=== PATIENT | male | born 1955 | race Caucasian/White ===

== ENCOUNTER 2017-11-14 00:11 | Emergency (ER) | payer BC, OTHER ==
--- NOTE | 2017-11-14 00:51 | EDM.PDOC ---
ED HPI GENERAL MEDICAL PROBLEM - General Chief Complaint: General Stated Complaint: LEG CRAMPS Time Seen by Provider: 11/14/17 00:11 Source of Information: Reports: Patient History Limitations: Reports: No Limitations - History of Present Illness INITIAL COMMENTS - FREE TEXT/NARRATIVE: 62 y.o.w.m with h/o IDDM. Smoker and Meth user, came to the ed because his left lower keg is swollen. He noticed it yesterday, I had similar symptoms before. No SOB, Pt stated he is not compliant with his meds. Pt denied trauma. 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 No N/V/D or any other acute medical issues. BP 106/74 RR 18 Pulse ox 99% on RA Temp 36.9 pulse 85 Onset Date: 11/12/17 Onset Time: 07:00 Duration: Intermittent Location: Reports: Lower Extremity, Left Quality: Reports: Dull, Pressure Severity: Moderate Improves with: Reports: Rest Worsens with: Reports: Movement Associated Symptoms: Reports: No Other Symptoms Bilateral Leg Pain Score (Numeric/FACES): 3 - Related Data Allergies Allergy/AdvReac Type Severity Reaction Status Date / Time No Known Allergies Allergy Verified 11/14/17 00:42 Home Meds: Home Meds Insulin Detemir [Levemir] 40 units SUBCUT BEDTIME 02/17/14 [History] Insulin Lispro [Humalog] See Protocol SUBCUT ASDIRECTED 02/17/14 [History] metFORMIN [Glucophage] 850 mg PO BID 02/17/14 [History] Past Medical History Endocrine/Metabolic History: Reports: Diabetes, Type II, IDDM Social & Family History - Tobacco Use Smoking Status *Q: Current Every Day Smoker Years of Tobacco use: 45 Packs/Tins Daily: 0.5 - Caffeine Use Caffeine Use: Reports: Coffee - Recreational Drug Use Recreational Drug Use: Yes Drug Use in Last 12 Months: Yes Recreational Drug Type: Reports: Methamphetamine Recreational Drug Use Frequency: Weekly ED ROS GENERAL - Review of Systems Review Of Systems: See Below Constitutional: Reports: No Symptoms HEENT: Reports: No Symptoms Respiratory: Reports: No Symptoms Cardiovascular: Reports: No Symptoms Endocrine: Reports: No Symptoms GI/Abdominal: Reports: No Symptoms : Reports: No Symptoms Musculoskeletal: Reports: Other (swelling left lower extremity) Skin: Reports: No Symptoms Neurological: Reports: No Symptoms Psychiatric: Reports: No Symptoms Hematologic/Lymphatic: Reports: No Symptoms Immunologic: Reports: No Symptoms ED EXAM, GENERAL - Physical Exam Exam: See Below Exam Limited By: No Limitations General Appearance: Alert, Mild Distress, Thin Eye Exam: Bilateral Eye: Normal Inspection Ears: Normal External Exam Ear Exam: Bilateral Ear: Auricle Normal Nose: Normal Inspection, Normal Mucosa Throat/Mouth: Normal Inspection, Normal Lips, Normal Oropharynx, Normal Voice, No Airway Compromise Head: Atraumatic, Normocephalic Neck: Normal Inspection, Supple, Non-Tender, Full Range of Motion Respiratory/Chest: No Respiratory Distress, Lungs Clear, Normal Breath Sounds, No Accessory Muscle Use, Chest Non-Tender Cardiovascular: Normal Peripheral Pulses, Regular Rate, Rhythm, No JVD, No Murmur, No Rub GI/Abdominal: Normal Bowel Sounds, Soft, Non-Tender (Male) Exam: Deferred Rectal (Males) Exam: Deferred Back Exam: Normal Inspection, Full Range of Motion Extremities: Normal Range of Motion, Non-Tender, Pedal Edema (pitting left lower leg) Neurological: Alert, Oriented, CN II-XII Intact, Normal Cognition, Normal Gait, Normal Reflexes, No Motor/Sensory Deficits Psychiatric: Normal Affect, Normal Mood Skin Exam: Warm, Dry, Intact, Normal Color, No Rash Lymphatic: No Adenopathy Course - Vital Signs Text/Narrative:: 62 y.o.w.m with h/o IDDM. Smoker and Meth user, came to the ed because his left lower keg is swollen. He noticed it yesterday, I had similar symptoms before. No SOB, Pt stated he is not compliant with his meds. Pt denied trauma. 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 No N/V/D or any other acute medical issues. BP 106/74 RR 18 Pulse ox 99% on RA Temp 36.9 pulse 85 PE: WNWD W M,Thin, with pitting edema left lower extremity Labs: CBC nl Na 133 K 4.7 BNP 154 Cr 1.2 BUN 20 GFR >60 Impreesion: Poor contolled IDDM, Left leg edema Tx: non in the Reexam: Pt was doing fine. US was not available Plan: D/C with instructions Last Recorded V/S: Last Vital Signs Temp 36.6 C 11/14/17 00:15 Pulse 80 11/14/17 01:45 Resp 16 11/14/17 01:45 BP 102/54 L 11/14/17 01:45 Pulse Ox 95 11/14/17 01:45 - Orders/Labs/Meds Labs: Laboratory Tests 11/14/17 11/14/17 11/14/17 Range/Units 01:00 01:00 01:00 WBC 7.5 (4.5-12.0) X10-3/uL RBC 4.23 L (4.30-5.75) x10(6)uL Hgb 13.4 (11.5-15.5) g/dL Hct 38.1 (30.0-51.3) % MCV 90.0 (80-96) fL MCH 31.7 (27.7-33.6) pg MCHC 35.2 (32.2-35.4) g/dL RDW 12.8 (11.5-15.5) % Plt Count 283 (125-369) X10(3)uL MPV 8.2 (7.4-10.4) fL Neut % (Auto) 62.5 (46-82) % Lymph % (Auto) 27.0 (13-37) % [place] % (Auto) 7.1 (4-12) % Eos % (Auto) 3 (1.0-5.0) % Baso % (Auto) 0 (0-2) % Neut # (Auto) 4.8 (1.6-8.3) # Lymph # (Auto) 2.0 (0.6-5.0) # [place] # (Auto) 0.5 (0.0-1.3) # Eos # (Auto) 0.2 (0.0-0.8) # Baso # (Auto) 0.0 (0.0-0.2) # Sodium 133 L (135-145) mmol/L Potassium 4.6 (3.5-5.3) mmol/L Chloride 94 L (100-110) mmol/L Carbon Dioxide 32 (21-32) mmol/L BUN 24 H (7-18) mg/dL Creatinine 1.2 (0.70-1.30) mg/dL Est Cr Clr Drug Dosing 64.68 mL/min Estimated GFR (MDRD) > 60 (>60) BUN/Creatinine Ratio 20.0 (9-20) Glucose 172 H (80-116) mg/dL Hemoglobin A1c (4.5-6.2) % Calcium 9.6 (8.6-10.2) mg/dL NT-Pro-B Natriuret Pep 158 H (<=125) pg/mL 11/14/17 Range/Units 01:00 WBC (4.5-12.0) X10-3/uL RBC (4.30-5.75) x10(6)uL Hgb (11.5-15.5) g/dL Hct (30.0-51.3) % MCV (80-96) fL MCH (27.7-33.6) pg MCHC (32.2-35.4) g/dL RDW (11.5-15.5) % Plt Count (125-369) X10(3)uL MPV (7.4-10.4) fL Neut % (Auto) (46-82) % Lymph % (Auto) (13-37) % [place] % (Auto) (4-12) % Eos % (Auto) (1.0-5.0) % Baso % (Auto) (0-2) % Neut # (Auto) (1.6-8.3) # Lymph # (Auto) (0.6-5.0) # [place] # (Auto) (0.0-1.3) # Eos # (Auto) (0.0-0.8) # Baso # (Auto) (0.0-0.2) # Sodium (135-145) mmol/L Potassium (3.5-5.3) mmol/L Chloride (100-110) mmol/L Carbon Dioxide (21-32) mmol/L BUN (7-18) mg/dL Creatinine (0.70-1.30) mg/dL Est Cr Clr Drug Dosing mL/min Estimated GFR (MDRD) (>60) BUN/Creatinine Ratio (9-20) Glucose (80-116) mg/dL Hemoglobin A1c 13.3 H (4.5-6.2) % Calcium (8.6-10.2) mg/dL NT-Pro-B Natriuret Pep (<=125) pg/mL Departure - Departure Time of Disposition: 01:53 Disposition: Home, Self-Care 01 Condition: Good Clinical Impression: Poorly controlled diabetes mellitus, Swelling of left lower extremity - Discharge Information Instructions: Vascular Ultrasound Referrals: Mack Huertas MD [Primary Care Provider] - Forms: ED Department Discharge Additional Instructions: Please take your insulin as recommended, please call in am for an ultrasound of your left lower leg, Please f/u, come back if your symptoms get worse acutely
[2017-11-14 02:06] VITALS: BP 102/54
== END 2017-11-14 02:00 | disposition home or self-care (01) ==
LOC: FB.ED 00:11
DX: R60.0 Localized edema (principal); E11.9 Type 2 diabetes mellitus without complications; Z79.4 Long term (current) use of insulin; F17.210 Nicotine dependence, cigarettes, uncomplicated
CPT/HCPCS: 36415; 80048; 83036; 83880; 85025; 93971-LT; 99283

== ENCOUNTER 2018-07-30 13:14 | Emergency (ER) | payer SELFPAY ==
[2018-07-30] MEDS ORDERED: Sodium Chloride 0.9% 10 ML Syringe FLUSH PRN (13:46)
[2018-07-30] MEDS ORDERED: Insulin Regular, Human 100 Units/ML 3 ML Vial IV ONE (13:48)
[2018-07-30] MEDS ORDERED: Sodium Chloride 0.9% 1,000 ML IV ONE ×2 (13:48→15:54)
[2018-07-30 14:45] LABS: HEMOGLOBIN A1C 12.6 % (4.5-6.2)
--- NOTE | 2018-07-30 15:14 | EDM.PDOC ---
ED HPI GENERAL MEDICAL PROBLEM - General Chief Complaint: Diabetic Complaint Stated Complaint: BLOOD SUGAR HIGH Time Seen by Provider: 07/30/18 13:30 Source of Information: Reports: Patient History Limitations: Reports: No Limitations - History of Present Illness INITIAL COMMENTS - FREE TEXT/NARRATIVE: 63-year-old male who reports that he has not had money to get his insulin or other medications for the past month and a half. He reports that his blood sugars have been running "high" for this month to month and a half. He reports that he has been eating and drinking normally. He does report that he has had polydipsia area. He does feel fatigued and with low energy all the time. No shortness of breath. No cough. He has no pain. He rates his pain as a 0/10. He has had no nausea or vomiting. No fevers or chills. No dysuria. He was seen at the [facility] [place] in [place], found to have a blood sugar reading of "high" and was told to come to the emergency department for evaluation. There are no other associated signs or symptoms. There are no other modifying factors. 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 - Related Data Allergies Allergy/AdvReac Type Severity Reaction Status Date / Time No Known Allergies Allergy Verified 11/14/17 00:42 Home Meds: Home Meds Insulin Detemir [Levemir] 40 units SUBCUT BEDTIME 02/17/14 [History] Insulin Lispro [Humalog] See Protocol SUBCUT ASDIRECTED 02/17/14 [History] metFORMIN [Glucophage] 850 mg PO BID 02/17/14 [History] Past Medical History Gastrointestinal History: Reports: GERD Neurological History: Reports: Neuropathy, Diabetic Endocrine/Metabolic History: Reports: Diabetes, Type II, IDDM - Past Surgical History Other Surgical History Comment: No previous surgeries. Social & Family History - Family History Cardiac: Reports: CAD, High Cholesterol, Hypertension Respiratory: Reports: COPD : Reports: Renal Disease/Insufficiency Neurological: Reports: CVA Endocrine/Metabolic: Reports: Diabetes, type II - Tobacco Use Smoking Status *Q: Former Smoker (Quit 1-1/2 months ago.) Used Tobacco, but Quit: Yes Month/Year Tobacco Last Used: 05/2018 - Caffeine Use Caffeine Use: Reports: Coffee, Soda, Tea - Alcohol Use Alcohol Use History: No - Recreational Drug Use Recreational Drug Use: Yes Recreational Drug Type: Reports: Methamphetamine - Living Situation & Occupation Occupation: Employed ED ROS GENERAL - Review of Systems Review Of Systems: See Below Constitutional: Reports: Malaise, Fatigue HEENT: Reports: Other (Dry mouth) Respiratory: Reports: No Symptoms Cardiovascular: Reports: No Symptoms Endocrine: Reports: Fatigue, High Glucose, Polydypsia, Polyuria GI/Abdominal: Reports: No Symptoms : Reports: Frequency (As above with polyuria). Denies: Dysuria, Flank Pain, Hematuria, Urgency Musculoskeletal: Reports: No Symptoms Skin: Reports: No Symptoms Neurological: Reports: No Symptoms Psychiatric: Reports: No Symptoms Hematologic/Lymphatic: Reports: No Symptoms Immunologic: Reports: No Symptoms ED EXAM GENERAL NO PERIP PULSE - Physical Exam Exam: See Below Exam Limited By: No Limitations General Appearance: Alert, WD/WN, No Apparent Distress Eye Exam: Bilateral Eye: EOMI, Normal Inspection, PERRL Ears: Normal External Exam, Hearing Grossly Normal Nose: Normal Inspection, Normal Mucosa Throat/Mouth: Normal Voice, No Airway Compromise, Other (Dry mouth) Head: Atraumatic, Normocephalic Neck: Normal Inspection, Supple, Non-Tender, Full Range of Motion Respiratory/Chest: No Respiratory Distress, Lungs Clear, Normal Breath Sounds, No Accessory Muscle Use, Chest Non-Tender Cardiovascular: Normal Peripheral Pulses, Regular Rate, Rhythm, No JVD GI/Abdominal: Normal Bowel Sounds, Soft, Non-Tender, No Organomegaly, No Distention, No Mass Extremities: Normal Inspection, Normal Range of Motion, Non-Tender, No Pedal Edema, Normal Capillary Refill Neurological: Alert, Oriented, CN II-XII Intact, Normal Cognition, No Motor/ Sensory Deficits Psychiatric: Normal Affect Skin Exam: Warm, Dry, Intact, Normal Color, Tattoo(s) Lymphatic: No Adenopathy Course - Vital Signs Last Recorded V/S: Last Vital Signs Temp 36.3 C 07/30/18 13:14 Pulse 70 07/30/18 13:14 Resp 18 07/30/18 13:14 BP 110/69 07/30/18 13:14 Pulse Ox 99 07/30/18 13:14 - Orders/Labs/Meds Orders: Active Orders 24 hr Category Date Time Status Insulin Glarg,Human.Rec.Analog [LantUS Solostar] Med 07/30/18 21:00 Ordered 30 units SUBCUT BEDTIME Insulin Lispro [HumaLOG] Med 07/31/18 08:00 Ordered See Dose Instructions SUBCUT TIDMEALS Sodium Chloride 0.9% [Saline Flush] Med 07/30/18 13:46 Active 10 ml FLUSH ASDIRECTED PRN Peripheral IV Insertion Adult [OM.PC] Routine Oth 07/30/18 13:46 Ordered Medication Orders Sodium Chloride (Saline Flush) 10 ml FLUSH ASDIRECTED PRN PRN Reason: Keep Vein Open Last Admin: 07/30/18 14:51 Dose: 10 ml Labs: Laboratory Tests 07/30/18 07/30/18 07/30/18 Range/Units 13:24 14:00 14:00 WBC 7.5 (4.5-12.0) X10-3/uL RBC 4.71 (4.30-5.75) x10(6)uL Hgb 14.5 (13.5-17.8) g/dL Hct 42.6 (30.0-51.3) % MCV 90.3 (80-96) fL MCH 30.7 (27.7-33.6) pg MCHC 34.0 (32.2-35.4) g/dL RDW 12.8 (11.5-15.5) % Plt Count 233 (125-369) X10(3)uL MPV 8.5 (7.4-10.4) fL Neut % (Auto) 69.5 (46-82) % Lymph % (Auto) 22.6 (13-37) % [place] % (Auto) 5.5 (4-12) % Eos % (Auto) 2 (1.0-5.0) % Baso % (Auto) 1 (0-2) % Neut # (Auto) 5.2 (1.6-8.3) # Lymph # (Auto) 1.7 (0.6-5.0) # [place] # (Auto) 0.4 (0.0-1.3) # Eos # (Auto) 0.1 (0.0-0.8) # Baso # (Auto) 0.1 (0.0-0.2) # Sodium 124 L (135-145) mmol/L Potassium 5.3 (3.5-5.3) mmol/L Chloride 87 L* D (100-110) mmol/L Carbon Dioxide 25 (21-32) mmol/L BUN 20 H (7-18) mg/dL Creatinine 1.2 (0.70-1.30) mg/dL Est Cr Clr Drug Dosing 63.87 mL/min Estimated GFR (MDRD) > 60 (>60) BUN/Creatinine Ratio 16.7 (9-20) Glucose 608 H* D (80-116) mg/dL POC Glucose > 500 H* (80-116) mg/dL Hemoglobin A1c (4.5-6.2) % Calcium 9.6 (8.6-10.2) mg/dL Magnesium (1.8-2.5) mg/dL Total Bilirubin 0.7 (0.1-1.3) mg/dL AST 14 (5-25) IU/L ALT 33 (12-36) U/L Alkaline Phosphatase 124 H (56-112) IU/L Total Protein 6.7 (6.0-8.0) g/dL Albumin 3.7 (3.2-4.6) g/dL Globulin 3.0 g/dL Albumin/Globulin Ratio 1.2 07/30/18 07/30/18 07/30/18 Range/Units 14:00 14:00 15:53 WBC (4.5-12.0) X10-3/uL RBC (4.30-5.75) x10(6)uL Hgb (13.5-17.8) g/dL Hct (30.0-51.3) % MCV (80-96) fL MCH (27.7-33.6) pg MCHC (32.2-35.4) g/dL RDW (11.5-15.5) % Plt Count (125-369) X10(3)uL MPV (7.4-10.4) fL Neut % (Auto) (46-82) % Lymph % (Auto) (13-37) % [place] % (Auto) (4-12) % Eos % (Auto) (1.0-5.0) % Baso % (Auto) (0-2) % Neut # (Auto) (1.6-8.3) # Lymph # (Auto) (0.6-5.0) # [place] # (Auto) (0.0-1.3) # Eos # (Auto) (0.0-0.8) # Baso # (Auto) (0.0-0.2) # Sodium (135-145) mmol/L Potassium (3.5-5.3) mmol/L Chloride (100-110) mmol/L Carbon Dioxide (21-32) mmol/L BUN (7-18) mg/dL Creatinine (0.70-1.30) mg/dL Est Cr Clr Drug Dosing mL/min Estimated GFR (MDRD) (>60) BUN/Creatinine Ratio (9-20) Glucose (80-116) mg/dL POC Glucose 448 H* (80-116) mg/dL Hemoglobin A1c 12.6 H (4.5-6.2) % Calcium (8.6-10.2) mg/dL Magnesium 1.9 (1.8-2.5) mg/dL Total Bilirubin (0.1-1.3) mg/dL AST (5-25) IU/L ALT (12-36) U/L Alkaline Phosphatase (56-112) IU/L Total Protein (6.0-8.0) g/dL Albumin (3.2-4.6) g/dL Globulin g/dL Albumin/Globulin Ratio 07/30/18 07/30/18 07/30/18 Range/Units 16:44 16:58 17:55 WBC (4.5-12.0) X10-3/uL RBC (4.30-5.75) x10(6)uL Hgb (13.5-17.8) g/dL Hct (30.0-51.3) % MCV (80-96) fL MCH (27.7-33.6) pg MCHC (32.2-35.4) g/dL RDW (11.5-15.5) % Plt Count (125-369) X10(3)uL MPV (7.4-10.4) fL Neut % (Auto) (46-82) % Lymph % (Auto) (13-37) % [place] % (Auto) (4-12) % Eos % (Auto) (1.0-5.0) % Baso % (Auto) (0-2) % Neut # (Auto) (1.6-8.3) # Lymph # (Auto) (0.6-5.0) # [place] # (Auto) (0.0-1.3) # Eos # (Auto) (0.0-0.8) # Baso # (Auto) (0.0-0.2) # Sodium 130 L (135-145) mmol/L Potassium 4.3 D (3.5-5.3) mmol/L Chloride 94 L D (100-110) mmol/L Carbon Dioxide 28 (21-32) mmol/L BUN 17 (7-18) mg/dL Creatinine 0.9 (0.70-1.30) mg/dL Est Cr Clr Drug Dosing 85.16 mL/min Estimated GFR (MDRD) > 60 (>60) BUN/Creatinine Ratio 18.9 (9-20) Glucose 443 H* D (80-116) mg/dL POC Glucose 412 H* 390 H (80-116) mg/dL Hemoglobin A1c (4.5-6.2) % Calcium 8.2 L (8.6-10.2) mg/dL Magnesium (1.8-2.5) mg/dL Total Bilirubin (0.1-1.3) mg/dL AST (5-25) IU/L ALT (12-36) U/L Alkaline Phosphatase (56-112) IU/L Total Protein (6.0-8.0) g/dL Albumin (3.2-4.6) g/dL Globulin g/dL Albumin/Globulin Ratio Meds: Medications Generic Name Dose Route Start Last Admin Trade Name Freq PRN Reason Stop Dose Admin Sodium Chloride 10 ml 07/30/18 13:46 07/30/18 14:51 Saline Flush FLUSH 10 ml ASDIRECTED PRN Administration Keep Vein Open Discontinued Medications Generic Name Dose Route Start Last Admin Trade Name Freq PRN Reason Stop Dose Admin Sodium Chloride 1,000 mls @ 999 mls/hr 07/30/18 13:48 07/30/18 14:52 Normal Saline IV 07/30/18 14:48 999 mls/hr .BOLUS ONE Administration Sodium Chloride 1,000 mls @ 999 mls/hr 07/30/18 15:54 07/30/18 15:55 Normal Saline IV 07/30/18 16:54 999 mls/hr .BOLUS ONE Administration Insulin Human Regular 12 unit 07/30/18 13:48 07/30/18 14:56 Humulin R IV 07/30/18 13:49 12 unit ONETIME ONE Administration - Re-Assessments/Exams Free Text/Narrative Re-Assessment/Exam: 07/30/18 18:14: Lab tests are consistent with uncontrolled diabetes. After 2 L of normal saline IV and subcutaneous regular insulin, the patient's blood sugar has come down well (as would be expected with treatment). He needs medications to control his diabetes at home. He is stable for discharge and I will provide him Lantus and Humalog as a take-home med. He is working with the clinic to get his medications on a regular basis. Departure - Departure Time of Disposition: 18:20 Disposition: Home, Self-Care 01 Condition: Good Clinical Impression: Hyponatremia, Dehydration, mild Diabetes mellitus type II, uncontrolled Qualifiers: Glycemic state: with hyperglycemia Qualified Code(s): E11.65 - Type 2 diabetes mellitus with hyperglycemia - Discharge Information Instructions: Insulin Treatment for Diabetes Mellitus Referrals: Sabrina Stephen PA-C [Primary Care Provider] - Forms: ED Department Discharge Additional Instructions: Your blood tests showed (as you would expect) uncontrolled diabetes mellitus. Your sodium was slightly low but improved with treatment and most probably represents pseudohyponatremia related to your elevated blood sugar. You should continue to drink plenty of fluids. Continue sticking with your diabetic diet. You have been given a Lantus pen and and a Humalog pen to use to treat your diabetes. For the Lantus, use 30 units at bedtime. For the Humalog, use with each meal as per your regular sliding scale/calculated carbs. Follow-up with the clinic to try to get your medications on a regular basis. Back to the emergency department for unrelenting vomiting, abdominal pain, trouble breathing , weakness or dizziness or any other concerning sign or symptom. - My Orders Last 24 Hours: My Active Orders 07/30/18 13:46 Sodium Chloride 0.9% [Saline Flush] 10 ml FLUSH ASDIRECTED PRN Peripheral IV Insertion Adult [OM.PC] Routine 07/30/18 21:00 Insulin Glarg,Human.Rec.Analog [LantUS Solostar] 30 units SUBCUT BEDTIME 07/31/18 08:00 Insulin Lispro [HumaLOG] See Dose Instructions SUBCUT TIDMEALS - Assessment/Plan Last 24 Hours: My Active Orders 07/30/18 13:46 Sodium Chloride 0.9% [Saline Flush] 10 ml FLUSH ASDIRECTED PRN Peripheral IV Insertion Adult [OM.PC] Routine 07/30/18 21:00 Insulin Glarg,Human.Rec.Analog [LantUS Solostar] 30 units SUBCUT BEDTIME 07/31/18 08:00 Insulin Lispro [HumaLOG] See Dose Instructions SUBCUT TIDMEALS
[2018-07-30] MEDS ORDERED: Insulin Lispro 100 Unit/ML 3 ML KwikPen SUBCUT ONE (18:25)
[2018-07-30 21:00] VITALS: BP 111/66
[2018-07-30] MEDS ORDERED: Insulin Glargine,Human Rec. Analog 100 Units/ML 3 ML Pen SUBCUT SCH (21:00)
[2018-07-31] MEDS ORDERED: Insulin Lispro 100 Unit/ML 3 ML KwikPen SUBCUT SCH (08:00)
== END 2018-07-30 18:41 | disposition home or self-care (01) ==
LOC: FB.ED 13:14
DX: E11.65 Type 2 diabetes mellitus with hyperglycemia (principal); E87.1 Hypo-osmolality and hyponatremia; E86.0 Dehydration; E11.40 Type 2 diabetes mellitus with diabetic neuropathy, unspecified; Z87.891 Personal history of nicotine dependence; Z79.4 Long term (current) use of insulin
CPT/HCPCS: 36415; 80048; 80053; 82962; 83036; 83735; 85025; 96360; 96361; 96372; 99284; J1815; J7030

== ENCOUNTER 2018-11-18 00:40 | Inpatient (IN) | payer BC, MEDICAID ==
[2018-11-18] MEDS ORDERED: Sodium Chloride 0.9% 10 ML Syringe FLUSH PRN ×2 (01:03→03:07)
--- NOTE | 2018-11-18 01:03 | EDM.PDOC ---
ED HPI GENERAL MEDICAL PROBLEM - General Chief Complaint: Gastrointestinal Problem Stated Complaint: VOMITTING BLOOD Time Seen by Provider: 11/18/18 01:00 Source of Information: Reports: Patient History Limitations: Reports: No Limitations - History of Present Illness INITIAL COMMENTS - FREE TEXT/NARRATIVE: 63-year-old male who reports at about 6:30 PM tonight he been in to have a burning and his chest that seemed to emanate from the stomach and go up to his throat. He had nausea associated with this and then had emesis 4 over the next 3 hours with initially some dark blood with clots mixed in with his emesis and then just dark blood with clots in the emesis. He has had no emesis since 10 or 11 PM tonight. His nausea has resolved. He does report a burning in his throat and he feels weak. He also noted that his blood sugar was in the 500 range at home. He did not take his Levemir tonight. He has had no fever. He has had no diarrhea. He rates the pain in his throat as an 8/10. It is a burning and sore pain and he states he feels that it is swollen in his throat. He has no abdominal pain. There are no other associated signs or symptoms. There are no other modifying factors. 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: Other (see below) (Nothing) - Related Data Allergies Allergy/AdvReac Type Severity Reaction Status Date / Time No Known Allergies Allergy Verified 11/14/17 00:42 Home Meds: Home Meds Insulin Detemir [Levemir] 40 units SUBCUT BEDTIME 02/17/14 [History] Insulin Lispro [Humalog] See Protocol SUBCUT ASDIRECTED 02/17/14 [History] metFORMIN [Glucophage] 850 mg PO BID 02/17/14 [History] Past Medical History Gastrointestinal History: Reports: GERD Neurological History: Reports: Neuropathy, Diabetic Endocrine/Metabolic History: Reports: Diabetes, Type II, IDDM - Past Surgical History HEENT Surgical History: Reports: Tonsillectomy Social & Family History - Family History Cardiac: Reports: CAD, High Cholesterol, Hypertension Respiratory: Reports: COPD : Reports: Renal Disease/Insufficiency Neurological: Reports: CVA Endocrine/Metabolic: Reports: Diabetes, type II - Tobacco Use Smoking Status *Q: Current Every Day Smoker - Caffeine Use Caffeine Use: Reports: Coffee, Soda, Tea - Alcohol Use Alcohol Use History: No - Living Situation & Occupation Occupation: Unemployed ED ROS GENERAL - Review of Systems Review Of Systems: See Below Constitutional: Reports: Malaise, Weakness HEENT: Reports: Throat Pain, Throat Swelling Respiratory: Reports: No Symptoms Cardiovascular: Reports: Chest Pain (Burning and chest from abdomen to throat) GI/Abdominal: Reports: Nausea, Vomiting, Other (Dark emesis, ? blood) : Reports: No Symptoms Musculoskeletal: Reports: No Symptoms Skin: Reports: No Symptoms Neurological: Reports: No Symptoms Immunologic: Reports: No Symptoms ED EXAM, GENERAL - Physical Exam Exam: See Below Exam Limited By: No Limitations General Appearance: Alert, Mild Distress, Thin Eye Exam: Bilateral Eye: EOMI, Normal Inspection, PERRL Ears: Normal External Exam Ear Exam: Bilateral Ear: Auricle Normal Nose: Normal Inspection, Normal Mucosa, No Blood Throat/Mouth: Normal Voice, No Airway Compromise, Other (Dry mucous membranes) Head: Atraumatic, Normocephalic Neck: Normal Inspection, Supple, Non-Tender, Full Range of Motion Respiratory/Chest: No Respiratory Distress, Lungs Clear, Normal Breath Sounds, No Accessory Muscle Use, Chest Non-Tender Cardiovascular: Normal Peripheral Pulses, No Edema, No JVD, Tachycardia Peripheral Pulses: 2+: Radial (L), Radial (R), Dorsalis Pedis (L), Dorsalis Pedis (R) GI/Abdominal: Normal Bowel Sounds, Soft, Non-Tender, No Mass (Scaphoid abdomen) Back Exam: Normal Inspection. No: CVA Tenderness (R), CVA Tenderness (L) Extremities: Normal Inspection, Normal Range of Motion, Non-Tender, No Pedal Edema, Normal Capillary Refill Neurological: Alert, Oriented, CN II-XII Intact, Normal Cognition, No Motor/ Sensory Deficits Skin Exam: Warm, Dry, Intact, Normal Color, No Rash EKG INTERPRETATION EKG Date: 11/18/18 Time: 01:55 Rhythm: NSR Rate (Beats/Min): 97 [place]: Normal P-Wave: Present QRS: Normal ST-T: Other (Nonspecific ST-T changes) QT: Normal (But with slightly prolonged QTc.) Comparison: NA - No Prior EKG Course - Vital Signs Last Recorded V/S: Last Vital Signs Temp 35.2 C 11/18/18 00:53 Pulse 91 11/18/18 03:03 Resp 17 11/18/18 03:03 BP 120/61 11/18/18 03:03 Pulse Ox 100 11/18/18 03:03 - Orders/Labs/Meds Orders: Active Orders 24 hr Category Date Time Status Admission Status [Patient Status] [ADT] Routine ADT 11/18/18 03:04 Ordered Patient Status Manage Transfer [TRANSFER] Routine ADT 11/18/18 03:21 Active Cardiac Monitoring [RC] .As Directed Care 11/18/18 03:04 Ordered Cardiac Monitoring [RC] CONTINUOUS Care 11/18/18 03:07 Active Communication Order [RC] STAT Care 11/18/18 03:07 Active Communication Order [RC] STAT Care 11/18/18 03:07 Active Communication Order [RC] STAT Care 11/18/18 03:07 Active EKG Documentation Completion [RC] ASDIRECTED Care 11/18/18 01:18 Active Oxygen Therapy [RC] PRN Care 11/18/18 03:07 Active Up With Assistance [RC] ASDIRECTED Care 11/18/18 03:07 Active VTE/DVT Education [RC] Per Unit Routine Care 11/18/18 03:07 Active Vital Signs [RC] Q1H Care 11/18/18 03:07 Active Nothing per Oral Now Diet [DIET] Diet 11/18/18 Breakfast Active NG Tube Placement [CR] Urgent Exams 11/18/18 01:18 Stop Req BASIC METABOLIC PANEL,BMP [CHEM] Routine Lab 11/18/18 07:00 Ordered BLOOD GAS VENOUS [BG] Stat Lab 11/18/18 07:00 Ordered GLUCOSE RANDOM [CHEM] Q1H Lab 11/18/18 03:15 Ordered GLUCOSE RANDOM [CHEM] Q1H Lab 11/18/18 04:15 Ordered GLUCOSE RANDOM [CHEM] Q1H Lab 11/18/18 05:15 Ordered GLUCOSE RANDOM [CHEM] Q1H Lab 11/18/18 06:15 Ordered GLUCOSE RANDOM [CHEM] Q1H Lab 11/18/18 07:15 Ordered GLYCOSYLATED HEMOGLOBIN,HGBA1C [CHEM] Stat Lab 11/18/18 03:07 Ordered LACTIC ACID [CHEM] Stat Lab 11/18/18 03:07 Ordered PHOSPHORUS [CHEM] Stat Lab 11/18/18 03:07 Ordered POTASSIUM,K [CHEM] Q1H Lab 11/18/18 03:15 Ordered POTASSIUM,K [CHEM] Q1H Lab 11/18/18 04:15 Ordered POTASSIUM,K [CHEM] Q1H Lab 11/18/18 05:15 Ordered POTASSIUM,K [CHEM] Q1H Lab 11/18/18 06:15 Ordered POTASSIUM,K [CHEM] Q1H Lab 11/18/18 07:15 Ordered UA W/MICROSCOPIC [URIN] Stat Lab 11/18/18 03:07 Ordered Insulin Regular, Human [HumuLIN R] 100 unit Med 11/18/18 03:30 Ordered Sodium Chloride 0.9% [Normal Saline] 99 ml IV TITRATE Ondansetron [Zofran] Med 11/18/18 03:07 Ordered 4 mg IVPUSH Q6H PRN Pantoprazole [ProTONIX IV] Med 11/18/18 14:15 Ordered 40 mg IVPUSH Q12H Sodium Chloride 0.9% [Normal Saline] 1,000 ml Med 11/18/18 03:15 Ordered IV ASDIRECTED Sodium Chloride 0.9% [Normal Saline] 1,000 ml Med 11/18/18 03:15 Ordered IV BOLUS Sodium Chloride 0.9% [Saline Flush] Med 11/18/18 01:03 Active 10 ml FLUSH ASDIRECTED PRN Sodium Chloride 0.9% [Saline Flush] Med 11/18/18 03:07 Ordered 10 ml FLUSH ASDIRECTED PRN Peripheral IV Insertion Adult [OM.PC] Routine Oth 11/18/18 01:03 Ordered Peripheral IV Insertion Adult [OM.PC] Stat Oth 11/18/18 03:07 Ordered Resuscitation Status Stat Resus Stat 11/18/18 03:07 Ordered EKG 12 Lead [EK] Routine Ther 11/18/18 01:17 Ordered Medication Orders Insulin Human Regular 100 unit (/ Sodium Chloride) 100 mls @ 7.07 mls/hr IV TITRATE LAURA; Protocol Sodium Chloride (Normal Saline) 1,000 mls @ 999 mls/hr IV BOLUS LAURA Sodium Chloride (Normal Saline) 1,000 mls @ 150 mls/hr IV ASDIRECTED LAURA Ondansetron HCl (Zofran) 4 mg IVPUSH Q6H PRN PRN Reason: Nausea/Vomiting Pantoprazole Sodium (Protonix Iv) 40 mg IVPUSH Q12H LAURA Sodium Chloride (Saline Flush) 10 ml FLUSH ASDIRECTED PRN PRN Reason: Keep Vein Open Last Admin: 11/18/18 01:20 Dose: 10 ml Sodium Chloride (Saline Flush) 10 ml FLUSH ASDIRECTED PRN PRN Reason: Keep Vein Open Labs: Laboratory Tests 11/18/18 11/18/18 11/18/18 Range/Units 01:20 01:20 01:20 WBC 14.9 H (4.5-12.0) X10-3/uL RBC 5.64 (4.30-5.75) x10(6)uL Hgb 17.4 (13.5-17.8) g/dL Hct 50.5 (30.0-51.3) % MCV 89.6 (80-96) fL MCH 30.8 (27.7-33.6) pg MCHC 34.4 (32.2-35.4) g/dL RDW 12.9 (11.5-15.5) % Plt Count 316 (125-369) X10(3)uL MPV 8.2 (7.4-10.4) fL Add Manual Diff Yes Neutrophils % (Manual) 80 (46-82) % Band Neutrophils % 4 (0-6) % Lymphocytes % (Manual) 10 L (13-37) % Monocytes % (Manual) 5 (4-12) % Eosinophils % (Manual) 1 (0-5) % POC VBG pH (7.31-7.41) POC VBG pCO2 (41-51) mmHG POC VBG HCO3 (23-28) mmol/L POC VBG Total CO2 (24-29) mmol/L POC VBG Base Excess (-2-3) mmol/L Sodium 127 L (135-145) mmol/L Potassium 5.2 (3.5-5.3) mmol/L Chloride 87 L* D (100-110) mmol/L Carbon Dioxide 12 L (21-32) mmol/L BUN 23 H (7-18) mg/dL Creatinine 1.8 H (0.70-1.30) mg/dL Est Cr Clr Drug Dosing 43.13 mL/min Estimated GFR (MDRD) 39 L (>60) BUN/Creatinine Ratio 12.8 (9-20) Glucose 533 H* D (80-116) mg/dL Calcium 9.8 (8.6-10.2) mg/dL Magnesium 1.7 L (1.8-2.5) mg/dL Total Bilirubin 0.7 (0.1-1.3) mg/dL AST 9 D (5-25) IU/L ALT 23 D (12-36) U/L Alkaline Phosphatase 154 H (56-112) IU/L Troponin I (<0.017-0.056) ng/mL C-Reactive Protein 0.6 (0.5-0.9) mg/dL Total Protein 8.3 H (6.0-8.0) g/dL Albumin 4.0 (3.2-4.6) g/dL Globulin 4.3 g/dL Albumin/Globulin Ratio 0.9 11/18/18 11/18/18 Range/Units 01:20 02:10 WBC (4.5-12.0) X10-3/uL RBC (4.30-5.75) x10(6)uL Hgb (13.5-17.8) g/dL Hct (30.0-51.3) % MCV (80-96) fL MCH (27.7-33.6) pg MCHC (32.2-35.4) g/dL RDW (11.5-15.5) % Plt Count (125-369) X10(3)uL MPV (7.4-10.4) fL Add Manual Diff Neutrophils % (Manual) (46-82) % Band Neutrophils % (0-6) % Lymphocytes % (Manual) (13-37) % Monocytes % (Manual) (4-12) % Eosinophils % (Manual) (0-5) % POC VBG pH 7.11 L (7.31-7.41) POC VBG pCO2 27.4 L (41-51) mmHG POC VBG HCO3 8.7 L (23-28) mmol/L POC VBG Total CO2 10 L (24-29) mmol/L POC VBG Base Excess -21 L (-2-3) mmol/L Sodium (135-145) mmol/L Potassium (3.5-5.3) mmol/L Chloride (100-110) mmol/L Carbon Dioxide (21-32) mmol/L BUN (7-18) mg/dL Creatinine (0.70-1.30) mg/dL Est Cr Clr Drug Dosing mL/min Estimated GFR (MDRD) (>60) BUN/Creatinine Ratio (9-20) Glucose (80-116) mg/dL Calcium (8.6-10.2) mg/dL Magnesium (1.8-2.5) mg/dL Total Bilirubin (0.1-1.3) mg/dL AST (5-25) IU/L ALT (12-36) U/L Alkaline Phosphatase (56-112) IU/L Troponin I < 0.017 L (<0.017-0.056) ng/mL C-Reactive Protein (0.5-0.9) mg/dL Total Protein (6.0-8.0) g/dL Albumin (3.2-4.6) g/dL Globulin g/dL Albumin/Globulin Ratio Meds: Medications Generic Name Dose Route Start Last Admin Trade Name Freq PRN Reason Stop Dose Admin Insulin Human Regular 100 unit 100 mls @ 7.07 mls/hr 11/18/18 03:30 / Sodium Chloride IV TITRATE LAURA Protocol 0.1 UNITS/KG/HR Sodium Chloride 1,000 mls @ 999 mls/hr 11/18/18 03:15 Normal Saline IV BOLUS LAURA Sodium Chloride 1,000 mls @ 150 mls/hr 11/18/18 03:15 Normal Saline IV ASDIRECTED LAURA Ondansetron HCl 4 mg 11/18/18 03:07 Zofran IVPUSH Q6H PRN Nausea/Vomiting Pantoprazole Sodium 40 mg 11/18/18 14:15 Protonix Iv IVPUSH Q12H LAURA Sodium Chloride 10 ml 11/18/18 01:03 11/18/18 01:20 Saline Flush FLUSH 10 ml ASDIRECTED PRN Administration Keep Vein Open Sodium Chloride 10 ml 11/18/18 03:07 Saline Flush FLUSH ASDIRECTED PRN Keep Vein Open Discontinued Medications Generic Name Dose Route Start Last Admin Trade Name Freq PRN Reason Stop Dose Admin Sodium Chloride 1,000 mls @ 999 mls/hr 11/18/18 01:04 11/18/18 01:20 Normal Saline IV 11/18/18 02:04 999 mls/hr .BOLUS ONE Administration Pantoprazole Sodium 80 mg/ 100 mls @ 200 mls/hr 11/18/18 01:56 11/18/18 02:11 Sodium Chloride IV 11/18/18 02:25 200 mls/hr .BOLUS ONE Administration Insulin Human Regular 15 unit 11/18/18 02:48 11/18/18 02:58 Humulin R IV 11/18/18 02:49 15 units ONETIME ONE Administration Ondansetron HCl 4 mg 11/18/18 01:04 11/18/18 01:19 Zofran IVPUSH 11/18/18 01:05 4 mg ONETIME ONE Administration - Re-Assessments/Exams Free Text/Narrative Re-Assessment/Exam: 11/18/18 02:15: Patient has had 3 more episodes of emesis of dark material that was positive for blood. We will continue ongoing fluid resuscitation with normal saline. He will also receive Protonix 80 mg IV. We will continue to monitor the patient closely awaiting lab test results. 11/18/18 03:24: Patient with evidence of DKA with a pH of 7.11 and glucose of 533. He also has evidence of upper GI hemorrhage with gastric occult positive emesis that was dark in appearance with weakness. He has received 1 L bolus of normal saline and I am giving him another bolus of normal saline. He was also given Protonix IV. He will need admission for IV insulin drip and continued IV fluid resuscitation and treatment with IV Protonix with close monitoring with serial potassiums, serial other chemistries and serial hemoglobins. The patient has remained hemodynamically stable in the emergency department. He will need ICU type monitoring with an insulin drip and serial glucoses, potassium checks. He will need at least a 2 midnight stay to accomplish this plan of care. I have discussed this with the patient that he agrees to admission to this hospital. I have placed interim admission orders and Dr. Blank will assume care of the patient at 7 AM. The patient is in agreement with the plans for admission at this institution. Departure - Departure Time of Disposition: 03:35 Disposition: Admitted As Inpatient 68 Condition: Fair (Guarded) Clinical Impression: Upper GI bleed, Hyponatremia, Dehydration Diabetic keto-acidosis Qualifiers: Diabetes mellitus type: type 2 Diabetes mellitus complication detail: without coma Qualified Code(s): E11.10 - Type 2 diabetes mellitus with ketoacidosis without coma - Discharge Information Referrals: Sabrina Stephen PA-C [Primary Care Provider] - Forms: ED Department Discharge Critical Care Note - Critical Care Note Total Time (mins): 95 Comments: Total critical care time spent with the patient was 95 minutes. - My Orders Last 24 Hours: My Active Orders 11/18/18 01:03 Sodium Chloride 0.9% [Saline Flush] 10 ml FLUSH ASDIRECTED PRN Peripheral IV Insertion Adult [OM.PC] Routine 11/18/18 01:17 EKG 12 Lead [EK] Routine 11/18/18 01:18 EKG Documentation Completion [RC] ASDIRECTED NG Tube Placement [CR] Urgent 11/18/18 03:04 Admission Status [Patient Status] [ADT] Routine Cardiac Monitoring [RC] .As Directed 11/18/18 03:07 Cardiac Monitoring [RC] CONTINUOUS Communication Order [RC] STAT Communication Order [RC] STAT Communication Order [RC] STAT Oxygen Therapy [RC] PRN Up With Assistance [RC] ASDIRECTED VTE/DVT Education [RC] Per Unit Routine Vital Signs [RC] Q1H GLYCOSYLATED HEMOGLOBIN,HGBA1C [CHEM] Stat LACTIC ACID [CHEM] Stat PHOSPHORUS [CHEM] Stat UA W/MICROSCOPIC [URIN] Stat Ondansetron [Zofran] 4 mg IVPUSH Q6H PRN Sodium Chloride 0.9% [Saline Flush] 10 ml FLUSH ASDIRECTED PRN Peripheral IV Insertion Adult [OM.PC] Stat Resuscitation Status Stat 11/18/18 03:15 GLUCOSE RANDOM [CHEM] Q1H POTASSIUM,K [CHEM] Q1H Sodium Chloride 0.9% [Normal Saline] 1,000 ml IV ASDIRECTED Sodium Chloride 0.9% [Normal Saline] 1,000 ml IV BOLUS 11/18/18 03:21 Patient Status Manage Transfer [TRANSFER] Routine 11/18/18 03:30 Insulin Regular, Human [HumuLIN R] 100 unit Sodium Chloride 0.9% [Normal Saline] 99 ml IV TITRATE 11/18/18 04:15 GLUCOSE RANDOM [CHEM] Q1H POTASSIUM,K [CHEM] Q1H 11/18/18 05:15 GLUCOSE RANDOM [CHEM] Q1H POTASSIUM,K [CHEM] Q1H 11/18/18 06:15 GLUCOSE RANDOM [CHEM] Q1H POTASSIUM,K [CHEM] Q1H 11/18/18 07:00 BASIC METABOLIC PANEL,BMP [CHEM] Routine BLOOD GAS VENOUS [BG] Stat 11/18/18 07:15 GLUCOSE RANDOM [CHEM] Q1H POTASSIUM,K [CHEM] Q1H 11/18/18 14:15 Pantoprazole [ProTONIX IV] 40 mg IVPUSH Q12H 11/18/18 Breakfast Nothing per Oral Now Diet [DIET] - Assessment/Plan Last 24 Hours: My Active Orders 11/18/18 01:03 Sodium Chloride 0.9% [Saline Flush] 10 ml FLUSH ASDIRECTED PRN Peripheral IV Insertion Adult [OM.PC] Routine 11/18/18 01:17 EKG 12 Lead [EK] Routine 11/18/18 01:18 EKG Documentation Completion [RC] ASDIRECTED NG Tube Placement [CR] Urgent 11/18/18 03:04 Admission Status [Patient Status] [ADT] Routine Cardiac Monitoring [RC] .As Directed 11/18/18 03:07 Cardiac Monitoring [RC] CONTINUOUS Communication Order [RC] STAT Communication Order [RC] STAT Communication Order [RC] STAT Oxygen Therapy [RC] PRN Up With Assistance [RC] ASDIRECTED VTE/DVT Education [RC] Per Unit Routine Vital Signs [RC] Q1H GLYCOSYLATED HEMOGLOBIN,HGBA1C [CHEM] Stat LACTIC ACID [CHEM] Stat PHOSPHORUS [CHEM] Stat UA W/MICROSCOPIC [URIN] Stat Ondansetron [Zofran] 4 mg IVPUSH Q6H PRN Sodium Chloride 0.9% [Saline Flush] 10 ml FLUSH ASDIRECTED PRN Peripheral IV Insertion Adult [OM.PC] Stat Resuscitation Status Stat 11/18/18 03:15 GLUCOSE RANDOM [CHEM] Q1H POTASSIUM,K [CHEM] Q1H Sodium Chloride 0.9% [Normal Saline] 1,000 ml IV ASDIRECTED Sodium Chloride 0.9% [Normal Saline] 1,000 ml IV BOLUS 11/18/18 03:21 Patient Status Manage Transfer [TRANSFER] Routine 11/18/18 03:30 Insulin Regular, Human [HumuLIN R] 100 unit Sodium Chloride 0.9% [Normal Saline] 99 ml IV TITRATE 11/18/18 04:15 GLUCOSE RANDOM [CHEM] Q1H POTASSIUM,K [CHEM] Q1H 11/18/18 05:15 GLUCOSE RANDOM [CHEM] Q1H POTASSIUM,K [CHEM] Q1H 11/18/18 06:15 GLUCOSE RANDOM [CHEM] Q1H POTASSIUM,K [CHEM] Q1H 11/18/18 07:00 BASIC METABOLIC PANEL,BMP [CHEM] Routine BLOOD GAS VENOUS [BG] Stat 11/18/18 07:15 GLUCOSE RANDOM [CHEM] Q1H POTASSIUM,K [CHEM] Q1H 11/18/18 14:15 Pantoprazole [ProTONIX IV] 40 mg IVPUSH Q12H 11/18/18 Breakfast Nothing per Oral Now Diet [DIET]
[2018-11-18] MEDS ORDERED: Sodium Chloride 0.9% 1,000 ML IV ONE (01:04)
[2018-11-18] MEDS ORDERED: Ondansetron 4 MG/2 ML SDV IVPUSH ONE (01:04)
[2018-11-18] MEDS ORDERED: Pantoprazole 80 MG in Sodium Chloride 0.9% 100 ML IV ONE (01:56)
[2018-11-18] MEDS ORDERED: Insulin Regular, Human 100 Units/ML 3 ML Vial IV ONE (02:48)
[2018-11-18] MEDS: Sodium Chloride 0.9% 1,000 ML IV SCH ×5 (03:00→19:38)
[2018-11-18] MEDS ORDERED: Ondansetron 4 MG/2 ML SDV IVPUSH PRN (03:07)
[2018-11-18 04:09] LABS: HEMOGLOBIN A1C 10.2 % (4.5-6.2)
[2018-11-18] MEDS ORDERED: Potassium Chloride 100 ML ONE (05:15)
[2018-11-18] MEDS ORDERED: Potassium Chloride 40 MEQ/20 ML SDV IV ONE (05:20)
[2018-11-18] MEDS: Potassium Chloride 100 ML IV ONE ×2 (05:50→05:54)
--- NOTE | 2018-11-18 08:27 | PCM.HP.2 ---
H&P History of Present Illness - General Date of Service: 11/18/18 Admit Problem/Dx: Admission Diagnosis/Problem Admission Diagnosis/Problem Diabetic ketoacidosis Source of Information: Patient, EMS Notes Reviewed History Limitations: Reports: No Limitations - History of Present Illness Initial Comments - Free Text/Narative: This is a 63-year-old type II diabetic came into ER after he was vomiting up blood. He says he has history of GERD and for the last 2 days is lots of heartburn. He is on Levemir and short-acting insulin 2 units per carb. He says it up and take his insulin for the last 3 days because he has not been eating. He saw Sabrina Stephen CHANDA will he normally sees the other day he says his A1c was 14. He says he hardly ever takes his fast acting insulin because he takes never really hungry doesn't eat. He says he says some excessive thirst but no excessive hunger or urination. He denies chest pain, shortness of breath, fevers , chills, diaphoresis. Denies abdominal pain, history of gastritis, hematochezia , melena, diarrhea constipation. - Related Data Allergies/Adverse Reactions: Allergies Allergy/AdvReac Type Severity Reaction Status Date / Time No Known Allergies Allergy Verified 11/14/17 00:42 Home Medications: Home Meds metFORMIN [Glucophage] 850 mg PO BID 02/17/14 [History] Insulin Aspart [NovoLOG] 0 unit SQ TID 11/18/18 [History] Insulin Detemir [Levemir Flextouch] 40 units SQ BEDTIME 11/18/18 [History] Past Medical History Cardiovascular History: Reports: Other (See Below) Other Cardiovascular History: States that his blood pressure is usually low. Respiratory History: Reports: Other (See Below) Other Respiratory History: Smoker since the age of 18. Gastrointestinal History: Reports: GERD Neurological History: Reports: Neuropathy, Diabetic, Other (See Below) Other Neuro History: States numbness in hands and feet. States he gets dizzy when his blood sugar is low and blood pressure is low. Endocrine/Metabolic History: Reports: Diabetes, Type II, IDDM - Infectious Disease History Infectious Disease History: Reports: Chicken Pox, Shingles, Other (See Below) Other Infectious Disease History: States he had "measles", doesn't recall Rubella or Rubeola. - Past Surgical History HEENT Surgical History: Reports: Tonsillectomy Social & Family History - Family History Family Medical History: Noncontributory Cardiac: Reports: CAD, High Cholesterol, Hypertension Respiratory: Reports: COPD : Reports: Renal Disease/Insufficiency Neurological: Reports: CVA Endocrine/Metabolic: Reports: Diabetes, type II - Tobacco Use Smoking Status *Q: Current Every Day Smoker Years of Tobacco use: 46 Packs/Tins Daily: 0.5 - Caffeine Use Caffeine Use: Reports: Coffee, Soda, Tea Other Caffeine Use: powerade or gatorade. - Recreational Drug Use Recreational Drug Use: Yes Recreational Drug Type: Reports: Cocaine, Marijuana/Hashish - Living Situation & Occupation Occupation: Unemployed H&P Review of Systems - Review of Systems: Review Of Systems: See Below General: Reports: Decreased Appetite HEENT: Reports: No Symptoms Pulmonary: Reports: No Symptoms Cardiovascular: Reports: No Symptoms Gastrointestinal: Reports: Hematemesis, Other (GERD) Genitourinary: Reports: No Symptoms Musculoskeletal: Reports: No Symptoms Skin: Reports: No Symptoms Psychiatric: Reports: No Symptoms Neurological: Reports: No Symptoms Hematologic/Lymphatic: Reports: No Symptoms Immunologic: Reports: No Symptoms Exam - Exam Exam: See Below () - Vital Signs Vital Signs: Last Vital Signs Temp 97.5 F 11/18/18 03:45 Pulse 81 11/18/18 06:55 Resp 14 11/18/18 06:55 BP 117/71 11/18/18 06:55 Pulse Ox 100 11/18/18 06:55 Weight: 141 lb 9.6 oz - Exam General: Alert, Oriented, Cooperative HEENT: Hearing Intact, Mucosa Moist & [place], Posterior Pharynx Clear, TMs Clear Neck: Supple, Trachea Midline Lungs: Clear to Auscultation, Normal Respiratory Effort Cardiovascular: Regular Rate, Regular Rhythm. No: Systolic Murmur GI/Abdominal Exam: Normal Bowel Sounds, Soft, Non-Tender, No Organomegaly, No Distention, No Abnormal Bruit, No Mass Back Exam: Normal Inspection, Full Range of Motion Extremities: Normal Inspection, Normal Range of Motion, Non-Tender, No Pedal Edema Skin: Warm, Dry, Intact Neuro Extensive - Mental Status: Alert, Oriented x3, Normal Mood/Affect, Normal Cognition, Memory Intact Psychiatric: Alert, Normal Affect, Normal Mood - Patient Data Lab Results Last 24 hrs: Laboratory Results - last 24 hr 11/18/18 11/18/18 11/18/18 Range/Units 01:20 01:20 01:20 WBC 14.9 H (4.5-12.0) X10-3/uL RBC 5.64 (4.30-5.75) x10(6)uL Hgb 17.4 (13.5-17.8) g/dL Hct 50.5 (30.0-51.3) % MCV 89.6 (80-96) fL MCH 30.8 (27.7-33.6) pg MCHC 34.4 (32.2-35.4) g/dL RDW 12.9 (11.5-15.5) % Plt Count 316 (125-369) X10(3)uL MPV 8.2 (7.4-10.4) fL Add Manual Diff Yes Neutrophils % (Manual) 80 (46-82) % Band Neutrophils % 4 (0-6) % Lymphocytes % (Manual) 10 L (13-37) % Monocytes % (Manual) 5 (4-12) % Eosinophils % (Manual) 1 (0-5) % POC VBG pH (7.31-7.41) POC VBG pCO2 (41-51) mmHG POC VBG HCO3 (23-28) mmol/L POC VBG Total CO2 (24-29) mmol/L POC VBG Base Excess (-2-3) mmol/L Sodium 127 L (135-145) mmol/L Potassium 5.2 (3.5-5.3) mmol/L Chloride 87 L* D (100-110) mmol/L Carbon Dioxide 12 L (21-32) mmol/L BUN 23 H (7-18) mg/dL Creatinine 1.8 H (0.70-1.30) mg/dL Est Cr Clr Drug Dosing 43.13 mL/min Estimated GFR (MDRD) 39 L (>60) BUN/Creatinine Ratio 12.8 (9-20) Glucose 533 H* D (80-116) mg/dL POC Glucose (80-116) mg/dL Hemoglobin A1c (4.5-6.2) % Lactic Acid (0.4-2.2) mmol/L Calcium 9.8 (8.6-10.2) mg/dL Phosphorus (2.6-4.6) mg/dL Magnesium 1.7 L (1.8-2.5) mg/dL Total Bilirubin 0.7 (0.1-1.3) mg/dL AST 9 D (5-25) IU/L ALT 23 D (12-36) U/L Alkaline Phosphatase 154 H (56-112) IU/L Troponin I (<0.017-0.056) ng/mL C-Reactive Protein 0.6 (0.5-0.9) mg/dL Total Protein 8.3 H (6.0-8.0) g/dL Albumin 4.0 (3.2-4.6) g/dL Globulin 4.3 g/dL Albumin/Globulin Ratio 0.9 11/18/18 11/18/18 11/18/18 Range/Units 01:20 01:20 01:20 WBC (4.5-12.0) X10-3/uL RBC (4.30-5.75) x10(6)uL Hgb (13.5-17.8) g/dL Hct (30.0-51.3) % MCV (80-96) fL MCH (27.7-33.6) pg MCHC (32.2-35.4) g/dL RDW (11.5-15.5) % Plt Count (125-369) X10(3)uL MPV (7.4-10.4) fL Add Manual Diff Neutrophils % (Manual) (46-82) % Band Neutrophils % (0-6) % Lymphocytes % (Manual) (13-37) % Monocytes % (Manual) (4-12) % Eosinophils % (Manual) (0-5) % POC VBG pH (7.31-7.41) POC VBG pCO2 (41-51) mmHG POC VBG HCO3 (23-28) mmol/L POC VBG Total CO2 (24-29) mmol/L POC VBG Base Excess (-2-3) mmol/L Sodium (135-145) mmol/L Potassium (3.5-5.3) mmol/L Chloride (100-110) mmol/L Carbon Dioxide (21-32) mmol/L BUN (7-18) mg/dL Creatinine (0.70-1.30) mg/dL Est Cr Clr Drug Dosing mL/min Estimated GFR (MDRD) (>60) BUN/Creatinine Ratio (9-20) Glucose (80-116) mg/dL POC Glucose (80-116) mg/dL Hemoglobin A1c (4.5-6.2) % Lactic Acid 2.8 H (0.4-2.2) mmol/L Calcium (8.6-10.2) mg/dL Phosphorus 5.7 H (2.6-4.6) mg/dL Magnesium (1.8-2.5) mg/dL Total Bilirubin (0.1-1.3) mg/dL AST (5-25) IU/L ALT (12-36) U/L Alkaline Phosphatase (56-112) IU/L Troponin I < 0.017 L (<0.017-0.056) ng/mL C-Reactive Protein (0.5-0.9) mg/dL Total Protein (6.0-8.0) g/dL Albumin (3.2-4.6) g/dL Globulin g/dL Albumin/Globulin Ratio 11/18/18 11/18/18 11/18/18 Range/Units 01:20 02:10 03:30 WBC (4.5-12.0) X10-3/uL RBC (4.30-5.75) x10(6)uL Hgb (13.5-17.8) g/dL Hct (30.0-51.3) % MCV (80-96) fL MCH (27.7-33.6) pg MCHC (32.2-35.4) g/dL RDW (11.5-15.5) % Plt Count (125-369) X10(3)uL MPV (7.4-10.4) fL Add Manual Diff Neutrophils % (Manual) (46-82) % Band Neutrophils % (0-6) % Lymphocytes % (Manual) (13-37) % Monocytes % (Manual) (4-12) % Eosinophils % (Manual) (0-5) % POC VBG pH 7.11 L (7.31-7.41) POC VBG pCO2 27.4 L (41-51) mmHG POC VBG HCO3 8.7 L (23-28) mmol/L POC VBG Total CO2 10 L (24-29) mmol/L POC VBG Base Excess -21 L (-2-3) mmol/L Sodium (135-145) mmol/L Potassium 4.4 (3.5-5.3) mmol/L Chloride (100-110) mmol/L Carbon Dioxide (21-32) mmol/L BUN (7-18) mg/dL Creatinine (0.70-1.30) mg/dL Est Cr Clr Drug Dosing mL/min Estimated GFR (MDRD) (>60) BUN/Creatinine Ratio (9-20) Glucose 493 H* (80-116) mg/dL POC Glucose (80-116) mg/dL Hemoglobin A1c 10.2 H (4.5-6.2) % Lactic Acid (0.4-2.2) mmol/L Calcium (8.6-10.2) mg/dL Phosphorus (2.6-4.6) mg/dL Magnesium (1.8-2.5) mg/dL Total Bilirubin (0.1-1.3) mg/dL AST (5-25) IU/L ALT (12-36) U/L Alkaline Phosphatase (56-112) IU/L Troponin I (<0.017-0.056) ng/mL C-Reactive Protein (0.5-0.9) mg/dL Total Protein (6.0-8.0) g/dL Albumin (3.2-4.6) g/dL Globulin g/dL Albumin/Globulin Ratio 11/18/18 11/18/18 11/18/18 Range/Units 04:02 04:30 05:30 WBC (4.5-12.0) X10-3/uL RBC (4.30-5.75) x10(6)uL Hgb (13.5-17.8) g/dL Hct (30.0-51.3) % MCV (80-96) fL MCH (27.7-33.6) pg MCHC (32.2-35.4) g/dL RDW (11.5-15.5) % Plt Count (125-369) X10(3)uL MPV (7.4-10.4) fL Add Manual Diff Neutrophils % (Manual) (46-82) % Band Neutrophils % (0-6) % Lymphocytes % (Manual) (13-37) % Monocytes % (Manual) (4-12) % Eosinophils % (Manual) (0-5) % POC VBG pH (7.31-7.41) POC VBG pCO2 (41-51) mmHG POC VBG HCO3 (23-28) mmol/L POC VBG Total CO2 (24-29) mmol/L POC VBG Base Excess (-2-3) mmol/L Sodium (135-145) mmol/L Potassium 4.7 3.9 (3.5-5.3) mmol/L Chloride (100-110) mmol/L Carbon Dioxide (21-32) mmol/L BUN (7-18) mg/dL Creatinine (0.70-1.30) mg/dL Est Cr Clr Drug Dosing mL/min Estimated GFR (MDRD) (>60) BUN/Creatinine Ratio (9-20) Glucose 347 H D 297 H (80-116) mg/dL POC Glucose 398 H (80-116) mg/dL Hemoglobin A1c (4.5-6.2) % Lactic Acid (0.4-2.2) mmol/L Calcium (8.6-10.2) mg/dL Phosphorus (2.6-4.6) mg/dL Magnesium (1.8-2.5) mg/dL Total Bilirubin (0.1-1.3) mg/dL AST (5-25) IU/L ALT (12-36) U/L Alkaline Phosphatase (56-112) IU/L Troponin I (<0.017-0.056) ng/mL C-Reactive Protein (0.5-0.9) mg/dL Total Protein (6.0-8.0) g/dL Albumin (3.2-4.6) g/dL Globulin g/dL Albumin/Globulin Ratio 11/18/18 11/18/18 11/18/18 Range/Units 06:50 06:50 06:50 WBC 13.3 H (4.5-12.0) X10-3/uL RBC 5.29 (4.30-5.75) x10(6)uL Hgb 16.2 (13.5-17.8) g/dL Hct 46.6 (30.0-51.3) % MCV 88.1 (80-96) fL MCH 30.6 (27.7-33.6) pg MCHC 34.8 (32.2-35.4) g/dL RDW 13.0 (11.5-15.5) % Plt Count 295 (125-369) X10(3)uL MPV 7.7 (7.4-10.4) fL Add Manual Diff Yes Neutrophils % (Manual) 90 H (46-82) % Band Neutrophils % 2 (0-6) % Lymphocytes % (Manual) 5 L (13-37) % Monocytes % (Manual) 2 L (4-12) % Eosinophils % (Manual) 1 (0-5) % POC VBG pH 7.19 L (7.31-7.41) POC VBG pCO2 27.4 L (41-51) mmHG POC VBG HCO3 10.5 L (23-28) mmol/L POC VBG Total CO2 11 L (24-29) mmol/L POC VBG Base Excess -18 L (-2-3) mmol/L Sodium 136 (135-145) mmol/L Potassium 4.2 (3.5-5.3) mmol/L Chloride 100 D (100-110) mmol/L Carbon Dioxide 15 L (21-32) mmol/L BUN 18 (7-18) mg/dL Creatinine 1.5 H (0.70-1.30) mg/dL Est Cr Clr Drug Dosing 46.98 mL/min Estimated GFR (MDRD) 48 L (>60) BUN/Creatinine Ratio 12.0 (9-20) Glucose 241 H (80-116) mg/dL POC Glucose (80-116) mg/dL Hemoglobin A1c (4.5-6.2) % Lactic Acid (0.4-2.2) mmol/L Calcium 8.6 (8.6-10.2) mg/dL Phosphorus (2.6-4.6) mg/dL Magnesium (1.8-2.5) mg/dL Total Bilirubin (0.1-1.3) mg/dL AST (5-25) IU/L ALT (12-36) U/L Alkaline Phosphatase (56-112) IU/L Troponin I (<0.017-0.056) ng/mL C-Reactive Protein (0.5-0.9) mg/dL Total Protein (6.0-8.0) g/dL Albumin (3.2-4.6) g/dL Globulin g/dL Albumin/Globulin Ratio 11/18/ Range/Units 07:30 WBC (4.5-12.0) X10-3/uL RBC (4.30-5.75) x10(6)uL Hgb (13.5-17.8) g/dL Hct (30.0-51.3) % MCV (80-96) fL MCH (27.7-33.6) pg MCHC (32.2-35.4) g/dL RDW (11.5-15.5) % Plt Count (125-369) X10(3)uL MPV (7.4-10.4) fL Add Manual Diff Neutrophils % (Manual) (46-82) % Band Neutrophils % (0-6) % Lymphocytes % (Manual) (13-37) % Monocytes % (Manual) (4-12) % Eosinophils % (Manual) (0-5) % POC VBG pH (7.31-7.41) POC VBG pCO2 (41-51) mmHG POC VBG HCO3 (23-28) mmol/L POC VBG Total CO2 (24-29) mmol/L POC VBG Base Excess (-2-3) mmol/L Sodium (135-145) mmol/L Potassium 4.5 (3.5-5.3) mmol/L Chloride (100-110) mmol/L Carbon Dioxide (21-32) mmol/L BUN (7-18) mg/dL Creatinine (0.70-1.30) mg/dL Est Cr Clr Drug Dosing mL/min Estimated GFR (MDRD) (>60) BUN/Creatinine Ratio (9-20) Glucose 214 H (80-116) mg/dL POC Glucose (80-116) mg/dL Hemoglobin A1c (4.5-6.2) % Lactic Acid (0.4-2.2) mmol/L Calcium (8.6-10.2) mg/dL Phosphorus (2.6-4.6) mg/dL Magnesium (1.8-2.5) mg/dL Total Bilirubin (0.1-1.3) mg/dL AST (5-25) IU/L ALT (12-36) U/L Alkaline Phosphatase (56-112) IU/L Troponin I (<0.017-0.056) ng/mL C-Reactive Protein (0.5-0.9) mg/dL Total Protein (6.0-8.0) g/dL Albumin (3.2-4.6) g/dL Globulin g/dL Albumin/Globulin Ratio Result Diagrams: 11/18/18 06:50 11/18/18 07:30 Bo Results Last 24 hrs: Microbiology 11/18/18 01:42 Gastric Occult Blood - Final Gastric Fluid - Problem List (1) Dehydration SNOMED Code(s): 13803089 ICD Code: E86.0 - DEHYDRATION Status: Acute Current Visit: Yes (2) Diabetic keto-acidosis SNOMED Code(s): 286503451, 887569569 ICD Code: E11.10 - TYPE 2 DIABETES MELLITUS WITH KETOACIDOSIS WITHOUT COMA Status: Acute Current Visit: Yes Qualifiers: Diabetes mellitus type: type 2 Diabetes mellitus complication detail: without coma Qualified Code(s): E11.10 - Type 2 diabetes mellitus with ketoacidosis without coma (3) Upper GI bleed SNOMED Code(s): 40097410 ICD Code: K92.2 - GASTROINTESTINAL HEMORRHAGE, UNSPECIFIED Status: Acute Current Visit: Yes (4) Poorly controlled diabetes mellitus SNOMED Code(s): 674673986, 771891649 ICD Code: E11.65 - TYPE 2 DIABETES MELLITUS WITH HYPERGLYCEMIA Status: Acute Current Visit: No (5) Hyponatremia SNOMED Code(s): 29364737 ICD Code: E87.1 - HYPO-OSMOLALITY AND HYPONATREMIA Status: Acute Current Visit: Yes (6) [place]errat-Phelps tear SNOMED Code(s): 559738222 ICD Code: K22.6 - GASTRO-ESOPHAGEAL LACERATION-HEMORRHAGE SYNDROME Status: Acute Current Visit: Yes Problem List Initiated/Reviewed/Updated: Yes Orders Last 24hrs: Active Orders 24 hr Category Date Time Status Admission Status [Patient Status] [ADT] Routine ADT 11/18/18 03:04 Active Accu Check [Blood Glucose Check, Bedside] [RC] ONETIME Care 11/18/18 01:04 Active Cardiac Monitoring [RC] 00,08,16 Care 11/18/18 03:04 Active Cardiac Monitoring [RC] CONTINUOUS Care 11/18/18 03:07 Inactive Communication Order [RC] STAT Care 11/18/18 03:07 Active Communication Order [RC] STAT Care 11/18/18 03:07 Active Communication Order [RC] STAT Care 11/18/18 03:07 Active Oxygen Therapy [RC] PRN Care 11/18/18 03:07 Active Up With Assistance [RC] ASDIRECTED Care 11/18/18 03:07 Active Vital Signs [RC] Q4HR Care 11/18/18 03:07 Active Nothing per Oral Now Diet [DIET] Diet 11/18/18 Breakfast Active NG Tube Placement [CR] Urgent Exams 11/18/18 01:18 Stop Req UA W/MICROSCOPIC [URIN] Stat Lab 11/18/18 03:07 Ordered Insulin Detemir [Levemir Flextouch] Med 11/18/18 21:00 Ordered 40 units SQ BEDTIME Insulin Isophane NPH, Human [NovoLIN N] Med 11/18/18 17:30 Ordered See Protocol SUBCUT BIDAC Ondansetron [Zofran] Med 11/18/18 03:07 Active 4 mg IVPUSH Q6H PRN Pantoprazole [ProTONIX IV] Med 11/18/18 14:15 Active 40 mg IVPUSH Q12H Sodium Chloride 0.9% [Normal Saline] 1,000 ml Med 11/18/18 03:15 Active IV ASDIRECTED Sodium Chloride 0.9% [Normal Saline] 1,000 ml Med 11/18/18 03:15 Active IV BOLUS Sodium Chloride 0.9% [Saline Flush] Med 11/18/18 01:03 Active 10 ml FLUSH ASDIRECTED PRN Sodium Chloride 0.9% [Saline Flush] Med 11/18/18 03:07 Active 10 ml FLUSH ASDIRECTED PRN Peripheral IV Insertion Adult [OM.PC] Routine Oth 11/18/18 01:03 Ordered Peripheral IV Insertion Adult [OM.PC] Stat Oth 11/18/18 03:07 Ordered Resuscitation Status Stat Resus Stat 11/18/18 03:07 Ordered EKG 12 Lead [EK] Routine Ther 11/18/18 01:17 Ordered Medication Orders Sodium Chloride (Normal Saline) 1,000 mls @ 999 mls/hr IV BOLUS LAURA Last Admin: 11/18/18 03:00 Dose: 999 mls/hr Sodium Chloride (Normal Saline) 1,000 mls @ 150 mls/hr IV ASDIRECTED LAURA Last Admin: 11/18/18 04:05 Dose: 150 mls/hr Insulin Human NPH (Novolin N) 0 unit SUBCUT BIDAC LAURA; Protocol Non-Formulary Medication (Insulin Detemir [Levemir Flextouch]) 40 units SQ BEDTIME LAURA Ondansetron HCl (Zofran) 4 mg IVPUSH Q6H PRN PRN Reason: Nausea/Vomiting Pantoprazole Sodium (Protonix Iv) 40 mg IVPUSH Q12H LAURA Sodium Chloride (Saline Flush) 10 ml FLUSH ASDIRECTED PRN PRN Reason: Keep Vein Open Last Admin: 11/18/18 01:20 Dose: 10 ml Sodium Chloride (Saline Flush) 10 ml FLUSH ASDIRECTED PRN PRN Reason: Keep Vein Open Assessment/Plan Comment:: 1. Admit to the ICU 2. Clear liquids 3. IV potassium, IV insulin with hourly blood sugars and potassium is 4. When his blood sugar gets too low 200s switch him over to a sliding scale and restart his Levemir. 5. Diabetic diet when he is improved. 6. Consult surgery in regards to upper GI bleed 7. Push IV fluids 8. Input and output measurements 9. Up ad hubert. 10. Recheck ABGs 11. SCD for VTE prophylaxis. GI bleed so Lovenox contraindicated.
[2018-11-18] MEDS ORDERED: Sodium Chloride 0.9% 1,000 ML IV SCH (08:30)
[2018-11-18] MEDS: Insulin Lispro 100 Unit/ML 3 ML KwikPen SUBCUT SCH ×4 (08:48→20:56)
--- NOTE | 2018-11-18 10:20 | PCM.CONS ---
H&P History of Present Illness - General Date of Service: 11/18/18 Admit Problem/Dx: Admission Diagnosis/Problem Admission Diagnosis/Problem Diabetic ketoacidosis - History of Present Illness Initial Comments - Free Text/Narative: Pt admitted with in DKA. Apparently had several issues of blood in this emesis while in the ED. This apparently is a long standing issue. Has a hx of GERD and when it flairs does vomit blood. Had not had any issues since Mar. Takes a PPI when sx but again has been off this as well in Mar. He has never had a scope. - Related Data Allergies/Adverse Reactions: Allergies Allergy/AdvReac Type Severity Reaction Status Date / Time No Known Allergies Allergy Verified 11/14/17 00:42 Home Medications: Home Meds metFORMIN [Glucophage] 850 mg PO BIDMEALS 02/17/14 [History] Insulin Aspart [NovoLOG] 0 unit SQ TID 11/18/18 [History] Insulin Detemir [Levemir Flextouch] 40 units SQ BEDTIME 11/18/18 [History] Past Medical History Cardiovascular History: Reports: Other (See Below) Other Cardiovascular History: States that his blood pressure is usually low. Respiratory History: Reports: Other (See Below) Other Respiratory History: Smoker since the age of 18. Gastrointestinal History: Reports: GERD Neurological History: Reports: Neuropathy, Diabetic, Other (See Below) Other Neuro History: States numbness in hands and feet. States he gets dizzy when his blood sugar is low and blood pressure is low. Endocrine/Metabolic History: Reports: Diabetes, Type II, IDDM - Infectious Disease History Infectious Disease History: Reports: Chicken Pox, Shingles, Other (See Below) Other Infectious Disease History: States he had "measles", doesn't recall Rubella or Rubeola. - Past Surgical History HEENT Surgical History: Reports: Tonsillectomy Social & Family History - Family History Family Medical History: Noncontributory Cardiac: Reports: CAD, High Cholesterol, Hypertension Respiratory: Reports: COPD : Reports: Renal Disease/Insufficiency Neurological: Reports: CVA Endocrine/Metabolic: Reports: Diabetes, type II - Tobacco Use Smoking Status *Q: Current Every Day Smoker Years of Tobacco use: 46 Packs/Tins Daily: 0.5 - Caffeine Use Caffeine Use: Reports: Coffee, Soda, Tea Other Caffeine Use: powerade or gatorade. - Recreational Drug Use Recreational Drug Use: Yes Recreational Drug Type: Reports: Cocaine, Marijuana/Hashish - Living Situation & Occupation Occupation: Unemployed H&P Review of Systems - Review of Systems: Review Of Systems: See Below General: Reports: Weight Loss HEENT: Denies: Dysphasia Pulmonary: Reports: No Symptoms Cardiovascular: Reports: No Symptoms Gastrointestinal: Reports: Hematemesis. Denies: Abdominal Pain Exam - Exam Exam: See Below - Vital Signs Vital Signs: Last Vital Signs Temp 97.5 F 11/18/18 03:45 Pulse 81 11/18/18 06:55 Resp 14 11/18/18 06:55 BP 117/71 11/18/18 06:55 Pulse Ox 100 11/18/18 06:55 Weight: 64.229 kg - Exam General: Alert, Oriented, Cooperative Lungs: Clear to Auscultation, Normal Respiratory Effort Cardiovascular: Regular Rate, Regular Rhythm GI/Abdominal Exam: Normal Bowel Sounds, Soft, Non-Tender Skin: Warm, Dry, Intact - Patient Data Lab Results Last 24 hrs: Laboratory Results - last 24 hr 11/18/18 11/18/18 11/18/18 Range/Units 01:20 01:20 01:20 WBC 14.9 H (4.5-12.0) X10-3/uL RBC 5.64 (4.30-5.75) x10(6)uL Hgb 17.4 (13.5-17.8) g/dL Hct 50.5 (30.0-51.3) % MCV 89.6 (80-96) fL MCH 30.8 (27.7-33.6) pg MCHC 34.4 (32.2-35.4) g/dL RDW 12.9 (11.5-15.5) % Plt Count 316 (125-369) X10(3)uL MPV 8.2 (7.4-10.4) fL Add Manual Diff Yes Neutrophils % (Manual) 80 (46-82) % Band Neutrophils % 4 (0-6) % Lymphocytes % (Manual) 10 L (13-37) % Monocytes % (Manual) 5 (4-12) % Eosinophils % (Manual) 1 (0-5) % POC VBG pH (7.31-7.41) POC VBG pCO2 (41-51) mmHG POC VBG HCO3 (23-28) mmol/L POC VBG Total CO2 (24-29) mmol/L POC VBG Base Excess (-2-3) mmol/L Sodium 127 L (135-145) mmol/L Potassium 5.2 (3.5-5.3) mmol/L Chloride 87 L* D (100-110) mmol/L Carbon Dioxide 12 L (21-32) mmol/L BUN 23 H (7-18) mg/dL Creatinine 1.8 H (0.70-1.30) mg/dL Est Cr Clr Drug Dosing 43.13 mL/min Estimated GFR (MDRD) 39 L (>60) BUN/Creatinine Ratio 12.8 (9-20) Glucose 533 H* D (80-116) mg/dL POC Glucose (80-116) mg/dL Hemoglobin A1c (4.5-6.2) % Lactic Acid (0.4-2.2) mmol/L Calcium 9.8 (8.6-10.2) mg/dL Phosphorus (2.6-4.6) mg/dL Magnesium 1.7 L (1.8-2.5) mg/dL Total Bilirubin 0.7 (0.1-1.3) mg/dL AST 9 D (5-25) IU/L ALT 23 D (12-36) U/L Alkaline Phosphatase 154 H (56-112) IU/L Troponin I (<0.017-0.056) ng/mL C-Reactive Protein 0.6 (0.5-0.9) mg/dL Total Protein 8.3 H (6.0-8.0) g/dL Albumin 4.0 (3.2-4.6) g/dL Globulin 4.3 g/dL Albumin/Globulin Ratio 0.9 Urine Color (YELLOW) Urine Appearance (CLEAR) Urine pH (5.0-6.5) Ur Specific [place] (1.010-1.025) Urine Protein (NEGATIVE) mg/dL Urine Glucose (UA) (NORMAL) mg/dL Urine Ketones (NEGATIVE) mg/dL Urine Occult Blood (NEGATIVE) Urine Nitrite (NEGATIVE) Urine Bilirubin (NEGATIVE) Urine Urobilinogen (NEGATIVE) mg/dL Ur Leukocyte Esterase (NEGATIVE) Urine WBC (0-5) Ur Squamous Epith Cells (NS,R,O) Urine Bacteria (NS) 11/18/18 11/18/18 11/18/18 Range/Units 01:20 01:20 01:20 WBC (4.5-12.0) X10-3/uL RBC (4.30-5.75) x10(6)uL Hgb (13.5-17.8) g/dL Hct (30.0-51.3) % MCV (80-96) fL MCH (27.7-33.6) pg MCHC (32.2-35.4) g/dL RDW (11.5-15.5) % Plt Count (125-369) X10(3)uL MPV (7.4-10.4) fL Add Manual Diff Neutrophils % (Manual) (46-82) % Band Neutrophils % (0-6) % Lymphocytes % (Manual) (13-37) % Monocytes % (Manual) (4-12) % Eosinophils % (Manual) (0-5) % POC VBG pH (7.31-7.41) POC VBG pCO2 (41-51) mmHG POC VBG HCO3 (23-28) mmol/L POC VBG Total CO2 (24-29) mmol/L POC VBG Base Excess (-2-3) mmol/L Sodium (135-145) mmol/L Potassium (3.5-5.3) mmol/L Chloride (100-110) mmol/L Carbon Dioxide (21-32) mmol/L BUN (7-18) mg/dL Creatinine (0.70-1.30) mg/dL Est Cr Clr Drug Dosing mL/min Estimated GFR (MDRD) (>60) BUN/Creatinine Ratio (9-20) Glucose (80-116) mg/dL POC Glucose (80-116) mg/dL Hemoglobin A1c (4.5-6.2) % Lactic Acid 2.8 H (0.4-2.2) mmol/L Calcium (8.6-10.2) mg/dL Phosphorus 5.7 H (2.6-4.6) mg/dL Magnesium (1.8-2.5) mg/dL Total Bilirubin (0.1-1.3) mg/dL AST (5-25) IU/L ALT (12-36) U/L Alkaline Phosphatase (56-112) IU/L Troponin I < 0.017 L (<0.017-0.056) ng/mL C-Reactive Protein (0.5-0.9) mg/dL Total Protein (6.0-8.0) g/dL Albumin (3.2-4.6) g/dL Globulin g/dL Albumin/Globulin Ratio Urine Color (YELLOW) Urine Appearance (CLEAR) Urine pH (5.0-6.5) Ur Specific [place] (1.010-1.025) Urine Protein (NEGATIVE) mg/dL Urine Glucose (UA) (NORMAL) mg/dL Urine Ketones (NEGATIVE) mg/dL Urine Occult Blood (NEGATIVE) Urine Nitrite (NEGATIVE) Urine Bilirubin (NEGATIVE) Urine Urobilinogen (NEGATIVE) mg/dL Ur Leukocyte Esterase (NEGATIVE) Urine WBC (0-5) Ur Squamous Epith Cells (NS,R,O) Urine Bacteria (NS) 11/18/18 11/18/18 11/18/18 Range/Units 01:20 02:10 03:30 WBC (4.5-12.0) X10-3/uL RBC (4.30-5.75) x10(6)uL Hgb (13.5-17.8) g/dL Hct (30.0-51.3) % MCV (80-96) fL MCH (27.7-33.6) pg MCHC (32.2-35.4) g/dL RDW (11.5-15.5) % Plt Count (125-369) X10(3)uL MPV (7.4-10.4) fL Add Manual Diff Neutrophils % (Manual) (46-82) % Band Neutrophils % (0-6) % Lymphocytes % (Manual) (13-37) % Monocytes % (Manual) (4-12) % Eosinophils % (Manual) (0-5) % POC VBG pH 7.11 L (7.31-7.41) POC VBG pCO2 27.4 L (41-51) mmHG POC VBG HCO3 8.7 L (23-28) mmol/L POC VBG Total CO2 10 L (24-29) mmol/L POC VBG Base Excess -21 L (-2-3) mmol/L Sodium (135-145) mmol/L Potassium 4.4 (3.5-5.3) mmol/L Chloride (100-110) mmol/L Carbon Dioxide (21-32) mmol/L BUN (7-18) mg/dL Creatinine (0.70-1.30) mg/dL Est Cr Clr Drug Dosing mL/min Estimated GFR (MDRD) (>60) BUN/Creatinine Ratio (9-20) Glucose 493 H* (80-116) mg/dL POC Glucose (80-116) mg/dL Hemoglobin A1c 10.2 H (4.5-6.2) % Lactic Acid (0.4-2.2) mmol/L Calcium (8.6-10.2) mg/dL Phosphorus (2.6-4.6) mg/dL Magnesium (1.8-2.5) mg/dL Total Bilirubin (0.1-1.3) mg/dL AST (5-25) IU/L ALT (12-36) U/L Alkaline Phosphatase (56-112) IU/L Troponin I (<0.017-0.056) ng/mL C-Reactive Protein (0.5-0.9) mg/dL Total Protein (6.0-8.0) g/dL Albumin (3.2-4.6) g/dL Globulin g/dL Albumin/Globulin Ratio Urine Color (YELLOW) Urine Appearance (CLEAR) Urine pH (5.0-6.5) Ur Specific [place] (1.010-1.025) Urine Protein (NEGATIVE) mg/dL Urine Glucose (UA) (NORMAL) mg/dL Urine Ketones (NEGATIVE) mg/dL Urine Occult Blood (NEGATIVE) Urine Nitrite (NEGATIVE) Urine Bilirubin (NEGATIVE) Urine Urobilinogen (NEGATIVE) mg/dL Ur Leukocyte Esterase (NEGATIVE) Urine WBC (0-5) Ur Squamous Epith Cells (NS,R,O) Urine Bacteria (NS) 11/18/18 11/18/18 11/18/18 Range/Units 04:02 04:30 05:30 WBC (4.5-12.0) X10-3/uL RBC (4.30-5.75) x10(6)uL Hgb (13.5-17.8) g/dL Hct (30.0-51.3) % MCV (80-96) fL MCH (27.7-33.6) pg MCHC (32.2-35.4) g/dL RDW (11.5-15.5) % Plt Count (125-369) X10(3)uL MPV (7.4-10.4) fL Add Manual Diff Neutrophils % (Manual) (46-82) % Band Neutrophils % (0-6) % Lymphocytes % (Manual) (13-37) % Monocytes % (Manual) (4-12) % Eosinophils % (Manual) (0-5) % POC VBG pH (7.31-7.41) POC VBG pCO2 (41-51) mmHG POC VBG HCO3 (23-28) mmol/L POC VBG Total CO2 (24-29) mmol/L POC VBG Base Excess (-2-3) mmol/L Sodium (135-145) mmol/L Potassium 4.7 3.9 (3.5-5.3) mmol/L Chloride (100-110) mmol/L Carbon Dioxide (21-32) mmol/L BUN (7-18) mg/dL Creatinine (0.70-1.30) mg/dL Est Cr Clr Drug Dosing mL/min Estimated GFR (MDRD) (>60) BUN/Creatinine Ratio (9-20) Glucose 347 H D 297 H (80-116) mg/dL POC Glucose 398 H (80-116) mg/dL Hemoglobin A1c (4.5-6.2) % Lactic Acid (0.4-2.2) mmol/L Calcium (8.6-10.2) mg/dL Phosphorus (2.6-4.6) mg/dL Magnesium (1.8-2.5) mg/dL Total Bilirubin (0.1-1.3) mg/dL AST (5-25) IU/L ALT (12-36) U/L Alkaline Phosphatase (56-112) IU/L Troponin I (<0.017-0.056) ng/mL C-Reactive Protein (0.5-0.9) mg/dL Total Protein (6.0-8.0) g/dL Albumin (3.2-4.6) g/dL Globulin g/dL Albumin/Globulin Ratio Urine Color (YELLOW) Urine Appearance (CLEAR) Urine pH (5.0-6.5) Ur Specific [place] (1.010-1.025) Urine Protein (NEGATIVE) mg/dL Urine Glucose (UA) (NORMAL) mg/dL Urine Ketones (NEGATIVE) mg/dL Urine Occult Blood (NEGATIVE) Urine Nitrite (NEGATIVE) Urine Bilirubin (NEGATIVE) Urine Urobilinogen (NEGATIVE) mg/dL Ur Leukocyte Esterase (NEGATIVE) Urine WBC (0-5) Ur Squamous Epith Cells (NS,R,O) Urine Bacteria (NS) 11/18/18 11/18/18 11/18/18 Range/Units 06:50 06:50 06:50 WBC 13.3 H (4.5-12.0) X10-3/uL RBC 5.29 (4.30-5.75) x10(6)uL Hgb 16.2 (13.5-17.8) g/dL Hct 46.6 (30.0-51.3) % MCV 88.1 (80-96) fL MCH 30.6 (27.7-33.6) pg MCHC 34.8 (32.2-35.4) g/dL RDW 13.0 (11.5-15.5) % Plt Count 295 (125-369) X10(3)uL MPV 7.7 (7.4-10.4) fL Add Manual Diff Yes Neutrophils % (Manual) 90 H (46-82) % Band Neutrophils % 2 (0-6) % Lymphocytes % (Manual) 5 L (13-37) % Monocytes % (Manual) 2 L (4-12) % Eosinophils % (Manual) 1 (0-5) % POC VBG pH 7.19 L (7.31-7.41) POC VBG pCO2 27.4 L (41-51) mmHG POC VBG HCO3 10.5 L (23-28) mmol/L POC VBG Total CO2 11 L (24-29) mmol/L POC VBG Base Excess -18 L (-2-3) mmol/L Sodium 136 (135-145) mmol/L Potassium 4.2 (3.5-5.3) mmol/L Chloride 100 D (100-110) mmol/L Carbon Dioxide 15 L (21-32) mmol/L BUN 18 (7-18) mg/dL Creatinine 1.5 H (0.70-1.30) mg/dL Est Cr Clr Drug Dosing 46.98 mL/min Estimated GFR (MDRD) 48 L (>60) BUN/Creatinine Ratio 12.0 (9-20) Glucose 241 H (80-116) mg/dL POC Glucose (80-116) mg/dL Hemoglobin A1c (4.5-6.2) % Lactic Acid (0.4-2.2) mmol/L Calcium 8.6 (8.6-10.2) mg/dL Phosphorus (2.6-4.6) mg/dL Magnesium (1.8-2.5) mg/dL Total Bilirubin (0.1-1.3) mg/dL AST (5-25) IU/L ALT (12-36) U/L Alkaline Phosphatase (56-112) IU/L Troponin I (<0.017-0.056) ng/mL C-Reactive Protein (0.5-0.9) mg/dL Total Protein (6.0-8.0) g/dL Albumin (3.2-4.6) g/dL Globulin g/dL Albumin/Globulin Ratio Urine Color (YELLOW) Urine Appearance (CLEAR) Urine pH (5.0-6.5) Ur Specific [place] (1.010-1.025) Urine Protein (NEGATIVE) mg/dL Urine Glucose (UA) (NORMAL) mg/dL Urine Ketones (NEGATIVE) mg/dL Urine Occult Blood (NEGATIVE) Urine Nitrite (NEGATIVE) Urine Bilirubin (NEGATIVE) Urine Urobilinogen (NEGATIVE) mg/dL Ur Leukocyte Esterase (NEGATIVE) Urine WBC (0-5) Ur Squamous Epith Cells (NS,R,O) Urine Bacteria (NS) 11/18/18 11/18/18 11/18/18 Range/Units 07:30 08:38 09:42 WBC (4.5-12.0) X10-3/uL RBC (4.30-5.75) x10(6)uL Hgb (13.5-17.8) g/dL Hct (30.0-51.3) % MCV (80-96) fL MCH (27.7-33.6) pg MCHC (32.2-35.4) g/dL RDW (11.5-15.5) % Plt Count (125-369) X10(3)uL MPV (7.4-10.4) fL Add Manual Diff Neutrophils % (Manual) (46-82) % Band Neutrophils % (0-6) % Lymphocytes % (Manual) (13-37) % Monocytes % (Manual) (4-12) % Eosinophils % (Manual) (0-5) % POC VBG pH (7.31-7.41) POC VBG pCO2 (41-51) mmHG POC VBG HCO3 (23-28) mmol/L POC VBG Total CO2 (24-29) mmol/L POC VBG Base Excess (-2-3) mmol/L Sodium (135-145) mmol/L Potassium 4.5 (3.5-5.3) mmol/L Chloride (100-110) mmol/L Carbon Dioxide (21-32) mmol/L BUN (7-18) mg/dL Creatinine (0.70-1.30) mg/dL Est Cr Clr Drug Dosing mL/min Estimated GFR (MDRD) (>60) BUN/Creatinine Ratio (9-20) Glucose 214 H (80-116) mg/dL POC Glucose 151 H D (80-116) mg/dL Hemoglobin A1c (4.5-6.2) % Lactic Acid (0.4-2.2) mmol/L Calcium (8.6-10.2) mg/dL Phosphorus (2.6-4.6) mg/dL Magnesium (1.8-2.5) mg/dL Total Bilirubin (0.1-1.3) mg/dL AST (5-25) IU/L ALT (12-36) U/L Alkaline Phosphatase (56-112) IU/L Troponin I (<0.017-0.056) ng/mL C-Reactive Protein (0.5-0.9) mg/dL Total Protein (6.0-8.0) g/dL Albumin (3.2-4.6) g/dL Globulin g/dL Albumin/Globulin Ratio Urine Color Yellow (YELLOW) Urine Appearance Clear (CLEAR) Urine pH 5.0 (5.0-6.5) Ur Specific [place] 1.025 (1.010-1.025) Urine Protein Negative (NEGATIVE) mg/dL Urine Glucose (UA) >1000 H (NORMAL) mg/dL Urine Ketones 150 H (NEGATIVE) mg/dL Urine Occult Blood Negative (NEGATIVE) Urine Nitrite Negative (NEGATIVE) Urine Bilirubin Negative (NEGATIVE) Urine Urobilinogen Normal (NEGATIVE) mg/dL Ur Leukocyte Esterase Negative (NEGATIVE) Urine WBC 0-5 (0-5) Ur Squamous Epith Cells Rare (NS,R,O) Urine Bacteria Few H (NS) Result Diagrams: 11/18/18 06:50 11/18/18 07:30 Bo Results Last 24 hrs: Microbiology 11/18/18 01:42 Gastric Occult Blood - Final Gastric Fluid Consult PN Assessment/Plan Procedures: Procedures ASSAY OF MAGNESIUM (07/30/18) ASSAY OF NATRIURETIC PEPTIDE (11/14/17) COMPLETE CBC W/AUTO DIFF WBC (07/30/18) COMPREHEN METABOLIC PANEL (07/30/18) EMERGENCY DEPT VISIT (07/30/18) EMERGENCY DEPT VISIT (11/14/17) EXTREMITY STUDY (11/14/17) GLUCOSE BLOOD TEST (07/30/18) GLYCOSYLATED HEMOGLOBIN TEST (07/30/18) HYDRATE IV INFUSION ADD-ON (07/30/18) HYDRATION IV INFUSION INIT (07/30/18) METABOLIC PANEL TOTAL CA (07/30/18) REMOVAL OF BREAST LESION (02/18/14) ROUTINE VENIPUNCTURE (07/30/18) THER/PROPH/DIAG INJ SC/IM (07/30/18) TISSUE EXAM BY PATHOLOGIST (02/18/14) US EXAM BREAST(S) (01/28/14) (1) Hematemesis of unknown etiology SNOMED Code(s): 636856176 Code(s): K92.0 - HEMATEMESIS Current Visit: Yes (2) Hx of gastroesophageal reflux (GERD) SNOMED Code(s): 82132028570879 Code(s): Z87.19 - PERSONAL HISTORY OF OTHER DISEASES OF THE DIGESTIVE SYSTEM Current Visit: Yes Problem List Initiated/Reviewed/Updated: Yes Plan: At this point would we can wait for his DKA to be corrected an then proceed with an EGD. He appears to be stable in this regard.
[2018-11-18] MEDS: Pantoprazole 40 MG Vial IVPUSH SCH (14:45)
[2018-11-18] MEDS ORDERED: Insulin Glargine,Human Rec. Analog 100 Units/ML 3 ML Pen SUBCUT SCH (21:00)
[2018-11-19] MEDS: Pantoprazole 40 MG Vial IVPUSH SCH (02:08)
[2018-11-19] MEDS: Insulin Lispro 100 Unit/ML 3 ML KwikPen SUBCUT SCH (07:54)
--- NOTE | 2018-11-19 09:01 | PCM.PN ---
- General Info Date of Service: 11/19/18 Admission Dx/Problem (Free Text): Patient says he feels good. He denies polyphagia, polydipsia, polyuria, nausea, vomiting, abdominal pain - Patient Data Vitals - Most Recent: Last Vital Signs Temp 98.1 F 11/19/18 06:05 Pulse 65 11/19/18 06:05 Resp 16 11/19/18 06:05 BP 93/58 L 11/19/18 06:05 Pulse Ox 96 11/19/18 06:05 Weight - Most Recent: 151 lb 4.8 oz I&O - Last 24 Hours: Intake & Output 11/18/18 11/19/18 11/19/18 22:59 06:59 14:59 Intake Total 1118 689 Output Total 0 1000 Balance 1118 -311 Lab Results Last 24 Hours: Laboratory Results - last 24 hr 11/18/18 11/18/18 11/18/18 Range/Units 09:42 11:32 12:15 WBC (4.5-12.0) X10-3/uL RBC (4.30-5.75) x10(6)uL Hgb (13.5-17.8) g/dL Hct (30.0-51.3) % MCV (80-96) fL MCH (27.7-33.6) pg MCHC (32.2-35.4) g/dL RDW (11.5-15.5) % Plt Count (125-369) X10(3)uL MPV (7.4-10.4) fL Neut % (Auto) (46-82) % Lymph % (Auto) (13-37) % [place] % (Auto) (4-12) % Eos % (Auto) (1.0-5.0) % Baso % (Auto) (0-2) % Neut # (Auto) (1.6-8.3) # Lymph # (Auto) (0.6-5.0) # [place] # (Auto) (0.0-1.3) # Eos # (Auto) (0.0-0.8) # Baso # (Auto) (0.0-0.2) # ABG pH 7.21 L* (7.35-7.45) ABG pCO2 30 L (35-45) mmHg ABG pO2 107 (83-108) mmHg ABG HCO3 12 L (22-26) mmol/L ABG O2 Saturation 97 (96-97) % ABG Base Excess -15.0 L (-2-2) Al[place] Test Passed O2 Delivery Device Room air Sodium (135-145) mmol/L Potassium (3.5-5.3) mmol/L Chloride (100-110) mmol/L Carbon Dioxide (21-32) mmol/L BUN (7-18) mg/dL Creatinine (0.70-1.30) mg/dL Est Cr Clr Drug Dosing mL/min Estimated GFR (MDRD) (>60) BUN/Creatinine Ratio (9-20) Glucose (80-116) mg/dL POC Glucose 192 H (80-116) mg/dL Calcium (8.6-10.2) mg/dL Urine Color Yellow (YELLOW) Urine Appearance Clear (CLEAR) Urine pH 5.0 (5.0-6.5) Ur Specific [place] 1.025 (1.010-1.025) Urine Protein Negative (NEGATIVE) mg/dL Urine Glucose (UA) >1000 H (NORMAL) mg/dL Urine Ketones 150 H (NEGATIVE) mg/dL Urine Occult Blood Negative (NEGATIVE) Urine Nitrite Negative (NEGATIVE) Urine Bilirubin Negative (NEGATIVE) Urine Urobilinogen Normal (NEGATIVE) mg/dL Ur Leukocyte Esterase Negative (NEGATIVE) Urine WBC 0-5 (0-5) Ur Squamous Epith Cells Rare (NS,R,O) Urine Bacteria Few H (NS) 11/18/18 11/18/18 11/19/18 Range/Units 17:00 20:46 06:05 WBC (4.5-12.0) X10-3/uL RBC (4.30-5.75) x10(6)uL Hgb (13.5-17.8) g/dL Hct (30.0-51.3) % MCV (80-96) fL MCH (27.7-33.6) pg MCHC (32.2-35.4) g/dL RDW (11.5-15.5) % Plt Count (125-369) X10(3)uL MPV (7.4-10.4) fL Neut % (Auto) (46-82) % Lymph % (Auto) (13-37) % [place] % (Auto) (4-12) % Eos % (Auto) (1.0-5.0) % Baso % (Auto) (0-2) % Neut # (Auto) (1.6-8.3) # Lymph # (Auto) (0.6-5.0) # [place] # (Auto) (0.0-1.3) # Eos # (Auto) (0.0-0.8) # Baso # (Auto) (0.0-0.2) # ABG pH (7.35-7.45) ABG pCO2 (35-45) mmHg ABG pO2 (83-108) mmHg ABG HCO3 (22-26) mmol/L ABG O2 Saturation (96-97) % ABG Base Excess (-2-2) Al[place]to Test O2 Delivery Device Sodium (135-145) mmol/L Potassium (3.5-5.3) mmol/L Chloride (100-110) mmol/L Carbon Dioxide (21-32) mmol/L BUN (7-18) mg/dL Creatinine (0.70-1.30) mg/dL Est Cr Clr Drug Dosing mL/min Estimated GFR (MDRD) (>60) BUN/Creatinine Ratio (9-20) Glucose (80-116) mg/dL POC Glucose 263 H 291 H 206 H D (80-116) mg/dL Calcium (8.6-10.2) mg/dL Urine Color (YELLOW) Urine Appearance (CLEAR) Urine pH (5.0-6.5) Ur Specific [place] (1.010-1.025) Urine Protein (NEGATIVE) mg/dL Urine Glucose (UA) (NORMAL) mg/dL Urine Ketones (NEGATIVE) mg/dL Urine Occult Blood (NEGATIVE) Urine Nitrite (NEGATIVE) Urine Bilirubin (NEGATIVE) Urine Urobilinogen (NEGATIVE) mg/dL Ur Leukocyte Esterase (NEGATIVE) Urine WBC (0-5) Ur Squamous Epith Cells (NS,R,O) Urine Bacteria (NS) 11/19/18 11/19/18 11/19/18 Range/Units 06:25 06:25 06:40 WBC 5.8 (4.5-12.0) X10-3/uL RBC 4.53 (4.30-5.75) x10(6)uL Hgb 13.7 (13.5-17.8) g/dL Hct 40.0 (30.0-51.3) % MCV 88.2 (80-96) fL MCH 30.3 (27.7-33.6) pg MCHC 34.3 (32.2-35.4) g/dL RDW 13.4 (11.5-15.5) % Plt Count 236 (125-369) X10(3)uL MPV 7.7 (7.4-10.4) fL Neut % (Auto) 63.9 (46-82) % Lymph % (Auto) 23.2 (13-37) % [place] % (Auto) 6.7 (4-12) % Eos % (Auto) 6 H (1.0-5.0) % Baso % (Auto) 1 (0-2) % Neut # (Auto) 3.8 (1.6-8.3) # Lymph # (Auto) 1.3 (0.6-5.0) # [place] # (Auto) 0.4 (0.0-1.3) # Eos # (Auto) 0.3 (0.0-0.8) # Baso # (Auto) 0.0 (0.0-0.2) # ABG pH 7.36 (7.35-7.45) ABG pCO2 39 (35-45) mmHg ABG pO2 71 L (83-108) mmHg ABG HCO3 21 L (22-26) mmol/L ABG O2 Saturation 93 L (96-97) % ABG Base Excess -3.5 L (-2-2) Al[place]to Test Passed O2 Delivery Device Room air Sodium 138 (135-145) mmol/L Potassium 3.2 L D (3.5-5.3) mmol/L Chloride 105 D (100-110) mmol/L Carbon Dioxide 25 (21-32) mmol/L BUN 6 L D (7-18) mg/dL Creatinine 1.2 (0.70-1.30) mg/dL Est Cr Clr Drug Dosing 58.73 mL/min Estimated GFR (MDRD) > 60 (>60) BUN/Creatinine Ratio 5.0 L (9-20) Glucose 195 H (80-116) mg/dL POC Glucose (80-116) mg/dL Calcium 8.8 (8.6-10.2) mg/dL Urine Color (YELLOW) Urine Appearance (CLEAR) Urine pH (5.0-6.5) Ur Specific [place] (1.010-1.025) Urine Protein (NEGATIVE) mg/dL Urine Glucose (UA) (NORMAL) mg/dL Urine Ketones (NEGATIVE) mg/dL Urine Occult Blood (NEGATIVE) Urine Nitrite (NEGATIVE) Urine Bilirubin (NEGATIVE) Urine Urobilinogen (NEGATIVE) mg/dL Ur Leukocyte Esterase (NEGATIVE) Urine WBC (0-5) Ur Squamous Epith Cells (NS,R,O) Urine Bacteria (NS) Med Orders - Current: Current Medications Sodium Chloride (Normal Saline) 1,000 mls @ 70 mls/hr IV ASDIRECTED [facility] Last Admin: 11/18/18 19:38 Dose: 70 mls/hr Insulin Glargine (Lantus Solostar) 40 units SUBCUT BEDTIME [facility] [place] Last Admin: 11/18/18 21:01 Dose: 40 units Insulin Human Lispro (Humalog) 0 unit SUBCUT QIDACANDBED [facility] [place]; Protocol Last Admin: 11/19/18 07:54 Dose: 10 units Ondansetron HCl (Zofran) 4 mg IVPUSH Q6H PRN PRN Reason: Nausea/Vomiting Pantoprazole Sodium (Protonix Iv) 40 mg IVPUSH Q12H [facility] [place] Last Admin: 11/19/18 02:08 Dose: 40 mg Sodium Chloride (Saline Flush) 10 ml FLUSH ASDIRECTED PRN PRN Reason: Keep Vein Open Last Admin: 11/18/18 01:20 Dose: 10 ml Sodium Chloride (Saline Flush) 10 ml FLUSH ASDIRECTED PRN PRN Reason: Keep Vein Open Discontinued Medications Sodium Chloride (Normal Saline) 1,000 mls @ 999 mls/hr IV .BOLUS ONE Stop: 11/18/18 02:04 Last Admin: 11/18/18 01:20 Dose: 999 mls/hr Pantoprazole Sodium 80 mg/ (Sodium Chloride) 100 mls @ 200 mls/hr IV .BOLUS ONE Stop: 11/18/18 02:25 Last Admin: 11/18/18 02:11 Dose: 200 mls/hr Insulin Human Regular 100 unit (/ Sodium Chloride) 100 mls @ 7.07 mls/hr IV TITRATE [facility] [place]; Protocol Last Admin: 11/18/18 05:03 Dose: 0.1 units/kg/hr, 7.07 mls/hr Sodium Chloride (Normal Saline) 1,000 mls @ 999 mls/hr IV BOLUS [facility] Last Admin: 11/18/18 08:58 Dose: 999 mls/hr Potassium Chloride (Kcl 20 Meq In Water 100 Ml) Confirm Administered Dose 100 mls @ as directed .ROUTE .STK-MED ONE Stop: 11/18/18 05:16 Last Admin: 11/18/18 05:24 Dose: Not Given Potassium Chloride (Kcl 20 Meq In Water 100 Ml) 100 mls @ 50 mls/hr IV NOW ONE Stop: 11/18/18 07:59 Last Infusion: 11/18/18 06:15 Dose: 25 mls/hr Sodium Chloride (Normal Saline) 1,000 mls @ 999 mls/hr IV ASDIRECTED [facility] Stop: 11/18/18 09:31 Insulin Human Regular (Humulin R) 15 unit IV ONETIME ONE Stop: 11/18/18 02:49 Last Admin: 11/18/18 02:58 Dose: 15 units Ondansetron HCl (Zofran) 4 mg IVPUSH ONETIME ONE Stop: 11/18/18 01:05 Last Admin: 11/18/18 01:19 Dose: 4 mg - Exam General: Alert Neck: Supple Lungs: Clear to Auscultation, Normal Respiratory Effort Cardiovascular: Regular Rate, Regular Rhythm, No Murmurs GI/Abdominal Exam: Normal Bowel Sounds, Soft, Non-Tender, No Distention - Problem List & Annotations (1) Dehydration SNOMED Code(s): 30591805 Code(s): E86.0 - DEHYDRATION Status: Acute Current Visit: Yes (2) Diabetic keto-acidosis SNOMED Code(s): 349723416, 624920871 Code(s): E11.10 - TYPE 2 DIABETES MELLITUS WITH KETOACIDOSIS WITHOUT COMA Status: Acute Current Visit: Yes Qualifiers: Diabetes mellitus type: type 2 Diabetes mellitus complication detail: without coma Qualified Code(s): E11.10 - Type 2 diabetes mellitus with ketoacidosis without coma (3) Upper GI bleed SNOMED Code(s): 82427673 Code(s): K92.2 - GASTROINTESTINAL HEMORRHAGE, UNSPECIFIED Status: Acute Current Visit: Yes (4) Poorly controlled diabetes mellitus SNOMED Code(s): 153019378, 964698448 Code(s): E11.65 - TYPE 2 DIABETES MELLITUS WITH HYPERGLYCEMIA Status: Acute Current Visit: No (5) Hyponatremia SNOMED Code(s): 02326485 Code(s): E87.1 - HYPO-OSMOLALITY AND HYPONATREMIA Status: Acute Current Visit: Yes (6) Montserrat-Phelps tear SNOMED Code(s): 483310163 Code(s): K22.6 - GASTRO-ESOPHAGEAL LACERATION-HEMORRHAGE SYNDROME Status: Acute Current Visit: Yes - Problem List Review Problem List Initiated/Reviewed/Updated: Yes - My Orders Last 24 Hours: My Active Orders 11/18/18 08:29 SCD [Sequential Compression Device] [OM.PC] Routine 11/18/18 08:30 Consult to Physician [CONS] Routine Insulin Lispro [HumaLOG] See Protocol SUBCUT QIDACANDBED 11/18/18 17:35 Vital Signs [RC] 00,08,16 11/18/18 21:00 Insulin Glarg,Human.Rec.Analog [LantUS Solostar] 40 units SUBCUT BEDTIME 11/18/18 Lunch Carbohydrate Counting [Consistent Carbohydrate Diet] [DIET] - Plan Plan:: 1. Patient is much improved. Will discuss with Dr. Islas with her scope should be done now or outpatient. 2. When he is discharge will put him on his regular long-acting insulin and then do a sliding scale 3 times a day because his knee much and his blood sugars are so high. 3. Did discuss with him seriously about long-term complications of uncontrolled blood sugar. I think he should get into a breastfeeding educator dietitian again. And he is willing.
--- NOTE | 2018-11-19 09:18 | PCM.DCSUM1 ---
Discharge Summary - Hospital Course Free Text/Narrative:: Hospital course-patient was placed in ICU on insulin drip and continues potassium and copious amounts IV fluids per patient's pH was 7.1 rechecked and it remained at 7.1. Up-to-date recommended sodium bicarbonate at 6.9 in which was controversial so was not given. Patient's blood sugars drop nicely and he was switched to a sliding scale with his long-acting insulin. Patient had vomiting blood. Dr. Islas consult and felt was Montserrat-Phelps tears. And decided to see how he does this is most likely because of the vomiting from his DKA. Next day patient is doing well back on a diet. Patient states he does not eat better at home. We'll send him home on his long-acting insulin and sliding scale. He is to record all his blood sugars and how much insulin he gave so his primary can adjust his insulin. Brief History: This is a 63-year-old type II diabetic came into ER after he was vomiting up blood. He says he has history of GERD and for the last 2 days is lots of heartburn. He is on Levemir and short-acting insulin 2 units per carb. He says it up and take his insulin for the last 3 days because he has not been eating. He saw Sabrina ARMAS will he normally sees the other day he says his A1c was 14. He says he hardly ever takes his fast acting insulin because he takes never really hungry doesn't eat. He says he says some excessive thirst but no excessive hunger or urination. He denies chest pain, shortness of breath, fevers , chills, diaphoresis. Denies abdominal pain, history of gastritis, hematochezia , melena, diarrhea constipation. Diagnosis: Stroke: No - Discharge Data Discharge Date: 11/19/18 Discharge Disposition: Home, Self-Care 01 Condition: Good - Discharge Diagnosis/Problem(s) (1) Dehydration SNOMED Code(s): 59589392 ICD Code: E86.0 - DEHYDRATION Status: Acute Current Visit: Yes (2) Diabetic keto-acidosis SNOMED Code(s): 239371635, 065617783 ICD Code: E11.10 - TYPE 2 DIABETES MELLITUS WITH KETOACIDOSIS WITHOUT COMA Status: Acute Current Visit: Yes Qualifiers: Diabetes mellitus type: type 2 Diabetes mellitus complication detail: without coma Qualified Code(s): E11.10 - Type 2 diabetes mellitus with ketoacidosis without coma (3) Upper GI bleed SNOMED Code(s): 67334910 ICD Code: K92.2 - GASTROINTESTINAL HEMORRHAGE, UNSPECIFIED Status: Acute Current Visit: Yes (4) Poorly controlled diabetes mellitus SNOMED Code(s): 642293295, 378931890 ICD Code: E11.65 - TYPE 2 DIABETES MELLITUS WITH HYPERGLYCEMIA Status: Acute Current Visit: No (5) Hyponatremia SNOMED Code(s): 58382650 ICD Code: E87.1 - HYPO-OSMOLALITY AND HYPONATREMIA Status: Acute Current Visit: Yes (6) Montserrat-Phelps tear SNOMED Code(s): 191914732 ICD Code: K22.6 - GASTRO-ESOPHAGEAL LACERATION-HEMORRHAGE SYNDROME Status: Acute Current Visit: Yes - Patient Summary/Data Consults: Consultations 11/18/18 08:30 Consult to Physician [CONS] Routine Consulting Provider: Chaitanya Islasesy Call Completed to Consulting Physician: Yes Reason for Consult: Upper GI bleed/Montserrat-Phelps tear - Patient Instructions Diet: Diabetic Diet Activity: As Tolerated Driving: May Drive Today Showering/Bathing: May Shower Notify Provider of: Nausea and/or Vomiting Other/Special Instructions: 1. Recheck with Sabrina Stephen in 1 week. 2. Patient's to write down all his blood sugars and how much insulin he used and bring it to his appointment. 3. Diabetes education and dietitian appointment at [place]. - Discharge Plan Prescriptions/Med Rec: Insulin Lispro [Humalog] 0 unit SUBCUT TIDMEALS #5 pen Home Medications: Home Meds metFORMIN [Glucophage] 850 mg PO BIDMEALS 02/17/14 [History] Insulin Detemir [Levemir Flextouch] 40 units SQ BEDTIME 11/18/18 [History] Insulin Lispro [Humalog] 0 unit SUBCUT TIDMEALS #5 pen 11/19/18 [Rx] Patient Handouts: Type 2 Diabetes Mellitus, Diagnosis, Adult, Fall Prevention in the Home, Adult, [id number], Hyperglycemia, [id number], Fall Prevention in Hospitals, Adult, Venous Thromboembolism Prevention Forms: ED Department Discharge Referrals: Sabrina Stephen PA-C [Primary Care Provider] - - Discharge Summary/Plan Comment DC Time >30 min.: No - Patient Data Vitals - Most Recent: Last Vital Signs Temp 98.1 F 11/19/18 06:05 Pulse 65 11/19/18 06:05 Resp 16 11/19/18 06:05 BP 93/58 L 11/19/18 06:05 Pulse Ox 96 11/19/18 06:05 Weight - Most Recent: 151 lb 4.8 oz I&O - Last 24 hours: Intake & Output 11/18/18 11/19/18 11/19/18 22:59 06:59 14:59 Intake Total 1118 689 Output Total 0 1000 Balance 1118 -311 Lab Results - Last 24 hrs: Laboratory Results - last 24 hr 11/18/18 11/18/18 11/18/18 Range/Units 09:42 11:32 12:15 WBC (4.5-12.0) X10-3/uL RBC (4.30-5.75) x10(6)uL Hgb (13.5-17.8) g/dL Hct (30.0-51.3) % MCV (80-96) fL MCH (27.7-33.6) pg MCHC (32.2-35.4) g/dL RDW (11.5-15.5) % Plt Count (125-369) X10(3)uL MPV (7.4-10.4) fL Neut % (Auto) (46-82) % Lymph % (Auto) (13-37) % [place] % (Auto) (4-12) % Eos % (Auto) (1.0-5.0) % Baso % (Auto) (0-2) % Neut # (Auto) (1.6-8.3) # Lymph # (Auto) (0.6-5.0) # [place] # (Auto) (0.0-1.3) # Eos # (Auto) (0.0-0.8) # Baso # (Auto) (0.0-0.2) # ABG pH 7.21 L* (7.35-7.45) ABG pCO2 30 L (35-45) mmHg ABG pO2 107 (83-108) mmHg ABG HCO3 12 L (22-26) mmol/L ABG O2 Saturation 97 (96-97) % ABG Base Excess -15.0 L (-2-2) Alverto Test Passed O2 Delivery Device Room air Sodium (135-145) mmol/L Potassium (3.5-5.3) mmol/L Chloride (100-110) mmol/L Carbon Dioxide (21-32) mmol/L BUN (7-18) mg/dL Creatinine (0.70-1.30) mg/dL Est Cr Clr Drug Dosing mL/min Estimated GFR (MDRD) (>60) BUN/Creatinine Ratio (9-20) Glucose (80-116) mg/dL POC Glucose 192 H (80-116) mg/dL Calcium (8.6-10.2) mg/dL Urine Color Yellow (YELLOW) Urine Appearance Clear (CLEAR) Urine pH 5.0 (5.0-6.5) Ur Specific [place] 1.025 (1.010-1.025) Urine Protein Negative (NEGATIVE) mg/dL Urine Glucose (UA) >1000 H (NORMAL) mg/dL Urine Ketones 150 H (NEGATIVE) mg/dL Urine Occult Blood Negative (NEGATIVE) Urine Nitrite Negative (NEGATIVE) Urine Bilirubin Negative (NEGATIVE) Urine Urobilinogen Normal (NEGATIVE) mg/dL Ur Leukocyte Esterase Negative (NEGATIVE) Urine WBC 0-5 (0-5) Ur Squamous Epith Cells Rare (NS,R,O) Urine Bacteria Few H (NS) 11/18/18 11/18/18 11/19/18 Range/Units 17:00 20:46 06:05 WBC (4.5-12.0) X10-3/uL RBC (4.30-5.75) x10(6)uL Hgb (13.5-17.8) g/dL Hct (30.0-51.3) % MCV (80-96) fL MCH (27.7-33.6) pg MCHC (32.2-35.4) g/dL RDW (11.5-15.5) % Plt Count (125-369) X10(3)uL MPV (7.4-10.4) fL Neut % (Auto) (46-82) % Lymph % (Auto) (13-37) % [place] % (Auto) (4-12) % Eos % (Auto) (1.0-5.0) % Baso % (Auto) (0-2) % Neut # (Auto) (1.6-8.3) # Lymph # (Auto) (0.6-5.0) # [place] # (Auto) (0.0-1.3) # Eos # (Auto) (0.0-0.8) # Baso # (Auto) (0.0-0.2) # ABG pH (7.35-7.45) ABG pCO2 (35-45) mmHg ABG pO2 (83-108) mmHg ABG HCO3 (22-26) mmol/L ABG O2 Saturation (96-97) % ABG Base Excess (-2-2) Alverto Test O2 Delivery Device Sodium (135-145) mmol/L Potassium (3.5-5.3) mmol/L Chloride (100-110) mmol/L Carbon Dioxide (21-32) mmol/L BUN (7-18) mg/dL Creatinine (0.70-1.30) mg/dL Est Cr Clr Drug Dosing mL/min Estimated GFR (MDRD) (>60) BUN/Creatinine Ratio (9-20) Glucose (80-116) mg/dL POC Glucose 263 H 291 H 206 H D (80-116) mg/dL Calcium (8.6-10.2) mg/dL Urine Color (YELLOW) Urine Appearance (CLEAR) Urine pH (5.0-6.5) Ur Specific [place] (1.010-1.025) Urine Protein (NEGATIVE) mg/dL Urine Glucose (UA) (NORMAL) mg/dL Urine Ketones (NEGATIVE) mg/dL Urine Occult Blood (NEGATIVE) Urine Nitrite (NEGATIVE) Urine Bilirubin (NEGATIVE) Urine Urobilinogen (NEGATIVE) mg/dL Ur Leukocyte Esterase (NEGATIVE) Urine WBC (0-5) Ur Squamous Epith Cells (NS,R,O) Urine Bacteria (NS) 11/19/18 11/19/18 11/19/18 Range/Units 06:25 06:25 06:40 WBC 5.8 (4.5-12.0) X10-3/uL RBC 4.53 (4.30-5.75) x10(6)uL Hgb 13.7 (13.5-17.8) g/dL Hct 40.0 (30.0-51.3) % MCV 88.2 (80-96) fL MCH 30.3 (27.7-33.6) pg MCHC 34.3 (32.2-35.4) g/dL RDW 13.4 (11.5-15.5) % Plt Count 236 (125-369) X10(3)uL MPV 7.7 (7.4-10.4) fL Neut % (Auto) 63.9 (46-82) % Lymph % (Auto) 23.2 (13-37) % [place] % (Auto) 6.7 (4-12) % Eos % (Auto) 6 H (1.0-5.0) % Baso % (Auto) 1 (0-2) % Neut # (Auto) 3.8 (1.6-8.3) # Lymph # (Auto) 1.3 (0.6-5.0) # [place] # (Auto) 0.4 (0.0-1.3) # Eos # (Auto) 0.3 (0.0-0.8) # Baso # (Auto) 0.0 (0.0-0.2) # ABG pH 7.36 (7.35-7.45) ABG pCO2 39 (35-45) mmHg ABG pO2 71 L (83-108) mmHg ABG HCO3 21 L (22-26) mmol/L ABG O2 Saturation 93 L (96-97) % ABG Base Excess -3.5 L (-2-2) Alverto Test Passed O2 Delivery Device Room air Sodium 138 (135-145) mmol/L Potassium 3.2 L D (3.5-5.3) mmol/L Chloride 105 D (100-110) mmol/L Carbon Dioxide 25 (21-32) mmol/L BUN 6 L D (7-18) mg/dL Creatinine 1.2 (0.70-1.30) mg/dL Est Cr Clr Drug Dosing 58.73 mL/min Estimated GFR (MDRD) > 60 (>60) BUN/Creatinine Ratio 5.0 L (9-20) Glucose 195 H (80-116) mg/dL POC Glucose (80-116) mg/dL Calcium 8.8 (8.6-10.2) mg/dL Urine Color (YELLOW) Urine Appearance (CLEAR) Urine pH (5.0-6.5) Ur Specific [place] (1.010-1.025) Urine Protein (NEGATIVE) mg/dL Urine Glucose (UA) (NORMAL) mg/dL Urine Ketones (NEGATIVE) mg/dL Urine Occult Blood (NEGATIVE) Urine Nitrite (NEGATIVE) Urine Bilirubin (NEGATIVE) Urine Urobilinogen (NEGATIVE) mg/dL Ur Leukocyte Esterase (NEGATIVE) Urine WBC (0-5) Ur Squamous Epith Cells (NS,R,O) Urine Bacteria (NS) Med Orders - Current: Current Medications Sodium Chloride (Normal Saline) 1,000 mls @ 70 mls/hr IV ASDIRECTED [facility] Last Admin: 11/18/18 19:38 Dose: 70 mls/hr Insulin Glargine (Lantus Solostar) 40 units SUBCUT BEDTIME [facility] Last Admin: 11/18/18 21:01 Dose: 40 units Insulin Human Lispro (Humalog) 0 unit SUBCUT QIDACANDBED [facility]; Protocol Last Admin: 11/19/18 07:54 Dose: 10 units Ondansetron HCl (Zofran) 4 mg IVPUSH Q6H PRN PRN Reason: Nausea/Vomiting Pantoprazole Sodium (Protonix Iv) 40 mg IVPUSH Q12H [facility] Last Admin: 11/19/18 02:08 Dose: 40 mg Sodium Chloride (Saline Flush) 10 ml FLUSH ASDIRECTED PRN PRN Reason: Keep Vein Open Last Admin: 11/18/18 01:20 Dose: 10 ml Sodium Chloride (Saline Flush) 10 ml FLUSH ASDIRECTED PRN PRN Reason: Keep Vein Open Discontinued Medications Sodium Chloride (Normal Saline) 1,000 mls @ 999 mls/hr IV .BOLUS ONE Stop: 11/18/18 02:04 Last Admin: 11/18/18 01:20 Dose: 999 mls/hr Pantoprazole Sodium 80 mg/ (Sodium Chloride) 100 mls @ 200 mls/hr IV .BOLUS ONE Stop: 11/18/18 02:25 Last Admin: 11/18/18 02:11 Dose: 200 mls/hr Insulin Human Regular 100 unit (/ Sodium Chloride) 100 mls @ 7.07 mls/hr IV TITRATE [facility]; Protocol Last Admin: 11/18/18 05:03 Dose: 0.1 units/kg/hr, 7.07 mls/hr Sodium Chloride (Normal Saline) 1,000 mls @ 999 mls/hr IV BOLUS [facility] Last Admin: 11/18/18 08:58 Dose: 999 mls/hr Potassium Chloride (Kcl 20 Meq In Water 100 Ml) Confirm Administered Dose 100 mls @ as directed .ROUTE .STK-MED ONE Stop: 11/18/18 05:16 Last Admin: 11/18/18 05:24 Dose: Not Given Potassium Chloride (Kcl 20 Meq In Water 100 Ml) 100 mls @ 50 mls/hr IV NOW ONE Stop: 11/18/18 07:59 Last Infusion: 11/18/18 06:15 Dose: 25 mls/hr Sodium Chloride (Normal Saline) 1,000 mls @ 999 mls/hr IV ASDIRECTED LAURA Stop: 11/18/18 09:31 Insulin Human Regular (Humulin R) 15 unit IV ONETIME ONE Stop: 11/18/18 02:49 Last Admin: 11/18/18 02:58 Dose: 15 units Ondansetron HCl (Zofran) 4 mg IVPUSH ONETIME ONE Stop: 11/18/18 01:05 Last Admin: 11/18/18 01:19 Dose: 4 mg
[2018-11-19 12:38] VITALS: BP 98/53; PULSE 97
== END 2018-11-19 10:25 | disposition home or self-care (01) | DRG 368 ==
LOC: FB.ED 00:40 → FB.ICU 03:09 → FB.MS 17:21
PROVIDERS: ADMIT Emergency Medicine; ATTEND Family Medicine
DX: K22.6 Gastro-esophageal laceration-hemorrhage syndrome (principal); E11.10 Type 2 diabetes mellitus with ketoacidosis without coma; E87.1 Hypo-osmolality and hyponatremia; E86.0 Dehydration; K21.9 Gastro-esophageal reflux disease without esophagitis; Z79.4 Long term (current) use of insulin; E11.40 Type 2 diabetes mellitus with diabetic neuropathy, unspecified; F17.200 Nicotine dependence, unspecified, uncomplicated
CPT/HCPCS: 36415; 36600; 80048; 80053; 81001; 82271; 82803; 82947; 82962; 83036; 83605; 83735; 84100; 84132; 84484; 85025; 86140; 93005; 96361; 96365; 96375; 99285-25; C9113; J1815; J1815-GY; J2405; J3480; J7030

== ENCOUNTER 2019-02-02 10:39 | Inpatient (IN) | payer MEDICAID, OTHER ==
[2019-02-02] MEDS: Sodium Chloride 0.9% 10 ML Syringe FLUSH PRN ×2 (11:07→11:40)
--- NOTE | 2019-02-02 11:19 | EDM.PDOC ---
ED HPI GENERAL MEDICAL PROBLEM - General Chief Complaint: General Stated Complaint: REAL WEAK, NOT EATING/DRINKING RIGHT Time Seen by Provider: 02/02/19 11:10 Source of Information: Reports: Patient History Limitations: Reports: No Limitations - History of Present Illness INITIAL COMMENTS - FREE TEXT/NARRATIVE: 63-year-old male who reports has not felt like eating for the past 2 days and therefore has not really eaten very much and also has not drink liquids very well. He does report that he has been taking his insulin but he has just not been eating. He denies any pain. He denies any shortness of breath. No cough. No dysuria or hematuria. He has had decreased urine output over the past 2 days. He reports he did not feel poorly he just did not want to eat. He also has had no fevers or chills. Approximately 2 AM he awoke and was feeling somewhat "hungry" and he tried to eat but had vomiting promptly after this. He also try to drink liquids but had vomiting again. He has persisted with nausea and 1 more episode of vomiting so a total of 3 episodes of vomiting since 2 AM and he reports that he feels weak all over and dizzy. He intermittently has burning pain in his chest that he states "it's my acid reflux". He states that it lasts for a brief period of time and then goes away. It is worse with swallowing or attempts at swallowing. He reports that he has been able to swallow his liquid and his food but he has vomiting shortly after this. He does report a 0/10 level of pain at present with the burning pain, he rates that as a 6/10. He has had no diarrhea. No bowel movement for the past day or 2. There are no other associated signs or symptoms. There are no other modifying factors. 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: Other (see below) (He has taken his insulin today, he took 45 units of Humulin at 8:50 AM today.) - Related Data Allergies Allergy/AdvReac Type Severity Reaction Status Date / Time No Known Allergies Allergy Verified 02/02/19 11:08 Home Meds: Home Meds metFORMIN [Glucophage] 850 mg PO BIDMEALS 02/17/14 [History] Insulin Detemir [Levemir Flextouch] 40 units SQ BEDTIME 11/18/18 [History] Insulin Lispro [Humalog] 0 unit SUBCUT TIDMEALS #5 pen 11/19/18 [Rx] Past Medical History Cardiovascular History: Reports: Other (See Below) Other Cardiovascular History: States that his blood pressure is usually low. Gastrointestinal History: Reports: GERD Neurological History: Reports: Neuropathy, Diabetic Endocrine/Metabolic History: Reports: Diabetes, Type II (However, he has had DKA in the past), IDDM - Infectious Disease History Infectious Disease History: Reports: Chicken Pox, Shingles, Other (See Below) Other Infectious Disease History: States he had "measles", doesn't recall Rubella or Rubeola. - Past Surgical History HEENT Surgical History: Reports: Tonsillectomy Social & Family History - Family History Cardiac: Reports: CAD, High Cholesterol, Hypertension Respiratory: Reports: COPD : Reports: Renal Disease/Insufficiency Neurological: Reports: CVA Endocrine/Metabolic: Reports: Diabetes, type II - Tobacco Use Smoking Status *Q: Current Every Day Smoker - Caffeine Use Caffeine Use: Reports: Coffee, Soda, Tea Other Caffeine Use: powerade or gatorade. - Alcohol Use Alcohol Use History: No - Living Situation & Occupation Living situation: Reports: Single Occupation: Unemployed ED ROS GENERAL - Review of Systems Review Of Systems: See Below Constitutional: Reports: Malaise, Weakness, Fatigue, Decreased Appetite HEENT: Reports: Other (Dry mouth) Respiratory: Reports: No Symptoms Cardiovascular: Reports: No Symptoms Endocrine: Reports: Fatigue, High Glucose GI/Abdominal: Reports: Nausea, Vomiting : Reports: Other (Decreased urine output) Musculoskeletal: Reports: No Symptoms Skin: Reports: No Symptoms Neurological: Reports: Weakness (Diffuse) Hematologic/Lymphatic: Reports: No Symptoms Immunologic: Reports: No Symptoms ED EXAM, GENERAL - Physical Exam Exam: See Below Exam Limited By: No Limitations General Appearance: Alert, Mild Distress, Thin Eye Exam: Bilateral Eye: EOMI, Normal Inspection (Sclerae are anicteric), PERRL Ears: Normal External Exam, Hearing Grossly Normal Ear Exam: Bilateral Ear: Auricle Normal Nose: Normal Inspection, Normal Mucosa, No Blood Throat/Mouth: Normal Voice, No Airway Compromise, Other (Dry mucous membranes and dry lips.) Head: Atraumatic, Normocephalic Neck: Normal Inspection, Supple, Non-Tender, Full Range of Motion Respiratory/Chest: No Respiratory Distress, Lungs Clear, Normal Breath Sounds, No Accessory Muscle Use, Chest Non-Tender Cardiovascular: Normal Peripheral Pulses, No JVD, Tachycardia Peripheral Pulses: 2+: Radial (L), Radial (R), Dorsalis Pedis (L), Dorsalis Pedis (R) GI/Abdominal: Normal Bowel Sounds, Soft, Non-Tender, No Mass, Other (Scaphoid) Back Exam: Normal Inspection, Full Range of Motion Extremities: Normal Inspection, Normal Range of Motion, Non-Tender, No Pedal Edema, Normal Capillary Refill Neurological: Alert, Oriented, CN II-XII Intact, Normal Cognition, No Motor/ Sensory Deficits Psychiatric: Normal Affect Skin Exam: Warm, Dry, Intact, Normal Color, No Rash EKG INTERPRETATION EKG Date: 02/02/19 Time: 11:56 Rhythm: NSR Rate (Beats/Min): 89 [place]: Normal P-Wave: Present QRS: Normal ST-T: Other (Nonspecific ST-T changes) QT: Normal Comparison: No Change (No real change from EKG performed on 11/18/2018.) Course - Vital Signs Last Recorded V/S: Last Vital Signs Temp 35.8 C 02/02/19 10:45 Pulse 112 H 02/02/19 10:45 Resp 20 02/02/19 10:45 BP 104/81 02/02/19 10:45 Pulse Ox 100 02/02/19 10:45 - Orders/Labs/Meds Orders: Active Orders 24 hr Category Date Time Status Admission Status [Patient Status] [ADT] Routine ADT 02/02/19 12:24 Active Patient Status Manage Transfer [TRANSFER] Routine ADT 02/02/19 12:26 Active Blood Glucose Check, Bedside [RC] ONETIME Care 02/02/19 10:54 Active Blood Glucose Check, Bedside [RC] ONETIME Care 02/02/19 12:30 Active Cardiac Monitoring [RC] .As Directed Care 02/02/19 12:24 Active UA W/MICROSCOPIC [URIN] Stat Lab 02/02/19 10:54 Ordered Sodium Chloride 0.9% [Normal Saline] 1,000 ml Med 02/02/19 11:30 Active IV ASDIRECTED Sodium Chloride 0.9% [Saline Flush] Med 02/02/19 10:55 Active 10 ml FLUSH ASDIRECTED PRN Saline Lock Insert [OM.PC] Routine Oth 02/02/19 10:55 Ordered EKG 12 Lead [EK] Routine Ther 02/02/19 11:19 Ordered Medication Orders Sodium Chloride (Normal Saline) 1,000 mls @ 150 mls/hr IV ASDIRECTED LAURA Sodium Chloride (Saline Flush) 10 ml FLUSH ASDIRECTED PRN PRN Reason: Keep Vein Open Last Admin: 02/02/19 11:40 Dose: 10 ml Admin: 02/02/19 11:07 Dose: 10 ml Labs: Laboratory Tests 02/02/19 02/02/19 02/02/19 Range/Units 11:00 11:00 11:00 WBC 10.5 (4.5-12.0) X10-3/uL RBC 5.75 (4.30-5.75) x10(6)uL Hgb 17.2 D (13.5-17.8) g/dL Hct 50.0 D (30.0-51.3) % MCV 87.0 (80-96) fL MCH 29.9 (27.7-33.6) pg MCHC 34.4 (32.2-35.4) g/dL RDW 13.0 (11.5-15.5) % Plt Count 307 (125-369) X10(3)uL MPV 8.5 (7.4-10.4) fL Neut % (Auto) 75.6 (46-82) % Lymph % (Auto) 17.6 (13-37) % Stephens % (Auto) 4.0 (4-12) % Eos % (Auto) 2 (1.0-5.0) % Baso % (Auto) 1 (0-2) % Neut # (Auto) 7.9 (1.6-8.3) # Lymph # (Auto) 1.9 (0.6-5.0) # Stephens # (Auto) 0.4 (0.0-1.3) # Eos # (Auto) 0.2 (0.0-0.8) # Baso # (Auto) 0.1 (0.0-0.2) # POC VBG pH (7.31-7.41) POC VBG pCO2 (41-51) mmHG POC VBG HCO3 (23-28) mmol/L POC VBG Total CO2 (24-29) mmol/L POC VBG Base Excess (-2-3) mmol/L Sodium 133 L (135-145) mmol/L Potassium 3.8 (3.5-5.3) mmol/L Chloride 90 L D (100-110) mmol/L Carbon Dioxide 19 L (21-32) mmol/L BUN 32 H D (7-18) mg/dL Creatinine 1.9 H (0.70-1.30) mg/dL Est Cr Clr Drug Dosing 41.91 mL/min Estimated GFR (MDRD) 36 L (>60) BUN/Creatinine Ratio 16.8 (9-20) Glucose 358 H D (80-116) mg/dL Lactic Acid (0.4-2.2) mmol/L Calcium 10.1 (8.6-10.2) mg/dL Magnesium (1.8-2.5) mg/dL Total Bilirubin 0.5 (0.1-1.3) mg/dL AST 8 D (5-25) IU/L ALT 14 D (12-36) U/L Alkaline Phosphatase 146 H (56-112) IU/L Troponin I < 0.017 L (<0.017-0.056) ng/mL C-Reactive Protein 1.2 H (0.5-0.9) mg/dL Total Protein 8.8 H (6.0-8.0) g/dL Albumin 4.4 (3.2-4.6) g/dL Globulin 4.4 g/dL Albumin/Globulin Ratio 1.0 02/02/19 02/02/19 02/02/19 Range/Units 11:00 11:00 11:05 WBC (4.5-12.0) X10-3/uL RBC (4.30-5.75) x10(6)uL Hgb (13.5-17.8) g/dL Hct (30.0-51.3) % MCV (80-96) fL MCH (27.7-33.6) pg MCHC (32.2-35.4) g/dL RDW (11.5-15.5) % Plt Count (125-369) X10(3)uL MPV (7.4-10.4) fL Neut % (Auto) (46-82) % Lymph % (Auto) (13-37) % Stephens % (Auto) (4-12) % Eos % (Auto) (1.0-5.0) % Baso % (Auto) (0-2) % Neut # (Auto) (1.6-8.3) # Lymph # (Auto) (0.6-5.0) # Stephens # (Auto) (0.0-1.3) # Eos # (Auto) (0.0-0.8) # Baso # (Auto) (0.0-0.2) # POC VBG pH (7.31-7.41) POC VBG pCO2 (41-51) mmHG POC VBG HCO3 (23-28) mmol/L POC VBG Total CO2 (24-29) mmol/L POC VBG Base Excess (-2-3) mmol/L Sodium (135-145) mmol/L Potassium (3.5-5.3) mmol/L Chloride (100-110) mmol/L Carbon Dioxide (21-32) mmol/L BUN (7-18) mg/dL Creatinine (0.70-1.30) mg/dL Est Cr Clr Drug Dosing mL/min Estimated GFR (MDRD) (>60) BUN/Creatinine Ratio (9-20) Glucose 356 H (80-116) mg/dL Lactic Acid 3.1 H (0.4-2.2) mmol/L Calcium (8.6-10.2) mg/dL Magnesium 1.9 (1.8-2.5) mg/dL Total Bilirubin (0.1-1.3) mg/dL AST (5-25) IU/L ALT (12-36) U/L Alkaline Phosphatase (56-112) IU/L Troponin I (<0.017-0.056) ng/mL C-Reactive Protein (0.5-0.9) mg/dL Total Protein (6.0-8.0) g/dL Albumin (3.2-4.6) g/dL Globulin g/dL Albumin/Globulin Ratio 02/02/19 Range/Units 12:57 WBC (4.5-12.0) X10-3/uL RBC (4.30-5.75) x10(6)uL Hgb (13.5-17.8) g/dL Hct (30.0-51.3) % MCV (80-96) fL MCH (27.7-33.6) pg MCHC (32.2-35.4) g/dL RDW (11.5-15.5) % Plt Count (125-369) X10(3)uL MPV (7.4-10.4) fL Neut % (Auto) (46-82) % Lymph % (Auto) (13-37) % Stephens % (Auto) (4-12) % Eos % (Auto) (1.0-5.0) % Baso % (Auto) (0-2) % Neut # (Auto) (1.6-8.3) # Lymph # (Auto) (0.6-5.0) # Stephens # (Auto) (0.0-1.3) # Eos # (Auto) (0.0-0.8) # Baso # (Auto) (0.0-0.2) # POC VBG pH 7.26 L (7.31-7.41) POC VBG pCO2 48.1 (41-51) mmHG POC VBG HCO3 21.7 L (23-28) mmol/L POC VBG Total CO2 23 L (24-29) mmol/L POC VBG Base Excess -5 L (-2-3) mmol/L Sodium (135-145) mmol/L Potassium (3.5-5.3) mmol/L Chloride (100-110) mmol/L Carbon Dioxide (21-32) mmol/L BUN (7-18) mg/dL Creatinine (0.70-1.30) mg/dL Est Cr Clr Drug Dosing mL/min Estimated GFR (MDRD) (>60) BUN/Creatinine Ratio (9-20) Glucose (80-116) mg/dL Lactic Acid (0.4-2.2) mmol/L Calcium (8.6-10.2) mg/dL Magnesium (1.8-2.5) mg/dL Total Bilirubin (0.1-1.3) mg/dL AST (5-25) IU/L ALT (12-36) U/L Alkaline Phosphatase (56-112) IU/L Troponin I (<0.017-0.056) ng/mL C-Reactive Protein (0.5-0.9) mg/dL Total Protein (6.0-8.0) g/dL Albumin (3.2-4.6) g/dL Globulin g/dL Albumin/Globulin Ratio Meds: Medications Generic Name Dose Route Start Last Admin Trade Name Freq PRN Reason Stop Dose Admin Sodium Chloride 1,000 mls @ 150 mls/hr 02/02/19 11:30 Normal Saline IV ASDIRECTED LAURA Sodium Chloride 10 ml 02/02/19 10:55 02/02/19 11:40 Saline Flush FLUSH 10 ml ASDIRECTED PRN Administration Keep Vein Open Discontinued Medications Generic Name Dose Route Start Last Admin Trade Name Freq PRN Reason Stop Dose Admin Sodium Chloride 1,000 mls @ 999 mls/hr 02/02/19 11:20 02/02/19 11:29 Normal Saline IV 02/02/19 12:20 999 mls/hr .BOLUS ONE Administration Insulin Human Regular 15 unit 02/02/19 11:20 02/02/19 11:30 Humulin R IV 02/02/19 11:21 15 units ONETIME ONE Administration Ondansetron HCl 4 mg 02/02/19 11:20 02/02/19 11:29 Zofran IVPUSH 02/02/19 11:21 4 mg ONETIME ONE Administration - Re-Assessments/Exams Free Text/Narrative Re-Assessment/Exam: 02/02/19 12:20: Patient remains somewhat tachycardic. He has still not had urine output yet. He has had no further vomiting. His pH was 7.26. His glucose is in the 350s now. His bicarbonate is 19. His electrolytes are okay. He appears to be in DKA again. He also is dehydrated with hemoconcentration seen on his CBC. The patient will need admission with IV fluids and insulin therapy with careful/close monitoring of his glucose and electrolytes. This could not be safely accomplished as an outpatient. Therefore, he will need admission and he will need at least a 2 midnight stay for completion of this plan and care. I discussed this with the patient and he is in agreement with this plan. I will discuss this with Dr. Blank. 02/02/19 12:30: I discussed the patient's case with Dr. Blank. He will admit the patient. He will be in to see the patient shortly. We will transfer the patient over to the floor. Departure - Departure Time of Disposition: 12:40 Disposition: Admitted As Inpatient 68 Condition: Fair (Stable) Clinical Impression: Dehydration, moderate DKA (diabetic ketoacidoses) Qualifiers: Diabetes mellitus type: type 2 Diabetes mellitus complication detail: without coma Qualified Code(s): E11.10 - Type 2 diabetes mellitus with ketoacidosis without coma - Discharge Information Referrals: Sabrina Stephen PA-C [Primary Care Provider] - Forms: ED Department Discharge - My Orders Last 24 Hours: My Active Orders 02/02/19 10:54 Blood Glucose Check, Bedside [RC] ONETIME UA W/MICROSCOPIC [URIN] Stat 02/02/19 10:55 Sodium Chloride 0.9% [Saline Flush] 10 ml FLUSH ASDIRECTED PRN Saline Lock Insert [OM.PC] Routine 02/02/19 11:19 EKG 12 Lead [EK] Routine 02/02/19 11:30 Sodium Chloride 0.9% [Normal Saline] 1,000 ml IV ASDIRECTED 02/02/19 12:24 Admission Status [Patient Status] [ADT] Routine Cardiac Monitoring [RC] .As Directed 02/02/19 12:26 Patient Status Manage Transfer [TRANSFER] Routine 02/02/19 12:30 Blood Glucose Check, Bedside [RC] ONETIME - Assessment/Plan Last 24 Hours: My Active Orders 02/02/19 10:54 Blood Glucose Check, Bedside [RC] ONETIME UA W/MICROSCOPIC [URIN] Stat 02/02/19 10:55 Sodium Chloride 0.9% [Saline Flush] 10 ml FLUSH ASDIRECTED PRN Saline Lock Insert [OM.PC] Routine 02/02/19 11:19 EKG 12 Lead [EK] Routine 02/02/19 11:30 Sodium Chloride 0.9% [Normal Saline] 1,000 ml IV ASDIRECTED 02/02/19 12:24 Admission Status [Patient Status] [ADT] Routine Cardiac Monitoring [RC] .As Directed 02/02/19 12:26 Patient Status Manage Transfer [TRANSFER] Routine 02/02/19 12:30 Blood Glucose Check, Bedside [RC] ONETIME
[2019-02-02] MEDS ORDERED: Ondansetron 4 MG/2 ML SDV IVPUSH ONE (11:20)
[2019-02-02] MEDS ORDERED: Sodium Chloride 0.9% 1,000 ML IV ONE (11:20)
[2019-02-02] MEDS ORDERED: Insulin Regular, Human 100 Units/ML 3 ML Vial IV ONE (11:20)
[2019-02-02] MEDS: Sodium Chloride 0.9% 1,000 ML IV SCH ×3 (12:41→21:07)
[2019-02-02] MEDS ORDERED: Ondansetron 4 MG/2 ML SDV IVPUSH PRN (13:19)
--- NOTE | 2019-02-02 13:19 | PCM.HP.2 ---
H&P History of Present Illness - General Date of Service: 02/02/19 Admit Problem/Dx: Admission Diagnosis/Problem Admission Diagnosis/Problem Diabetic ketoacidosis Source of Information: Patient, EMS Notes Reviewed History Limitations: Reports: No Limitations - History of Present Illness Initial Comments - Free Text/Narative: 63-year-old type II diabetic became the ER because he was vomiting and couldn't keep anything down. He states he takes his long-acting insulin last night. He says he is really hungry so he doesn't usually take his short acting. He said he got hungry last night and started vomiting and he decided to drink and he vomited so he came in. Denies polyphagia, polydipsia or polyuria. He says he has decreased urinary output and constipation. He has some burning his chest that he says is is normal GERD. He has no abdominal pain, fevers, chills, ear pain. He says he has not been sick. He does have neuropathy. He says his last A1c in the clinic was around 10. - Related Data Allergies/Adverse Reactions: Allergies Allergy/AdvReac Type Severity Reaction Status Date / Time No Known Allergies Allergy Verified 02/02/19 11:08 Home Medications: Home Meds metFORMIN [Glucophage] 850 mg PO BIDMEALS 02/17/14 [History] Insulin Detemir [Levemir Flextouch] 40 units SQ BEDTIME 11/18/18 [History] Insulin Lispro [Humalog] 0 unit SUBCUT TIDMEALS #5 pen 11/19/18 [Rx] Past Medical History Cardiovascular History: Reports: Other (See Below) Other Cardiovascular History: States that his blood pressure is usually low. Respiratory History: Reports: Other (See Below) Other Respiratory History: Smoker since the age of 18. Gastrointestinal History: Reports: GERD Neurological History: Reports: Neuropathy, Diabetic Other Neuro History: States numbness in hands and feet. States he gets dizzy when his blood sugar is low and blood pressure is low. Endocrine/Metabolic History: Reports: Diabetes, Type II (However, he has had DKA in the past), IDDM - Infectious Disease History Infectious Disease History: Reports: Chicken Pox, Shingles, Other (See Below) Other Infectious Disease History: States he had "measles", doesn't recall Rubella or Rubeola. - Past Surgical History HEENT Surgical History: Reports: Tonsillectomy Social & Family History - Family History Family Medical History: Noncontributory Cardiac: Reports: CAD, High Cholesterol, Hypertension Respiratory: Reports: COPD : Reports: Renal Disease/Insufficiency Neurological: Reports: CVA Endocrine/Metabolic: Reports: Diabetes, type II - Tobacco Use Smoking Status *Q: Current Every Day Smoker Years of Tobacco use: 45 Packs/Tins Daily: 0.5 - Caffeine Use Caffeine Use: Reports: Coffee, Soda, Tea Other Caffeine Use: powerade or gatorade. - Recreational Drug Use Recreational Drug Use: No - Living Situation & Occupation Living situation: Reports: Single Occupation: Unemployed H&P Review of Systems - Review of Systems: Review Of Systems: See Below General: Reports: Decreased Appetite HEENT: Reports: No Symptoms Pulmonary: Reports: No Symptoms Cardiovascular: Reports: No Symptoms Gastrointestinal: Reports: Constipation, Other (GERD) Genitourinary: Reports: No Symptoms Musculoskeletal: Reports: No Symptoms Skin: Reports: No Symptoms Psychiatric: Reports: No Symptoms Neurological: Reports: Paresthesia Hematologic/Lymphatic: Reports: No Symptoms Immunologic: Reports: No Symptoms Exam - Exam Exam: See Below - Vital Signs Vital Signs: Last Vital Signs Temp 97.6 F 02/02/19 13:00 Pulse 103 H 02/02/19 12:40 Resp 20 02/02/19 13:00 BP 124/74 02/02/19 13:00 Pulse Ox 100 02/02/19 13:00 Weight: 138 lb 8 oz - Exam General: Alert, Oriented, Cooperative HEENT: Posterior Pharynx Clear, TMs Clear, Other (Drug because memory) Neck: Supple, Trachea Midline Lungs: Clear to Auscultation, Normal Respiratory Effort Cardiovascular: Regular Rate, Regular Rhythm, Tachycardia GI/Abdominal Exam: Normal Bowel Sounds, Soft, Non-Tender, No Distention, No Mass Back Exam: Normal Inspection Extremities: Non-Tender, No Pedal Edema Skin: Dry, Intact, Cool Neuro Extensive - Mental Status: Alert, Oriented x3, Normal Mood/Affect, Normal Cognition Psychiatric: Alert, Normal Affect, Normal Mood - Patient Data Lab Results Last 24 hrs: Laboratory Results - last 24 hr 02/02/19 02/02/19 02/02/19 Range/Units 11:00 11:00 11:00 WBC 10.5 (4.5-12.0) X10-3/uL RBC 5.75 (4.30-5.75) x10(6)uL Hgb 17.2 D (13.5-17.8) g/dL Hct 50.0 D (30.0-51.3) % MCV 87.0 (80-96) fL MCH 29.9 (27.7-33.6) pg MCHC 34.4 (32.2-35.4) g/dL RDW 13.0 (11.5-15.5) % Plt Count 307 (125-369) X10(3)uL MPV 8.5 (7.4-10.4) fL Neut % (Auto) 75.6 (46-82) % Lymph % (Auto) 17.6 (13-37) % Park % (Auto) 4.0 (4-12) % Eos % (Auto) 2 (1.0-5.0) % Baso % (Auto) 1 (0-2) % Neut # (Auto) 7.9 (1.6-8.3) # Lymph # (Auto) 1.9 (0.6-5.0) # Park # (Auto) 0.4 (0.0-1.3) # Eos # (Auto) 0.2 (0.0-0.8) # Baso # (Auto) 0.1 (0.0-0.2) # POC VBG pH (7.31-7.41) POC VBG pCO2 (41-51) mmHG POC VBG HCO3 (23-28) mmol/L POC VBG Total CO2 (24-29) mmol/L POC VBG Base Excess (-2-3) mmol/L Sodium 133 L (135-145) mmol/L Potassium 3.8 (3.5-5.3) mmol/L Chloride 90 L D (100-110) mmol/L Carbon Dioxide 19 L (21-32) mmol/L BUN 32 H D (7-18) mg/dL Creatinine 1.9 H (0.70-1.30) mg/dL Est Cr Clr Drug Dosing 41.91 mL/min Estimated GFR (MDRD) 36 L (>60) BUN/Creatinine Ratio 16.8 (9-20) Glucose 358 H D (80-116) mg/dL POC Glucose (80-116) mg/dL Lactic Acid (0.4-2.2) mmol/L Calcium 10.1 (8.6-10.2) mg/dL Magnesium (1.8-2.5) mg/dL Total Bilirubin 0.5 (0.1-1.3) mg/dL AST 8 D (5-25) IU/L ALT 14 D (12-36) U/L Alkaline Phosphatase 146 H (56-112) IU/L Troponin I < 0.017 L (<0.017-0.056) ng/mL C-Reactive Protein 1.2 H (0.5-0.9) mg/dL Total Protein 8.8 H (6.0-8.0) g/dL Albumin 4.4 (3.2-4.6) g/dL Globulin 4.4 g/dL Albumin/Globulin Ratio 1.0 02/02/19 02/02/19 02/02/19 Range/Units 11:00 11:00 11:05 WBC (4.5-12.0) X10-3/uL RBC (4.30-5.75) x10(6)uL Hgb (13.5-17.8) g/dL Hct (30.0-51.3) % MCV (80-96) fL MCH (27.7-33.6) pg MCHC (32.2-35.4) g/dL RDW (11.5-15.5) % Plt Count (125-369) X10(3)uL MPV (7.4-10.4) fL Neut % (Auto) (46-82) % Lymph % (Auto) (13-37) % Park % (Auto) (4-12) % Eos % (Auto) (1.0-5.0) % Baso % (Auto) (0-2) % Neut # (Auto) (1.6-8.3) # Lymph # (Auto) (0.6-5.0) # Park # (Auto) (0.0-1.3) # Eos # (Auto) (0.0-0.8) # Baso # (Auto) (0.0-0.2) # POC VBG pH (7.31-7.41) POC VBG pCO2 (41-51) mmHG POC VBG HCO3 (23-28) mmol/L POC VBG Total CO2 (24-29) mmol/L POC VBG Base Excess (-2-3) mmol/L Sodium (135-145) mmol/L Potassium (3.5-5.3) mmol/L Chloride (100-110) mmol/L Carbon Dioxide (21-32) mmol/L BUN (7-18) mg/dL Creatinine (0.70-1.30) mg/dL Est Cr Clr Drug Dosing mL/min Estimated GFR (MDRD) (>60) BUN/Creatinine Ratio (9-20) Glucose 356 H (80-116) mg/dL POC Glucose (80-116) mg/dL Lactic Acid 3.1 H (0.4-2.2) mmol/L Calcium (8.6-10.2) mg/dL Magnesium 1.9 (1.8-2.5) mg/dL Total Bilirubin (0.1-1.3) mg/dL AST (5-25) IU/L ALT (12-36) U/L Alkaline Phosphatase (56-112) IU/L Troponin I (<0.017-0.056) ng/mL C-Reactive Protein (0.5-0.9) mg/dL Total Protein (6.0-8.0) g/dL Albumin (3.2-4.6) g/dL Globulin g/dL Albumin/Globulin Ratio 02/02/19 02/02/19 Range/Units 12:57 12:58 WBC (4.5-12.0) X10-3/uL RBC (4.30-5.75) x10(6)uL Hgb (13.5-17.8) g/dL Hct (30.0-51.3) % MCV (80-96) fL MCH (27.7-33.6) pg MCHC (32.2-35.4) g/dL RDW (11.5-15.5) % Plt Count (125-369) X10(3)uL MPV (7.4-10.4) fL Neut % (Auto) (46-82) % Lymph % (Auto) (13-37) % Park % (Auto) (4-12) % Eos % (Auto) (1.0-5.0) % Baso % (Auto) (0-2) % Neut # (Auto) (1.6-8.3) # Lymph # (Auto) (0.6-5.0) # Park # (Auto) (0.0-1.3) # Eos # (Auto) (0.0-0.8) # Baso # (Auto) (0.0-0.2) # POC VBG pH 7.26 L (7.31-7.41) POC VBG pCO2 48.1 (41-51) mmHG POC VBG HCO3 21.7 L (23-28) mmol/L POC VBG Total CO2 23 L (24-29) mmol/L POC VBG Base Excess -5 L (-2-3) mmol/L Sodium (135-145) mmol/L Potassium (3.5-5.3) mmol/L Chloride (100-110) mmol/L Carbon Dioxide (21-32) mmol/L BUN (7-18) mg/dL Creatinine (0.70-1.30) mg/dL Est Cr Clr Drug Dosing mL/min Estimated GFR (MDRD) (>60) BUN/Creatinine Ratio (9-20) Glucose (80-116) mg/dL POC Glucose 135 H (80-116) mg/dL Lactic Acid (0.4-2.2) mmol/L Calcium (8.6-10.2) mg/dL Magnesium (1.8-2.5) mg/dL Total Bilirubin (0.1-1.3) mg/dL AST (5-25) IU/L ALT (12-36) U/L Alkaline Phosphatase (56-112) IU/L Troponin I (<0.017-0.056) ng/mL C-Reactive Protein (0.5-0.9) mg/dL Total Protein (6.0-8.0) g/dL Albumin (3.2-4.6) g/dL Globulin g/dL Albumin/Globulin Ratio Result Diagrams: 02/02/19 11:00 02/02/19 11:00 - Problem List (1) DKA, type 2, not at goal SNOMED Code(s): 61990367, 383209132 ICD Code: E11.10 - TYPE 2 DIABETES MELLITUS WITH KETOACIDOSIS WITHOUT COMA Status: Acute Current Visit: Yes (2) Dehydration, moderate SNOMED Code(s): 8240000086456 ICD Code: E86.0 - DEHYDRATION Status: Acute Current Visit: Yes (3) Diabetes mellitus type II, uncontrolled SNOMED Code(s): 977696642, 895972480 ICD Code: E11.65 - TYPE 2 DIABETES MELLITUS WITH HYPERGLYCEMIA Status: Acute Current Visit: No Qualifiers: Glycemic state: with hyperglycemia Qualified Code(s): E11.65 - Type 2 diabetes mellitus with hyperglycemia (4) Hx of gastroesophageal reflux (GERD) SNOMED Code(s): 08333113693497 ICD Code: Z87.19 - PERSONAL HISTORY OF OTHER DISEASES OF THE DIGESTIVE SYSTEM Status: Acute Current Visit: No Problem List Initiated/Reviewed/Updated: Yes Orders Last 24hrs: Active Orders 24 hr Category Date Time Status Admission Status [Patient Status] [ADT] Routine ADT 02/02/19 12:24 Active Blood Glucose Check, Bedside [RC] ONETIME Care 02/02/19 10:54 Active Blood Glucose Check, Bedside [RC] ONETIME Care 02/02/19 12:30 Active Cardiac Monitoring [RC] .As Directed Care 02/02/19 12:24 Active UA W/MICROSCOPIC [URIN] Stat Lab 02/02/19 10:54 Ordered Sodium Chloride 0.9% [Normal Saline] 1,000 ml Med 02/02/19 11:30 Active IV ASDIRECTED Sodium Chloride 0.9% [Saline Flush] Med 02/02/19 10:55 Active 10 ml FLUSH ASDIRECTED PRN Saline Lock Insert [OM.PC] Routine Oth 02/02/19 10:55 Ordered EKG 12 Lead [EK] Routine Ther 02/02/19 11:19 Ordered Medication Orders Sodium Chloride (Normal Saline) 1,000 mls @ 150 mls/hr IV ASDIRECTED LAURA Last Admin: 02/02/19 12:41 Dose: 150 mls/hr Sodium Chloride (Saline Flush) 10 ml FLUSH ASDIRECTED PRN PRN Reason: Keep Vein Open Last Admin: 02/02/19 11:40 Dose: 10 ml Admin: 02/02/19 11:07 Dose: 10 ml Assessment/Plan Comment:: 1. Blood sugar is better so will put him on telemetry and MedSurg. 2. Continue his long-acting insulin. 3. Sliding scale every 2 hours with every 2 hours potassium. 4. IV normal saline at 250 mL per hour. 5. Repeat ABGs later this afternoon. 6. Lovenox for VTE prophylaxis 7. Clear liquids 8. Repeat labs for the a.m. 9. Zofran IV for nausea. 10. Inpatient - Mortality Measure Prognosis:: Good
[2019-02-02] MEDS: Insulin Lispro 100 Unit/ML 3 ML KwikPen SUBCUT SCH ×4 (14:11→21:01)
[2019-02-02] MEDS: Enoxaparin 40 MG/0.4 ML Syringe SUBCUT SCH (15:21)
[2019-02-02] MEDS ORDERED: Insulin Glargine,Human Rec. Analog 100 Units/ML 3 ML Pen SUBCUT SCH (21:00)
[2019-02-03] MEDS ORDERED: Insulin Glargine,Human Rec. Analog 100 Units/ML 3 ML Pen SUBCUT SCH (07:08)
[2019-02-03] MEDS: Insulin Lispro 100 Unit/ML 3 ML KwikPen SUBCUT SCH ×2 (08:00→12:02)
--- NOTE | 2019-02-03 08:18 | PCM.PN ---
- General Info Date of Service: 02/03/19 Admission Dx/Problem (Free Text): The patient is without complaints this morning. He denies chest pain, shortness of breath, polyphagia, polydipsia or polyuria. Patient does have an appetite today. - Patient Data Vitals - Most Recent: Last Vital Signs Temp 97.7 F 02/03/19 00:30 Pulse 58 L 02/03/19 00:30 Resp 14 02/03/19 00:30 BP 107/67 02/03/19 00:30 Pulse Ox 99 02/03/19 00:30 Weight - Most Recent: 146 lb I&O - Last 24 Hours: Intake & Output 02/02/19 02/03/19 02/03/19 22:59 06:59 14:59 Intake Total 800 Output Total 900 Balance 800 -900 Lab Results Last 24 Hours: Laboratory Results - last 24 hr 02/02/19 02/02/19 02/02/19 Range/Units 11:00 11:00 11:00 WBC 10.5 (4.5-12.0) X10-3/uL RBC 5.75 (4.30-5.75) x10(6)uL Hgb 17.2 D (13.5-17.8) g/dL Hct 50.0 D (30.0-51.3) % MCV 87.0 (80-96) fL MCH 29.9 (27.7-33.6) pg MCHC 34.4 (32.2-35.4) g/dL RDW 13.0 (11.5-15.5) % Plt Count 307 (125-369) X10(3)uL MPV 8.5 (7.4-10.4) fL Neut % (Auto) 75.6 (46-82) % Lymph % (Auto) 17.6 (13-37) % [place] % (Auto) 4.0 (4-12) % Eos % (Auto) 2 (1.0-5.0) % Baso % (Auto) 1 (0-2) % Neut # (Auto) 7.9 (1.6-8.3) # Lymph # (Auto) 1.9 (0.6-5.0) # [place] # (Auto) 0.4 (0.0-1.3) # Eos # (Auto) 0.2 (0.0-0.8) # Baso # (Auto) 0.1 (0.0-0.2) # POC VBG pH (7.31-7.41) POC VBG pCO2 (41-51) mmHG POC VBG HCO3 (23-28) mmol/L POC VBG Total CO2 (24-29) mmol/L POC VBG Base Excess (-2-3) mmol/L Sodium 133 L (135-145) mmol/L Potassium 3.8 (3.5-5.3) mmol/L Chloride 90 L D (100-110) mmol/L Carbon Dioxide 19 L (21-32) mmol/L BUN 32 H D (7-18) mg/dL Creatinine 1.9 H (0.70-1.30) mg/dL Est Cr Clr Drug Dosing 41.91 mL/min Estimated GFR (MDRD) 36 L (>60) BUN/Creatinine Ratio 16.8 (9-20) Glucose 358 H D (80-116) mg/dL POC Glucose (80-116) mg/dL Lactic Acid (0.4-2.2) mmol/L Calcium 10.1 (8.6-10.2) mg/dL Magnesium (1.8-2.5) mg/dL Total Bilirubin 0.5 (0.1-1.3) mg/dL AST 8 D (5-25) IU/L ALT 14 D (12-36) U/L Alkaline Phosphatase 146 H (56-112) IU/L Troponin I < 0.017 L (<0.017-0.056) ng/mL C-Reactive Protein 1.2 H (0.5-0.9) mg/dL Total Protein 8.8 H (6.0-8.0) g/dL Albumin 4.4 (3.2-4.6) g/dL Globulin 4.4 g/dL Albumin/Globulin Ratio 1.0 Urine Color (YELLOW) Urine Appearance (CLEAR) Urine pH (5.0-6.5) Ur Specific [place] (1.010-1.025) Urine Protein (NEGATIVE) mg/dL Urine Glucose (UA) (NORMAL) mg/dL Urine Ketones (NEGATIVE) mg/dL Urine Occult Blood (NEGATIVE) Urine Nitrite (NEGATIVE) Urine Bilirubin (NEGATIVE) Urine Urobilinogen (NEGATIVE) mg/dL Ur Leukocyte Esterase (NEGATIVE) Urine RBC (0-5) Urine WBC (0-5) Ur Squamous Epith Cells (NS,R,O) Amorphous Sediment Urine Bacteria (NS) Urine Mucus (NS) 02/02/19 02/02/19 02/02/19 Range/Units 11:00 11:00 11:05 WBC (4.5-12.0) X10-3/uL RBC (4.30-5.75) x10(6)uL Hgb (13.5-17.8) g/dL Hct (30.0-51.3) % MCV (80-96) fL MCH (27.7-33.6) pg MCHC (32.2-35.4) g/dL RDW (11.5-15.5) % Plt Count (125-369) X10(3)uL MPV (7.4-10.4) fL Neut % (Auto) (46-82) % Lymph % (Auto) (13-37) % [place] % (Auto) (4-12) % Eos % (Auto) (1.0-5.0) % Baso % (Auto) (0-2) % Neut # (Auto) (1.6-8.3) # Lymph # (Auto) (0.6-5.0) # [place] # (Auto) (0.0-1.3) # Eos # (Auto) (0.0-0.8) # Baso # (Auto) (0.0-0.2) # POC VBG pH (7.31-7.41) POC VBG pCO2 (41-51) mmHG POC VBG HCO3 (23-28) mmol/L POC VBG Total CO2 (24-29) mmol/L POC VBG Base Excess (-2-3) mmol/L Sodium (135-145) mmol/L Potassium (3.5-5.3) mmol/L Chloride (100-110) mmol/L Carbon Dioxide (21-32) mmol/L BUN (7-18) mg/dL Creatinine (0.70-1.30) mg/dL Est Cr Clr Drug Dosing mL/min Estimated GFR (MDRD) (>60) BUN/Creatinine Ratio (9-20) Glucose 356 H (80-116) mg/dL POC Glucose (80-116) mg/dL Lactic Acid 3.1 H (0.4-2.2) mmol/L Calcium (8.6-10.2) mg/dL Magnesium 1.9 (1.8-2.5) mg/dL Total Bilirubin (0.1-1.3) mg/dL AST (5-25) IU/L ALT (12-36) U/L Alkaline Phosphatase (56-112) IU/L Troponin I (<0.017-0.056) ng/mL C-Reactive Protein (0.5-0.9) mg/dL Total Protein (6.0-8.0) g/dL Albumin (3.2-4.6) g/dL Globulin g/dL Albumin/Globulin Ratio Urine Color (YELLOW) Urine Appearance (CLEAR) Urine pH (5.0-6.5) Ur Specific [place] (1.010-1.025) Urine Protein (NEGATIVE) mg/dL Urine Glucose (UA) (NORMAL) mg/dL Urine Ketones (NEGATIVE) mg/dL Urine Occult Blood (NEGATIVE) Urine Nitrite (NEGATIVE) Urine Bilirubin (NEGATIVE) Urine Urobilinogen (NEGATIVE) mg/dL Ur Leukocyte Esterase (NEGATIVE) Urine RBC (0-5) Urine WBC (0-5) Ur Squamous Epith Cells (NS,R,O) Amorphous Sediment Urine Bacteria (NS) Urine Mucus (NS) 02/02/19 02/02/19 02/02/19 Range/Units 12:57 12:58 13:40 WBC (4.5-12.0) X10-3/uL RBC (4.30-5.75) x10(6)uL Hgb (13.5-17.8) g/dL Hct (30.0-51.3) % MCV (80-96) fL MCH (27.7-33.6) pg MCHC (32.2-35.4) g/dL RDW (11.5-15.5) % Plt Count (125-369) X10(3)uL MPV (7.4-10.4) fL Neut % (Auto) (46-82) % Lymph % (Auto) (13-37) % [place] % (Auto) (4-12) % Eos % (Auto) (1.0-5.0) % Baso % (Auto) (0-2) % Neut # (Auto) (1.6-8.3) # Lymph # (Auto) (0.6-5.0) # [place] # (Auto) (0.0-1.3) # Eos # (Auto) (0.0-0.8) # Baso # (Auto) (0.0-0.2) # POC VBG pH 7.26 L (7.31-7.41) POC VBG pCO2 48.1 (41-51) mmHG POC VBG HCO3 21.7 L (23-28) mmol/L POC VBG Total CO2 23 L (24-29) mmol/L POC VBG Base Excess -5 L (-2-3) mmol/L Sodium (135-145) mmol/L Potassium 3.7 (3.5-5.3) mmol/L Chloride (100-110) mmol/L Carbon Dioxide (21-32) mmol/L BUN (7-18) mg/dL Creatinine (0.70-1.30) mg/dL Est Cr Clr Drug Dosing mL/min Estimated GFR (MDRD) (>60) BUN/Creatinine Ratio (9-20) Glucose (80-116) mg/dL POC Glucose 135 H (80-116) mg/dL Lactic Acid (0.4-2.2) mmol/L Calcium (8.6-10.2) mg/dL Magnesium (1.8-2.5) mg/dL Total Bilirubin (0.1-1.3) mg/dL AST (5-25) IU/L ALT (12-36) U/L Alkaline Phosphatase (56-112) IU/L Troponin I (<0.017-0.056) ng/mL C-Reactive Protein (0.5-0.9) mg/dL Total Protein (6.0-8.0) g/dL Albumin (3.2-4.6) g/dL Globulin g/dL Albumin/Globulin Ratio Urine Color (YELLOW) Urine Appearance (CLEAR) Urine pH (5.0-6.5) Ur Specific [place] (1.010-1.025) Urine Protein (NEGATIVE) mg/dL Urine Glucose (UA) (NORMAL) mg/dL Urine Ketones (NEGATIVE) mg/dL Urine Occult Blood (NEGATIVE) Urine Nitrite (NEGATIVE) Urine Bilirubin (NEGATIVE) Urine Urobilinogen (NEGATIVE) mg/dL Ur Leukocyte Esterase (NEGATIVE) Urine RBC (0-5) Urine WBC (0-5) Ur Squamous Epith Cells (NS,R,O) Amorphous Sediment Urine Bacteria (NS) Urine Mucus (NS) 02/02/19 02/02/19 02/02/19 Range/Units 14:10 15:35 16:00 WBC (4.5-12.0) X10-3/uL RBC (4.30-5.75) x10(6)uL Hgb (13.5-17.8) g/dL Hct (30.0-51.3) % MCV (80-96) fL MCH (27.7-33.6) pg MCHC (32.2-35.4) g/dL RDW (11.5-15.5) % Plt Count (125-369) X10(3)uL MPV (7.4-10.4) fL Neut % (Auto) (46-82) % Lymph % (Auto) (13-37) % [place] % (Auto) (4-12) % Eos % (Auto) (1.0-5.0) % Baso % (Auto) (0-2) % Neut # (Auto) (1.6-8.3) # Lymph # (Auto) (0.6-5.0) # [place] # (Auto) (0.0-1.3) # Eos # (Auto) (0.0-0.8) # Baso # (Auto) (0.0-0.2) # POC VBG pH (7.31-7.41) POC VBG pCO2 (41-51) mmHG POC VBG HCO3 (23-28) mmol/L POC VBG Total CO2 (24-29) mmol/L POC VBG Base Excess (-2-3) mmol/L Sodium (135-145) mmol/L Potassium 3.6 (3.5-5.3) mmol/L Chloride (100-110) mmol/L Carbon Dioxide (21-32) mmol/L BUN (7-18) mg/dL Creatinine (0.70-1.30) mg/dL Est Cr Clr Drug Dosing mL/min Estimated GFR (MDRD) (>60) BUN/Creatinine Ratio (9-20) Glucose (80-116) mg/dL POC Glucose 94 96 (80-116) mg/dL Lactic Acid (0.4-2.2) mmol/L Calcium (8.6-10.2) mg/dL Magnesium (1.8-2.5) mg/dL Total Bilirubin (0.1-1.3) mg/dL AST (5-25) IU/L ALT (12-36) U/L Alkaline Phosphatase (56-112) IU/L Troponin I (<0.017-0.056) ng/mL C-Reactive Protein (0.5-0.9) mg/dL Total Protein (6.0-8.0) g/dL Albumin (3.2-4.6) g/dL Globulin g/dL Albumin/Globulin Ratio Urine Color (YELLOW) Urine Appearance (CLEAR) Urine pH (5.0-6.5) Ur Specific [place] (1.010-1.025) Urine Protein (NEGATIVE) mg/dL Urine Glucose (UA) (NORMAL) mg/dL Urine Ketones (NEGATIVE) mg/dL Urine Occult Blood (NEGATIVE) Urine Nitrite (NEGATIVE) Urine Bilirubin (NEGATIVE) Urine Urobilinogen (NEGATIVE) mg/dL Ur Leukocyte Esterase (NEGATIVE) Urine RBC (0-5) Urine WBC (0-5) Ur Squamous Epith Cells (NS,R,O) Amorphous Sediment Urine Bacteria (NS) Urine Mucus (NS) 02/02/19 02/02/19 02/02/19 Range/Units 16:59 18:15 20:15 WBC (4.5-12.0) X10-3/uL RBC (4.30-5.75) x10(6)uL Hgb (13.5-17.8) g/dL Hct (30.0-51.3) % MCV (80-96) fL MCH (27.7-33.6) pg MCHC (32.2-35.4) g/dL RDW (11.5-15.5) % Plt Count (125-369) X10(3)uL MPV (7.4-10.4) fL Neut % (Auto) (46-82) % Lymph % (Auto) (13-37) % [place] % (Auto) (4-12) % Eos % (Auto) (1.0-5.0) % Baso % (Auto) (0-2) % Neut # (Auto) (1.6-8.3) # Lymph # (Auto) (0.6-5.0) # [place] # (Auto) (0.0-1.3) # Eos # (Auto) (0.0-0.8) # Baso # (Auto) (0.0-0.2) # POC VBG pH 7.34 (7.31-7.41) POC VBG pCO2 45.8 (41-51) mmHG POC VBG HCO3 24.7 (23-28) mmol/L POC VBG Total CO2 26 (24-29) mmol/L POC VBG Base Excess -1 (-2-3) mmol/L Sodium (135-145) mmol/L Potassium 3.5 (3.5-5.3) mmol/L Chloride (100-110) mmol/L Carbon Dioxide (21-32) mmol/L BUN (7-18) mg/dL Creatinine (0.70-1.30) mg/dL Est Cr Clr Drug Dosing mL/min Estimated GFR (MDRD) (>60) BUN/Creatinine Ratio (9-20) Glucose (80-116) mg/dL POC Glucose 122 H (80-116) mg/dL Lactic Acid (0.4-2.2) mmol/L Calcium (8.6-10.2) mg/dL Magnesium (1.8-2.5) mg/dL Total Bilirubin (0.1-1.3) mg/dL AST (5-25) IU/L ALT (12-36) U/L Alkaline Phosphatase (56-112) IU/L Troponin I (<0.017-0.056) ng/mL C-Reactive Protein (0.5-0.9) mg/dL Total Protein (6.0-8.0) g/dL Albumin (3.2-4.6) g/dL Globulin g/dL Albumin/Globulin Ratio Urine Color (YELLOW) Urine Appearance (CLEAR) Urine pH (5.0-6.5) Ur Specific [place] (1.010-1.025) Urine Protein (NEGATIVE) mg/dL Urine Glucose (UA) (NORMAL) mg/dL Urine Ketones (NEGATIVE) mg/dL Urine Occult Blood (NEGATIVE) Urine Nitrite (NEGATIVE) Urine Bilirubin (NEGATIVE) Urine Urobilinogen (NEGATIVE) mg/dL Ur Leukocyte Esterase (NEGATIVE) Urine RBC (0-5) Urine WBC (0-5) Ur Squamous Epith Cells (NS,R,O) Amorphous Sediment Urine Bacteria (NS) Urine Mucus (NS) 02/02/19 02/03/19 02/03/19 Range/Units 20:54 01:34 06:28 WBC (4.5-12.0) X10-3/uL RBC (4.30-5.75) x10(6)uL Hgb (13.5-17.8) g/dL Hct (30.0-51.3) % MCV (80-96) fL MCH (27.7-33.6) pg MCHC (32.2-35.4) g/dL RDW (11.5-15.5) % Plt Count (125-369) X10(3)uL MPV (7.4-10.4) fL Neut % (Auto) (46-82) % Lymph % (Auto) (13-37) % [place] % (Auto) (4-12) % Eos % (Auto) (1.0-5.0) % Baso % (Auto) (0-2) % Neut # (Auto) (1.6-8.3) # Lymph # (Auto) (0.6-5.0) # [place] # (Auto) (0.0-1.3) # Eos # (Auto) (0.0-0.8) # Baso # (Auto) (0.0-0.2) # POC VBG pH (7.31-7.41) POC VBG pCO2 (41-51) mmHG POC VBG HCO3 (23-28) mmol/L POC VBG Total CO2 (24-29) mmol/L POC VBG Base Excess (-2-3) mmol/L Sodium (135-145) mmol/L Potassium (3.5-5.3) mmol/L Chloride (100-110) mmol/L Carbon Dioxide (21-32) mmol/L BUN (7-18) mg/dL Creatinine (0.70-1.30) mg/dL Est Cr Clr Drug Dosing mL/min Estimated GFR (MDRD) (>60) BUN/Creatinine Ratio (9-20) Glucose (80-116) mg/dL POC Glucose 234 H D 138 H D (80-116) mg/dL Lactic Acid (0.4-2.2) mmol/L Calcium (8.6-10.2) mg/dL Magnesium (1.8-2.5) mg/dL Total Bilirubin (0.1-1.3) mg/dL AST (5-25) IU/L ALT (12-36) U/L Alkaline Phosphatase (56-112) IU/L Troponin I (<0.017-0.056) ng/mL C-Reactive Protein (0.5-0.9) mg/dL Total Protein (6.0-8.0) g/dL Albumin (3.2-4.6) g/dL Globulin g/dL Albumin/Globulin Ratio Urine Color Yellow (YELLOW) Urine Appearance Clear (CLEAR) Urine pH 5.0 (5.0-6.5) Ur Specific [place] 1.020 (1.010-1.025) Urine Protein Negative (NEGATIVE) mg/dL Urine Glucose (UA) >1000 H (NORMAL) mg/dL Urine Ketones 50 H (NEGATIVE) mg/dL Urine Occult Blood Negative (NEGATIVE) Urine Nitrite Negative (NEGATIVE) Urine Bilirubin Negative (NEGATIVE) Urine Urobilinogen Normal (NEGATIVE) mg/dL Ur Leukocyte Esterase Negative (NEGATIVE) Urine RBC 0-5 (0-5) Urine WBC 0-5 (0-5) Ur Squamous Epith Cells Occasional (NS,R,O) Amorphous Sediment Few Urine Bacteria Few H (NS) Urine Mucus Moderate H (NS) 02/03/19 Range/Units 07:45 WBC (4.5-12.0) X10-3/uL RBC (4.30-5.75) x10(6)uL Hgb (13.5-17.8) g/dL Hct (30.0-51.3) % MCV (80-96) fL MCH (27.7-33.6) pg MCHC (32.2-35.4) g/dL RDW (11.5-15.5) % Plt Count (125-369) X10(3)uL MPV (7.4-10.4) fL Neut % (Auto) (46-82) % Lymph % (Auto) (13-37) % [place] % (Auto) (4-12) % Eos % (Auto) (1.0-5.0) % Baso % (Auto) (0-2) % Neut # (Auto) (1.6-8.3) # Lymph # (Auto) (0.6-5.0) # [place] # (Auto) (0.0-1.3) # Eos # (Auto) (0.0-0.8) # Baso # (Auto) (0.0-0.2) # POC VBG pH (7.31-7.41) POC VBG pCO2 (41-51) mmHG POC VBG HCO3 (23-28) mmol/L POC VBG Total CO2 (24-29) mmol/L POC VBG Base Excess (-2-3) mmol/L Sodium 138 (135-145) mmol/L Potassium 3.6 (3.5-5.3) mmol/L Chloride 102 D (100-110) mmol/L Carbon Dioxide 28 (21-32) mmol/L BUN 13 D (7-18) mg/dL Creatinine 1.0 (0.70-1.30) mg/dL Est Cr Clr Drug Dosing 72.66 mL/min Estimated GFR (MDRD) > 60 (>60) BUN/Creatinine Ratio 13.0 (9-20) Glucose 134 H D (80-116) mg/dL POC Glucose (80-116) mg/dL Lactic Acid (0.4-2.2) mmol/L Calcium 8.3 L (8.6-10.2) mg/dL Magnesium (1.8-2.5) mg/dL Total Bilirubin (0.1-1.3) mg/dL AST (5-25) IU/L ALT (12-36) U/L Alkaline Phosphatase (56-112) IU/L Troponin I (<0.017-0.056) ng/mL C-Reactive Protein (0.5-0.9) mg/dL Total Protein (6.0-8.0) g/dL Albumin (3.2-4.6) g/dL Globulin g/dL Albumin/Globulin Ratio Urine Color (YELLOW) Urine Appearance (CLEAR) Urine pH (5.0-6.5) Ur Specific [place] (1.010-1.025) Urine Protein (NEGATIVE) mg/dL Urine Glucose (UA) (NORMAL) mg/dL Urine Ketones (NEGATIVE) mg/dL Urine Occult Blood (NEGATIVE) Urine Nitrite (NEGATIVE) Urine Bilirubin (NEGATIVE) Urine Urobilinogen (NEGATIVE) mg/dL Ur Leukocyte Esterase (NEGATIVE) Urine RBC (0-5) Urine WBC (0-5) Ur Squamous Epith Cells (NS,R,O) Amorphous Sediment Urine Bacteria (NS) Urine Mucus (NS) Med Orders - Current: Current Medications Enoxaparin Sodium (Lovenox) 40 mg SUBCUT Q24H [facility] Last Admin: 02/02/19 15:21 Dose: 40 mg Sodium Chloride (Normal Saline) 1,000 mls @ 250 mls/hr IV ASDIRECTED LAURA Last Admin: 02/02/19 21:07 Dose: 150 mls/hr Insulin Glargine (Lantus Solostar) 40 units SUBCUT BEDTIME LAURA Insulin Human Lispro (Humalog) 0 unit SUBCUT WITHMEALSANDBED [facility]; Protocol Last Admin: 02/03/19 08:00 Dose: Not Given Ondansetron HCl (Zofran) 4 mg IVPUSH Q6H PRN PRN Reason: Nausea/Vomiting Sodium Chloride (Saline Flush) 10 ml FLUSH ASDIRECTED PRN PRN Reason: Keep Vein Open Last Admin: 02/02/19 11:40 Dose: 10 ml Discontinued Medications Sodium Chloride (Normal Saline) 1,000 mls @ 999 mls/hr IV .BOLUS ONE Stop: 02/02/19 12:20 Last Admin: 02/02/19 11:29 Dose: 999 mls/hr Insulin Glargine (Lantus Solostar) 40 units SUBCUT BEDTIME [facility] Last Admin: 02/02/19 21:00 Dose: 40 units Insulin Human Lispro (Humalog) 0 unit SUBCUT Q2H [facility]; Protocol Last Admin: 02/02/19 19:01 Dose: Not Given Insulin Human Regular (Humulin R) 15 unit IV ONETIME ONE Stop: 02/02/19 11:21 Last Admin: 02/02/19 11:30 Dose: 15 units Ondansetron HCl (Zofran) 4 mg IVPUSH ONETIME ONE Stop: 02/02/19 11:21 Last Admin: 02/02/19 11:29 Dose: 4 mg - Exam General: Alert, Oriented Lungs: Clear to Auscultation, Normal Respiratory Effort Cardiovascular: Regular Rate, Regular Rhythm, No Murmurs - Problem List & Annotations (1) DKA, type 2, not at goal SNOMED Code(s): 63378275, 767729233 Code(s): E11.10 - TYPE 2 DIABETES MELLITUS WITH KETOACIDOSIS WITHOUT COMA Status: Acute Current Visit: Yes (2) Dehydration, moderate SNOMED Code(s): 1167321184127 Code(s): E86.0 - DEHYDRATION Status: Acute Current Visit: Yes (3) Diabetes mellitus type II, uncontrolled SNOMED Code(s): 338762009, 700254937 Code(s): E11.65 - TYPE 2 DIABETES MELLITUS WITH HYPERGLYCEMIA Status: Acute Current Visit: No Qualifiers: Glycemic state: with hyperglycemia Qualified Code(s): E11.65 - Type 2 diabetes mellitus with hyperglycemia (4) Hx of gastroesophageal reflux (GERD) SNOMED Code(s): 91947639308898 Code(s): Z87.19 - PERSONAL HISTORY OF OTHER DISEASES OF THE DIGESTIVE SYSTEM Status: Acute Current Visit: No - Problem List Review Problem List Initiated/Reviewed/Updated: Yes - My Orders Last 24 Hours: My Active Orders 02/02/19 13:19 Ondansetron [Zofran] 4 mg IVPUSH Q6H PRN 02/02/19 13:26 Up ad Teresita [] ,13,17,21 02/02/19 13:27 Code Status [Resuscitation Status] Routine 02/02/19 13:30 Enoxaparin [Lovenox] 40 mg SUBCUT Q24H 02/02/19 17:58 Accu Check [Blood Glucose Check, Bedside] [] QIDACANDBED 02/02/19 19:58 Daily Weight [Height and Weight] [] 06 02/02/19 21:00 Insulin Lispro [HumaLOG] See Protocol SUBCUT WITHMEALSANDBED 02/03/19 07:08 Insulin Glarg,Human.Rec.Analog [LantUS Solostar] 40 units SUBCUT BEDTIME 02/03/19 Breakfast Consistent Carbohydrate Diet [DIET] - Plan Plan:: 1. DC telemetry 2. DC IV fluids 3. BMP 4. Ambulate 5. Continue sliding scale with his long-acting insulin
--- NOTE | 2019-02-03 13:20 | PCM.DCSUM1 ---
Discharge Summary - Hospital Course Free Text/Narrative:: Hospital course-patient was placed on telemetry. he was given copious bouts of IV fluids. His testing did not drop as rechecked it every 2 hours. His blood sugar went down to the low 100s after 15 units of fast acting insulin in the ER. For the next morning his pH corrected and he was hydrated. He was given 4 L of normal saline. His gases diet and he had an appetite and watch his blood sugars which remained low 100s to low 200s. His renal failure was not rechecked. I did talk to about diet and regular insulin use. He will follow-up with his primary provider who live also talked to about getting to diabetes education dietitian and try to avoid admission. Brief History: 63-year-old type II diabetic became the ER because he was vomiting and couldn't keep anything down. He states he takes his long-acting insulin last night. He says he is really hungry so he doesn't usually take his short acting. He said he got hungry last night and started vomiting and he decided to drink and he vomited so he came in. Denies polyphagia, polydipsia or polyuria. He says he has decreased urinary output and constipation. He has some burning his chest that he says is is normal GERD. He has no abdominal pain, fevers, chills, ear pain. He says he has not been sick. He does have neuropathy. He says his last A1c in the clinic was around 10. Diagnosis: Stroke: No - Discharge Data Discharge Date: 02/03/19 Discharge Disposition: Home, Self-Care 01 Condition: Good - Referral to Home Health Primary Care Physician: Sabrina Stephen PA-C - Discharge Diagnosis/Problem(s) (1) DKA, type 2, not at goal SNOMED Code(s): 41630525, 322449195 ICD Code: E11.10 - TYPE 2 DIABETES MELLITUS WITH KETOACIDOSIS WITHOUT COMA Status: Acute Current Visit: Yes (2) Dehydration, moderate SNOMED Code(s): 6959482760835 ICD Code: E86.0 - DEHYDRATION Status: Acute Current Visit: Yes (3) Diabetes mellitus type II, uncontrolled SNOMED Code(s): 699002707, 915201426 ICD Code: E11.65 - TYPE 2 DIABETES MELLITUS WITH HYPERGLYCEMIA Status: Acute Current Visit: No Qualifiers: Glycemic state: with hyperglycemia Qualified Code(s): E11.65 - Type 2 diabetes mellitus with hyperglycemia (4) Hx of gastroesophageal reflux (GERD) SNOMED Code(s): 35342959136287 ICD Code: Z87.19 - PERSONAL HISTORY OF OTHER DISEASES OF THE DIGESTIVE SYSTEM Status: Acute Current Visit: No - Patient Instructions Diet: Diabetic Diet Activity: As Tolerated Driving: May Drive Today Showering/Bathing: May Shower Other/Special Instructions: 1. Recheck with Sabrina Stephen in 5 days. 2. Set up peer educator and dietitian appointments at [facility]. - Discharge Plan Home Medications: Home Meds metFORMIN [Glucophage] 850 mg PO BIDMEALS 02/17/14 [History] Insulin Detemir [Levemir Flextouch] 40 units SQ BEDTIME 11/18/18 [History] Insulin Lispro [Humalog] 0 unit SUBCUT TIDMEALS #5 pen 11/19/18 [Rx] Forms: ED Department Discharge Referrals: Sabrina Stephen PA-C [Primary Care Provider] - - Discharge Summary/Plan Comment DC Time >30 min.: No - Patient Data Vitals - Most Recent: Last Vital Signs Temp 97 F 02/03/19 08:00 Pulse 69 02/03/19 08:00 Resp 18 02/03/19 08:00 BP 107/58 L 02/03/19 08:00 Pulse Ox 100 02/03/19 08:00 Weight - Most Recent: 146 lb I&O - Last 24 hours: Intake & Output 02/02/19 02/03/19 02/03/19 22:59 06:59 14:59 Intake Total 800 Output Total 900 Balance 800 -900 Lab Results - Last 24 hrs: Laboratory Results - last 24 hr 02/02/19 02/02/19 02/02/19 Range/Units 13:40 14:10 15:35 POC VBG pH (7.31-7.41) POC VBG pCO2 (41-51) mmHG POC VBG HCO3 (23-28) mmol/L POC VBG Total CO2 (24-29) mmol/L POC VBG Base Excess (-2-3) mmol/L Sodium (135-145) mmol/L Potassium 3.7 3.6 (3.5-5.3) mmol/L Chloride (100-110) mmol/L Carbon Dioxide (21-32) mmol/L BUN (7-18) mg/dL Creatinine (0.70-1.30) mg/dL Est Cr Clr Drug Dosing mL/min Estimated GFR (MDRD) (>60) BUN/Creatinine Ratio (9-20) Glucose (80-116) mg/dL POC Glucose 94 (80-116) mg/dL Calcium (8.6-10.2) mg/dL Urine Color (YELLOW) Urine Appearance (CLEAR) Urine pH (5.0-6.5) Ur Specific [place] (1.010-1.025) Urine Protein (NEGATIVE) mg/dL Urine Glucose (UA) (NORMAL) mg/dL Urine Ketones (NEGATIVE) mg/dL Urine Occult Blood (NEGATIVE) Urine Nitrite (NEGATIVE) Urine Bilirubin (NEGATIVE) Urine Urobilinogen (NEGATIVE) mg/dL Ur Leukocyte Esterase (NEGATIVE) Urine RBC (0-5) Urine WBC (0-5) Ur Squamous Epith Cells (NS,R,O) Amorphous Sediment Urine Bacteria (NS) Urine Mucus (NS) 02/02/19 02/02/19 02/02/19 Range/Units 16:00 16:59 18:15 POC VBG pH 7.34 (7.31-7.41) POC VBG pCO2 45.8 (41-51) mmHG POC VBG HCO3 24.7 (23-28) mmol/L POC VBG Total CO2 26 (24-29) mmol/L POC VBG Base Excess -1 (-2-3) mmol/L Sodium (135-145) mmol/L Potassium (3.5-5.3) mmol/L Chloride (100-110) mmol/L Carbon Dioxide (21-32) mmol/L BUN (7-18) mg/dL Creatinine (0.70-1.30) mg/dL Est Cr Clr Drug Dosing mL/min Estimated GFR (MDRD) (>60) BUN/Creatinine Ratio (9-20) Glucose (80-116) mg/dL POC Glucose 96 122 H (80-116) mg/dL Calcium (8.6-10.2) mg/dL Urine Color (YELLOW) Urine Appearance (CLEAR) Urine pH (5.0-6.5) Ur Specific [place] (1.010-1.025) Urine Protein (NEGATIVE) mg/dL Urine Glucose (UA) (NORMAL) mg/dL Urine Ketones (NEGATIVE) mg/dL Urine Occult Blood (NEGATIVE) Urine Nitrite (NEGATIVE) Urine Bilirubin (NEGATIVE) Urine Urobilinogen (NEGATIVE) mg/dL Ur Leukocyte Esterase (NEGATIVE) Urine RBC (0-5) Urine WBC (0-5) Ur Squamous Epith Cells (NS,R,O) Amorphous Sediment Urine Bacteria (NS) Urine Mucus (NS) 02/02/19 02/02/19 02/03/19 Range/Units 20:15 20:54 01:34 POC VBG pH (7.31-7.41) POC VBG pCO2 (41-51) mmHG POC VBG HCO3 (23-28) mmol/L POC VBG Total CO2 (24-29) mmol/L POC VBG Base Excess (-2-3) mmol/L Sodium (135-145) mmol/L Potassium 3.5 (3.5-5.3) mmol/L Chloride (100-110) mmol/L Carbon Dioxide (21-32) mmol/L BUN (7-18) mg/dL Creatinine (0.70-1.30) mg/dL Est Cr Clr Drug Dosing mL/min Estimated GFR (MDRD) (>60) BUN/Creatinine Ratio (9-20) Glucose (80-116) mg/dL POC Glucose 234 H D (80-116) mg/dL Calcium (8.6-10.2) mg/dL Urine Color Yellow (YELLOW) Urine Appearance Clear (CLEAR) Urine pH 5.0 (5.0-6.5) Ur Specific [place] 1.020 (1.010-1.025) Urine Protein Negative (NEGATIVE) mg/dL Urine Glucose (UA) >1000 H (NORMAL) mg/dL Urine Ketones 50 H (NEGATIVE) mg/dL Urine Occult Blood Negative (NEGATIVE) Urine Nitrite Negative (NEGATIVE) Urine Bilirubin Negative (NEGATIVE) Urine Urobilinogen Normal (NEGATIVE) mg/dL Ur Leukocyte Esterase Negative (NEGATIVE) Urine RBC 0-5 (0-5) Urine WBC 0-5 (0-5) Ur Squamous Epith Cells Occasional (NS,R,O) Amorphous Sediment Few Urine Bacteria Few H (NS) Urine Mucus Moderate H (NS) 02/03/19 02/03/19 02/03/19 Range/Units 06:28 07:45 12:01 POC VBG pH (7.31-7.41) POC VBG pCO2 (41-51) mmHG POC VBG HCO3 (23-28) mmol/L POC VBG Total CO2 (24-29) mmol/L POC VBG Base Excess (-2-3) mmol/L Sodium 138 (135-145) mmol/L Potassium 3.6 (3.5-5.3) mmol/L Chloride 102 D (100-110) mmol/L Carbon Dioxide 28 (21-32) mmol/L BUN 13 D (7-18) mg/dL Creatinine 1.0 (0.70-1.30) mg/dL Est Cr Clr Drug Dosing 72.66 mL/min Estimated GFR (MDRD) > 60 (>60) BUN/Creatinine Ratio 13.0 (9-20) Glucose 134 H D (80-116) mg/dL POC Glucose 138 H D 244 H D (80-116) mg/dL Calcium 8.3 L (8.6-10.2) mg/dL Urine Color (YELLOW) Urine Appearance (CLEAR) Urine pH (5.0-6.5) Ur Specific [place] (1.010-1.025) Urine Protein (NEGATIVE) mg/dL Urine Glucose (UA) (NORMAL) mg/dL Urine Ketones (NEGATIVE) mg/dL Urine Occult Blood (NEGATIVE) Urine Nitrite (NEGATIVE) Urine Bilirubin (NEGATIVE) Urine Urobilinogen (NEGATIVE) mg/dL Ur Leukocyte Esterase (NEGATIVE) Urine RBC (0-5) Urine WBC (0-5) Ur Squamous Epith Cells (NS,R,O) Amorphous Sediment Urine Bacteria (NS) Urine Mucus (NS) Med Orders - Current: Current Medications Enoxaparin Sodium (Lovenox) 40 mg SUBCUT Q24H [facility] Last Admin: 02/02/19 15:21 Dose: 40 mg Insulin Glargine (Lantus Solostar) 40 units SUBCUT BEDTIME [facility] Insulin Human Lispro (Humalog) 0 unit SUBCUT WITHMEALSANDBED [facility]; Protocol Last Admin: 02/03/19 12:02 Dose: 4 units Ondansetron HCl (Zofran) 4 mg IVPUSH Q6H PRN PRN Reason: Nausea/Vomiting Sodium Chloride (Saline Flush) 10 ml FLUSH ASDIRECTED PRN PRN Reason: Keep Vein Open Last Admin: 02/02/19 11:40 Dose: 10 ml Discontinued Medications Sodium Chloride (Normal Saline) 1,000 mls @ 999 mls/hr IV .BOLUS ONE Stop: 02/02/19 12:20 Last Admin: 02/02/19 11:29 Dose: 999 mls/hr Sodium Chloride (Normal Saline) 1,000 mls @ 250 mls/hr IV ASDIRECTED [facility] Last Admin: 02/02/19 21:07 Dose: 150 mls/hr Insulin Glargine (Lantus Solostar) 40 units SUBCUT BEDTIME [facility] Last Admin: 02/02/19 21:00 Dose: 40 units Insulin Human Lispro (Humalog) 0 unit SUBCUT Q2H [facility]; Protocol Last Admin: 02/02/19 19:01 Dose: Not Given Insulin Human Regular (Humulin R) 15 unit IV ONETIME ONE Stop: 02/02/19 11:21 Last Admin: 02/02/19 11:30 Dose: 15 units Ondansetron HCl (Zofran) 4 mg IVPUSH ONETIME ONE Stop: 02/02/19 11:21 Last Admin: 02/02/19 11:29 Dose: 4 mg
[2019-02-03] MEDS: Enoxaparin 40 MG/0.4 ML Syringe SUBCUT SCH (14:02)
[2019-02-03 14:26] VITALS: BP 117/85; PULSE 86
== END 2019-02-03 14:12 | disposition home or self-care (01) | DRG 638 ==
LOC: FB.ED 10:39 → FB.MS 12:24 → UNDOADMIN 12:24 → FB.MS 12:45
PROVIDERS: ADMIT Emergency Medicine; ATTEND Family Medicine
DX: E11.10 Type 2 diabetes mellitus with ketoacidosis without coma (principal); E87.1 Hypo-osmolality and hyponatremia; E11.65 Type 2 diabetes mellitus with hyperglycemia; E86.0 Dehydration; K21.9 Gastro-esophageal reflux disease without esophagitis; E11.42 Type 2 diabetes mellitus with diabetic polyneuropathy; K59.00 Constipation, unspecified; F17.200 Nicotine dependence, unspecified, uncomplicated; Z79.4 Long term (current) use of insulin; Z90.89 Acquired absence of other organs
CPT/HCPCS: 36415; 80048; 80053; 81001; 82803; 82947; 82962; 83605; 83735; 84132; 84484; 85025; 86140; 93005; 93010; 96361; 96374; 99284; 99285-25; J1650; J1815; J1815-GY; J2405; J7030

== ENCOUNTER 2019-02-28 12:41 | Observation (INO) | payer MEDICAID, OTHER, SELFPAY ==
[2019-02-28] MEDS ORDERED: Sodium Chloride 0.9% 1,000 ML IV ONE ×2 (13:17→13:18)
--- NOTE | 2019-02-28 13:18 | EDM.PDOC ---
ED HPI GENERAL MEDICAL PROBLEM - General Chief Complaint: Diabetic Complaint Stated Complaint: WEAK Time Seen by Provider: 02/28/19 13:14 Source of Information: Reports: Patient History Limitations: Reports: No Limitations - History of Present Illness INITIAL COMMENTS - FREE TEXT/NARRATIVE: pt is Insulin dependant diabetic comes from home with c/o generalized weakness and confusion, tells me for a bout a week he has been out of his insulin, denies any pain, or GI or resp or CV or urinary sx except for feeling very dehydrated. pt normally takes 40 levamir and novolog on sliding scale. - Related Data Allergies Allergy/AdvReac Type Severity Reaction Status Date / Time No Known Allergies Allergy Verified 02/28/19 12:50 Home Meds: Home Meds metFORMIN [Glucophage] 850 mg PO BIDMEALS 02/17/14 [History] Insulin Detemir [Levemir Flextouch] 40 units SQ BEDTIME 11/18/18 [History] Insulin Lispro [Humalog] 5 - 40 unit SUBCUT TIDMEALS 02/28/19 [History] Past Medical History Cardiovascular History: Reports: Other (See Below) Other Cardiovascular History: States that his blood pressure is usually low. Respiratory History: Reports: Other (See Below) Other Respiratory History: Smoker since the age of 18. Gastrointestinal History: Reports: GERD Neurological History: Reports: Neuropathy, Diabetic Other Neuro History: States numbness in hands and feet. States he gets dizzy when his blood sugar is low and blood pressure is low. Psychiatric History: Reports: Anxiety, Depression Endocrine/Metabolic History: Reports: Diabetes, Type II, IDDM - Infectious Disease History Infectious Disease History: Reports: Chicken Pox, Shingles, Other (See Below) Other Infectious Disease History: States he had "measles", doesn't recall Rubella or Rubeola. - Past Surgical History HEENT Surgical History: Reports: Tonsillectomy GI Surgical History: Reports: Colonoscopy Social & Family History - Family History Family Medical History: Noncontributory Cardiac: Reports: CAD, High Cholesterol, Hypertension Respiratory: Reports: COPD : Reports: Renal Disease/Insufficiency Neurological: Reports: CVA Endocrine/Metabolic: Reports: Diabetes, type II - Tobacco Use Smoking Status *Q: Current Every Day Smoker Years of Tobacco use: 40 Packs/Tins Daily: 7 - Caffeine Use Caffeine Use: Reports: Coffee Other Caffeine Use: powerade or gatorade. - Recreational Drug Use Recreational Drug Use: No - Living Situation & Occupation Living situation: Reports: Single Occupation: Unemployed ED ROS GENERAL - Review of Systems Review Of Systems: See Below Constitutional: Reports: Weakness, Fatigue. Denies: Fever, Chills HEENT: Reports: No Symptoms Respiratory: Reports: No Symptoms Cardiovascular: Reports: No Symptoms GI/Abdominal: Reports: No Symptoms Musculoskeletal: Reports: No Symptoms Skin: Reports: No Symptoms Neurological: Reports: No Symptoms Psychiatric: Reports: No Symptoms ED EXAM GENERAL NO PERIP PULSE - Physical Exam Exam: See Below Exam Limited By: No Limitations General Appearance: Alert, Lethargic, Mild Distress Ears: Normal TMs Nose: Normal Inspection Throat/Mouth: Other (dry mucas memebranes noted. ) Respiratory/Chest: No Respiratory Distress, Lungs Clear, Normal Breath Sounds Cardiovascular: Normal Peripheral Pulses, Regular Rate, Rhythm, No Edema GI/Abdominal: Normal Bowel Sounds, Soft, Non-Tender Back Exam: Normal Inspection, Full Range of Motion Neurological: Alert, Oriented, CN II-XII Intact, Normal Cognition, No Motor/ Sensory Deficits Psychiatric: Depressed Mood Skin Exam: Dry Course - Vital Signs Text/Narrative:: labs results were explained to pt. pt is being hydrated and was given 15 unites regular insulin. pt has early DKA , hx or non compliance and similar presentations. there is no ICU staff here over the weekend and will try to manage this with SQ insulin. discussed with Dr Roberts and will admit pt to his care. Last Recorded V/S: Last Vital Signs Temp 35.0 C L 02/28/19 12:41 Pulse 103 H 02/28/19 12:41 Resp 16 02/28/19 12:41 BP 99/68 02/28/19 12:41 Pulse Ox 100 02/28/19 12:41 - Orders/Labs/Meds Orders: Active Orders 24 hr Category Date Time Status UA W/MICROSCOPIC [URIN] Stat Lab 02/28/19 13:20 Ordered Sodium Chloride 0.9% [Normal Saline] 1,000 ml Med 02/28/19 13:18 Active IV .BOLUS Medication Orders Sodium Chloride (Normal Saline) 1,000 mls @ 999 drops/hr IV .BOLUS ONE Stop: 03/01/19 04:18 Labs: Laboratory Tests 02/28/19 02/28/19 Range/Units 12:59 12:59 WBC 10.3 (4.5-12.0) X10-3/uL RBC 5.68 (4.30-5.75) x10(6)uL Hgb 16.8 (13.5-17.8) g/dL Hct 50.7 (30.0-51.3) % MCV 89.4 (80-96) fL MCH 29.6 (27.7-33.6) pg MCHC 33.1 (32.2-35.4) g/dL RDW 13.9 (11.5-15.5) % Plt Count 306 (125-369) X10(3)uL MPV 8.9 (7.4-10.4) fL Neut % (Auto) 76.7 (46-82) % Lymph % (Auto) 18.5 (13-37) % [place] % (Auto) 3.0 L (4-12) % Eos % (Auto) 1 (1.0-5.0) % Baso % (Auto) 1 (0-2) % Neut # (Auto) 7.9 (1.6-8.3) # Lymph # (Auto) 1.9 (0.6-5.0) # [place] # (Auto) 0.3 (0.0-1.3) # Eos # (Auto) 0.1 (0.0-0.8) # Baso # (Auto) 0.1 (0.0-0.2) # Sodium 130 L (135-145) mmol/L Potassium 4.6 D (3.5-5.3) mmol/L Chloride 90 L D (100-110) mmol/L Carbon Dioxide 14 L (21-32) mmol/L BUN 24 H D (7-18) mg/dL Creatinine 1.7 H (0.70-1.30) mg/dL Est Cr Clr Drug Dosing 40.99 mL/min Estimated GFR (MDRD) 41 L (>60) BUN/Creatinine Ratio 14.1 (9-20) Glucose 524 H* D (80-116) mg/dL Calcium 9.8 (8.6-10.2) mg/dL Total Bilirubin 0.7 (0.1-1.3) mg/dL AST 8 (5-25) IU/L ALT 11 L D (12-36) U/L Alkaline Phosphatase 116 H (56-112) IU/L Total Protein 7.5 (6.0-8.0) g/dL Albumin 4.0 (3.2-4.6) g/dL Globulin 3.5 g/dL Albumin/Globulin Ratio 1.1 Meds: Medications Generic Name Dose Route Start Last Admin Trade Name Freq PRN Reason Stop Dose Admin Sodium Chloride 1,000 mls @ 999 drops/hr 02/28/19 13:18 Normal Saline IV 03/01/19 04:18 .BOLUS ONE Discontinued Medications Generic Name Dose Route Start Last Admin Trade Name Freq PRN Reason Stop Dose Admin Insulin Human Lispro 15 unit 02/28/19 14:15 02/28/19 14:12 Humalog SUBCUT 02/28/19 14:16 15 units ONETIME ONE Administration Departure - Departure Time of Disposition: 14:59 Disposition: Admitted As Inpatient 68 Clinical Impression: DKA, type 2, not at goal - Discharge Information Referrals: Sabrina Stephen PA-C [Primary Care Provider] - Forms: ED Department Discharge - My Orders Last 24 Hours: My Active Orders 02/28/19 13:18 Sodium Chloride 0.9% [Normal Saline] 1,000 ml IV .BOLUS 02/28/19 13:20 UA W/MICROSCOPIC [URIN] Stat - Assessment/Plan Last 24 Hours: My Active Orders 02/28/19 13:18 Sodium Chloride 0.9% [Normal Saline] 1,000 ml IV .BOLUS 02/28/19 13:20 UA W/MICROSCOPIC [URIN] Stat
[2019-02-28] MEDS ORDERED: Insulin Lispro 100 Unit/ML 3 ML KwikPen SUBCUT ONE (14:15)
--- NOTE | 2019-02-28 17:29 | PCM.HP.2 ---
H&P History of Present Illness - General Date of Service: 02/28/19 Admit Problem/Dx: Admission Diagnosis/Problem Admission Diagnosis/Problem Hyperglycemia without ketosis Source of Information: Patient, EMS Notes Reviewed History Limitations: Reports: No Limitations - History of Present Illness Initial Comments - Free Text/Narative: This is a 63-year-old type II diabetic comes in with hyperglycemia. He says he has been taking his insulin for about a week as he ran out of test strips. He did call to get any. Today started vomiting and came in dehydrated. The ER doc felt it was early DKA. He's been in feel the time since I taking care of for the same thing. Says his nauseated and he has decreased urination. Denies polyphagia or polydipsia. Denies chest pain, shortness breath, fevers, chills, Rales or sore throat. Blood sugars over 500 in the ER. - Related Data Allergies/Adverse Reactions: Allergies Allergy/AdvReac Type Severity Reaction Status Date / Time No Known Allergies Allergy Verified 02/28/19 12:50 Home Medications: Home Meds metFORMIN [Glucophage] 850 mg PO BIDMEALS 02/17/14 [History] Insulin Detemir [Levemir Flextouch] 40 units SQ BEDTIME 11/18/18 [History] Gabapentin [Neurontin] 100 mg PO TID 02/28/19 [History] Insulin Lispro [Humalog] 5 - 15 unit SUBCUT TIDMEALS 02/28/19 [History] Past Medical History HEENT History: Reports: None Cardiovascular History: Reports: Other (See Below) Other Cardiovascular History: States that his blood pressure is usually low. Respiratory History: Reports: Other (See Below) Other Respiratory History: Smoker since the age of 18. Gastrointestinal History: Reports: GERD Neurological History: Reports: Neuropathy, Diabetic Other Neuro History: States numbness in hands and feet. States he gets dizzy when his blood sugar is low and blood pressure is low. Psychiatric History: Reports: Anxiety, Depression Endocrine/Metabolic History: Reports: Diabetes, Type II, IDDM - Infectious Disease History Infectious Disease History: Reports: Chicken Pox, Shingles, Other (See Below) Other Infectious Disease History: States he had "measles", doesn't recall Rubella or Rubeola. - Past Surgical History HEENT Surgical History: Reports: Tonsillectomy Respiratory Surgical History: Reports: None GI Surgical History: Reports: Colonoscopy Social & Family History - Family History Family Medical History: Noncontributory Cardiac: Reports: CAD, High Cholesterol, Hypertension Respiratory: Reports: COPD : Reports: Renal Disease/Insufficiency Neurological: Reports: CVA Endocrine/Metabolic: Reports: Diabetes, type II - Tobacco Use Smoking Status *Q: Current Every Day Smoker Years of Tobacco use: 30 Packs/Tins Daily: 0.2 Used Tobacco, but Quit: No Second Hand Smoke Exposure: No - Caffeine Use Caffeine Use: Reports: Soda Other Caffeine Use: Rarely - Recreational Drug Use Recreational Drug Use: No - Living Situation & Occupation Living situation: Reports: Single Occupation: Unemployed H&P Review of Systems - Review of Systems: Review Of Systems: See Below General: Reports: Weakness. Denies: Fever, Chills HEENT: Reports: No Symptoms Pulmonary: Reports: No Symptoms Cardiovascular: Reports: No Symptoms Gastrointestinal: Reports: No Symptoms Genitourinary: Reports: No Symptoms Musculoskeletal: Reports: No Symptoms Skin: Reports: No Symptoms Psychiatric: Reports: Other (A little depressed. Not suicidal) Neurological: Reports: No Symptoms Hematologic/Lymphatic: Reports: No Symptoms Immunologic: Reports: No Symptoms Exam - Exam Exam: See Below - Vital Signs Vital Signs: Last Vital Signs Temp 97.7 F 02/28/19 15:00 Pulse 74 02/28/19 15:00 Resp 12 02/28/19 15:00 BP 127/80 02/28/19 15:00 Pulse Ox 100 02/28/19 15:00 Weight: 130 lb 11.2 oz - Exam General: Alert, Oriented, Other (Sleepy) HEENT: Hearing Intact, Posterior Pharynx Clear, TMs Clear Neck: Supple, Trachea Midline Lungs: Clear to Auscultation, Normal Respiratory Effort Cardiovascular: Regular Rate, Regular Rhythm. No: Systolic Murmur GI/Abdominal Exam: Normal Bowel Sounds, Soft, Non-Tender, No Organomegaly, No Distention, No Mass Extremities: Normal Inspection, No Pedal Edema Skin: Warm Neuro Extensive - Mental Status: Alert, Oriented x3 Psychiatric: Alert - Patient Data Lab Results Last 24 hrs: Laboratory Results - last 24 hr 02/28/19 02/28/19 02/28/19 Range/Units 12:59 12:59 16:40 WBC 10.3 (4.5-12.0) X10-3/uL RBC 5.68 (4.30-5.75) x10(6)uL Hgb 16.8 (13.5-17.8) g/dL Hct 50.7 (30.0-51.3) % MCV 89.4 (80-96) fL MCH 29.6 (27.7-33.6) pg MCHC 33.1 (32.2-35.4) g/dL RDW 13.9 (11.5-15.5) % Plt Count 306 (125-369) X10(3)uL MPV 8.9 (7.4-10.4) fL Neut % (Auto) 76.7 (46-82) % Lymph % (Auto) 18.5 (13-37) % [place] % (Auto) 3.0 L (4-12) % Eos % (Auto) 1 (1.0-5.0) % Baso % (Auto) 1 (0-2) % Neut # (Auto) 7.9 (1.6-8.3) # Lymph # (Auto) 1.9 (0.6-5.0) # [place] # (Auto) 0.3 (0.0-1.3) # Eos # (Auto) 0.1 (0.0-0.8) # Baso # (Auto) 0.1 (0.0-0.2) # ABG pH 7.29 L (7.35-7.45) ABG pCO2 31 L (35-45) mmHg ABG pO2 92 (83-108) mmHg ABG HCO3 14 L (22-26) mmol/L ABG O2 Saturation 96 (96-97) % ABG Base Excess -10.8 L (-2-2) Alverto Test Passed O2 Delivery Device Room air Sodium 130 L (135-145) mmol/L Potassium 4.6 D (3.5-5.3) mmol/L Chloride 90 L D (100-110) mmol/L Carbon Dioxide 14 L (21-32) mmol/L BUN 24 H D (7-18) mg/dL Creatinine 1.7 H (0.70-1.30) mg/dL Est Cr Clr Drug Dosing 40.99 mL/min Estimated GFR (MDRD) 41 L (>60) BUN/Creatinine Ratio 14.1 (9-20) Glucose 524 H* D (80-116) mg/dL POC Glucose (80-116) mg/dL Calcium 9.8 (8.6-10.2) mg/dL Total Bilirubin 0.7 (0.1-1.3) mg/dL AST 8 (5-25) IU/L ALT 11 L D (12-36) U/L Alkaline Phosphatase 116 H (56-112) IU/L Total Protein 7.5 (6.0-8.0) g/dL Albumin 4.0 (3.2-4.6) g/dL Globulin 3.5 g/dL Albumin/Globulin Ratio 1.1 02/28/ Range/Units 16:41 WBC (4.5-12.0) X10-3/uL RBC (4.30-5.75) x10(6)uL Hgb (13.5-17.8) g/dL Hct (30.0-51.3) % MCV (80-96) fL MCH (27.7-33.6) pg MCHC (32.2-35.4) g/dL RDW (11.5-15.5) % Plt Count (125-369) X10(3)uL MPV (7.4-10.4) fL Neut % (Auto) (46-82) % Lymph % (Auto) (13-37) % [place] % (Auto) (4-12) % Eos % (Auto) (1.0-5.0) % Baso % (Auto) (0-2) % Neut # (Auto) (1.6-8.3) # Lymph # (Auto) (0.6-5.0) # [place] # (Auto) (0.0-1.3) # Eos # (Auto) (0.0-0.8) # Baso # (Auto) (0.0-0.2) # ABG pH (7.35-7.45) ABG pCO2 (35-45) mmHg ABG pO2 (83-108) mmHg ABG HCO3 (22-26) mmol/L ABG O2 Saturation (96-97) % ABG Base Excess (-2-2) Alverto Test O2 Delivery Device Sodium (135-145) mmol/L Potassium (3.5-5.3) mmol/L Chloride (100-110) mmol/L Carbon Dioxide (21-32) mmol/L BUN (7-18) mg/dL Creatinine (0.70-1.30) mg/dL Est Cr Clr Drug Dosing mL/min Estimated GFR (MDRD) (>60) BUN/Creatinine Ratio (9-20) Glucose (80-116) mg/dL POC Glucose 328 H D (80-116) mg/dL Calcium (8.6-10.2) mg/dL Total Bilirubin (0.1-1.3) mg/dL AST (5-25) IU/L ALT (12-36) U/L Alkaline Phosphatase (56-112) IU/L Total Protein (6.0-8.0) g/dL Albumin (3.2-4.6) g/dL Globulin g/dL Albumin/Globulin Ratio Result Diagrams: 02/28/19 12:59 02/28/19 12:59 - Problem List (1) Palliative care status SNOMED Code(s): 275681480 ICD Code: Z51.5 - ENCOUNTER FOR PALLIATIVE CARE Status: Acute Current Visit: Yes (2) DKA, type 2, not at goal SNOMED Code(s): 65675570, 692191807 ICD Code: E11.10 - TYPE 2 DIABETES MELLITUS WITH KETOACIDOSIS WITHOUT COMA Status: Acute Current Visit: Yes (3) Dehydration SNOMED Code(s): 49853722 ICD Code: E86.0 - DEHYDRATION Status: Acute Current Visit: No Problem List Initiated/Reviewed/Updated: Yes Orders Last 24hrs: Active Orders 24 hr Category Date Time Status Patient Status [ADT] Routine ADT 02/28/19 15:00 Active Daily Weight [Height and Weight] [RC] DAILY Care 02/28/19 16:10 Active Intake and Output [RC] ASDIRECTED Care 02/28/19 16:11 Active Oxygen Therapy [RC] PRN Care 02/28/19 15:00 Active Telemetry Monitoring [Cardiac Monitoring] [RC] .As Care 02/28/19 16:12 Active Directed Up ad Teresita [RC] ASDIRECTED Care 02/28/19 16:07 Active VTE/DVT Education [RC] Per Unit Routine Care 02/28/19 15:00 Active Vital Signs [RC] Q4H Care 02/28/19 15:00 Active Clear Liquid Diet [DIET] Diet 02/28/19 Dinner Active COMPREHENSIVE METABOLIC PN,CMP [CHEM] Routine Lab 03/01/19 06:00 Ordered POTASSIUM,K [CHEM] Routine Lab 02/28/19 18:09 Ordered UA W/MICROSCOPIC [URIN] Stat Lab 02/28/19 13:20 Ordered Gabapentin [Neurontin] Med 02/28/19 21:00 Active 100 mg PO TID Insulin Glarg,Human.Rec.Analog [LantUS Solostar] Med 02/28/19 21:00 Active 40 units SUBCUT BEDTIME Insulin Lispro [HumaLOG] Med 02/28/19 16:15 Active See Protocol SUBCUT Q2H NS + KCl 20mEq/L [Normal Saline with 20 mEq KCl] 1,000 Med 02/28/19 16:15 Active ml IV Q5H Sodium Chloride 0.9% [Normal Saline] 1,000 ml Med 02/28/19 13:18 Active IV .BOLUS metFORMIN [Glucophage] Med 02/28/19 18:00 Hold 850 mg PO BIDMEALS Resuscitation Status Routine Resus Stat 02/28/19 15:00 Ordered Medication Orders Gabapentin (Neurontin) 100 mg PO TID [facility] Sodium Chloride (Normal Saline) 1,000 mls @ 999 drops/hr IV .BOLUS ONE Stop: 03/01/19 04:18 Last Admin: 02/28/19 15:05 Dose: 999 drops/hr Potassium Chloride/Sodium Chloride (Normal Saline With 20 Meq Kcl) 1,000 mls @ 200 mls/hr IV Q5H [facility] Insulin Glargine (Lantus Solostar) 40 units SUBCUT BEDTIME [facility] Insulin Human Lispro (Humalog) 0 unit SUBCUT Q2H [facility]; Protocol Metformin HCl (Glucophage) 850 mg PO BIDMEALS [facility] Assessment/Plan Comment:: 1 admit to observation telemetry 2. IV fluids and subcutaneous insulin sliding scale 3. Recheck potassium next couple hours and CMP in a.m. 4. Lonox for VTE prophylaxis 5. Clear liquids 6. Continue his long-acting insulin and hold his metformin 7. Full code 8. Up with assist - Mortality Measure Prognosis:: Good
[2019-02-28] MEDS ORDERED: Insulin Regular, Human 100 Units/ML 3 ML Vial SUBCUT SCH (17:30)
[2019-02-28] MEDS: Insulin Lispro 100 Unit/ML 3 ML KwikPen SUBCUT SCH ×4 (17:39→22:17)
[2019-02-28] MEDS: NS + KCl 20mEq/L 1,000 ML IV SCH ×2 (17:41→22:34)
[2019-02-28] MEDS: Enoxaparin 40 MG/0.4 ML Syringe SUBCUT SCH (18:33)
[2019-02-28] MEDS ORDERED: Insulin Glargine,Human Rec. Analog 100 Units/ML 3 ML Pen SUBCUT SCH (21:00)
[2019-02-28] MEDS ORDERED: INSULIN DETEMIR 40 UNIT SQ SCH (21:00)
[2019-02-28] MEDS ORDERED: Gabapentin 100 MG Cap PO SCH (21:00)
[2019-02-28] MEDS: Gabapentin 100 MG Cap PO SCH (21:44)
[2019-02-28] MEDS: Insulin Glargine,Human Rec. Analog 100 Units/ML 3 ML Pen SUBCUT SCH (22:16)
[2019-03-01] MEDS: Insulin Lispro 100 Unit/ML 3 ML KwikPen SUBCUT SCH ×6 (00:23→17:57)
[2019-03-01] MEDS: NS + KCl 20mEq/L 1,000 ML IV SCH ×4 (03:34→19:01)
--- NOTE | 2019-03-01 08:13 | PCM.PN ---
- General Info Date of Service: 03/01/19 Admission Dx/Problem (Free Text): Patient states he feels much better. Still little weak. Denies chest pain, shortness of breath, nausea, vomiting, polyphagia, polydipsia or polyuria. - Patient Data Vitals - Most Recent: Last Vital Signs Temp 98.2 F 03/01/19 02:47 Pulse 78 03/01/19 06:00 Resp 16 03/01/19 06:00 BP 91/60 03/01/19 06:00 Pulse Ox 95 03/01/19 06:00 Weight - Most Recent: 142 lb I&O - Last 24 Hours: Intake & Output 02/28/19 03/01/19 03/01/19 22:59 06:59 14:59 Intake Total 2300 1470 Output Total 1150 Balance 1150 1470 Lab Results Last 24 Hours: Laboratory Results - last 24 hr 02/28/19 02/28/19 02/28/19 Range/Units 12:58 12:59 12:59 WBC 10.3 (4.5-12.0) X10-3/uL RBC 5.68 (4.30-5.75) x10(6)uL Hgb 16.8 (13.5-17.8) g/dL Hct 50.7 (30.0-51.3) % MCV 89.4 (80-96) fL MCH 29.6 (27.7-33.6) pg MCHC 33.1 (32.2-35.4) g/dL RDW 13.9 (11.5-15.5) % Plt Count 306 (125-369) X10(3)uL MPV 8.9 (7.4-10.4) fL Neut % (Auto) 76.7 (46-82) % Lymph % (Auto) 18.5 (13-37) % [place] % (Auto) 3.0 L (4-12) % Eos % (Auto) 1 (1.0-5.0) % Baso % (Auto) 1 (0-2) % Neut # (Auto) 7.9 (1.6-8.3) # Lymph # (Auto) 1.9 (0.6-5.0) # [place] # (Auto) 0.3 (0.0-1.3) # Eos # (Auto) 0.1 (0.0-0.8) # Baso # (Auto) 0.1 (0.0-0.2) # ABG pH (7.35-7.45) ABG pCO2 (35-45) mmHg ABG pO2 (83-108) mmHg ABG HCO3 (22-26) mmol/L ABG O2 Saturation (96-97) % ABG Base Excess (-2-2) Alverto Test O2 Delivery Device Sodium 130 L (135-145) mmol/L Potassium 4.6 D (3.5-5.3) mmol/L Chloride 90 L D (100-110) mmol/L Carbon Dioxide 14 L (21-32) mmol/L BUN 24 H D (7-18) mg/dL Creatinine 1.7 H (0.70-1.30) mg/dL Est Cr Clr Drug Dosing 40.99 mL/min Estimated GFR (MDRD) 41 L (>60) BUN/Creatinine Ratio 14.1 (9-20) Glucose 524 H* D (80-116) mg/dL POC Glucose 478 H* D (80-116) mg/dL Calcium 9.8 (8.6-10.2) mg/dL Total Bilirubin 0.7 (0.1-1.3) mg/dL AST 8 (5-25) IU/L ALT 11 L D (12-36) U/L Alkaline Phosphatase 116 H (56-112) IU/L Total Protein 7.5 (6.0-8.0) g/dL Albumin 4.0 (3.2-4.6) g/dL Globulin 3.5 g/dL Albumin/Globulin Ratio 1.1 Urine Color (YELLOW) Urine Appearance (CLEAR) Urine pH (5.0-6.5) Ur Specific [place] (1.010-1.025) Urine Protein (NEGATIVE) mg/dL Urine Glucose (UA) (NORMAL) mg/dL Urine Ketones (NEGATIVE) mg/dL Urine Occult Blood (NEGATIVE) Urine Nitrite (NEGATIVE) Urine Bilirubin (NEGATIVE) Urine Urobilinogen (NEGATIVE) mg/dL Ur Leukocyte Esterase (NEGATIVE) Urine RBC (0-5) Urine WBC (0-5) Ur Squamous Epith Cells (NS,R,O) Urine Bacteria (NS) 11/29/19 11/29/19 11/29/19 Range/Units 16:40 16:41 18:33 WBC (4.5-12.0) X10-3/uL RBC (4.30-5.75) x10(6)uL Hgb (13.5-17.8) g/dL Hct (30.0-51.3) % MCV (80-96) fL MCH (27.7-33.6) pg MCHC (32.2-35.4) g/dL RDW (11.5-15.5) % Plt Count (125-369) X10(3)uL MPV (7.4-10.4) fL Neut % (Auto) (46-82) % Lymph % (Auto) (13-37) % [place] % (Auto) (4-12) % Eos % (Auto) (1.0-5.0) % Baso % (Auto) (0-2) % Neut # (Auto) (1.6-8.3) # Lymph # (Auto) (0.6-5.0) # [place] # (Auto) (0.0-1.3) # Eos # (Auto) (0.0-0.8) # Baso # (Auto) (0.0-0.2) # ABG pH 7.29 L (7.35-7.45) ABG pCO2 31 L (35-45) mmHg ABG pO2 92 (83-108) mmHg ABG HCO3 14 L (22-26) mmol/L ABG O2 Saturation 96 (96-97) % ABG Base Excess -10.8 L (-2-2) Alverto Test Passed O2 Delivery Device Room air Sodium (135-145) mmol/L Potassium (3.5-5.3) mmol/L Chloride (100-110) mmol/L Carbon Dioxide (21-32) mmol/L BUN (7-18) mg/dL Creatinine (0.70-1.30) mg/dL Est Cr Clr Drug Dosing mL/min Estimated GFR (MDRD) (>60) BUN/Creatinine Ratio (9-20) Glucose (80-116) mg/dL POC Glucose 328 H D 301 H (80-116) mg/dL Calcium (8.6-10.2) mg/dL Total Bilirubin (0.1-1.3) mg/dL AST (5-25) IU/L ALT (12-36) U/L Alkaline Phosphatase (56-112) IU/L Total Protein (6.0-8.0) g/dL Albumin (3.2-4.6) g/dL Globulin g/dL Albumin/Globulin Ratio Urine Color (YELLOW) Urine Appearance (CLEAR) Urine pH (5.0-6.5) Ur Specific [place] (1.010-1.025) Urine Protein (NEGATIVE) mg/dL Urine Glucose (UA) (NORMAL) mg/dL Urine Ketones (NEGATIVE) mg/dL Urine Occult Blood (NEGATIVE) Urine Nitrite (NEGATIVE) Urine Bilirubin (NEGATIVE) Urine Urobilinogen (NEGATIVE) mg/dL Ur Leukocyte Esterase (NEGATIVE) Urine RBC (0-5) Urine WBC (0-5) Ur Squamous Epith Cells (NS,R,O) Urine Bacteria (NS) 02/28/19 02/28/19 02/28/19 Range/Units 19:00 19:20 20:26 WBC (4.5-12.0) X10-3/uL RBC (4.30-5.75) x10(6)uL Hgb (13.5-17.8) g/dL Hct (30.0-51.3) % MCV (80-96) fL MCH (27.7-33.6) pg MCHC (32.2-35.4) g/dL RDW (11.5-15.5) % Plt Count (125-369) X10(3)uL MPV (7.4-10.4) fL Neut % (Auto) (46-82) % Lymph % (Auto) (13-37) % [place] % (Auto) (4-12) % Eos % (Auto) (1.0-5.0) % Baso % (Auto) (0-2) % Neut # (Auto) (1.6-8.3) # Lymph # (Auto) (0.6-5.0) # [place] # (Auto) (0.0-1.3) # Eos # (Auto) (0.0-0.8) # Baso # (Auto) (0.0-0.2) # ABG pH (7.35-7.45) ABG pCO2 (35-45) mmHg ABG pO2 (83-108) mmHg ABG HCO3 (22-26) mmol/L ABG O2 Saturation (96-97) % ABG Base Excess (-2-2) Alverto Test O2 Delivery Device Sodium (135-145) mmol/L Potassium 4.0 (3.5-5.3) mmol/L Chloride (100-110) mmol/L Carbon Dioxide (21-32) mmol/L BUN (7-18) mg/dL Creatinine (0.70-1.30) mg/dL Est Cr Clr Drug Dosing mL/min Estimated GFR (MDRD) (>60) BUN/Creatinine Ratio (9-20) Glucose (80-116) mg/dL POC Glucose 391 H D (80-116) mg/dL Calcium (8.6-10.2) mg/dL Total Bilirubin (0.1-1.3) mg/dL AST (5-25) IU/L ALT (12-36) U/L Alkaline Phosphatase (56-112) IU/L Total Protein (6.0-8.0) g/dL Albumin (3.2-4.6) g/dL Globulin g/dL Albumin/Globulin Ratio Urine Color Yellow (YELLOW) Urine Appearance Clear (CLEAR) Urine pH 5.0 (5.0-6.5) Ur Specific [place] 1.020 (1.010-1.025) Urine Protein Negative (NEGATIVE) mg/dL Urine Glucose (UA) >1000 H (NORMAL) mg/dL Urine Ketones 150 H (NEGATIVE) mg/dL Urine Occult Blood Negative (NEGATIVE) Urine Nitrite Negative (NEGATIVE) Urine Bilirubin Negative (NEGATIVE) Urine Urobilinogen Normal (NEGATIVE) mg/dL Ur Leukocyte Esterase Negative (NEGATIVE) Urine RBC 0-5 (0-5) Urine WBC 0-5 (0-5) Ur Squamous Epith Cells Few H (NS,R,O) Urine Bacteria Few H (NS) 02/28/19 03/01/19 03/01/19 Range/Units 22:15 00:22 02:41 WBC (4.5-12.0) X10-3/uL RBC (4.30-5.75) x10(6)uL Hgb (13.5-17.8) g/dL Hct (30.0-51.3) % MCV (80-96) fL MCH (27.7-33.6) pg MCHC (32.2-35.4) g/dL RDW (11.5-15.5) % Plt Count (125-369) X10(3)uL MPV (7.4-10.4) fL Neut % (Auto) (46-82) % Lymph % (Auto) (13-37) % [place] % (Auto) (4-12) % Eos % (Auto) (1.0-5.0) % Baso % (Auto) (0-2) % Neut # (Auto) (1.6-8.3) # Lymph # (Auto) (0.6-5.0) # [place] # (Auto) (0.0-1.3) # Eos # (Auto) (0.0-0.8) # Baso # (Auto) (0.0-0.2) # ABG pH (7.35-7.45) ABG pCO2 (35-45) mmHg ABG pO2 (83-108) mmHg ABG HCO3 (22-26) mmol/L ABG O2 Saturation (96-97) % ABG Base Excess (-2-2) Alverto Test O2 Delivery Device Sodium (135-145) mmol/L Potassium (3.5-5.3) mmol/L Chloride (100-110) mmol/L Carbon Dioxide (21-32) mmol/L BUN (7-18) mg/dL Creatinine (0.70-1.30) mg/dL Est Cr Clr Drug Dosing mL/min Estimated GFR (MDRD) (>60) BUN/Creatinine Ratio (9-20) Glucose (80-116) mg/dL POC Glucose 226 H D 192 H 152 H (80-116) mg/dL Calcium (8.6-10.2) mg/dL Total Bilirubin (0.1-1.3) mg/dL AST (5-25) IU/L ALT (12-36) U/L Alkaline Phosphatase (56-112) IU/L Total Protein (6.0-8.0) g/dL Albumin (3.2-4.6) g/dL Globulin g/dL Albumin/Globulin Ratio Urine Color (YELLOW) Urine Appearance (CLEAR) Urine pH (5.0-6.5) Ur Specific [place] (1.010-1.025) Urine Protein (NEGATIVE) mg/dL Urine Glucose (UA) (NORMAL) mg/dL Urine Ketones (NEGATIVE) mg/dL Urine Occult Blood (NEGATIVE) Urine Nitrite (NEGATIVE) Urine Bilirubin (NEGATIVE) Urine Urobilinogen (NEGATIVE) mg/dL Ur Leukocyte Esterase (NEGATIVE) Urine RBC (0-5) Urine WBC (0-5) Ur Squamous Epith Cells (NS,R,O) Urine Bacteria (NS) 03/01/19 03/01/19 Range/Units 06:06 06:15 WBC (4.5-12.0) X10-3/uL RBC (4.30-5.75) x10(6)uL Hgb (13.5-17.8) g/dL Hct (30.0-51.3) % MCV (80-96) fL MCH (27.7-33.6) pg MCHC (32.2-35.4) g/dL RDW (11.5-15.5) % Plt Count (125-369) X10(3)uL MPV (7.4-10.4) fL Neut % (Auto) (46-82) % Lymph % (Auto) (13-37) % [place] % (Auto) (4-12) % Eos % (Auto) (1.0-5.0) % Baso % (Auto) (0-2) % Neut # (Auto) (1.6-8.3) # Lymph # (Auto) (0.6-5.0) # [place] # (Auto) (0.0-1.3) # Eos # (Auto) (0.0-0.8) # Baso # (Auto) (0.0-0.2) # ABG pH (7.35-7.45) ABG pCO2 (35-45) mmHg ABG pO2 (83-108) mmHg ABG HCO3 (22-26) mmol/L ABG O2 Saturation (96-97) % ABG Base Excess (-2-2) Alverto Test O2 Delivery Device Sodium 139 (135-145) mmol/L Potassium 3.7 (3.5-5.3) mmol/L Chloride 108 D (100-110) mmol/L Carbon Dioxide 23 (21-32) mmol/L BUN 13 D (7-18) mg/dL Creatinine 1.0 (0.70-1.30) mg/dL Est Cr Clr Drug Dosing 70.67 mL/min Estimated GFR (MDRD) > 60 (>60) BUN/Creatinine Ratio 13.0 (9-20) Glucose 162 H D (80-116) mg/dL POC Glucose 145 H (80-116) mg/dL Calcium 8.1 L (8.6-10.2) mg/dL Total Bilirubin 0.4 (0.1-1.3) mg/dL AST 9 D (5-25) IU/L ALT 10 L (12-36) U/L Alkaline Phosphatase 82 (56-112) IU/L Total Protein 5.1 L (6.0-8.0) g/dL Albumin 2.6 L (3.2-4.6) g/dL Globulin 2.5 g/dL Albumin/Globulin Ratio 1.0 Urine Color (YELLOW) Urine Appearance (CLEAR) Urine pH (5.0-6.5) Ur Specific [place] (1.010-1.025) Urine Protein (NEGATIVE) mg/dL Urine Glucose (UA) (NORMAL) mg/dL Urine Ketones (NEGATIVE) mg/dL Urine Occult Blood (NEGATIVE) Urine Nitrite (NEGATIVE) Urine Bilirubin (NEGATIVE) Urine Urobilinogen (NEGATIVE) mg/dL Ur Leukocyte Esterase (NEGATIVE) Urine RBC (0-5) Urine WBC (0-5) Ur Squamous Epith Cells (NS,R,O) Urine Bacteria (NS) Med Orders - Current: Current Medications Enoxaparin Sodium (Lovenox) 40 mg SUBCUT Q24H [facility] Last Admin: 02/28/19 18:33 Dose: 40 mg Gabapentin (Neurontin) 100 mg PO TID [facility] Last Admin: 02/28/19 21:44 Dose: Not Given Potassium Chloride/Sodium Chloride (Normal Saline With 20 Meq Kcl) 1,000 mls @ 100 mls/hr IV Q5H [facility] Last Admin: 03/01/19 03:34 Dose: 200 mls/hr Insulin Glargine (Lantus Solostar) 40 units SUBCUT BEDTIME [facility] Last Admin: 02/28/19 22:16 Dose: 40 units Insulin Human Lispro (Humalog) 0 unit SUBCUT Q2H [facility]; Protocol Last Admin: 03/01/19 06:20 Dose: Not Given Insulin Human Lispro (Humalog) 15 unit SUBCUT TIDMEALS [facility] Discontinued Medications Gabapentin (Neurontin) 100 mg PO TID [facility] Sodium Chloride (Normal Saline) 1,000 mls @ 999 drops/hr IV .BOLUS ONE Stop: 03/01/19 04:18 Last Admin: 02/28/19 15:05 Dose: 999 drops/hr Sodium Chloride (Normal Saline) 1,000 mls @ 999 mls/hr IV .BOLUS ONE Stop: 02/28/19 14:17 Last Admin: 02/28/19 14:03 Dose: 999 mls/hr Insulin Glargine (Lantus Solostar) 40 units SUBCUT BEDTIME LAURA Insulin Human Lispro (Humalog) 15 unit SUBCUT ONETIME ONE Stop: 02/28/19 14:16 Last Admin: 02/28/19 14:12 Dose: 15 units Metformin HCl (Glucophage) 850 mg PO BIDMEALS LAURA Non-Formulary Medication (Insulin Detemir [Levemir Flextouch]) 40 units SQ BEDTIME LAURA - Exam General: Alert, Oriented, Cooperative Lungs: Clear to Auscultation, Normal Respiratory Effort Cardiovascular: Regular Rate, Regular Rhythm, No Murmurs GI/Abdominal Exam: Normal Bowel Sounds, Soft, Non-Tender, No Distention, No Mass Extremities: No Pedal Edema - Problem List & Annotations (1) Palliative care status SNOMED Code(s): 453599713 Code(s): Z51.5 - ENCOUNTER FOR PALLIATIVE CARE Status: Acute Current Visit: Yes (2) DKA, type 2, not at goal SNOMED Code(s): 28884684, 550297148 Code(s): E11.10 - TYPE 2 DIABETES MELLITUS WITH KETOACIDOSIS WITHOUT COMA Status: Acute Current Visit: Yes (3) Dehydration SNOMED Code(s): 48992455 Code(s): E86.0 - DEHYDRATION Status: Acute Current Visit: No - Problem List Review Problem List Initiated/Reviewed/Updated: Yes - My Orders Last 24 Hours: My Active Orders 02/28/19 16:07 Up ad Teresita [RC] 09,13,17,21 02/28/19 16:15 Insulin Lispro [HumaLOG] See Protocol SUBCUT Q2H NS + KCl 20mEq/L [Normal Saline with 20 mEq KCl] 1,000 ml IV Q5H 02/28/19 18:00 Enoxaparin [Lovenox] 40 mg SUBCUT Q24H 02/28/19 21:00 Gabapentin [Neurontin] 100 mg PO TID Insulin Glarg,Human.Rec.Analog [LantUS Solostar] 40 units SUBCUT BEDTIME 02/28/19 21:30 Communication Order [RC] ASDIRECTED 03/01/19 08:11 Accu Check [Blood Glucose Check, Bedside] [RC] QIDACANDBED 03/01/19 12:00 Insulin Lispro [HumaLOG] 15 unit SUBCUT TIDMEALS 03/01/19 Lunch Consistent Carbohydrate Diet [DIET] - Plan Plan:: 1. DC telemetry 2. Restart his regular insulin 15 units with each meal along with his long- acting insulin. 3. DC clear liquids and start diabetic diet 4. Encouraged patient ambulate 5. DC telemetry 6. Vitals every shift 7. DC sliding scale of insulin
[2019-03-01] MEDS: Gabapentin 100 MG Cap PO SCH ×3 (09:21→21:14)
[2019-03-01] MEDS: Enoxaparin 40 MG/0.4 ML Syringe SUBCUT SCH (18:02)
[2019-03-01] MEDS: Insulin Glargine,Human Rec. Analog 100 Units/ML 3 ML Pen SUBCUT SCH (21:12)
[2019-03-02] MEDS: NS + KCl 20mEq/L 1,000 ML IV SCH ×3 (05:03→09:07)
[2019-03-02] MEDS: Insulin Lispro 100 Unit/ML 3 ML KwikPen SUBCUT SCH (07:38)
[2019-03-02] MEDS: Gabapentin 100 MG Cap PO SCH (09:08)
[2019-03-02 10:10] VITALS: BP 85/56; PULSE 71
--- NOTE | 2019-03-02 10:41 | PCM.PN ---
- General Info Date of Service: 03/02/19 Admission Dx/Problem (Free Text): Patient states he feels much better today. Blood sugars are controlled. He has no weakness. He states he is eating and urinating without been chest pain shortness of breath no excessive thirst, urination or hunger. - Patient Data Vitals - Most Recent: Last Vital Signs Temp 97.6 F 03/02/19 08:00 Pulse 71 03/02/19 08:00 Resp 12 03/02/19 08:00 BP 85/56 L 03/02/19 08:00 Pulse Ox 97 03/02/19 08:00 Weight - Most Recent: 142 lb I&O - Last 24 Hours: Intake & Output 03/01/19 03/02/19 03/02/19 22:59 06:59 14:59 Intake Total 990 692 Output Total 400 725 Balance 590 -33 Lab Results Last 24 Hours: Laboratory Results - last 24 hr 03/01/19 03/01/19 03/01/19 Range/Units 11:21 17:17 21:08 POC Glucose 321 H D 326 H 262 H (80-116) mg/dL 03/02/19 Range/Units 06:10 POC Glucose 91 D (80-116) mg/dL Med Orders - Current: Current Medications Enoxaparin Sodium (Lovenox) 40 mg SUBCUT Q24H [facility] Last Admin: 03/01/19 18:02 Dose: 40 mg Gabapentin (Neurontin) 100 mg PO TID [facility] Last Admin: 03/02/19 09:08 Dose: Not Given Potassium Chloride/Sodium Chloride (Normal Saline With 20 Meq Kcl) 1,000 mls @ 100 mls/hr IV Q5H [facility] Last Admin: 03/02/19 09:07 Dose: Not Given Insulin Glargine (Lantus Solostar) 40 units SUBCUT BEDTIME [facility] Last Admin: 03/01/19 21:12 Dose: 40 units Insulin Human Lispro (Humalog) 15 unit SUBCUT TIDMEALS [facility] Last Admin: 03/02/19 07:38 Dose: Not Given Discontinued Medications Gabapentin (Neurontin) 100 mg PO TID [facility] Sodium Chloride (Normal Saline) 1,000 mls @ 999 drops/hr IV .BOLUS ONE Stop: 03/01/19 04:18 Last Admin: 02/28/19 15:05 Dose: 999 drops/hr Sodium Chloride (Normal Saline) 1,000 mls @ 999 mls/hr IV .BOLUS ONE Stop: 02/28/19 14:17 Last Admin: 02/28/19 14:03 Dose: 999 mls/hr Insulin Glargine (Lantus Solostar) 40 units SUBCUT BEDTIME [facility] Insulin Human Lispro (Humalog) 15 unit SUBCUT ONETIME ONE Stop: 02/28/19 14:16 Last Admin: 02/28/19 14:12 Dose: 15 units Insulin Human Lispro (Humalog) 0 unit SUBCUT Q2H [facility]; Protocol Last Admin: 03/01/19 06:20 Dose: Not Given Metformin HCl (Glucophage) 850 mg PO BIDMEALS [facility] Non-Formulary Medication (Insulin Detemir [Levemir Flextouch]) 40 units SQ BEDTIME [facility] - Exam General: Alert, Oriented, Cooperative Lungs: Normal Respiratory Effort - Problem List & Annotations (1) Palliative care status SNOMED Code(s): 269120676 Code(s): Z51.5 - ENCOUNTER FOR PALLIATIVE CARE Status: Acute Current Visit: Yes (2) DKA, type 2, not at goal SNOMED Code(s): 88403497, 974885699 Code(s): E11.10 - TYPE 2 DIABETES MELLITUS WITH KETOACIDOSIS WITHOUT COMA Status: Acute Current Visit: Yes (3) Dehydration SNOMED Code(s): 79768843 Code(s): E86.0 - DEHYDRATION Status: Acute Current Visit: No - Problem List Review Problem List Initiated/Reviewed/Updated: Yes - My Orders Last 24 Hours: My Active Orders 03/01/19 12:00 Insulin Lispro [HumaLOG] 15 unit SUBCUT TIDMEALS 03/01/19 Lunch Consistent Carbohydrate Diet [DIET] - Plan Plan:: 1. Charge to home on home health to see if we can keep him from getting admitted again. 2. Patient states he has a few meals for his insulin and some strips for today. I will pull up our medical records and send the needles and strips to his pharmacy for him so tomorrow he can pick them up.
--- NOTE | 2019-03-02 10:50 | PCM.DCSUM1 ---
Discharge Summary - Hospital Course Free Text/Narrative:: Hospital course-patient was put on sliding scale subcutaneous insulin every 2 hours check his potassium which did not go down. He was given copies was normal saline. By the next morning the patient felt much better. He still very weak and so we switch her over to his regular insulin and started diabetic diet and observed for another day. His weakness got better and his urination became normal is able to eat and drink. His creatinine was elevated that improved. Did discuss his living conditions. Patient may be open to going to assisted living to have someone help manage his diabetes since he's been here many times for DKA. Brief History: This is a 63-year-old type II diabetic comes in with hyperglycemia. He says he has been taking his insulin for about a week as he ran out of test strips. He did call to get any. Today started vomiting and came in dehydrated. The ER doc felt it was early DKA. He's been in feel the time since I taking care of for the same thing. Says his nauseated and he has decreased urination. Denies polyphagia or polydipsia. Denies chest pain, shortness breath, fevers, chills, Rales or sore throat. Blood sugars over 500 in the ER. Diagnosis: Stroke: No - Discharge Data Discharge Date: 03/02/19 Discharge Disposition: Home, W Home Health Agency 06 Condition: Good - Referral to Home Health Date of Face to Face Encounter: 03/02/19 Reason for Homebound Status: Dehydration and uncontrolled diabetes, frequent hospitalizations for noncompliance Primary Care Physician: Sabrina Stephen PA-C Skilled Need: Home safety, medication management, medication compliance. - Discharge Diagnosis/Problem(s) (1) Palliative care status SNOMED Code(s): 061044298 ICD Code: Z51.5 - ENCOUNTER FOR PALLIATIVE CARE Status: Acute Current Visit: Yes (2) DKA, type 2, not at goal SNOMED Code(s): 54565648, 874852636 ICD Code: E11.10 - TYPE 2 DIABETES MELLITUS WITH KETOACIDOSIS WITHOUT COMA Status: Acute Current Visit: Yes (3) Dehydration SNOMED Code(s): 73692742 ICD Code: E86.0 - DEHYDRATION Status: Acute Current Visit: No - Patient Instructions Diet: Diabetic Diet Activity: As Tolerated Driving: May Drive Today Showering/Bathing: May Shower Other/Special Instructions: 1. Recheck with Sabrina Stephen in 1 week. 2. Home health. 3. 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 - Discharge Plan Home Medications: Home Meds metFORMIN [Glucophage] 850 mg PO BIDMEALS 02/17/14 [History] Insulin Detemir [Levemir Flextouch] 40 units SQ BEDTIME 11/18/18 [History] Gabapentin [Neurontin] 100 mg PO TID 02/28/19 [History] Insulin Lispro [Humalog] 5 - 15 unit SUBCUT TIDMEALS 02/28/19 [History] Patient Handouts: Diabetic Ketoacidosis, Preventing Diabetic Ketoacidosis, Diabetes Mellitus and Nutrition, Adult Forms: ED Department Discharge Referrals: Sabrina Stephen PA-C [Primary Care Provider] - - Discharge Summary/Plan Comment DC Time >30 min.: No - Patient Data Vitals - Most Recent: Last Vital Signs Temp 97.6 F 03/02/19 08:00 Pulse 71 03/02/19 08:00 Resp 12 03/02/19 08:00 BP 85/56 L 03/02/19 08:00 Pulse Ox 97 03/02/19 08:00 Weight - Most Recent: 142 lb I&O - Last 24 hours: Intake & Output 03/01/19 03/02/19 03/02/19 22:59 06:59 14:59 Intake Total 990 692 Output Total 400 725 Balance 590 -33 Lab Results - Last 24 hrs: Laboratory Results - last 24 hr 03/01/19 03/01/19 03/01/19 Range/Units 11:21 17:17 21:08 POC Glucose 321 H D 326 H 262 H (80-116) mg/dL 03/02/19 Range/Units 06:10 POC Glucose 91 D (80-116) mg/dL Med Orders - Current: Current Medications Enoxaparin Sodium (Lovenox) 40 mg SUBCUT Q24H [facility] Last Admin: 03/01/19 18:02 Dose: 40 mg Gabapentin (Neurontin) 100 mg PO TID [facility] Last Admin: 03/02/19 09:08 Dose: Not Given Potassium Chloride/Sodium Chloride (Normal Saline With 20 Meq Kcl) 1,000 mls @ 100 mls/hr IV Q5H [facility] Last Admin: 03/02/19 09:07 Dose: Not Given Insulin Glargine (Lantus Solostar) 40 units SUBCUT BEDTIME [facility] Last Admin: 03/01/19 21:12 Dose: 40 units Insulin Human Lispro (Humalog) 15 unit SUBCUT TIDMEALS [facility] Last Admin: 03/02/19 07:38 Dose: Not Given Discontinued Medications Gabapentin (Neurontin) 100 mg PO TID [facility] Sodium Chloride (Normal Saline) 1,000 mls @ 999 drops/hr IV .BOLUS ONE Stop: 03/01/19 04:18 Last Admin: 02/28/19 15:05 Dose: 999 drops/hr Sodium Chloride (Normal Saline) 1,000 mls @ 999 mls/hr IV .BOLUS ONE Stop: 02/28/19 14:17 Last Admin: 02/28/19 14:03 Dose: 999 mls/hr Insulin Glargine (Lantus Solostar) 40 units SUBCUT BEDTIME [facility] Insulin Human Lispro (Humalog) 15 unit SUBCUT ONETIME ONE Stop: 02/28/19 14:16 Last Admin: 02/28/19 14:12 Dose: 15 units Insulin Human Lispro (Humalog) 0 unit SUBCUT Q2H [facility]; Protocol Last Admin: 03/01/19 06:20 Dose: Not Given Metformin HCl (Glucophage) 850 mg PO BIDMEALS [facility] Non-Formulary Medication (Insulin Detemir [Levemir Flextouch]) 40 units SQ BEDTIME [facility]
== END 2019-03-02 12:00 | disposition home health service (06) ==
LOC: FB.ED 12:41 → UNDOADMOB 15:00 → FB.MS 15:00
PROVIDERS: ADMIT Family Medicine; ATTEND Family Medicine
DX: E11.65 Type 2 diabetes mellitus with hyperglycemia (principal); E11.40 Type 2 diabetes mellitus with diabetic neuropathy, unspecified; E86.0 Dehydration; K21.9 Gastro-esophageal reflux disease without esophagitis; F17.210 Nicotine dependence, cigarettes, uncomplicated; Z79.4 Long term (current) use of insulin
CPT/HCPCS: 36415; 36600; 80053; 81001; 82803; 82962; 84132; 85025; 96360; 96361; 96372; 99217; 99225; 99231; 99284; 99285; G0378; J1650; J1815; J3480; J7030

== ENCOUNTER 2019-07-17 18:21 | Observation (INO) | payer MEDICAID, OTHER ==
[2019-07-17] MEDS ORDERED: Sodium Chloride 0.9% 10 ML Syringe FLUSH PRN (18:43)
[2019-07-17] MEDS ORDERED: Sodium Chloride 0.9% 1,000 ML IV SCH (18:45)
[2019-07-17] MEDS ORDERED: Insulin Regular, Human 100 Units/ML 3 ML Vial IV ONE (19:43)
--- NOTE | 2019-07-17 19:46 | EDM.PDOC ---
ED HPI GENERAL MEDICAL PROBLEM - General Chief Complaint: General Stated Complaint: SOB, WEAK Time Seen by Provider: 07/17/19 19:44 Source of Information: Reports: Patient History Limitations: Reports: No Limitations - History of Present Illness INITIAL COMMENTS - FREE TEXT/NARRATIVE: 64 yo male with complaints of generalized fatigue,decreased appetite for 2 days.He is known to have DM2.He quit his insulin due to anorexia. - Related Data Allergies Allergy/AdvReac Type Severity Reaction Status Date / Time No Known Allergies Allergy Verified 07/17/19 18:27 Home Meds: Home Meds metFORMIN [Glucophage] 850 mg PO BIDMEALS 02/17/14 [History] Insulin Detemir [Levemir Flextouch] 40 units SQ BEDTIME 11/18/18 [History] Gabapentin [Neurontin] 100 mg PO TID 02/28/19 [History] Insulin Lispro [Humalog] 5 - 15 unit SUBCUT TIDMEALS 02/28/19 [History] Past Medical History HEENT History: Reports: None Cardiovascular History: Reports: Other (See Below) Other Cardiovascular History: States that his blood pressure is usually low. Respiratory History: Reports: Other (See Below) Other Respiratory History: Smoker since the age of 18. Gastrointestinal History: Reports: GERD Neurological History: Reports: Neuropathy, Diabetic Other Neuro History: States numbness in hands and feet. States he gets dizzy when his blood sugar is low and blood pressure is low. Psychiatric History: Reports: Anxiety, Depression Endocrine/Metabolic History: Reports: Diabetes, Type II, IDDM - Infectious Disease History Infectious Disease History: Reports: Chicken Pox, Shingles, Other (See Below) Other Infectious Disease History: States he had "measles", doesn't recall Rubella or Rubeola. - Past Surgical History HEENT Surgical History: Reports: Tonsillectomy Respiratory Surgical History: Reports: None GI Surgical History: Reports: Colonoscopy Social & Family History - Family History Family Medical History: Noncontributory Cardiac: Reports: CAD, High Cholesterol, Hypertension Respiratory: Reports: COPD : Reports: Renal Disease/Insufficiency Neurological: Reports: CVA Endocrine/Metabolic: Reports: Diabetes, type II - Tobacco Use Smoking Status *Q: Current Every Day Smoker Years of Tobacco use: 48 Packs/Tins Daily: 0.5 - Caffeine Use Caffeine Use: Reports: Soda Other Caffeine Use: Rarely - Recreational Drug Use Recreational Drug Use: No - Living Situation & Occupation Living situation: Reports: Single Occupation: Unemployed ED ROS GENERAL - Review of Systems Review Of Systems: Comprehensive ROS is negative, except as noted in HPI. ED EXAM, GENERAL - Physical Exam Exam: See Below Exam Limited By: No Limitations General Appearance: Alert, WD/WN, No Apparent Distress, Lethargic Ears: Normal External Exam Nose: Normal Inspection Throat/Mouth: Normal Oropharynx Neck: Normal Inspection Respiratory/Chest: No Respiratory Distress Cardiovascular: Normal Peripheral Pulses GI/Abdominal: Normal Bowel Sounds (Male) Exam: No Hernia Course - Vital Signs Last Recorded V/S: Last Vital Signs Temp 95.6 F L 07/17/19 18:34 Pulse 84 07/17/19 18:40 Resp 18 07/17/19 18:34 BP 116/90 07/17/19 18:34 Pulse Ox 100 07/17/19 18:34 - Orders/Labs/Meds Orders: Active Orders 24 hr Category Date Time Status Patient Status [ADT] Routine ADT 07/17/19 20:44 Ordered Blood Glucose Check, Bedside [RC] TIDMEALS Care 07/17/19 20:43 Ordered EKG Documentation Completion [RC] ASDIRECTED Care 07/17/19 18:43 Active Height and Weight [RC] DAILY Care 07/17/19 20:43 Ordered Intake and Output [RC] QSHIFT Care 07/17/19 20:45 Ordered Oxygen Therapy [RC] PRN Care 07/17/19 20:44 Ordered Up With Assistance [RC] ASDIRECTED Care 07/17/19 20:43 Ordered VTE/DVT Education [RC] Per Unit Routine Care 07/17/19 20:44 Ordered Vital Signs [RC] Q8H Care 07/17/19 20:43 Ordered Consult to Engine Generator Assembler [CONS] Routine Cons 07/17/19 20:43 Ordered Consult to Spiritual Care [CONS] Routine Cons 07/17/19 20:43 Ordered Nothing per Oral Now Diet [DIET] Diet 07/17/19 Breakfast Ordered Chest 2V [CR] AM Exams 07/18/19 05:11 Ordered BLOOD GAS VENOUS [BG] Stat Lab 07/17/19 19:10 Ordered CBC WITH AUTO DIFF [HEME] AM Lab 07/18/19 05:11 Ordered COMPREHENSIVE METABOLIC PN,CMP [CHEM] AM Lab 07/18/19 05:11 Ordered Gabapentin [Neurontin] Med 07/17/19 21:00 Ordered 100 mg PO TID Insulin Lispro [HumaLOG] Med 07/18/19 08:00 Ordered See Protocol SUBCUT TIDMEALS Ondansetron [Zofran] Med 07/17/19 20:43 Ordered 4 mg IV Q4H PRN Sodium Chloride 0.9% @ 125 MLS/HR (1000ml) Med 07/17/19 20:45 Ordered Sodium Chloride 0.9% [Normal Saline] 1,000 ml IV ASDIRECTED Sodium Chloride 0.9% [Normal Saline] 1,000 ml Med 07/17/19 18:45 Active IV ASDIRECTED Sodium Chloride 0.9% [Saline Flush] Med 07/17/19 18:43 Active 10 ml FLUSH ASDIRECTED PRN Peripheral IV Insertion Adult [OM.PC] Routine Oth 07/17/19 18:43 Ordered Resuscitation Status Routine Resus Stat 07/17/19 20:43 Ordered EKG 12 Lead [EK] Routine Ther 07/17/19 18:43 Ordered Medication Orders Gabapentin (Neurontin) 100 mg PO TID [facility] Sodium Chloride (Normal Saline) 1,000 mls @ 999 mls/hr IV ASDIRECTED [facility] Last Admin: 07/17/19 19:50 Dose: 999 mls/hr Sodium Chloride (Normal Saline) 1,000 mls @ 125 mls/hr IV ASDIRECTED [facility] Insulin Human Lispro (Humalog) 0 unit SUBCUT TIDMEALS [facility]; Protocol Ondansetron HCl (Zofran) 4 mg IV Q4H PRN PRN Reason: Nausea/Vomiting Sodium Chloride (Saline Flush) 10 ml FLUSH ASDIRECTED PRN PRN Reason: Keep Vein Open Labs: Laboratory Tests 07/17/19 07/17/19 07/17/19 Range/Units 18:24 18:50 18:50 WBC 6.6 (4.5-12.0) X10-3/uL RBC 5.75 (4.30-5.75) x10(6)uL Hgb 17.2 (13.5-17.8) g/dL Hct 50.3 (30.0-51.3) % MCV 87.6 (80-96) fL MCH 30.0 (27.7-33.6) pg MCHC 34.3 (32.2-35.4) g/dL RDW 12.6 (11.5-15.5) % Plt Count 271 (125-369) X10(3)uL MPV 8.1 (7.4-10.4) fL Neut % (Auto) 60.8 (46-82) % Lymph % (Auto) 26.1 (13-37) % [place] % (Auto) 5.0 (4-12) % Eos % (Auto) 7 H (1.0-5.0) % Baso % (Auto) 1 (0-2) % Neut # (Auto) 4.1 (1.6-8.3) # Lymph # (Auto) 1.7 (0.6-5.0) # Mariposa # (Auto) 0.3 (0.0-1.3) # Eos # (Auto) 0.5 (0.0-0.8) # Baso # (Auto) 0.0 (0.0-0.2) # POC VBG pH 7.31 (7.31-7.41) POC VBG pCO2 40.1 L (41-51) mmHG POC VBG HCO3 20.4 L (23-28) mmol/L POC VBG Total CO2 22 L (24-29) mmol/L POC VBG Base Excess -6 L (-2-3) mmol/L Sodium 135 (135-145) mmol/L Potassium 5.4 H D (3.5-5.3) mmol/L Chloride 92 L D (100-110) mmol/L Carbon Dioxide 21 (21-32) mmol/L BUN 19 H (7-18) mg/dL Creatinine 1.9 H (0.70-1.30) mg/dL Est Cr Clr Drug Dosing TNP Estimated GFR (MDRD) 36 L (>60) BUN/Creatinine Ratio 10.0 (9-20) Glucose 474 H* D (80-116) mg/dL Calcium 9.7 (8.6-10.2) mg/dL Total Bilirubin 0.7 (0.1-1.3) mg/dL AST 10 D (5-25) IU/L ALT 13 D (12-36) U/L Alkaline Phosphatase 134 H (56-112) IU/L Troponin I (4.0-60.3) pg/mL Total Protein 7.6 (6.0-8.0) g/dL Albumin 3.8 (3.2-4.6) g/dL Globulin 3.8 g/dL Albumin/Globulin Ratio 1.0 04/16/20 Range/Units 18:50 WBC (4.5-12.0) X10-3/uL RBC (4.30-5.75) x10(6)uL Hgb (13.5-17.8) g/dL Hct (30.0-51.3) % MCV (80-96) fL MCH (27.7-33.6) pg MCHC (32.2-35.4) g/dL RDW (11.5-15.5) % Plt Count (125-369) X10(3)uL MPV (7.4-10.4) fL Neut % (Auto) (46-82) % Lymph % (Auto) (13-37) % [place] % (Auto) (4-12) % Eos % (Auto) (1.0-5.0) % Baso % (Auto) (0-2) % Neut # (Auto) (1.6-8.3) # Lymph # (Auto) (0.6-5.0) # Mariposa # (Auto) (0.0-1.3) # Eos # (Auto) (0.0-0.8) # Baso # (Auto) (0.0-0.2) # POC VBG pH (7.31-7.41) POC VBG pCO2 (41-51) mmHG POC VBG HCO3 (23-28) mmol/L POC VBG Total CO2 (24-29) mmol/L POC VBG Base Excess (-2-3) mmol/L Sodium (135-145) mmol/L Potassium (3.5-5.3) mmol/L Chloride (100-110) mmol/L Carbon Dioxide (21-32) mmol/L BUN (7-18) mg/dL Creatinine (0.70-1.30) mg/dL Est Cr Clr Drug Dosing Estimated GFR (MDRD) (>60) BUN/Creatinine Ratio (9-20) Glucose (80-116) mg/dL Calcium (8.6-10.2) mg/dL Total Bilirubin (0.1-1.3) mg/dL AST (5-25) IU/L ALT (12-36) U/L Alkaline Phosphatase (56-112) IU/L Troponin I 14.4 (4.0-60.3) pg/mL Total Protein (6.0-8.0) g/dL Albumin (3.2-4.6) g/dL Globulin g/dL Albumin/Globulin Ratio Meds: Medications Generic Name Dose Route Start Last Admin Trade Name Merrick PRN Reason Stop Dose Admin Gabapentin 100 mg 07/17/19 21:00 Neurontin PO TID [facility] Sodium Chloride 1,000 mls @ 999 mls/hr 07/17/19 18:45 07/17/19 19:50 Normal Saline IV 999 mls/hr ASDIRECTED [facility] Administration Sodium Chloride 1,000 mls @ 125 mls/hr 07/17/19 20:45 Normal Saline IV ASDIRECTED [facility] Insulin Human Lispro 0 unit 07/18/19 08:00 Humalog SUBCUT TIDMEALS [facility] Protocol Ondansetron HCl 4 mg 07/17/19 20:43 Zofran IV Q4H PRN Nausea/Vomiting Sodium Chloride 10 ml 07/17/19 18:43 Saline Flush FLUSH ASDIRECTED PRN Keep Vein Open Discontinued Medications Generic Name Dose Route Start Last Admin Trade Name Merrick PRN Reason Stop Dose Admin Insulin Human Regular 15 unit 07/17/19 19:43 07/17/19 19:50 Humulin R IV 07/17/19 19:44 0.15 ml ONETIME ONE Administration Ondansetron HCl 4 mg 07/17/19 20:02 07/17/19 20:07 Zofran IVPUSH 07/17/19 20:03 4 mg ONETIME ONE Administration Departure - Departure Time of Disposition: 20:51 Disposition: Refer to Observation Condition: Good Clinical Impression: Hyperglycemia, HUNTER (acute kidney injury) - Discharge Information Referrals: Mack Huertas MD [Primary Care Provider] - Forms: ED Department Discharge Sepsis Event Note - Evaluation Sepsis Screening Result: No Definite Risk - Focused Exam Vital Signs: Vital Signs Temp Pulse Resp BP Pulse Ox 07/17/19 18:40 84 07/17/19 18:34 95.6 F L 116 H 18 116/90 100 Date Exam was Performed: 07/17/19 Time Exam was Performed: 20:49 - Problem List & Annotations (1) HUNTER (acute kidney injury) SNOMED Code(s): 86220174, 02593468 Code(s): N17.9 - ACUTE KIDNEY FAILURE, UNSPECIFIED Status: Acute Current Visit: Yes (2) Diabetes mellitus type II, uncontrolled SNOMED Code(s): 793247240, 283496580 Code(s): E11.65 - TYPE 2 DIABETES MELLITUS WITH HYPERGLYCEMIA Status: Acute Current Visit: No Qualifiers: Glycemic state: with hyperglycemia Qualified Code(s): E11.65 - Type 2 diabetes mellitus with hyperglycemia (3) Dehydration, mild SNOMED Code(s): 8643922452328 Code(s): E86.0 - DEHYDRATION Status: Acute Current Visit: No - Problem List Review Problem List Initiated/Reviewed/Updated: Yes - My Orders Last 24 Hours: My Active Orders 07/17/19 18:43 EKG Documentation Completion [RC] ASDIRECTED Sodium Chloride 0.9% [Saline Flush] 10 ml FLUSH ASDIRECTED PRN Peripheral IV Insertion Adult [OM.PC] Routine EKG 12 Lead [EK] Routine 07/17/19 18:45 Sodium Chloride 0.9% [Normal Saline] 1,000 ml IV ASDIRECTED 07/17/19 19:10 BLOOD GAS VENOUS [BG] Stat 07/17/19 20:43 Blood Glucose Check, Bedside [RC] TIDMEALS Height and Weight [RC] DAILY Up With Assistance [RC] ASDIRECTED Vital Signs [RC] Q8H Consult to Engine Generator Assembler [CONS] Routine Consult to Spiritual Care [CONS] Routine Ondansetron [Zofran] 4 mg IV Q4H PRN Resuscitation Status Routine 07/17/19 20:44 Patient Status [ADT] Routine Oxygen Therapy [RC] PRN VTE/DVT Education [RC] Per Unit Routine 07/17/19 20:45 Intake and Output [RC] QSHIFT Sodium Chloride 0.9% @ 125 MLS/HR (1000ml) Sodium Chloride 0.9% [Normal Saline] 1,000 ml IV ASDIRECTED 07/17/19 21:00 Gabapentin [Neurontin] 100 mg PO TID 07/17/19 Breakfast Nothing per Oral Now Diet [DIET] 07/18/19 05:11 Chest 2V [CR] AM CBC WITH AUTO DIFF [HEME] AM COMPREHENSIVE METABOLIC PN,CMP [CHEM] AM 07/18/19 08:00 Insulin Lispro [HumaLOG] See Protocol SUBCUT TIDMEALS - Assessment/Plan Last 24 Hours: My Active Orders 07/17/19 18:43 EKG Documentation Completion [RC] ASDIRECTED Sodium Chloride 0.9% [Saline Flush] 10 ml FLUSH ASDIRECTED PRN Peripheral IV Insertion Adult [OM.PC] Routine EKG 12 Lead [EK] Routine 07/17/19 18:45 Sodium Chloride 0.9% [Normal Saline] 1,000 ml IV ASDIRECTED 07/17/19 19:10 BLOOD GAS VENOUS [BG] Stat 07/17/19 20:43 Blood Glucose Check, Bedside [RC] TIDMEALS Height and Weight [RC] DAILY Up With Assistance [RC] ASDIRECTED Vital Signs [RC] Q8H Consult to Engine Generator Assembler [CONS] Routine Consult to Spiritual Care [CONS] Routine Ondansetron [Zofran] 4 mg IV Q4H PRN Resuscitation Status Routine 07/17/19 20:44 Patient Status [ADT] Routine Oxygen Therapy [RC] PRN VTE/DVT Education [RC] Per Unit Routine 07/17/19 20:45 Intake and Output [RC] QSHIFT Sodium Chloride 0.9% @ 125 MLS/HR (1000ml) Sodium Chloride 0.9% [Normal Saline] 1,000 ml IV ASDIRECTED 07/17/19 21:00 Gabapentin [Neurontin] 100 mg PO TID 07/17/19 Breakfast Nothing per Oral Now Diet [DIET] 07/18/19 05:11 Chest 2V [CR] AM CBC WITH AUTO DIFF [HEME] AM COMPREHENSIVE METABOLIC PN,CMP [CHEM] AM 07/18/19 08:00 Insulin Lispro [HumaLOG] See Protocol SUBCUT TIDMEALS Plan: he got 1 L of Crystalloid and 15 units of regular insulin. He had an emesis here in the ED,We decided to keep him for observation,rehydration
[2019-07-17] MEDS ORDERED: Ondansetron 4 MG/2 ML SDV IVPUSH ONE (20:02)
[2019-07-17] MEDS ORDERED: Ondansetron 4 MG/2 ML SDV IV PRN (20:43)
[2019-07-17] MEDS: Sodium Chloride 0.9% 1,000 ML IV SCH (20:56)
[2019-07-17] MEDS: Gabapentin 100 MG Cap PO SCH (21:11)
[2019-07-18] MEDS: Sodium Chloride 0.9% 1,000 ML IV SCH ×3 (04:27→20:16)
[2019-07-18] MEDS: Gabapentin 100 MG Cap PO SCH ×3 (08:14→20:14)
[2019-07-18] MEDS: Insulin Lispro 100 Unit/ML 3 ML KwikPen SUBCUT SCH ×3 (08:14→18:08)
--- NOTE | 2019-07-18 10:20 | CR ---
INDICATION: Fatigue. CHEST, TWO VIEWS: Two PA views and two lateral views of the chest were obtained 07/18/19 - no comparisons. The lateral views are limited in that the posterior sulcus on the right is not fully included on this study. The heart appeared normal in size and shape. The aorta is calcified in the arch area. Mild to moderate hypertrophic degenerative changes are noted off vertebral bodies anteriorly at the lower thoracic spine. A definite active infiltrate or effusion was not identified. There is noted some linear density in the left apical lung, most likely fibrotic in nature. IMPRESSION: 1. No acute process. 2. ASD aorta. 3. DJD spine. MTDD
--- NOTE | 2019-07-18 13:27 | HP ---
ADMISSION DATE: 07/17/2019 SUBJECTIVE: Recent lethargy, fatigue, poor appetite, uncontrolled diabetes. Kevin Azul is a 64-year-old male admitted through [facility]. Has longstanding type 2 insulin dependent diabetes mellitus. Presented with fatigue, decreased appetite, elevated sugars, and poor control. Insulin had been discontinued. Please see Dr. Moura's admitting note. LABORATORY STUDIES: On admission, white count 6600 and hemoglobin 17.2, repeat 6200 and 15.1. Potassium 5.4, reduced to 4.0; creatinine 1.9 to 1.4; BUN 19 to 15; GFR 136 to 51. He has been given normal saline. Feeling better this morning. OBJECTIVE: VITAL SIGNS: 36.3, 104/71, 16, 98, pulse of 86. GENERAL: Appears comfortable, but brittle. Soft spoken. HEENT: Mouth and oropharynx, better hydration. NECK: Benign. Thyroid small. CHEST: Clear in all lung andrade. HEART: No ectopy or murmur. ABDOMEN: Benign. PLAN: We will start diet. Continue sliding scale insulin. We will give his evening long-acting Levemir. /[id number] MELANIA/COLTEN
[2019-07-18] MEDS ORDERED: Insulin Glargine,Human Rec. Analog 100 Units/ML 3 ML Pen SUBCUT SCH (21:00)
[2019-07-19] MEDS: Sodium Chloride 0.9% 1,000 ML IV SCH (04:20)
[2019-07-19] MEDS: Insulin Lispro 100 Unit/ML 3 ML KwikPen SUBCUT SCH ×3 (08:10→17:54)
[2019-07-19] MEDS: Gabapentin 100 MG Cap PO SCH ×2 (08:14→13:32)
[2019-07-19] MEDS ORDERED: Sodium Chloride 0.9% 1,000 ML IV SCH (08:30)
[2019-07-19 17:21] VITALS: BP 122/77; PULSE 68
--- NOTE | 2019-07-21 07:51 | DISCH ---
DISCHARGE DATE: 07/19/2019 Kevin Azul is a 64-year-old male; admitted with complicated nausea, vomiting, dehydration, and weakness. Has an accompanying diabetes mellitus, type 2. Noncompliant. Please see H and P. Hospital course was uncomplicated. He was given IV fluids, correction of electrolytes, hydration, and well-being. Medications were readjusted with good success. Sugars remain moderately high but not inconsistent with this control. At the time of discharge, he was ambulating, comfortable, and eating well. DISCHARGE MEDICATIONS: Please see medication reconciliation list. APPOINTMENT: Followup in 1 week's time with primary care doctor. SURGICAL PROCEDURES: None. CONSULTATIONS: None. ADDENDUM: Half hour discharge requirements. /[id number] MELANIA/COLTEN
== END 2019-07-19 18:29 | disposition home or self-care (01) ==
LOC: FB.ED 18:21 → FB.MS 20:54
PROVIDERS: ADMIT Family Medicine; ATTEND Family Medicine
DX: E11.65 Type 2 diabetes mellitus with hyperglycemia (principal); N17.9 Acute kidney failure, unspecified; E86.0 Dehydration; E11.40 Type 2 diabetes mellitus with diabetic neuropathy, unspecified; F17.210 Nicotine dependence, cigarettes, uncomplicated; Z79.4 Long term (current) use of insulin
CPT/HCPCS: 36415; 71046; 80053; 82803; 82962; 84484; 85025; 93005; 96361; 96374; 99285-25; A9270-GY; G0378; J1815; J1815-GY; J2405; J7030

== ENCOUNTER 2019-08-19 20:07 | Inpatient (IN) | payer MEDICAID ==
[2019-08-19] MEDS ORDERED: Sodium Chloride 0.9% 10 ML Syringe FLUSH PRN (20:20)
[2019-08-19] MEDS ORDERED: Sodium Chloride 0.9% 1,000 ML IV SCH ×2 (20:30→22:15)
[2019-08-19] MEDS ORDERED: Insulin Glargine,Human Rec. Analog 100 Units/ML 3 ML Pen SUBCUT STA (21:57)
[2019-08-19] MEDS ORDERED: Insulin Lispro 100 Unit/ML 3 ML KwikPen SUBCUT STA (21:57)
--- NOTE | 2019-08-19 22:13 | EDM.PDOC ---
ED HPI GENERAL MEDICAL PROBLEM - General Chief Complaint: General Stated Complaint: WEAKNESS Time Seen by Provider: 08/19/19 20:20 Source of Information: Reports: Patient History Limitations: Reports: No Limitations - History of Present Illness INITIAL COMMENTS - FREE TEXT/NARRATIVE: Patient presented to the ED because of generalized body weakness for 1 week with associated poor oral intake. He denies any abdominal pain,N/V/D. There is no chest pain, dyspnea , fever or any cough or cold symptoms. Patient is a known diabetic and he didn't take his oral diabetic medicines and insulin for several days. - Related Data Allergies Allergy/AdvReac Type Severity Reaction Status Date / Time No Known Allergies Allergy Verified 07/17/19 18:27 Home Meds: Home Meds metFORMIN [Glucophage] 850 mg PO BIDMEALS 02/17/14 [History] Insulin Detemir [Levemir Flextouch] 48 units SQ BEDTIME 11/18/18 [History] Gabapentin [Neurontin] 200 mg PO TID 02/28/19 [History] Insulin Lispro [Humalog] 5 - 15 unit SUBCUT TIDMEALS 02/28/19 [History] Simvastatin 20 mg PO DAILY 07/18/19 [History] Past Medical History HEENT History: Reports: None Cardiovascular History: Reports: Other (See Below) Other Cardiovascular History: States that his blood pressure is usually low. Respiratory History: Reports: Other (See Below) Other Respiratory History: Smoker since the age of 18. Gastrointestinal History: Reports: GERD Neurological History: Reports: Neuropathy, Diabetic Other Neuro History: States numbness in hands and feet. States he gets dizzy when his blood sugar is low and blood pressure is low. Psychiatric History: Reports: Anxiety, Depression Endocrine/Metabolic History: Reports: Diabetes, Type II, IDDM, Other (See Below) Other Endocrine/Metabolic History: on insulin. - Infectious Disease History Infectious Disease History: Reports: Chicken Pox, Shingles, Other (See Below) Other Infectious Disease History: States he had "measles", doesn't recall Rubella or Rubeola. - Past Surgical History HEENT Surgical History: Reports: Tonsillectomy Respiratory Surgical History: Reports: None GI Surgical History: Reports: Colonoscopy Social & Family History - Family History Family Medical History: Noncontributory Cardiac: Reports: CAD, High Cholesterol, Hypertension Respiratory: Reports: COPD : Reports: Renal Disease/Insufficiency Neurological: Reports: CVA Endocrine/Metabolic: Reports: Diabetes, type II - Tobacco Use Smoking Status *Q: Current Every Day Smoker Years of Tobacco use: 45 Packs/Tins Daily: 0.5 Used Tobacco, but Quit: No Second Hand Smoke Exposure: Yes - Caffeine Use Caffeine Use: Reports: None Other Caffeine Use: Rarely - Recreational Drug Use Recreational Drug Use: No - Living Situation & Occupation Living situation: Reports: Single Occupation: Unemployed ED ROS GENERAL - Review of Systems Review Of Systems: See Below Constitutional: Reports: Weakness, Fatigue, Decreased Appetite HEENT: Reports: No Symptoms Respiratory: Reports: No Symptoms Cardiovascular: Reports: No Symptoms Endocrine: Reports: High Glucose GI/Abdominal: Reports: No Symptoms : Reports: No Symptoms Musculoskeletal: Reports: No Symptoms Skin: Reports: No Symptoms Neurological: Reports: Dizziness Psychiatric: Reports: No Symptoms Hematologic/Lymphatic: Reports: No Symptoms Immunologic: Reports: No Symptoms ED EXAM, GENERAL - Physical Exam Exam: See Below Exam Limited By: No Limitations General Appearance: Alert Eye Exam: Bilateral Eye: PERRL Nose: Normal Inspection, Normal Mucosa, No Blood Throat/Mouth: Normal Inspection, Normal Lips, Normal Teeth Head: Atraumatic, Normocephalic Neck: Normal Inspection, Supple, Non-Tender, Full Range of Motion Respiratory/Chest: No Respiratory Distress, Lungs Clear, Normal Breath Sounds Cardiovascular: Normal Peripheral Pulses, Regular Rate, Rhythm, No Edema, No Gallop, No JVD, No Murmur, No Rub GI/Abdominal: Normal Bowel Sounds, Soft, Non-Tender, No Organomegaly, No Distention Back Exam: Normal Inspection, Full Range of Motion Extremities: Normal Inspection, Normal Range of Motion, Non-Tender, No Pedal Edema Neurological: Alert, Oriented, CN II-XII Intact, Normal Cognition, Normal Gait, Normal Reflexes, No Motor/Sensory Deficits Psychiatric: Flat Affect Skin Exam: Dry, Normal Color, Cool Course - Vital Signs Text/Narrative:: Labs/EKG/CXR was discussed with patient and verbalized full understanding EKG-NSR Trop Neg Lactic acid elevated most likely due to DKA NS 2 L bolus Lantus 48 U SC Humalog 15 U SC Last Recorded V/S: Last Vital Signs Temp Pulse 95 08/19/19 20:15 Resp 18 08/19/19 20:15 BP 120/76 08/19/19 20:15 Pulse Ox 100 08/19/19 20:15 - Orders/Labs/Meds Orders: Active Orders 24 hr Category Date Time Status Accu Check [Blood Glucose Check, Bedside] [RC] ONETIME Care 08/19/19 21:07 Active EKG Documentation Completion [RC] ASDIRECTED Care 08/19/19 20:21 Active Chest 1V Frontal [CR] Stat Exams 08/19/19 20:20 Taken BETA-HYDROXYBUTYRATE Stat Lab 08/19/19 20:38 Received LACTIC ACID [CHEM] Stat Lab 08/19/19 23:30 Ordered UA W/MICROSCOPIC [URIN] Stat Lab 08/19/19 20:20 Ordered Sodium Chloride 0.9% [Normal Saline] 1,000 ml Med 08/19/19 20:30 Active IV ASDIRECTED Sodium Chloride 0.9% [Normal Saline] 1,000 ml Med 08/19/19 22:15 Ordered IV ASDIRECTED Sodium Chloride 0.9% [Saline Flush] Med 08/19/19 20:20 Active 10 ml FLUSH ASDIRECTED PRN Saline Lock Insert [OM.PC] Routine Oth 08/19/19 20:20 Ordered EKG 12 Lead [EK] Routine Ther 08/19/19 20:20 Ordered Medication Orders Sodium Chloride (Normal Saline) 1,000 mls @ 999 mls/hr IV ASDIRECTED LAURA Last Admin: 08/19/19 21:06 Dose: 999 mls/hr Sodium Chloride (Normal Saline) 1,000 mls @ 999 mls/hr IV ASDIRECTED LAURA Sodium Chloride (Saline Flush) 10 ml FLUSH ASDIRECTED PRN PRN Reason: Keep Vein Open Labs: Laboratory Tests 08/19/19 08/19/19 08/19/19 Range/Units 19:48 20:38 20:38 WBC 9.6 (4.5-12.0) X10-3/uL RBC 5.91 H (4.30-5.75) x10(6)uL Hgb 17.1 (13.5-17.8) g/dL Hct 52.3 H (30.0-51.3) % MCV 88.5 (80-96) fL MCH 29.0 (27.7-33.6) pg MCHC 32.7 (32.2-35.4) g/dL RDW 13.1 (11.5-15.5) % Plt Count 311 (125-369) X10(3)uL MPV 8.5 (7.4-10.4) fL Neut % (Auto) 69.6 (46-82) % Lymph % (Auto) 20.5 (13-37) % [place] % (Auto) 4.2 (4-12) % Eos % (Auto) 3 (1.0-5.0) % Baso % (Auto) 2 (0-2) % Neut # (Auto) 6.7 (1.6-8.3) # Lymph # (Auto) 2.0 (0.6-5.0) # [place] # (Auto) 0.4 (0.0-1.3) # Eos # (Auto) 0.3 (0.0-0.8) # Baso # (Auto) 0.2 (0.0-0.2) # POC VBG pH 7.27 L (7.31-7.41) POC VBG pCO2 22.4 L (41-51) mmHG POC VBG HCO3 10.4 L (23-28) mmol/L POC VBG Total CO2 11 L (24-29) mmol/L POC VBG Base Excess -17 L (-2-3) mmol/L Sodium 130 L (135-145) mmol/L Potassium 5.3 D (3.5-5.3) mmol/L Chloride 90 L D (100-110) mmol/L Carbon Dioxide 17 L (21-32) mmol/L BUN 27 H D (7-18) mg/dL Creatinine 2.0 H* (0.70-1.30) mg/dL Est Cr Clr Drug Dosing TNP Estimated GFR (MDRD) 34 L (>60) BUN/Creatinine Ratio 13.5 (9-20) Glucose 524 H* D (80-116) mg/dL Lactic Acid (0.4-2.0) mmol/L Calcium 9.6 (8.6-10.2) mg/dL Total Bilirubin 0.7 (0.1-1.3) mg/dL AST 8 D (5-25) IU/L ALT 12 D (12-36) U/L Alkaline Phosphatase 143 H (56-112) IU/L Troponin I (4.0-60.3) pg/mL Total Protein 7.5 (6.0-8.0) g/dL Albumin 3.6 (3.2-4.6) g/dL Globulin 3.9 g/dL Albumin/Globulin Ratio 0.9 08/19/19 08/19/19 Range/Units 20:38 20:38 WBC (4.5-12.0) X10-3/uL RBC (4.30-5.75) x10(6)uL Hgb (13.5-17.8) g/dL Hct (30.0-51.3) % MCV (80-96) fL MCH (27.7-33.6) pg MCHC (32.2-35.4) g/dL RDW (11.5-15.5) % Plt Count (125-369) X10(3)uL MPV (7.4-10.4) fL Neut % (Auto) (46-82) % Lymph % (Auto) (13-37) % [place] % (Auto) (4-12) % Eos % (Auto) (1.0-5.0) % Baso % (Auto) (0-2) % Neut # (Auto) (1.6-8.3) # Lymph # (Auto) (0.6-5.0) # [place] # (Auto) (0.0-1.3) # Eos # (Auto) (0.0-0.8) # Baso # (Auto) (0.0-0.2) # POC VBG pH (7.31-7.41) POC VBG pCO2 (41-51) mmHG POC VBG HCO3 (23-28) mmol/L POC VBG Total CO2 (24-29) mmol/L POC VBG Base Excess (-2-3) mmol/L Sodium (135-145) mmol/L Potassium (3.5-5.3) mmol/L Chloride (100-110) mmol/L Carbon Dioxide (21-32) mmol/L BUN (7-18) mg/dL Creatinine (0.70-1.30) mg/dL Est Cr Clr Drug Dosing Estimated GFR (MDRD) (>60) BUN/Creatinine Ratio (9-20) Glucose (80-116) mg/dL Lactic Acid 2.4 H* (0.4-2.0) mmol/L Calcium (8.6-10.2) mg/dL Total Bilirubin (0.1-1.3) mg/dL AST (5-25) IU/L ALT (12-36) U/L Alkaline Phosphatase (56-112) IU/L Troponin I 15.8 (4.0-60.3) pg/mL Total Protein (6.0-8.0) g/dL Albumin (3.2-4.6) g/dL Globulin g/dL Albumin/Globulin Ratio Meds: Medications Generic Name Dose Route Start Last Admin Trade Name Freq PRN Reason Stop Dose Admin Sodium Chloride 1,000 mls @ 999 mls/hr 08/19/19 20:30 08/19/19 21:06 Normal Saline IV 999 mls/hr ASDIRECTED LAURA Administration Sodium Chloride 1,000 mls @ 999 mls/hr 08/19/19 22:15 Normal Saline IV ASDIRECTED LAURA Sodium Chloride 10 ml 08/19/19 20:20 Saline Flush FLUSH ASDIRECTED PRN Keep Vein Open Discontinued Medications Generic Name Dose Route Start Last Admin Trade Name Freq PRN Reason Stop Dose Admin Insulin Glargine 48 units 08/19/19 21:57 Lantus Solostar SUBCUT 08/19/19 21:58 NOW STA Insulin Human Lispro 15 unit 08/19/19 21:57 Humalog SUBCUT 08/19/19 21:58 NOW STA Departure - Departure Time of Disposition: 22:15 Disposition: Refer to Observation Condition: Good Clinical Impression: Dehydration, moderate, HUNTER (acute kidney injury) DKA (diabetic ketoacidoses) Qualifiers: Diabetes mellitus type: type 2 Diabetes mellitus complication detail: without coma Qualified Code(s): E11.10 - Type 2 diabetes mellitus with ketoacidosis without coma - Discharge Information Referrals: Mack Huertas MD [Primary Care Provider] - Sepsis Event Note - Evaluation Sepsis Screening Result: No Definite Risk - Focused Exam Vital Signs: Vital Signs Pulse Resp BP Pulse Ox 08/19/19 20:15 95 18 120/76 100 Date Exam was Performed: 08/19/19 Time Exam was Performed: 22:08 - My Orders Last 24 Hours: My Active Orders 08/19/19 20:20 Chest 1V Frontal [CR] Stat UA W/MICROSCOPIC [URIN] Stat Sodium Chloride 0.9% [Saline Flush] 10 ml FLUSH ASDIRECTED PRN Saline Lock Insert [OM.PC] Routine EKG 12 Lead [EK] Routine 08/19/19 20:21 EKG Documentation Completion [RC] ASDIRECTED 08/19/19 20:30 Sodium Chloride 0.9% [Normal Saline] 1,000 ml IV ASDIRECTED 08/19/19 20:38 BETA-HYDROXYBUTYRATE Stat 08/19/19 21:07 Accu Check [Blood Glucose Check, Bedside] [RC] ONETIME 08/19/19 22:15 Sodium Chloride 0.9% [Normal Saline] 1,000 ml IV ASDIRECTED 08/19/19 23:30 LACTIC ACID [CHEM] Stat - Assessment/Plan Last 24 Hours: My Active Orders 08/19/19 20:20 Chest 1V Frontal [CR] Stat UA W/MICROSCOPIC [URIN] Stat Sodium Chloride 0.9% [Saline Flush] 10 ml FLUSH ASDIRECTED PRN Saline Lock Insert [OM.PC] Routine EKG 12 Lead [EK] Routine 08/19/19 20:21 EKG Documentation Completion [RC] ASDIRECTED 08/19/19 20:30 Sodium Chloride 0.9% [Normal Saline] 1,000 ml IV ASDIRECTED 08/19/19 20:38 BETA-HYDROXYBUTYRATE Stat 08/19/19 21:07 Accu Check [Blood Glucose Check, Bedside] [RC] ONETIME 08/19/19 22:15 Sodium Chloride 0.9% [Normal Saline] 1,000 ml IV ASDIRECTED 08/19/19 23:30 LACTIC ACID [CHEM] Stat
[2019-08-19] MEDS ORDERED: Docusate Sodium 100 MG Cap PO PRN (22:18)
[2019-08-19] MEDS ORDERED: Ondansetron 4 MG/2 ML SDV IV PRN (22:18)
[2019-08-19] MEDS ORDERED: Zolpidem 5 MG Tab PO PRN (22:18)
[2019-08-19] MEDS: Sodium Chloride 0.9% 1,000 ML IV SCH (23:37)
[2019-08-20] MEDS: Enoxaparin 30 MG/0.3 ML Syringe SUBCUT SCH ×2 (00:03→21:58)
[2019-08-20] MEDS: Sodium Chloride 0.9% 1,000 ML IV SCH ×2 (06:21)
[2019-08-20] MEDS ORDERED: Insulin Lispro 100 Unit/ML 3 ML KwikPen SUBCUT SCH (08:00)
[2019-08-20] MEDS: Gabapentin 100 MG Cap PO SCH ×3 (08:56→21:00)
[2019-08-20] MEDS: Simvastatin 20 MG Tab PO SCH (08:56)
--- NOTE | 2019-08-20 09:03 | PCM.HP.2 ---
H&P History of Present Illness - General Date of Service: 08/20/19 Admit Problem/Dx: Admission Diagnosis/Problem Admission Diagnosis/Problem Diabetic ketoacidosis Source of Information: Patient History Limitations: Reports: No Limitations - History of Present Illness Initial Comments - Free Text/Narative: Kevin is a 64-year-old male who has type 2 diabetes but is poorly compliant. He came in last night because of feeling poorly, weakness unable to take any oral intake. He does have a prior history of similar admission in July. He denies any nausea vomiting abdominal pain or headache. He lives by himself. - Related Data Allergies/Adverse Reactions: Allergies Allergy/AdvReac Type Severity Reaction Status Date / Time No Known Allergies Allergy Verified 07/17/19 18:27 Home Medications: Home Meds metFORMIN [Glucophage] 850 mg PO BIDMEALS 02/17/14 [History] Insulin Detemir [Levemir Flextouch] 48 units SQ BEDTIME 11/18/18 [History] Gabapentin [Neurontin] 200 mg PO TID 02/28/19 [History] Insulin Lispro [Humalog] 5 - 15 unit SUBCUT TIDMEALS 02/28/19 [History] Simvastatin 20 mg PO DAILY 07/18/19 [History] Past Medical History HEENT History: Reports: None Cardiovascular History: Reports: Other (See Below) Other Cardiovascular History: States that his blood pressure is usually low. Respiratory History: Reports: Other (See Below) Other Respiratory History: Smoker since the age of 18. Gastrointestinal History: Reports: Chronic Constipation, GERD Neurological History: Reports: Neuropathy, Diabetic Other Neuro History: States numbness in hands and feet. States he gets dizzy when his blood sugar is low and blood pressure is low. Psychiatric History: Reports: Addiction Endocrine/Metabolic History: Reports: Diabetes, Type II, IDDM, Other (See Below) Other Endocrine/Metabolic History: on insulin. - Infectious Disease History Infectious Disease History: Reports: Chicken Pox, Measles, Mumps, Shingles, Other (See Below) Other Infectious Disease History: States he had "measles", doesn't recall Rubella or Rubeola. - Past Surgical History HEENT Surgical History: Reports: Tonsillectomy Cardiovascular Surgical History: Reports: None Respiratory Surgical History: Reports: None GI Surgical History: Reports: Colonoscopy Endocrine Surgical History: Reports: None Dermatological Surgical History: Reports: None Social & Family History - Family History Family Medical History: Noncontributory Cardiac: Reports: CAD, High Cholesterol, Hypertension Respiratory: Reports: COPD : Reports: Renal Disease/Insufficiency Neurological: Reports: CVA Endocrine/Metabolic: Reports: Diabetes, type II - Tobacco Use Smoking Status *Q: Current Every Day Smoker Years of Tobacco use: 45 Packs/Tins Daily: 0.2 Used Tobacco, but Quit: No Second Hand Smoke Exposure: No - Caffeine Use Caffeine Use: Reports: Coffee Other Caffeine Use: Rarely - Recreational Drug Use Recreational Drug Use: No - Living Situation & Occupation Living situation: Reports: Single Occupation: Unemployed H&P Review of Systems - Review of Systems: Review Of Systems: Comprehensive ROS is negative, except as noted in HPI. Exam - Exam Exam: See Below - Vital Signs Vital Signs: Last Vital Signs Temp 97.5 F 08/20/19 03:00 Pulse 66 08/20/19 03:00 Resp 16 08/20/19 03:00 BP 124/76 08/20/19 03:00 Pulse Ox 98 08/20/19 03:00 Weight: 64.455 kg - Exam General: Alert, Oriented, 4 HEENT: PERRLA, Hearing Intact, Mucosa Moist & [place], Nares Patent, Normal Nasal Septum, Posterior Pharynx Clear, Conjunctiva Clear, EOMI, EACs Clear, TMs Clear Neck: Supple, Trachea Midline, 2 Lungs: Clear to Auscultation, Normal Respiratory Effort Cardiovascular: Regular Rate, Regular Rhythm GI/Abdominal Exam: Normal Bowel Sounds, Soft, Non-Tender, No Organomegaly, No Distention, No Abnormal Bruit, No Mass, Pelvis Stable (Male) Exam: Deferred Rectal (Males) Exam: Deferred Back Exam: Normal Inspection, Full Range of Motion, NT Extremities: Normal Inspection, Normal Range of Motion, Non-Tender, No Pedal Edema, Normal Capillary Refill Skin: Warm, Dry, Intact Neurological: Cranial Nerves Intact, Reflexes Equal Bilateral Neuro Extensive - Mental Status: Alert, Oriented x3, Normal Mood/Affect, Normal Cognition Neuro Extensive - Motor, Sensory, Reflexes: CN II-XII Intact, Normal Gait, Normal Reflexes Psychiatric: Depressed - Patient Data Lab Results Last 24 hrs: Laboratory Results - last 24 hr 08/19/19 08/19/19 08/19/19 Range/Units 19:48 20:38 20:38 WBC 9.6 (4.5-12.0) X10-3/uL RBC 5.91 H (4.30-5.75) x10(6)uL Hgb 17.1 (13.5-17.8) g/dL Hct 52.3 H (30.0-51.3) % MCV 88.5 (80-96) fL MCH 29.0 (27.7-33.6) pg MCHC 32.7 (32.2-35.4) g/dL RDW 13.1 (11.5-15.5) % Plt Count 311 (125-369) X10(3)uL MPV 8.5 (7.4-10.4) fL Neut % (Auto) 69.6 (46-82) % Lymph % (Auto) 20.5 (13-37) % [place] % (Auto) 4.2 (4-12) % Eos % (Auto) 3 (1.0-5.0) % Baso % (Auto) 2 (0-2) % Neut # (Auto) 6.7 (1.6-8.3) # Lymph # (Auto) 2.0 (0.6-5.0) # [place] # (Auto) 0.4 (0.0-1.3) # Eos # (Auto) 0.3 (0.0-0.8) # Baso # (Auto) 0.2 (0.0-0.2) # POC VBG pH 7.27 L (7.31-7.41) POC VBG pCO2 22.4 L (41-51) mmHG POC VBG HCO3 10.4 L (23-28) mmol/L POC VBG Total CO2 11 L (24-29) mmol/L POC VBG Base Excess -17 L (-2-3) mmol/L Sodium 130 L (135-145) mmol/L Potassium 5.3 D (3.5-5.3) mmol/L Chloride 90 L D (100-110) mmol/L Carbon Dioxide 17 L (21-32) mmol/L BUN 27 H D (7-18) mg/dL Creatinine 2.0 H* (0.70-1.30) mg/dL Est Cr Clr Drug Dosing TNP Estimated GFR (MDRD) 34 L (>60) BUN/Creatinine Ratio 13.5 (9-20) Glucose 524 H* D (80-116) mg/dL POC Glucose (80-116) mg/dL Lactic Acid (0.4-2.0) mmol/L Calcium 9.6 (8.6-10.2) mg/dL Total Bilirubin 0.7 (0.1-1.3) mg/dL AST 8 D (5-25) IU/L ALT 12 D (12-36) U/L Alkaline Phosphatase 143 H (56-112) IU/L Troponin I (4.0-60.3) pg/mL Total Protein 7.5 (6.0-8.0) g/dL Albumin 3.6 (3.2-4.6) g/dL Globulin 3.9 g/dL Albumin/Globulin Ratio 0.9 Urine Color (YELLOW) Urine Appearance (CLEAR) Urine pH (5.0-6.5) Ur Specific [place] (1.010-1.025) Urine Protein (NEGATIVE) mg/dL Urine Glucose (UA) (NORMAL) mg/dL Urine Ketones (NEGATIVE) mg/dL Urine Occult Blood (NEGATIVE) Urine Nitrite (NEGATIVE) Urine Bilirubin (NEGATIVE) Urine Urobilinogen (NEGATIVE) mg/dL Ur Leukocyte Esterase (NEGATIVE) Urine RBC (0-5) Urine WBC (0-5) Ur Squamous Epith Cells (NS,R,O) Urine Bacteria (NS) 08/19/19 08/19/19 08/19/19 Range/Units 20:38 20:38 23:30 WBC (4.5-12.0) X10-3/uL RBC (4.30-5.75) x10(6)uL Hgb (13.5-17.8) g/dL Hct (30.0-51.3) % MCV (80-96) fL MCH (27.7-33.6) pg MCHC (32.2-35.4) g/dL RDW (11.5-15.5) % Plt Count (125-369) X10(3)uL MPV (7.4-10.4) fL Neut % (Auto) (46-82) % Lymph % (Auto) (13-37) % [place] % (Auto) (4-12) % Eos % (Auto) (1.0-5.0) % Baso % (Auto) (0-2) % Neut # (Auto) (1.6-8.3) # Lymph # (Auto) (0.6-5.0) # [place] # (Auto) (0.0-1.3) # Eos # (Auto) (0.0-0.8) # Baso # (Auto) (0.0-0.2) # POC VBG pH (7.31-7.41) POC VBG pCO2 (41-51) mmHG POC VBG HCO3 (23-28) mmol/L POC VBG Total CO2 (24-29) mmol/L POC VBG Base Excess (-2-3) mmol/L Sodium (135-145) mmol/L Potassium (3.5-5.3) mmol/L Chloride (100-110) mmol/L Carbon Dioxide (21-32) mmol/L BUN (7-18) mg/dL Creatinine (0.70-1.30) mg/dL Est Cr Clr Drug Dosing Estimated GFR (MDRD) (>60) BUN/Creatinine Ratio (9-20) Glucose (80-116) mg/dL POC Glucose (80-116) mg/dL Lactic Acid 2.4 H* 1.6 (0.4-2.0) mmol/L Calcium (8.6-10.2) mg/dL Total Bilirubin (0.1-1.3) mg/dL AST (5-25) IU/L ALT (12-36) U/L Alkaline Phosphatase (56-112) IU/L Troponin I 15.8 (4.0-60.3) pg/mL Total Protein (6.0-8.0) g/dL Albumin (3.2-4.6) g/dL Globulin g/dL Albumin/Globulin Ratio Urine Color (YELLOW) Urine Appearance (CLEAR) Urine pH (5.0-6.5) Ur Specific [place] (1.010-1.025) Urine Protein (NEGATIVE) mg/dL Urine Glucose (UA) (NORMAL) mg/dL Urine Ketones (NEGATIVE) mg/dL Urine Occult Blood (NEGATIVE) Urine Nitrite (NEGATIVE) Urine Bilirubin (NEGATIVE) Urine Urobilinogen (NEGATIVE) mg/dL Ur Leukocyte Esterase (NEGATIVE) Urine RBC (0-5) Urine WBC (0-5) Ur Squamous Epith Cells (NS,R,O) Urine Bacteria (NS) 08/19/19 08/20/19 08/20/19 Range/Units 23:30 02:45 06:25 WBC 5.9 (4.5-12.0) X10-3/uL RBC 4.68 (4.30-5.75) x10(6)uL Hgb 13.7 D (13.5-17.8) g/dL Hct 40.9 D (30.0-51.3) % MCV 87.4 (80-96) fL MCH 29.3 (27.7-33.6) pg MCHC 33.5 (32.2-35.4) g/dL RDW 12.9 (11.5-15.5) % Plt Count 255 (125-369) X10(3)uL MPV 8.1 (7.4-10.4) fL Neut % (Auto) 57.2 (46-82) % Lymph % (Auto) 30.5 (13-37) % [place] % (Auto) 5.3 (4-12) % Eos % (Auto) 6 H (1.0-5.0) % Baso % (Auto) 1 (0-2) % Neut # (Auto) 3.3 (1.6-8.3) # Lymph # (Auto) 1.8 (0.6-5.0) # [place] # (Auto) 0.3 (0.0-1.3) # Eos # (Auto) 0.4 (0.0-0.8) # Baso # (Auto) 0.1 (0.0-0.2) # POC VBG pH (7.31-7.41) POC VBG pCO2 (41-51) mmHG POC VBG HCO3 (23-28) mmol/L POC VBG Total CO2 (24-29) mmol/L POC VBG Base Excess (-2-3) mmol/L Sodium 134 L (135-145) mmol/L Potassium 4.7 (3.5-5.3) mmol/L Chloride 98 L D (100-110) mmol/L Carbon Dioxide 18 L (21-32) mmol/L BUN 24 H (7-18) mg/dL Creatinine 1.6 H (0.70-1.30) mg/dL Est Cr Clr Drug Dosing 41.46 Estimated GFR (MDRD) 44 L (>60) BUN/Creatinine Ratio 15.0 (9-20) Glucose 376 H D (80-116) mg/dL POC Glucose (80-116) mg/dL Lactic Acid (0.4-2.0) mmol/L Calcium 8.2 L (8.6-10.2) mg/dL Total Bilirubin (0.1-1.3) mg/dL AST (5-25) IU/L ALT (12-36) U/L Alkaline Phosphatase (56-112) IU/L Troponin I (4.0-60.3) pg/mL Total Protein (6.0-8.0) g/dL Albumin (3.2-4.6) g/dL Globulin g/dL Albumin/Globulin Ratio Urine Color Yellow (YELLOW) Urine Appearance Clear (CLEAR) Urine pH 5.0 (5.0-6.5) Ur Specific [place] 1.025 (1.010-1.025) Urine Protein Negative (NEGATIVE) mg/dL Urine Glucose (UA) >1000 H (NORMAL) mg/dL Urine Ketones 50 H (NEGATIVE) mg/dL Urine Occult Blood Trace (NEGATIVE) Urine Nitrite Negative (NEGATIVE) Urine Bilirubin Negative (NEGATIVE) Urine Urobilinogen Normal (NEGATIVE) mg/dL Ur Leukocyte Esterase Negative (NEGATIVE) Urine RBC 0-5 (0-5) Urine WBC 0-5 (0-5) Ur Squamous Epith Cells Occasional (NS,R,O) Urine Bacteria Few H (NS) 08/20/19 08/20/19 Range/Units 06:25 06:25 WBC (4.5-12.0) X10-3/uL RBC (4.30-5.75) x10(6)uL Hgb (13.5-17.8) g/dL Hct (30.0-51.3) % MCV (80-96) fL MCH (27.7-33.6) pg MCHC (32.2-35.4) g/dL RDW (11.5-15.5) % Plt Count (125-369) X10(3)uL MPV (7.4-10.4) fL Neut % (Auto) (46-82) % Lymph % (Auto) (13-37) % [place] % (Auto) (4-12) % Eos % (Auto) (1.0-5.0) % Baso % (Auto) (0-2) % Neut # (Auto) (1.6-8.3) # Lymph # (Auto) (0.6-5.0) # [place] # (Auto) (0.0-1.3) # Eos # (Auto) (0.0-0.8) # Baso # (Auto) (0.0-0.2) # POC VBG pH (7.31-7.41) POC VBG pCO2 (41-51) mmHG POC VBG HCO3 (23-28) mmol/L POC VBG Total CO2 (24-29) mmol/L POC VBG Base Excess (-2-3) mmol/L Sodium 134 L (135-145) mmol/L Potassium 3.8 (3.5-5.3) mmol/L Chloride 102 (100-110) mmol/L Carbon Dioxide 22 (21-32) mmol/L BUN 20 H (7-18) mg/dL Creatinine 1.3 (0.70-1.30) mg/dL Est Cr Clr Drug Dosing 53.71 Estimated GFR (MDRD) 56 L (>60) BUN/Creatinine Ratio 15.4 (9-20) Glucose 190 H D (80-116) mg/dL POC Glucose 179 H D (80-116) mg/dL Lactic Acid (0.4-2.0) mmol/L Calcium 8.0 L (8.6-10.2) mg/dL Total Bilirubin (0.1-1.3) mg/dL AST (5-25) IU/L ALT (12-36) U/L Alkaline Phosphatase (56-112) IU/L Troponin I (4.0-60.3) pg/mL Total Protein (6.0-8.0) g/dL Albumin (3.2-4.6) g/dL Globulin g/dL Albumin/Globulin Ratio Urine Color (YELLOW) Urine Appearance (CLEAR) Urine pH (5.0-6.5) Ur Specific [place] (1.010-1.025) Urine Protein (NEGATIVE) mg/dL Urine Glucose (UA) (NORMAL) mg/dL Urine Ketones (NEGATIVE) mg/dL Urine Occult Blood (NEGATIVE) Urine Nitrite (NEGATIVE) Urine Bilirubin (NEGATIVE) Urine Urobilinogen (NEGATIVE) mg/dL Ur Leukocyte Esterase (NEGATIVE) Urine RBC (0-5) Urine WBC (0-5) Ur Squamous Epith Cells (NS,R,O) Urine Bacteria (NS) Result Diagrams: 08/20/19 06:25 08/20/19 06:25 Sepsis Event Note - Evaluation Sepsis Screening Result: No Definite Risk - Focused Exam Vital Signs: Vital Signs Temp Pulse Resp BP Pulse Ox 08/20/19 03:00 97.5 F 66 16 124/76 98 08/19/19 23:59 97.6 F 92 16 113/72 98 08/19/19 23:22 97.6 F 84 14 114/75 100 Date Exam was Performed: 08/20/19 Time Exam was Performed: 09:00 - Problem List (1) DKA (diabetic ketoacidoses) SNOMED Code(s): 400805299, 112475204 ICD Code: E11.10 - TYPE 2 DIABETES MELLITUS WITH KETOACIDOSIS WITHOUT COMA Status: Acute Current Visit: Yes Qualifiers: Diabetes mellitus type: type 2 (2) Erectile dysfunction SNOMED Code(s): 119962512 ICD Code: N52.9 - MALE ERECTILE DYSFUNCTION, UNSPECIFIED Status: Acute Current Visit: Yes Qualifiers: Erectile dysfunction type: unspecified Qualified Code(s): N52.9 - Male erectile dysfunction, unspecified (3) HUNTER (acute kidney injury) SNOMED Code(s): 96930653, 71702318 ICD Code: N17.9 - ACUTE KIDNEY FAILURE, UNSPECIFIED Status: Acute Current Visit: Yes (4) Dehydration, moderate SNOMED Code(s): 3600998280368 ICD Code: E86.0 - DEHYDRATION Status: Acute Current Visit: Yes (5) Diabetes mellitus type II, uncontrolled SNOMED Code(s): 557224530, 239779151 ICD Code: E11.65 - TYPE 2 DIABETES MELLITUS WITH HYPERGLYCEMIA Status: Acute Current Visit: No Qualifiers: Glycemic state: with hyperglycemia Qualified Code(s): E11.65 - Type 2 diabetes mellitus with hyperglycemia Problem List Initiated/Reviewed/Updated: Yes Orders Last 24hrs: Active Orders 24 hr Category Date Time Status Patient Status [ADT] Routine ADT 08/19/19 22:18 Active Blood Glucose Check, Bedside [RC] WITHMEALSANDBED Care 08/19/19 22:18 Active Cardiac Monitoring [RC] CONTINUOUS Care 08/19/19 22:22 Active Height and Weight [RC] DAILY Care 08/19/19 22:18 Active Intake and Output [RC] QSHIFT Care 08/19/19 22:21 Active Oxygen Therapy [RC] PRN Care 08/19/19 22:18 Active Up With Assistance [RC] ASDIRECTED Care 08/19/19 22:18 Active VTE/DVT Education [RC] Per Unit Routine Care 08/19/19 22:18 Active Vital Signs [RC] Q4H Care 08/19/19 22:18 Active Consistent Carbohydrate Diet [DIET] Diet 08/20/19 Lunch Active Heart Healthy Diet [DIET] Diet 08/20/19 Breakfast Active Chest 1V Frontal [CR] Stat Exams 08/19/19 20:20 Taken BETA-HYDROXYBUTYRATE Stat Lab 08/19/19 20:38 Received Docusate Sodium [Colace] Med 08/19/19 22:18 Active 100 mg PO BID PRN Docusate Sodium/Sennosides [Senna Plus] Med 08/19/19 22:18 Active 1 tab PO BID PRN Enoxaparin [Lovenox] Med 08/19/19 22:30 Active 30 mg SUBCUT Q24H Gabapentin [Neurontin] Med 08/20/19 09:00 Active 200 mg PO TID Insulin Glarg,Human.Rec.Analog [LantUS Solostar] Med 08/20/19 21:00 Active 48 units SUBCUT BEDTIME Insulin Lispro [HumaLOG] Med 08/20/19 08:00 Active See Protocol SUBCUT QIDACANDBED Insulin Lispro [Humalog] Med 08/20/19 12:00 Ordered 5 unit SUBCUT TIDMEALS Ondansetron [Zofran] Med 08/19/19 22:18 Active 4 mg IV Q4H PRN Simvastatin [Zocor] Med 08/20/19 09:00 Active 20 mg PO DAILY Sodium Chloride 0.9% [Normal Saline] 1,000 ml Med 08/19/19 20:30 Active IV ASDIRECTED Sodium Chloride 0.9% [Normal Saline] 1,000 ml Med 08/19/19 22:15 Active IV ASDIRECTED Sodium Chloride 0.9% [Saline Flush] Med 08/19/19 20:20 Active 10 ml FLUSH ASDIRECTED PRN Zolpidem [Ambien] Med 08/19/19 22:18 Active 5 mg PO BEDTIME PRN Saline Lock Insert [OM.PC] Routine Oth 08/19/19 20:20 Ordered Resuscitation Status Routine Resus Stat 08/19/19 22:18 Ordered EKG 12 Lead [EK] Routine Ther 08/19/19 20:20 Ordered Medication Orders Docusate Sodium (Colace) 100 mg PO BID PRN PRN Reason: Constipation Enoxaparin Sodium (Lovenox) 30 mg SUBCUT Q24H [facility] Last Admin: 08/20/19 00:03 Dose: 30 mg Gabapentin (Neurontin) 200 mg PO TID [facility] Last Admin: 08/20/19 08:56 Dose: 200 mg Sodium Chloride (Normal Saline) 1,000 mls @ 999 mls/hr IV ASDIRECTED [facility] Last Admin: 08/19/19 21:06 Dose: 999 mls/hr Sodium Chloride (Normal Saline) 1,000 mls @ 999 mls/hr IV ASDIRECTED [facility] Last Admin: 08/19/19 22:34 Dose: 999 mls/hr Insulin Glargine (Lantus Solostar) 48 units SUBCUT BEDTIME [facility] Insulin Human Lispro (Humalog) 0 unit SUBCUT QIDACANDBED [facility]; Protocol Last Admin: 08/20/19 07:44 Dose: 2 unit Non-Formulary Medication (Insulin Lispro [Humalog]) 5 unit SUBCUT TIDMEALS [facility] Ondansetron HCl (Zofran) 4 mg IV Q4H PRN PRN Reason: Nausea/Vomiting Senna/Docusate Sodium (Senna Plus) 1 tab PO BID PRN PRN Reason: Constipation Simvastatin (Zocor) 20 mg PO DAILY [facility] Last Admin: 08/20/19 08:56 Dose: 20 mg Sodium Chloride (Saline Flush) 10 ml FLUSH ASDIRECTED PRN PRN Reason: Keep Vein Open Zolpidem Tartrate (Ambien) 5 mg PO BEDTIME PRN PRN Reason: Sleep Assessment/Plan Comment:: His kidneys have improved this morning. Sugars are down to normal. I will encourage oral intake, a diabetic diet, and resume his home medications. Probably discharge him home tomorrow
[2019-08-20] MEDS: Insulin Lispro 100 Unit/ML 3 ML KwikPen SUBCUT SCH ×2 (12:31→18:06)
[2019-08-20] MEDS ORDERED: Magnesium Hydroxide 400 MG/5 ML Susp 30 ML Cup PO PRN (19:32)
[2019-08-20] MEDS: Insulin Glargine,Human Rec. Analog 100 Units/ML 3 ML Pen SUBCUT SCH (21:06)
[2019-08-20] MEDS ORDERED: Insulin Lispro 100 Unit/ML 3 ML KwikPen SUBCUT ONE (21:49)
[2019-08-21 07:02] LABS: HEMOGLOBIN A1C 11.7 % (<5.7)
[2019-08-21] MEDS: Insulin Lispro 100 Unit/ML 3 ML KwikPen SUBCUT SCH ×3 (07:28→18:08)
--- NOTE | 2019-08-21 08:25 | PCM.PN ---
- General Info Date of Service: 08/21/19 Subjective Update: Kevin complains of feeling weak and dizzy. - Review of Systems HEENT: Reports: No Symptoms Pulmonary: Reports: No Symptoms Cardiovascular: Reports: No Symptoms Gastrointestinal: Reports: No Symptoms Genitourinary: Reports: No Symptoms Musculoskeletal: Reports: No Symptoms - Patient Data Vitals - Most Recent: Last Vital Signs Temp 98 F 08/21/19 03:46 Pulse 72 08/21/19 03:46 Resp 18 08/21/19 03:46 BP 92/56 L 08/21/19 03:46 Pulse Ox 96 08/21/19 03:46 Weight - Most Recent: 68.946 kg I&O - Last 24 Hours: Intake & Output 08/20/19 08/21/19 08/21/19 22:59 06:59 14:59 Intake Total 700 Output Total 1000 Balance -300 Lab Results Last 24 Hours: Laboratory Results - last 24 hr 08/20/19 08/20/19 08/20/19 Range/Units 11:41 17:28 21:03 WBC (4.5-12.0) X10-3/uL RBC (4.30-5.75) x10(6)uL Hgb (13.5-17.8) g/dL Hct (30.0-51.3) % MCV (80-96) fL MCH (27.7-33.6) pg MCHC (32.2-35.4) g/dL RDW (11.5-15.5) % Plt Count (125-369) X10(3)uL MPV (7.4-10.4) fL Neut % (Auto) (46-82) % Lymph % (Auto) (13-37) % [place] % (Auto) (4-12) % Eos % (Auto) (1.0-5.0) % Baso % (Auto) (0-2) % Neut # (Auto) (1.6-8.3) # Lymph # (Auto) (0.6-5.0) # [place] # (Auto) (0.0-1.3) # Eos # (Auto) (0.0-0.8) # Baso # (Auto) (0.0-0.2) # Sodium (135-145) mmol/L Potassium (3.5-5.3) mmol/L Chloride (100-110) mmol/L Carbon Dioxide (21-32) mmol/L BUN (7-18) mg/dL Creatinine (0.70-1.30) mg/dL Est Cr Clr Drug Dosing mL/min Estimated GFR (MDRD) (>60) BUN/Creatinine Ratio (9-20) Glucose (80-116) mg/dL POC Glucose 281 H D 283 H 422 H* D (80-116) mg/dL Hemoglobin A1c (<5.7) % Calcium (8.6-10.2) mg/dL 08/20/19 08/20/19 08/21/19 Range/Units 21:15 23:12 02:03 WBC (4.5-12.0) X10-3/uL RBC (4.30-5.75) x10(6)uL Hgb (13.5-17.8) g/dL Hct (30.0-51.3) % MCV (80-96) fL MCH (27.7-33.6) pg MCHC (32.2-35.4) g/dL RDW (11.5-15.5) % Plt Count (125-369) X10(3)uL MPV (7.4-10.4) fL Neut % (Auto) (46-82) % Lymph % (Auto) (13-37) % [place] % (Auto) (4-12) % Eos % (Auto) (1.0-5.0) % Baso % (Auto) (0-2) % Neut # (Auto) (1.6-8.3) # Lymph # (Auto) (0.6-5.0) # [place] # (Auto) (0.0-1.3) # Eos # (Auto) (0.0-0.8) # Baso # (Auto) (0.0-0.2) # Sodium (135-145) mmol/L Potassium (3.5-5.3) mmol/L Chloride (100-110) mmol/L Carbon Dioxide (21-32) mmol/L BUN (7-18) mg/dL Creatinine (0.70-1.30) mg/dL Est Cr Clr Drug Dosing mL/min Estimated GFR (MDRD) (>60) BUN/Creatinine Ratio (9-20) Glucose 409 H* D (80-116) mg/dL POC Glucose 367 H 293 H (80-116) mg/dL Hemoglobin A1c (<5.7) % Calcium (8.6-10.2) mg/dL 08/21/19 08/21/19 08/21/19 Range/Units 06:34 06:35 06:35 WBC 4.8 (4.5-12.0) X10-3/uL RBC 4.40 (4.30-5.75) x10(6)uL Hgb 13.5 (13.5-17.8) g/dL Hct 38.7 (30.0-51.3) % MCV 87.9 (80-96) fL MCH 30.5 (27.7-33.6) pg MCHC 34.8 (32.2-35.4) g/dL RDW 13.3 (11.5-15.5) % Plt Count 228 (125-369) X10(3)uL MPV 7.7 (7.4-10.4) fL Neut % (Auto) 55.4 (46-82) % Lymph % (Auto) 32.6 (13-37) % [place] % (Auto) 4.9 (4-12) % Eos % (Auto) 7 H (1.0-5.0) % Baso % (Auto) 1 (0-2) % Neut # (Auto) 2.7 (1.6-8.3) # Lymph # (Auto) 1.6 (0.6-5.0) # [place] # (Auto) 0.2 (0.0-1.3) # Eos # (Auto) 0.3 (0.0-0.8) # Baso # (Auto) 0.0 (0.0-0.2) # Sodium 135 (135-145) mmol/L Potassium 3.4 L (3.5-5.3) mmol/L Chloride 102 (100-110) mmol/L Carbon Dioxide 27 (21-32) mmol/L BUN 14 (7-18) mg/dL Creatinine 1.1 (0.70-1.30) mg/dL Est Cr Clr Drug Dosing 67.90 mL/min Estimated GFR (MDRD) > 60 (>60) BUN/Creatinine Ratio 12.7 (9-20) Glucose 197 H D (80-116) mg/dL POC Glucose 173 H D (80-116) mg/dL Hemoglobin A1c (<5.7) % Calcium 8.4 L (8.6-10.2) mg/dL 08/21/19 Range/Units 06:35 WBC (4.5-12.0) X10-3/uL RBC (4.30-5.75) x10(6)uL Hgb (13.5-17.8) g/dL Hct (30.0-51.3) % MCV (80-96) fL MCH (27.7-33.6) pg MCHC (32.2-35.4) g/dL RDW (11.5-15.5) % Plt Count (125-369) X10(3)uL MPV (7.4-10.4) fL Neut % (Auto) (46-82) % Lymph % (Auto) (13-37) % [place] % (Auto) (4-12) % Eos % (Auto) (1.0-5.0) % Baso % (Auto) (0-2) % Neut # (Auto) (1.6-8.3) # Lymph # (Auto) (0.6-5.0) # [place] # (Auto) (0.0-1.3) # Eos # (Auto) (0.0-0.8) # Baso # (Auto) (0.0-0.2) # Sodium (135-145) mmol/L Potassium (3.5-5.3) mmol/L Chloride (100-110) mmol/L Carbon Dioxide (21-32) mmol/L BUN (7-18) mg/dL Creatinine (0.70-1.30) mg/dL Est Cr Clr Drug Dosing mL/min Estimated GFR (MDRD) (>60) BUN/Creatinine Ratio (9-20) Glucose (80-116) mg/dL POC Glucose (80-116) mg/dL Hemoglobin A1c 11.7 H (<5.7) % Calcium (8.6-10.2) mg/dL Med Orders - Current: Current Medications Docusate Sodium (Colace) 100 mg PO BID PRN PRN Reason: Constipation Last Admin: 08/20/19 21:00 Dose: 100 mg Enoxaparin Sodium (Lovenox) 30 mg SUBCUT Q24H [facility] Last Admin: 08/20/19 21:58 Dose: 30 mg Sodium Chloride (Normal Saline) 1,000 mls @ 999 mls/hr IV ASDIRECTED [facility] Last Admin: 08/19/19 21:06 Dose: 999 mls/hr Sodium Chloride (Normal Saline) 1,000 mls @ 999 mls/hr IV ASDIRECTED [facility] Last Admin: 08/19/19 22:34 Dose: 999 mls/hr Sodium Chloride (Normal Saline) 1,000 mls @ 150 mls/hr IV ASDIRECTED [facility] Insulin Glargine (Lantus Solostar) 48 units SUBCUT BEDTIME [facility] Last Admin: 08/20/19 21:06 Dose: 48 units Insulin Human Lispro (Humalog) 5 unit SUBCUT TIDMEALS [facility] Last Admin: 08/21/19 07:28 Dose: 5 unit Magnesium Hydroxide (Milk Of Magnesia) 30 ml PO DAILY PRN PRN Reason: Constipation Ondansetron HCl (Zofran) 4 mg IV Q4H PRN PRN Reason: Nausea/Vomiting Senna/Docusate Sodium (Senna Plus) 1 tab PO BID PRN PRN Reason: Constipation Last Admin: 08/20/19 21:00 Dose: 1 tab Simvastatin (Zocor) 20 mg PO DAILY [facility] Last Admin: 08/20/19 08:56 Dose: 20 mg Sodium Chloride (Saline Flush) 10 ml FLUSH ASDIRECTED PRN PRN Reason: Keep Vein Open Zolpidem Tartrate (Ambien) 5 mg PO BEDTIME PRN PRN Reason: Sleep Discontinued Medications Gabapentin (Neurontin) 200 mg PO TID [facility] Last Admin: 08/20/19 21:00 Dose: 200 mg Sodium Chloride (Normal Saline) 1,000 mls @ 150 mls/hr IV ASDIRECTED [facility] Last Admin: 08/20/19 06:21 Dose: 150 mls/hr Insulin Glargine (Lantus Solostar) 48 units SUBCUT NOW STA Stop: 08/19/19 21:58 Last Admin: 08/19/19 22:08 Dose: 48 units Insulin Human Lispro (Humalog) 15 unit SUBCUT NOW STA Stop: 05/19/20 21:58 Last Admin: 08/19/19 22:07 Dose: 15 units Insulin Human Lispro (Humalog) 0 unit SUBCUT QIDACANDBED LAURA; Protocol Last Admin: 08/20/19 07:44 Dose: 2 unit Insulin Human Lispro (Humalog) 10 unit SUBCUT ONETIME ONE Stop: 08/20/19 21:50 Last Admin: 08/20/19 21:58 Dose: 10 units - Exam General: Alert HEENT: Pupils Equal Lungs: Clear to Auscultation Back Exam: Normal Inspection Extremities: Normal Inspection Skin: Warm Neurological: No New Focal Deficit. No: Normal Gait Psy/Mental Status: Alert Sepsis Event Note - Evaluation Sepsis Screening Result: No Definite Risk - Focused Exam Vital Signs: Vital Signs Temp Pulse Resp BP Pulse Ox 08/21/19 03:46 98 F 72 18 92/56 L 96 08/21/19 00:00 18 Date Exam was Performed: 08/21/19 Time Exam was Performed: 08:23 - Problem List & Annotations (1) DKA (diabetic ketoacidoses) SNOMED Code(s): 315149511, 528619007 Code(s): E11.10 - TYPE 2 DIABETES MELLITUS WITH KETOACIDOSIS WITHOUT COMA Status: Acute Current Visit: Yes Qualifiers: Diabetes mellitus type: type 2 (2) Erectile dysfunction SNOMED Code(s): 914861277 Code(s): N52.9 - MALE ERECTILE DYSFUNCTION, UNSPECIFIED Status: Acute Current Visit: Yes Qualifiers: Erectile dysfunction type: unspecified Qualified Code(s): N52.9 - Male erectile dysfunction, unspecified (3) HUNTER (acute kidney injury) SNOMED Code(s): 17064441, 35315217 Code(s): N17.9 - ACUTE KIDNEY FAILURE, UNSPECIFIED Status: Acute Current Visit: Yes (4) Dehydration, moderate SNOMED Code(s): 6941664694992 Code(s): E86.0 - DEHYDRATION Status: Acute Current Visit: Yes (5) Diabetes mellitus type II, uncontrolled SNOMED Code(s): 912029717, 747398501 Code(s): E11.65 - TYPE 2 DIABETES MELLITUS WITH HYPERGLYCEMIA Status: Acute Current Visit: No Qualifiers: Glycemic state: with hyperglycemia Qualified Code(s): E11.65 - Type 2 diabetes mellitus with hyperglycemia (6) Abnormal gait SNOMED Code(s): 82861916 Code(s): R26.9 - UNSPECIFIED ABNORMALITIES OF GAIT AND MOBILITY Status: Acute Current Visit: Yes - Problem List Review Problem List Initiated/Reviewed/Updated: Yes - My Orders Last 24 Hours: My Active Orders 08/20/19 09:04 OT Evaluation and Treatment [CONS] Routine PT Evaluation and Treatment [CONS] Routine 08/20/19 12:00 Insulin Lispro [HumaLOG] 5 unit SUBCUT TIDMEALS 08/20/19 19:32 Magnesium Hydroxide [Milk of Magnesia] 30 ml PO DAILY PRN 08/20/19 Lunch Consistent Carbohydrate Diet [DIET] 08/21/19 08:22 Patient Status Manage Transfer [TRANSFER] Routine 08/21/19 08:30 Sodium Chloride 0.9% [Normal Saline] 1,000 ml IV ASDIRECTED - Plan Plan:: I will start fluid replacement because of a low blood pressure. I've stopped gabapentin cause of the side effects. We'll watch him one more day, continue insulin control sugar.
[2019-08-21] MEDS: Simvastatin 20 MG Tab PO SCH (09:31)
[2019-08-21] MEDS: Sodium Chloride 0.9% 1,000 ML IV SCH ×3 (09:36→23:11)
[2019-08-21] MEDS ORDERED: Bisacodyl 10 MG Supp RECTAL PRN (16:55)
[2019-08-21] MEDS: metFORMIN 500 MG Tab.ER PO SCH (18:07)
[2019-08-21] MEDS: Insulin Glargine,Human Rec. Analog 100 Units/ML 3 ML Pen SUBCUT SCH (21:38)
[2019-08-21] MEDS: Enoxaparin 30 MG/0.3 ML Syringe SUBCUT SCH (21:39)
[2019-08-22] MEDS: Sodium Chloride 0.9% 1,000 ML IV SCH (05:57)
[2019-08-22] MEDS: Simvastatin 20 MG Tab PO SCH (08:39)
[2019-08-22] MEDS: Insulin Lispro 100 Unit/ML 3 ML KwikPen SUBCUT SCH ×2 (08:42→12:16)
[2019-08-22] MEDS: metFORMIN 500 MG Tab.ER PO SCH (08:42)
[2019-08-22 10:10] VITALS: BP 89/60; PULSE 71
--- NOTE | 2019-08-22 13:57 | DISCH ---
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 He was admitted with generalized weakness, poor oral intake, markedly elevated blood sugars, and noncompliance with his diabetes therapy. Please see admission history and physical. Upon admission, he was in mild ketoacidosis, pH 7.27, pCO2 of 22, bicarb 10.5. Blood sugar was 376 and responded to intervention, care, and medication. Sugars have returned to much more normal, the last three sugars 139, 170, and 149. Insulin has been resumed. DIAGNOSTIC STUDIES: Chest x-ray, no obvious pathology. PT/OT involved. He was weaned from medications, care, and IV fluids. Plans for discharge. He is planning to move to [place] to live with his sister. DISCHARGE EXAMINATION: VITAL SIGNS: 36.6, 71, 89/60, 20, and 95%. GENERAL: Appears comfortable, bearded. HEENT: Mouth and oropharynx clear. NECK: Benign. Thyroid small. CHEST: Clear in all lung andrade. No adventitious sounds. HEART: No ectopy or murmur. ABDOMEN: Benign. No hepatosplenomegaly. Good peripheral pulses. Decreased sensation. ASSESSMENT: 1. Diabetic ketoacidosis, resolved. 2. Noncompliant with medications and care. PLAN: Discharge home. Discussed the importance of fluids and hydration. Diabetic diet and adequate insulin use. Follow up with primary care provider of record. SURGICAL PROCEDURES: None. CONSULTATION: None. ADDENDUM: One hour discharge planning and treatment. /[id number] MELANIA/COLTEN
== END 2019-08-22 11:35 | disposition home or self-care (01) | DRG 638 ==
LOC: FB.ED 20:07 → FB.MS 23:24 → OBSVTOIN 08-21 08:22
PROVIDERS: ADMIT Emergency Medicine; ATTEND Family Medicine
DX: E11.10 Type 2 diabetes mellitus with ketoacidosis without coma (principal); N17.9 Acute kidney failure, unspecified; K59.09 Other constipation; K21.9 Gastro-esophageal reflux disease without esophagitis; F17.200 Nicotine dependence, unspecified, uncomplicated; N52.9 Male erectile dysfunction, unspecified; E86.0 Dehydration; R26.9 Unspecified abnormalities of gait and mobility; Z91.14 Patient's other noncompliance with medication regimen; Z79.4 Long term (current) use of insulin
CPT/HCPCS: 36415; 71045; 80048; 80053; 81001; 82010; 82803; 82947; 82962; 83036; 83605; 84484; 85025; 93005; 96360; 96361; 96372; 97161-GP; 99285-25; A9270-GY; G0378; J1650; J1815; J1815-GY; J7030

== ENCOUNTER 2019-09-16 13:13 | Observation (INO) | payer MEDICAID ==
[2019-09-16] MEDS: Sodium Chloride 0.9% 1,000 ML IV SCH ×4 (13:40→22:41)
[2019-09-16] MEDS ORDERED: Insulin Lispro 100 Unit/ML 3 ML KwikPen SUBCUT STA (13:43)
[2019-09-16] MEDS ORDERED: Insulin Lispro 100 Unit/ML 3 ML KwikPen SUBCUT ONE ×2 (13:48→20:45)
[2019-09-16] MEDS ORDERED: Sodium Chloride 0.9% 1,000 ML IV SCH (14:15)
--- NOTE | 2019-09-16 16:39 | EDM.PDOC ---
ED HPI GENERAL MEDICAL PROBLEM - General Chief Complaint: Diabetic Complaint Stated Complaint: DIABETES ISSUES Time Seen by Provider: 09/16/19 13:15 Source of Information: Reports: Patient History Limitations: Reports: No Limitations - History of Present Illness INITIAL COMMENTS - FREE TEXT/NARRATIVE: Patient presented to the ED because of weakness and poor oral intake for 1 week. He then decided to quit taking his insulin. He had a couple of falls since yesterday because of profound weakness but didn't sustain any injuries. There is no cough or cold,fever,chills,nausea,vomiting or abdominal pain. Generalized Pain Score (Numeric/FACES): 3 - Related Data Allergies Allergy/AdvReac Type Severity Reaction Status Date / Time No Known Allergies Allergy Verified 09/16/19 14:14 Home Meds: Home Meds metFORMIN [Glucophage] 850 mg PO BIDMEALS 02/17/14 [History] Insulin Detemir [Levemir Flextouch] 48 units SQ BEDTIME 11/18/18 [History] Gabapentin [Neurontin] 200 mg PO TID 02/28/19 [History] Insulin Lispro [Humalog] 5 - 15 unit SUBCUT TIDMEALS 02/28/19 [History] Simvastatin 20 mg PO DAILY 07/18/19 [History] Insulin Glarg,Human.Rec.Analog [Lantus Solostar] 48 units SUBCUT BEDTIME pen [Rx] Past Medical History HEENT History: Reports: None Cardiovascular History: Reports: Other (See Below) Other Cardiovascular History: States that his blood pressure is usually low. Respiratory History: Reports: Other (See Below) Other Respiratory History: Smoker since the age of 18. Gastrointestinal History: Reports: Chronic Constipation, GERD Neurological History: Reports: Neuropathy, Diabetic Other Neuro History: States numbness in hands and feet. States he gets dizzy when his blood sugar is low and blood pressure is low. Psychiatric History: Reports: Addiction Endocrine/Metabolic History: Reports: Diabetes, Type II, IDDM, Other (See Below) Other Endocrine/Metabolic History: on insulin. - Infectious Disease History Infectious Disease History: Reports: Chicken Pox, Measles, Mumps, Shingles, Other (See Below) Other Infectious Disease History: States he had "measles", doesn't recall Rubella or Rubeola. - Past Surgical History HEENT Surgical History: Reports: Tonsillectomy Cardiovascular Surgical History: Reports: None Respiratory Surgical History: Reports: None GI Surgical History: Reports: Colonoscopy Endocrine Surgical History: Reports: None Dermatological Surgical History: Reports: None Social & Family History - Family History Family Medical History: Noncontributory Cardiac: Reports: CAD, High Cholesterol, Hypertension Respiratory: Reports: COPD : Reports: Renal Disease/Insufficiency Neurological: Reports: CVA Endocrine/Metabolic: Reports: Diabetes, type II - Tobacco Use Smoking Status *Q: Current Every Day Smoker Years of Tobacco use: 45 Packs/Tins Daily: 0.5 - Caffeine Use Caffeine Use: Reports: None Other Caffeine Use: Rarely - Recreational Drug Use Recreational Drug Use: No - Living Situation & Occupation Living situation: Reports: Single Occupation: Unemployed ED ROS GENERAL - Review of Systems Review Of Systems: See Below Constitutional: Reports: Weakness HEENT: Reports: No Symptoms Respiratory: Reports: No Symptoms Cardiovascular: Reports: No Symptoms Endocrine: Reports: No Symptoms GI/Abdominal: Reports: No Symptoms : Reports: No Symptoms Musculoskeletal: Reports: No Symptoms Skin: Reports: No Symptoms Psychiatric: Reports: No Symptoms Hematologic/Lymphatic: Reports: No Symptoms ED EXAM GENERAL NO PERIP PULSE - Physical Exam Exam: See Below Exam Limited By: No Limitations General Appearance: Alert, No Apparent Distress Eye Exam: Bilateral Eye: PERRL Ears: Normal External Exam Nose: Normal Inspection, Normal Mucosa Throat/Mouth: Normal Inspection, Normal Lips Head: Atraumatic, Normocephalic Neck: Normal Inspection, Supple Respiratory/Chest: No Respiratory Distress, Lungs Clear, Normal Breath Sounds Cardiovascular: Normal Peripheral Pulses, Regular Rate, Rhythm, No Edema GI/Abdominal: Normal Bowel Sounds, Soft, Non-Tender Back Exam: Normal Inspection, Full Range of Motion Extremities: Normal Inspection, Normal Range of Motion Neurological: Alert, CN II-XII Intact Skin Exam: Warm Course - Vital Signs Text/Narrative:: Labs/EKG/CXR was reviewed with patient and verbalized full understanding NS 2 L bolus Humalog 20 U SC Covid-pending Last Recorded V/S: Last Vital Signs Temp 36.7 C 09/16/19 13:13 Pulse 75 09/16/19 15:00 Resp 18 09/16/19 15:00 BP 116/73 09/16/19 15:00 Pulse Ox 100 09/16/19 15:00 - Orders/Labs/Meds Orders: Active Orders 24 hr Category Date Time Status EKG Documentation Completion [RC] ASDIRECTED Care 09/16/19 13:40 Active Chest 1V Frontal [CR] Stat Exams 09/16/19 13:38 Taken BETA-HYDROXYBUTYRATE Stat Lab 09/16/19 13:37 Received CORONAVIRUS COVID-19 ROCIO [MOLEC] Stat Lab 09/16/19 16:28 Received UA W/MICROSCOPIC [URIN] Stat Lab 09/16/19 13:38 Ordered Sodium Chloride 0.9% [Normal Saline] 1,000 ml Med 09/16/19 16:00 Active IV ASDIRECTED EKG 12 Lead [EK] Routine Ther 09/16/19 13:38 Ordered Medication Orders Sodium Chloride (Normal Saline) 1,000 mls @ 150 mls/hr IV ASDIRECTED LAURA Last Admin: 09/16/19 15:43 Dose: 150 mls/hr Labs: Laboratory Tests 09/16/19 09/16/19 09/16/19 Range/Units 13:31 13:37 13:37 WBC 9.7 (4.5-12.0) X10-3/uL RBC 5.35 (4.30-5.75) x10(6)uL Hgb 15.2 (13.5-17.8) g/dL Hct 47.7 (30.0-51.3) % MCV 89.1 (80-96) fL MCH 28.5 (27.7-33.6) pg MCHC 31.9 L (32.2-35.4) g/dL RDW 13.3 (11.5-15.5) % Plt Count 308 (125-369) X10(3)uL MPV 8.5 (7.4-10.4) fL Neutrophils % (Manual) 71 (46-82) % Lymphocytes % (Manual) 25 (13-37) % Monocytes % (Manual) 3 L (4-12) % Eosinophils % (Manual) 1 (0-5) % ABG pH (7.35-7.45) ABG pCO2 (35-45) mmHg ABG pO2 (83-108) mmHg ABG HCO3 (22-26) mmol/L ABG O2 Saturation (96-97) % ABG Base Excess (-2-2) Alverto Test O2 Delivery Device Oxygen Flow Rate L Sodium 127 L (135-145) mmol/L Potassium 5.1 D (3.5-5.3) mmol/L Chloride 89 L* D (100-110) mmol/L Carbon Dioxide 17 L (21-32) mmol/L BUN 31 H D (7-18) mg/dL Creatinine 1.8 H (0.70-1.30) mg/dL Est Cr Clr Drug Dosing TNP Estimated GFR (MDRD) 38 L (>60) BUN/Creatinine Ratio 17.2 (9-20) Glucose 570 H* D (80-116) mg/dL POC Glucose > 500 H* D (80-116) mg/dL Lactic Acid (0.4-2.0) mmol/L Calcium 9.1 (8.6-10.2) mg/dL Total Bilirubin 0.6 (0.1-1.3) mg/dL AST 9 D (5-25) IU/L ALT 12 (12-36) U/L Alkaline Phosphatase 179 H (56-112) IU/L Troponin I (4.0-60.3) pg/mL Total Protein 6.9 (6.0-8.0) g/dL Albumin 3.6 (3.2-4.6) g/dL Globulin 3.3 g/dL Albumin/Globulin Ratio 1.1 09/16/19 09/16/19 09/16/19 Range/Units 13:37 13:37 14:15 WBC (4.5-12.0) X10-3/uL RBC (4.30-5.75) x10(6)uL Hgb (13.5-17.8) g/dL Hct (30.0-51.3) % MCV (80-96) fL MCH (27.7-33.6) pg MCHC (32.2-35.4) g/dL RDW (11.5-15.5) % Plt Count (125-369) X10(3)uL MPV (7.4-10.4) fL Neutrophils % (Manual) (46-82) % Lymphocytes % (Manual) (13-37) % Monocytes % (Manual) (4-12) % Eosinophils % (Manual) (0-5) % ABG pH 7.28 L (7.35-7.45) ABG pCO2 28 L (35-45) mmHg ABG pO2 104 (83-108) mmHg ABG HCO3 13 L (22-26) mmol/L ABG O2 Saturation 97 (96-97) % ABG Base Excess -12.3 L (-2-2) Alverto Test Passed O2 Delivery Device Room air Oxygen Flow Rate 0 L Sodium (135-145) mmol/L Potassium (3.5-5.3) mmol/L Chloride (100-110) mmol/L Carbon Dioxide (21-32) mmol/L BUN (7-18) mg/dL Creatinine (0.70-1.30) mg/dL Est Cr Clr Drug Dosing Estimated GFR (MDRD) (>60) BUN/Creatinine Ratio (9-20) Glucose (80-116) mg/dL POC Glucose (80-116) mg/dL Lactic Acid 2.0 (0.4-2.0) mmol/L Calcium (8.6-10.2) mg/dL Total Bilirubin (0.1-1.3) mg/dL AST (5-25) IU/L ALT (12-36) U/L Alkaline Phosphatase (56-112) IU/L Troponin I 13.4 (4.0-60.3) pg/mL Total Protein (6.0-8.0) g/dL Albumin (3.2-4.6) g/dL Globulin g/dL Albumin/Globulin Ratio 09/16/19 09/16/19 09/16/19 Range/Units 14:22 15:04 15:30 WBC (4.5-12.0) X10-3/uL RBC (4.30-5.75) x10(6)uL Hgb (13.5-17.8) g/dL Hct (30.0-51.3) % MCV (80-96) fL MCH (27.7-33.6) pg MCHC (32.2-35.4) g/dL RDW (11.5-15.5) % Plt Count (125-369) X10(3)uL MPV (7.4-10.4) fL Neutrophils % (Manual) (46-82) % Lymphocytes % (Manual) (13-37) % Monocytes % (Manual) (4-12) % Eosinophils % (Manual) (0-5) % ABG pH (7.35-7.45) ABG pCO2 (35-45) mmHg ABG pO2 (83-108) mmHg ABG HCO3 (22-26) mmol/L ABG O2 Saturation (96-97) % ABG Base Excess (-2-2) Alverto Test O2 Delivery Device Oxygen Flow Rate L Sodium 133 L (135-145) mmol/L Potassium 4.1 D (3.5-5.3) mmol/L Chloride 97 L D (100-110) mmol/L Carbon Dioxide 20 L (21-32) mmol/L BUN 30 H (7-18) mg/dL Creatinine 1.8 H (0.70-1.30) mg/dL Est Cr Clr Drug Dosing 36.85 Estimated GFR (MDRD) 38 L (>60) BUN/Creatinine Ratio 16.7 (9-20) Glucose 354 H D (80-116) mg/dL POC Glucose > 500 H* 397 H D (80-116) mg/dL Lactic Acid (0.4-2.0) mmol/L Calcium 8.5 L (8.6-10.2) mg/dL Total Bilirubin (0.1-1.3) mg/dL AST (5-25) IU/L ALT (12-36) U/L Alkaline Phosphatase (56-112) IU/L Troponin I (4.0-60.3) pg/mL Total Protein (6.0-8.0) g/dL Albumin (3.2-4.6) g/dL Globulin g/dL Albumin/Globulin Ratio Meds: Medications Generic Name Dose Route Start Last Admin Trade Name Freq PRN Reason Stop Dose Admin Sodium Chloride 1,000 mls @ 150 mls/hr 09/16/19 16:00 09/16/19 15:43 Normal Saline IV 150 mls/hr ASDIRECTED LAURA Administration Discontinued Medications Generic Name Dose Route Start Last Admin Trade Name Freq PRN Reason Stop Dose Admin Sodium Chloride 1,000 mls @ 999 mls/hr 09/16/19 13:45 09/16/19 14:41 Normal Saline IV Infused ASDIRECTED LAURA Infusion Sodium Chloride 1,000 mls @ 999 mls/hr 09/16/19 14:15 09/16/19 14:43 Normal Saline IV 999 mls/hr ASDIRECTED LAURA Administration Insulin Human Lispro 20 unit 09/16/19 13:43 09/16/19 13:51 Humalog SUBCUT 09/16/19 13:44 20 units NOW STA Administration Departure - Departure Time of Disposition: 17:00 Disposition: Refer to Observation Condition: Good Clinical Impression: HUNTER (acute kidney injury), Dehydration, moderate DKA (diabetic ketoacidoses) Qualifiers: Diabetes mellitus type: type 2 - Discharge Information Referrals: Mack Huertas MD [Primary Care Provider] - Forms: ED Department Discharge Sepsis Event Note (ED) - Evaluation Sepsis Screening Result: No Definite Risk - Focused Exam Vital Signs: Vital Signs Temp Pulse Resp BP Pulse Ox 09/16/19 15:00 75 18 116/73 100 09/16/19 14:46 75 18 115/72 100 09/16/19 14:30 77 18 115/72 100 09/16/19 13:13 36.7 C 94 18 92/64 98 - My Orders Last 24 Hours: My Active Orders 09/16/19 13:37 BETA-HYDROXYBUTYRATE Stat 09/16/19 13:38 Chest 1V Frontal [CR] Stat UA W/MICROSCOPIC [URIN] Stat EKG 12 Lead [EK] Routine 09/16/19 13:40 EKG Documentation Completion [RC] ASDIRECTED 09/16/19 16:00 Sodium Chloride 0.9% [Normal Saline] 1,000 ml IV ASDIRECTED 09/16/19 16:28 CORONAVIRUS COVID-19 ROCIO [MOLEC] Stat - Assessment/Plan Last 24 Hours: My Active Orders 09/16/19 13:37 BETA-HYDROXYBUTYRATE Stat 09/16/19 13:38 Chest 1V Frontal [CR] Stat UA W/MICROSCOPIC [URIN] Stat EKG 12 Lead [EK] Routine 09/16/19 13:40 EKG Documentation Completion [RC] ASDIRECTED 09/16/19 16:00 Sodium Chloride 0.9% [Normal Saline] 1,000 ml IV ASDIRECTED 09/16/19 16:28 CORONAVIRUS COVID-19 ROCIO [MOLEC] Stat
--- NOTE | 2019-09-16 18:34 | CR ---
INDICATION: Weakness. CHEST, ONE VIEW: Portable AP upright view of the chest 09/16/19 was compared with 08/19/19 and 07/18/19. The heart appeared normal in size and shape. Calcification is noted in the arch of the aorta. An active infiltrate or effusion was not identified. IMPRESSION: No acute process. MTDD
--- NOTE | 2019-09-16 18:40 | PCM.HP.2 ---
H&P History of Present Illness - General Date of Service: 09/16/19 Admit Problem/Dx: Admission Diagnosis/Problem Admission Diagnosis/Problem Diabetic ketoacidosis Source of Information: Patient, EMS Notes Reviewed, Provider - History of Present Illness Initial Comments - Free Text/Narative: Kevin is a 64 yr old male who presented to ER for weakness, fall yesterday and poor appetite. He states he hasn't been feeling well for past week, lost his appetite so he didn't take his insulin or Metformin. He doesn't remember when he had his last bowel movement. He hasn't been urinating much but denies any dysuria. No runny nose, sore throat, cough, shortness of breath, chest pain, abdominal pain, nausea, vomiting or diarrhea. He fell yesterday sustained a right black eye, abrasion to left forehead and knees. No rashes. Denies any back or neck pain. He has numbness chronically in his feet extends up to about midshin. Generalized Pain Score (Numeric/FACES): 3 PT DENIES ANY PAIN WHEN ASKED AT PRESENT TIME. Pain Score (Numeric/FACES): 0 - Related Data Allergies/Adverse Reactions: Allergies Allergy/AdvReac Type Severity Reaction Status Date / Time No Known Allergies Allergy Verified 09/16/19 14:14 Home Medications: Home Meds metFORMIN [Glucophage] 850 mg PO BIDMEALS 02/17/14 [History] Insulin Detemir [Levemir Flextouch] 48 units SQ BEDTIME 11/18/18 [History] Gabapentin [Neurontin] 200 mg PO TID 02/28/19 [History] Insulin Lispro [Humalog] 5 - 15 unit SUBCUT TIDMEALS 02/28/19 [History] Simvastatin 20 mg PO DAILY 07/18/19 [History] Insulin Glarg,Human.Rec.Analog [Lantus Solostar] 48 units SUBCUT BEDTIME pen [Rx] Past Medical History HEENT History: Reports: None Cardiovascular History: Reports: Other (See Below) Other Cardiovascular History: States that his blood pressure is usually low. Respiratory History: Reports: Other (See Below) Other Respiratory History: Smoker since the age of 18. Gastrointestinal History: Reports: Chronic Constipation, GERD Neurological History: Reports: Neuropathy, Diabetic Other Neuro History: States numbness in hands and feet. States he gets dizzy when his blood sugar is low and blood pressure is low. Psychiatric History: Reports: Addiction Endocrine/Metabolic History: Reports: Diabetes, Type II, IDDM, Other (See Below) Other Endocrine/Metabolic History: on insulin. - Infectious Disease History Infectious Disease History: Reports: Chicken Pox, Measles, Mumps, Shingles, Other (See Below) Other Infectious Disease History: States he had "measles", doesn't recall Rubella or Rubeola. - Past Surgical History HEENT Surgical History: Reports: Tonsillectomy Cardiovascular Surgical History: Reports: None Respiratory Surgical History: Reports: None GI Surgical History: Reports: Colonoscopy Endocrine Surgical History: Reports: None Dermatological Surgical History: Reports: None Social & Family History - Family History Family Medical History: Noncontributory Cardiac: Reports: CAD, High Cholesterol, Hypertension Respiratory: Reports: COPD : Reports: Renal Disease/Insufficiency Neurological: Reports: CVA Endocrine/Metabolic: Reports: Diabetes, type II - Tobacco Use Smoking Status *Q: Current Every Day Smoker Years of Tobacco use: 45 Packs/Tins Daily: 0 Used Tobacco, but Quit: No Second Hand Smoke Exposure: No - Caffeine Use Caffeine Use: Reports: Coffee Other Caffeine Use: Rarely - Recreational Drug Use Recreational Drug Use: No - Living Situation & Occupation Living situation: Reports: Single Occupation: Unemployed H&P Review of Systems - Review of Systems: Review Of Systems: Comprehensive ROS is negative, except as noted in HPI. Exam - Exam Exam: See Below - Vital Signs Vital Signs: Last Vital Signs Temp 97.5 F 09/16/19 18:10 Pulse 68 09/16/19 18:10 Resp 18 09/16/19 18:10 BP 107/70 09/16/19 18:10 Pulse Ox 93 L 09/16/19 18:10 Weight: 140 lb 4 oz - Exam General: Alert, Oriented, Cooperative. No: Mild Distress HEENT: PERRLA, Conjunctiva Clear, EOMI, Hearing Intact, Nares Patent, Normal Nasal Septum, Posterior Pharynx Clear, Pupils Equal, Pupils Reactive, TMs Clear , Other (Mucosa Dry & tacky) Neck: Supple, Trachea Midline. No: Lymphadenopathy Lungs: Clear to Auscultation, Normal Respiratory Effort Cardiovascular: Regular Rate, Regular Rhythm GI/Abdominal Exam: Soft, Non-Tender, No Distention, Abnormal Bowel Sounds ( hypoactive) (Male) Exam: Deferred Rectal (Males) Exam: Deferred Back Exam: No: CVA Tenderness (R), CVA Tenderness (L) Extremities: No Pedal Edema Peripheral Pulses: 2+: Radial (L), Radial (R) Skin: Warm, Dry, Ecchymosis (under right eye), Wound (abrasion to left forehead , knees) Neurological: Cranial Nerves Intact, Other (Strength 4+/5 BLE, 5/5 BUE) Psychiatric: Normal Affect, Normal Mood - Patient Data Lab Results Last 24 hrs: Laboratory Results - last 24 hr 09/16/19 09/16/19 09/16/19 Range/Units 13:31 13:37 13:37 WBC 9.7 (4.5-12.0) X10-3/uL RBC 5.35 (4.30-5.75) x10(6)uL Hgb 15.2 (13.5-17.8) g/dL Hct 47.7 (30.0-51.3) % MCV 89.1 (80-96) fL MCH 28.5 (27.7-33.6) pg MCHC 31.9 L (32.2-35.4) g/dL RDW 13.3 (11.5-15.5) % Plt Count 308 (125-369) X10(3)uL MPV 8.5 (7.4-10.4) fL Neutrophils % (Manual) 71 (46-82) % Lymphocytes % (Manual) 25 (13-37) % Monocytes % (Manual) 3 L (4-12) % Eosinophils % (Manual) 1 (0-5) % ABG pH (7.35-7.45) ABG pCO2 (35-45) mmHg ABG pO2 (83-108) mmHg ABG HCO3 (22-26) mmol/L ABG O2 Saturation (96-97) % ABG Base Excess (-2-2) Alverto Test O2 Delivery Device Oxygen Flow Rate L Sodium 127 L (135-145) mmol/L Potassium 5.1 D (3.5-5.3) mmol/L Chloride 89 L* D (100-110) mmol/L Carbon Dioxide 17 L (21-32) mmol/L BUN 31 H D (7-18) mg/dL Creatinine 1.8 H (0.70-1.30) mg/dL Est Cr Clr Drug Dosing TNP Estimated GFR (MDRD) 38 L (>60) BUN/Creatinine Ratio 17.2 (9-20) Glucose 570 H* D (80-116) mg/dL POC Glucose > 500 H* D (80-116) mg/dL Lactic Acid (0.4-2.0) mmol/L Calcium 9.1 (8.6-10.2) mg/dL Total Bilirubin 0.6 (0.1-1.3) mg/dL AST 9 D (5-25) IU/L ALT 12 (12-36) U/L Alkaline Phosphatase 179 H (56-112) IU/L Troponin I (4.0-60.3) pg/mL Total Protein 6.9 (6.0-8.0) g/dL Albumin 3.6 (3.2-4.6) g/dL Globulin 3.3 g/dL Albumin/Globulin Ratio 1.1 SARS Virus RNA (PCR) (NEGATIVE) 09/16/19 09/16/19 09/16/19 Range/Units 13:37 13:37 14:15 WBC (4.5-12.0) X10-3/uL RBC (4.30-5.75) x10(6)uL Hgb (13.5-17.8) g/dL Hct (30.0-51.3) % MCV (80-96) fL MCH (27.7-33.6) pg MCHC (32.2-35.4) g/dL RDW (11.5-15.5) % Plt Count (125-369) X10(3)uL MPV (7.4-10.4) fL Neutrophils % (Manual) (46-82) % Lymphocytes % (Manual) (13-37) % Monocytes % (Manual) (4-12) % Eosinophils % (Manual) (0-5) % ABG pH 7.28 L (7.35-7.45) ABG pCO2 28 L (35-45) mmHg ABG pO2 104 (83-108) mmHg ABG HCO3 13 L (22-26) mmol/L ABG O2 Saturation 97 (96-97) % ABG Base Excess -12.3 L (-2-2) Alverto Test Passed O2 Delivery Device Room air Oxygen Flow Rate 0 L Sodium (135-145) mmol/L Potassium (3.5-5.3) mmol/L Chloride (100-110) mmol/L Carbon Dioxide (21-32) mmol/L BUN (7-18) mg/dL Creatinine (0.70-1.30) mg/dL Est Cr Clr Drug Dosing Estimated GFR (MDRD) (>60) BUN/Creatinine Ratio (9-20) Glucose (80-116) mg/dL POC Glucose (80-116) mg/dL Lactic Acid 2.0 (0.4-2.0) mmol/L Calcium (8.6-10.2) mg/dL Total Bilirubin (0.1-1.3) mg/dL AST (5-25) IU/L ALT (12-36) U/L Alkaline Phosphatase (56-112) IU/L Troponin I 13.4 (4.0-60.3) pg/mL Total Protein (6.0-8.0) g/dL Albumin (3.2-4.6) g/dL Globulin g/dL Albumin/Globulin Ratio SARS Virus RNA (PCR) (NEGATIVE) 09/16/19 09/16/19 09/16/19 Range/Units 14:22 15:04 15:30 WBC (4.5-12.0) X10-3/uL RBC (4.30-5.75) x10(6)uL Hgb (13.5-17.8) g/dL Hct (30.0-51.3) % MCV (80-96) fL MCH (27.7-33.6) pg MCHC (32.2-35.4) g/dL RDW (11.5-15.5) % Plt Count (125-369) X10(3)uL MPV (7.4-10.4) fL Neutrophils % (Manual) (46-82) % Lymphocytes % (Manual) (13-37) % Monocytes % (Manual) (4-12) % Eosinophils % (Manual) (0-5) % ABG pH (7.35-7.45) ABG pCO2 (35-45) mmHg ABG pO2 (83-108) mmHg ABG HCO3 (22-26) mmol/L ABG O2 Saturation (96-97) % ABG Base Excess (-2-2) Alverto Test O2 Delivery Device Oxygen Flow Rate L Sodium 133 L (135-145) mmol/L Potassium 4.1 D (3.5-5.3) mmol/L Chloride 97 L D (100-110) mmol/L Carbon Dioxide 20 L (21-32) mmol/L BUN 30 H (7-18) mg/dL Creatinine 1.8 H (0.70-1.30) mg/dL Est Cr Clr Drug Dosing 36.85 Estimated GFR (MDRD) 38 L (>60) BUN/Creatinine Ratio 16.7 (9-20) Glucose 354 H D (80-116) mg/dL POC Glucose > 500 H* 397 H D (80-116) mg/dL Lactic Acid (0.4-2.0) mmol/L Calcium 8.5 L (8.6-10.2) mg/dL Total Bilirubin (0.1-1.3) mg/dL AST (5-25) IU/L ALT (12-36) U/L Alkaline Phosphatase (56-112) IU/L Troponin I (4.0-60.3) pg/mL Total Protein (6.0-8.0) g/dL Albumin (3.2-4.6) g/dL Globulin g/dL Albumin/Globulin Ratio SARS Virus RNA (PCR) (NEGATIVE) 09/16/19 Range/Units 16:28 WBC (4.5-12.0) X10-3/uL RBC (4.30-5.75) x10(6)uL Hgb (13.5-17.8) g/dL Hct (30.0-51.3) % MCV (80-96) fL MCH (27.7-33.6) pg MCHC (32.2-35.4) g/dL RDW (11.5-15.5) % Plt Count (125-369) X10(3)uL MPV (7.4-10.4) fL Neutrophils % (Manual) (46-82) % Lymphocytes % (Manual) (13-37) % Monocytes % (Manual) (4-12) % Eosinophils % (Manual) (0-5) % ABG pH (7.35-7.45) ABG pCO2 (35-45) mmHg ABG pO2 (83-108) mmHg ABG HCO3 (22-26) mmol/L ABG O2 Saturation (96-97) % ABG Base Excess (-2-2) Alverto Test O2 Delivery Device Oxygen Flow Rate L Sodium (135-145) mmol/L Potassium (3.5-5.3) mmol/L Chloride (100-110) mmol/L Carbon Dioxide (21-32) mmol/L BUN (7-18) mg/dL Creatinine (0.70-1.30) mg/dL Est Cr Clr Drug Dosing Estimated GFR (MDRD) (>60) BUN/Creatinine Ratio (9-20) Glucose (80-116) mg/dL POC Glucose (80-116) mg/dL Lactic Acid (0.4-2.0) mmol/L Calcium (8.6-10.2) mg/dL Total Bilirubin (0.1-1.3) mg/dL AST (5-25) IU/L ALT (12-36) U/L Alkaline Phosphatase (56-112) IU/L Troponin I (4.0-60.3) pg/mL Total Protein (6.0-8.0) g/dL Albumin (3.2-4.6) g/dL Globulin g/dL Albumin/Globulin Ratio SARS Virus RNA (PCR) Negative (NEGATIVE) Result Diagrams: 09/16/19 13:37 09/16/19 15:30 Sepsis Event Note - Evaluation Sepsis Screening Result: No Definite Risk - Focused Exam Vital Signs: Vital Signs Temp Pulse Resp BP Pulse Ox 09/16/19 18:10 97.5 F 68 18 107/70 93 L 09/16/19 15:00 75 18 116/73 100 09/16/19 14:46 75 18 115/72 100 09/16/19 14:30 77 18 115/72 100 09/16/19 13:13 98.0 F 94 18 92/64 98 Date Exam was Performed: 09/16/19 Time Exam was Performed: 18:35 *Q Meaningful Use (ADM) - VTE *Q VTE Mechanical Contraindications *Q: At Risk for Falls - VTE Risk Assess *Q Each Risk Factor Represents 2 Points: Age 60 - 74 Years Total Score 2 Point Risk Factors: 2 - Problem List (1) DKA (diabetic ketoacidoses) SNOMED Code(s): 559253278, 111565744 ICD Code: E11.10 - TYPE 2 DIABETES MELLITUS WITH KETOACIDOSIS WITHOUT COMA Status: Acute Current Visit: Yes Qualifiers: Diabetes mellitus type: type 2 (2) HUNTER (acute kidney injury) SNOMED Code(s): 14360463, 60770123 ICD Code: N17.9 - ACUTE KIDNEY FAILURE, UNSPECIFIED Status: Acute Current Visit: Yes (3) Weakness generalized SNOMED Code(s): 61398155 ICD Code: R53.1 - WEAKNESS Status: Acute Current Visit: Yes (4) Dehydration, moderate SNOMED Code(s): 7768977115007 ICD Code: E86.0 - DEHYDRATION Status: Acute Current Visit: Yes (5) Diabetes mellitus type II, uncontrolled SNOMED Code(s): 475095583, 724564394 ICD Code: E11.65 - TYPE 2 DIABETES MELLITUS WITH HYPERGLYCEMIA Status: Chronic Current Visit: No Qualifiers: Glycemic state: with hyperglycemia Qualified Code(s): E11.65 - Type 2 diabetes mellitus with hyperglycemia (6) Hx of gastroesophageal reflux (GERD) SNOMED Code(s): 42377079246298 ICD Code: Z87.19 - PERSONAL HISTORY OF OTHER DISEASES OF THE DIGESTIVE SYSTEM Status: Chronic Current Visit: No Problem List Initiated/Reviewed/Updated: Yes Orders Last 24hrs: Active Orders 24 hr Category Date Time Status Patient Status [ADT] Routine ADT 09/16/19 18:20 Active Antiembolic Devices [RC] .Routine Care 09/16/19 18:20 Active Blood Glucose Check, Bedside [RC] WITHMEALSANDBED Care 09/16/19 18:20 Active Intake and Output [RC] QSHIFT Care 09/16/19 18:21 Active Oxygen Therapy [RC] PRN Care 09/16/19 18:20 Active Up With Assistance [RC] ASDIRECTED Care 09/16/19 18:20 Active Up to Chair [RC] TIDMEALS Care 09/16/19 18:20 Active VTE/DVT Education [RC] Per Unit Routine Care 09/16/19 18:20 Active Vital Signs [RC] Q4H Care 09/16/19 18:20 Active OT Evaluation and Treatment [CONS] Routine Cons 09/16/19 18:20 Active PT Evaluation and Treatment [CONS] Routine Cons 09/16/19 18:20 Active Consistent Carbohydrate Diet [DIET] Diet 09/16/19 Dinner Active BASIC METABOLIC PANEL,BMP [CHEM] Routine Lab 09/17/19 05:00 Ordered BETA-HYDROXYBUTYRATE Stat Lab 09/16/19 13:37 Received UA W/MICROSCOPIC [URIN] Stat Lab 09/16/19 13:38 Ordered Gabapentin [Neurontin] Med 09/16/19 21:00 Ordered 200 mg PO TID Insulin Glarg,Human.Rec.Analog [LantUS Solostar] Med 09/16/19 21:00 Ordered 48 units SUBCUT BEDTIME Insulin Lispro [HumaLOG] Med 09/16/19 21:00 Ordered See Protocol SUBCUT QIDACANDBED Nicotine [Habitrol] Med 09/17/19 09:00 Active 7 mg TRDERM DAILY Lactated Ringers [Ringers, Lactated] 1,000 ml Med 09/16/19 18:30 Active IV ASDIRECTED Simvastatin [Zocor] Med 09/17/19 09:00 Ordered 20 mg PO DAILY Sodium Chloride 0.9% [Normal Saline] 1,000 ml Med 09/16/19 16:00 Active IV ASDIRECTED metFORMIN [Glucophage] Med 09/17/19 08:00 Ordered 850 mg PO BIDMEALS Antiembolic Hose [OM.PC] Per Unit Routine Oth 09/16/19 18:21 Ordered Resuscitation Status Routine Resus Stat 09/16/19 18:20 Ordered EKG 12 Lead [EK] Routine Ther 09/16/19 13:38 Stop Req Medication Orders Gabapentin (Neurontin) 200 mg PO TID LAURA Sodium Chloride (Normal Saline) 1,000 mls @ 150 mls/hr IV ASDIRECTED LAURA Stop: 09/17/19 22:39 Last Admin: 09/16/19 15:43 Dose: 150 mls/hr (Lactated Ringer's) 1,010 mls @ 150 mls/hr IV ASDIRECTED LAURA Insulin Glargine (Lantus Solostar) 48 units SUBCUT BEDTIME LAURA Insulin Human Lispro (Humalog) 0 unit SUBCUT QIDACANDBED LAURA; Protocol Metformin HCl (Glucophage) 850 mg PO BIDMEALS LAURA Nicotine (Habitrol) 7 mg TRDERM DAILY LAURA Simvastatin (Zocor) 20 mg PO DAILY LAURA Assessment/Plan Comment:: 1. Admit for observation for DKA, HUNTER. 2. Restart Lantus 48 units at bedtime with Medium dose Humalog sliding scale qid & ac, Accucheck qid & ac. 3. Consistent Carb diet. 4. Will finish current bag of NS and switch to LR at 150 ml/hr with KCL 20 mEQ to maintain his potassium as he has dropped from 5.1 to 4.1 with just the one bag of NS he got in the ER. Recheck his BMP at 0030 and at 0500. 5. DVT prophylaxis: Lovenox 30 mg sq q24h. TEDs BLE. 6. PT/OT evaluation for weakness. 7. FULL CODE. 8. Patient's blood sugars came down nicely in ER so do not anticipate him staying more than 48 hours but will reassess in am. Will adjust treatments as necessary. - Mortality Measure Prognosis:: Good
[2019-09-16] MEDS: Potassium Chloride 100 ML IV SCH ×2 (20:12→22:39)
[2019-09-16] MEDS ORDERED: Insulin Glargine,Human Rec. Analog 100 Units/ML 3 ML Pen SUBCUT ONE (20:45)
[2019-09-16] MEDS: Gabapentin 100 MG Cap PO SCH (20:48)
[2019-09-16] MEDS: Insulin Lispro 100 Unit/ML 3 ML KwikPen SUBCUT SCH (21:21)
[2019-09-16] MEDS: Insulin Glargine,Human Rec. Analog 100 Units/ML 3 ML Pen SUBCUT SCH (21:22)
--- NOTE | 2019-09-17 11:25 | PCM.PN ---
- General Info Date of Service: 09/17/19 Admission Dx/Problem (Free Text): Kevin is feeling better this morning, ate large supper and breakfast without issue. Anion gap closed at midnight, improved further this morning. Blood sugars still in 200-300s overnight. Had a late snack of toast. Patient states he is trying to move back to [place] to live with his sister. - Patient Data Vitals - Most Recent: Last Vital Signs Temp 97.6 F 09/17/19 02:35 Pulse 77 09/17/19 02:35 Resp 18 09/17/19 02:35 BP 104/56 L 09/17/19 02:35 Pulse Ox 99 09/17/19 02:35 Weight - Most Recent: 140 lb 4 oz I&O - Last 24 Hours: Intake & Output 09/16/19 09/17/19 09/17/19 22:59 06:59 14:59 Intake Total 200 2000 480 Output Total 1500 Balance 200 500 480 Lab Results Last 24 Hours: Laboratory Results - last 24 hr 09/16/19 09/16/19 09/16/19 Range/Units 13:31 13:37 13:37 WBC 9.7 (4.5-12.0) X10-3/uL RBC 5.35 (4.30-5.75) x10(6)uL Hgb 15.2 (13.5-17.8) g/dL Hct 47.7 (30.0-51.3) % MCV 89.1 (80-96) fL MCH 28.5 (27.7-33.6) pg MCHC 31.9 L (32.2-35.4) g/dL RDW 13.3 (11.5-15.5) % Plt Count 308 (125-369) X10(3)uL MPV 8.5 (7.4-10.4) fL Neutrophils % (Manual) 71 (46-82) % Lymphocytes % (Manual) 25 (13-37) % Monocytes % (Manual) 3 L (4-12) % Eosinophils % (Manual) 1 (0-5) % ABG pH (7.35-7.45) ABG pCO2 (35-45) mmHg ABG pO2 (83-108) mmHg ABG HCO3 (22-26) mmol/L ABG O2 Saturation (96-97) % ABG Base Excess (-2-2) Alverto Test O2 Delivery Device Oxygen Flow Rate L Sodium 127 L (135-145) mmol/L Potassium 5.1 D (3.5-5.3) mmol/L Chloride 89 L* D (100-110) mmol/L Carbon Dioxide 17 L (21-32) mmol/L BUN 31 H D (7-18) mg/dL Creatinine 1.8 H (0.70-1.30) mg/dL Est Cr Clr Drug Dosing TNP Estimated GFR (MDRD) 38 L (>60) BUN/Creatinine Ratio 17.2 (9-20) Glucose 570 H* D (80-116) mg/dL POC Glucose > 500 H* D (80-116) mg/dL Lactic Acid (0.4-2.0) mmol/L Calcium 9.1 (8.6-10.2) mg/dL Total Bilirubin 0.6 (0.1-1.3) mg/dL AST 9 D (5-25) IU/L ALT 12 (12-36) U/L Alkaline Phosphatase 179 H (56-112) IU/L Troponin I (4.0-60.3) pg/mL Total Protein 6.9 (6.0-8.0) g/dL Albumin 3.6 (3.2-4.6) g/dL Globulin 3.3 g/dL Albumin/Globulin Ratio 1.1 Urine Color (YELLOW) Urine Appearance (CLEAR) Urine pH (5.0-6.5) Ur Specific [place] (1.010-1.025) Urine Protein (NEGATIVE) mg/dL Urine Glucose (UA) (NORMAL) mg/dL Urine Ketones (NEGATIVE) mg/dL Urine Occult Blood (NEGATIVE) Urine Nitrite (NEGATIVE) Urine Bilirubin (NEGATIVE) Urine Urobilinogen (NEGATIVE) mg/dL Ur Leukocyte Esterase (NEGATIVE) Urine RBC (0-5) Urine WBC (0-5) Ur Squamous Epith Cells (NS,R,O) Urine Bacteria (NS) SARS Virus RNA (PCR) (NEGATIVE) 09/16/19 09/16/19 09/16/19 Range/Units 13:37 13:37 14:15 WBC (4.5-12.0) X10-3/uL RBC (4.30-5.75) x10(6)uL Hgb (13.5-17.8) g/dL Hct (30.0-51.3) % MCV (80-96) fL MCH (27.7-33.6) pg MCHC (32.2-35.4) g/dL RDW (11.5-15.5) % Plt Count (125-369) X10(3)uL MPV (7.4-10.4) fL Neutrophils % (Manual) (46-82) % Lymphocytes % (Manual) (13-37) % Monocytes % (Manual) (4-12) % Eosinophils % (Manual) (0-5) % ABG pH 7.28 L (7.35-7.45) ABG pCO2 28 L (35-45) mmHg ABG pO2 104 (83-108) mmHg ABG HCO3 13 L (22-26) mmol/L ABG O2 Saturation 97 (96-97) % ABG Base Excess -12.3 L (-2-2) Alverto Test Passed O2 Delivery Device Room air Oxygen Flow Rate 0 L Sodium (135-145) mmol/L Potassium (3.5-5.3) mmol/L Chloride (100-110) mmol/L Carbon Dioxide (21-32) mmol/L BUN (7-18) mg/dL Creatinine (0.70-1.30) mg/dL Est Cr Clr Drug Dosing Estimated GFR (MDRD) (>60) BUN/Creatinine Ratio (9-20) Glucose (80-116) mg/dL POC Glucose (80-116) mg/dL Lactic Acid 2.0 (0.4-2.0) mmol/L Calcium (8.6-10.2) mg/dL Total Bilirubin (0.1-1.3) mg/dL AST (5-25) IU/L ALT (12-36) U/L Alkaline Phosphatase (56-112) IU/L Troponin I 13.4 (4.0-60.3) pg/mL Total Protein (6.0-8.0) g/dL Albumin (3.2-4.6) g/dL Globulin g/dL Albumin/Globulin Ratio Urine Color (YELLOW) Urine Appearance (CLEAR) Urine pH (5.0-6.5) Ur Specific [place] (1.010-1.025) Urine Protein (NEGATIVE) mg/dL Urine Glucose (UA) (NORMAL) mg/dL Urine Ketones (NEGATIVE) mg/dL Urine Occult Blood (NEGATIVE) Urine Nitrite (NEGATIVE) Urine Bilirubin (NEGATIVE) Urine Urobilinogen (NEGATIVE) mg/dL Ur Leukocyte Esterase (NEGATIVE) Urine RBC (0-5) Urine WBC (0-5) Ur Squamous Epith Cells (NS,R,O) Urine Bacteria (NS) SARS Virus RNA (PCR) (NEGATIVE) 09/16/19 09/16/19 09/16/19 Range/Units 14:22 15:04 15:30 WBC (4.5-12.0) X10-3/uL RBC (4.30-5.75) x10(6)uL Hgb (13.5-17.8) g/dL Hct (30.0-51.3) % MCV (80-96) fL MCH (27.7-33.6) pg MCHC (32.2-35.4) g/dL RDW (11.5-15.5) % Plt Count (125-369) X10(3)uL MPV (7.4-10.4) fL Neutrophils % (Manual) (46-82) % Lymphocytes % (Manual) (13-37) % Monocytes % (Manual) (4-12) % Eosinophils % (Manual) (0-5) % ABG pH (7.35-7.45) ABG pCO2 (35-45) mmHg ABG pO2 (83-108) mmHg ABG HCO3 (22-26) mmol/L ABG O2 Saturation (96-97) % ABG Base Excess (-2-2) Alverto Test O2 Delivery Device Oxygen Flow Rate L Sodium 133 L (135-145) mmol/L Potassium 4.1 D (3.5-5.3) mmol/L Chloride 97 L D (100-110) mmol/L Carbon Dioxide 20 L (21-32) mmol/L BUN 30 H (7-18) mg/dL Creatinine 1.8 H (0.70-1.30) mg/dL Est Cr Clr Drug Dosing 36.85 Estimated GFR (MDRD) 38 L (>60) BUN/Creatinine Ratio 16.7 (9-20) Glucose 354 H D (80-116) mg/dL POC Glucose > 500 H* 397 H D (80-116) mg/dL Lactic Acid (0.4-2.0) mmol/L Calcium 8.5 L (8.6-10.2) mg/dL Total Bilirubin (0.1-1.3) mg/dL AST (5-25) IU/L ALT (12-36) U/L Alkaline Phosphatase (56-112) IU/L Troponin I (4.0-60.3) pg/mL Total Protein (6.0-8.0) g/dL Albumin (3.2-4.6) g/dL Globulin g/dL Albumin/Globulin Ratio Urine Color (YELLOW) Urine Appearance (CLEAR) Urine pH (5.0-6.5) Ur Specific [place] (1.010-1.025) Urine Protein (NEGATIVE) mg/dL Urine Glucose (UA) (NORMAL) mg/dL Urine Ketones (NEGATIVE) mg/dL Urine Occult Blood (NEGATIVE) Urine Nitrite (NEGATIVE) Urine Bilirubin (NEGATIVE) Urine Urobilinogen (NEGATIVE) mg/dL Ur Leukocyte Esterase (NEGATIVE) Urine RBC (0-5) Urine WBC (0-5) Ur Squamous Epith Cells (NS,R,O) Urine Bacteria (NS) SARS Virus RNA (PCR) (NEGATIVE) 09/16/19 09/16/19 09/16/19 Range/Units 16:28 20:30 20:50 WBC (4.5-12.0) X10-3/uL RBC (4.30-5.75) x10(6)uL Hgb (13.5-17.8) g/dL Hct (30.0-51.3) % MCV (80-96) fL MCH (27.7-33.6) pg MCHC (32.2-35.4) g/dL RDW (11.5-15.5) % Plt Count (125-369) X10(3)uL MPV (7.4-10.4) fL Neutrophils % (Manual) (46-82) % Lymphocytes % (Manual) (13-37) % Monocytes % (Manual) (4-12) % Eosinophils % (Manual) (0-5) % ABG pH (7.35-7.45) ABG pCO2 (35-45) mmHg ABG pO2 (83-108) mmHg ABG HCO3 (22-26) mmol/L ABG O2 Saturation (96-97) % ABG Base Excess (-2-2) Alverto Test O2 Delivery Device Oxygen Flow Rate L Sodium (135-145) mmol/L Potassium (3.5-5.3) mmol/L Chloride (100-110) mmol/L Carbon Dioxide (21-32) mmol/L BUN (7-18) mg/dL Creatinine (0.70-1.30) mg/dL Est Cr Clr Drug Dosing Estimated GFR (MDRD) (>60) BUN/Creatinine Ratio (9-20) Glucose (80-116) mg/dL POC Glucose 359 H (80-116) mg/dL Lactic Acid (0.4-2.0) mmol/L Calcium (8.6-10.2) mg/dL Total Bilirubin (0.1-1.3) mg/dL AST (5-25) IU/L ALT (12-36) U/L Alkaline Phosphatase (56-112) IU/L Troponin I (4.0-60.3) pg/mL Total Protein (6.0-8.0) g/dL Albumin (3.2-4.6) g/dL Globulin g/dL Albumin/Globulin Ratio Urine Color Yellow (YELLOW) Urine Appearance Clear (CLEAR) Urine pH 5.0 (5.0-6.5) Ur Specific [place] 1.020 (1.010-1.025) Urine Protein Negative (NEGATIVE) mg/dL Urine Glucose (UA) >1000 H (NORMAL) mg/dL Urine Ketones 150 H (NEGATIVE) mg/dL Urine Occult Blood Negative (NEGATIVE) Urine Nitrite Negative (NEGATIVE) Urine Bilirubin Negative (NEGATIVE) Urine Urobilinogen Normal (NEGATIVE) mg/dL Ur Leukocyte Esterase Negative (NEGATIVE) Urine RBC Not seen (0-5) Urine WBC 0-5 (0-5) Ur Squamous Epith Cells Rare (NS,R,O) Urine Bacteria Rare H (NS) SARS Virus RNA (PCR) Negative (NEGATIVE) 09/17/19 09/17/19 Range/Units 01:00 06:15 WBC (4.5-12.0) X10-3/uL RBC (4.30-5.75) x10(6)uL Hgb (13.5-17.8) g/dL Hct (30.0-51.3) % MCV (80-96) fL MCH (27.7-33.6) pg MCHC (32.2-35.4) g/dL RDW (11.5-15.5) % Plt Count (125-369) X10(3)uL MPV (7.4-10.4) fL Neutrophils % (Manual) (46-82) % Lymphocytes % (Manual) (13-37) % Monocytes % (Manual) (4-12) % Eosinophils % (Manual) (0-5) % ABG pH (7.35-7.45) ABG pCO2 (35-45) mmHg ABG pO2 (83-108) mmHg ABG HCO3 (22-26) mmol/L ABG O2 Saturation (96-97) % ABG Base Excess (-2-2) Alverto Test O2 Delivery Device Oxygen Flow Rate L Sodium 132 L 135 (135-145) mmol/L Potassium 4.8 4.0 (3.5-5.3) mmol/L Chloride 98 L 102 (100-110) mmol/L Carbon Dioxide 24 26 (21-32) mmol/L BUN 22 H 19 H (7-18) mg/dL Creatinine 1.3 1.2 (0.70-1.30) mg/dL Est Cr Clr Drug Dosing 53.01 57.43 Estimated GFR (MDRD) 56 L > 60 (>60) BUN/Creatinine Ratio 16.9 15.8 (9-20) Glucose 375 H 287 H D (80-116) mg/dL POC Glucose (80-116) mg/dL Lactic Acid (0.4-2.0) mmol/L Calcium 8.1 L 8.2 L (8.6-10.2) mg/dL Total Bilirubin (0.1-1.3) mg/dL AST (5-25) IU/L ALT (12-36) U/L Alkaline Phosphatase (56-112) IU/L Troponin I (4.0-60.3) pg/mL Total Protein (6.0-8.0) g/dL Albumin (3.2-4.6) g/dL Globulin g/dL Albumin/Globulin Ratio Urine Color (YELLOW) Urine Appearance (CLEAR) Urine pH (5.0-6.5) Ur Specific [place] (1.010-1.025) Urine Protein (NEGATIVE) mg/dL Urine Glucose (UA) (NORMAL) mg/dL Urine Ketones (NEGATIVE) mg/dL Urine Occult Blood (NEGATIVE) Urine Nitrite (NEGATIVE) Urine Bilirubin (NEGATIVE) Urine Urobilinogen (NEGATIVE) mg/dL Ur Leukocyte Esterase (NEGATIVE) Urine RBC (0-5) Urine WBC (0-5) Ur Squamous Epith Cells (NS,R,O) Urine Bacteria (NS) SARS Virus RNA (PCR) (NEGATIVE) Med Orders - Current: Current Medications Gabapentin (Neurontin) 200 mg PO TID [facility] Last Admin: 09/16/19 20:48 Dose: 200 mg Documented by: Sodium Chloride (Normal Saline) 1,000 mls @ 150 mls/hr IV ASDIRECTED [facility] Stop: 09/17/19 22:39 Last Admin: 09/16/19 22:41 Dose: 150 mls/hr Documented by: Lactated Ringer's (Ringers, Lactated) 1,000 mls @ 150 mls/hr IV ASDIRECTED [facility] Insulin Glargine (Lantus Solostar) 48 units SUBCUT BEDTIME [facility] Last Admin: 09/16/19 21:22 Dose: 48 units Documented by: Insulin Human Lispro (Humalog) 0 unit SUBCUT QIDACANDBED [facility]; Protocol Last Admin: 09/16/19 21:21 Dose: 10 units Documented by: Metformin HCl (Glucophage) 850 mg PO BIDMEALS [facility] Nicotine (Habitrol) 7 mg TRDERM DAILY [facility] Simvastatin (Zocor) 20 mg PO BEDTIME [facility] Discontinued Medications Sodium Chloride (Normal Saline) 1,000 mls @ 999 mls/hr IV ASDIRECTED [facility] Last Infusion: 09/16/19 14:41 Dose: Infused Documented by: Sodium Chloride (Normal Saline) 1,000 mls @ 999 mls/hr IV ASDIRECTED [facility] Last Admin: 09/16/19 14:43 Dose: 999 mls/hr Documented by: Potassium Acetate 20 meq/ (Lactated Ringer's) 1,010 mls @ 150 mls/hr IV ASDIRECTED [facility] Potassium Chloride (Kcl 20 Meq In Water 100 Ml) 100 mls @ 50 mls/hr IV Q2H [facility] Stop: 09/16/19 22:59 Last Admin: 09/16/19 22:39 Dose: 50 mls/hr Documented by: Insulin Human Lispro (Humalog) 20 unit SUBCUT NOW ST[facility] Stop: 09/16/19 13:44 Last Admin: 06/16/20 13:51 Dose: 20 units Documented by: - Exam General: Alert, Oriented, Cooperative, No Acute Distress Lungs: Clear to Auscultation, Normal Respiratory Effort Cardiovascular: Regular Rate, Regular Rhythm GI/Abdominal Exam: Normal Bowel Sounds, Soft, Non-Tender, No Organomegaly, No Distention Extremities: No Pedal Edema Peripheral Pulses: 2+: Radial (L), Radial (R) Skin: Warm, Dry, Intact Sepsis Event Note - Evaluation Sepsis Screening Result: No Definite Risk - Focused Exam Vital Signs: Vital Signs Temp Pulse Resp BP Pulse Ox 09/17/19 02:35 97.6 F 77 18 104/56 L 99 09/17/19 00:00 97.8 F 89 18 101/64 99 Date Exam was Performed: 09/17/19 Time Exam was Performed: 11:45 - Problem List & Annotations (1) DKA (diabetic ketoacidoses) SNOMED Code(s): 772840159, 336625944 Code(s): E11.10 - TYPE 2 DIABETES MELLITUS WITH KETOACIDOSIS WITHOUT COMA Status: Resolved Current Visit: Yes Qualifiers: Diabetes mellitus type: type 2 (2) HUNTER (acute kidney injury) SNOMED Code(s): 00883256, 83660327 Code(s): N17.9 - ACUTE KIDNEY FAILURE, UNSPECIFIED Status: Resolved Current Visit: Yes (3) Weakness generalized SNOMED Code(s): 69301474 Code(s): R53.1 - WEAKNESS Status: Acute Current Visit: Yes (4) Dehydration, moderate SNOMED Code(s): 6594111456085 Code(s): E86.0 - DEHYDRATION Status: Acute Current Visit: Yes (5) Diabetes mellitus type II, uncontrolled SNOMED Code(s): 068646955, 647871639 Code(s): E11.65 - TYPE 2 DIABETES MELLITUS WITH HYPERGLYCEMIA Status: Chronic Current Visit: No Qualifiers: Glycemic state: with hyperglycemia Qualified Code(s): E11.65 - Type 2 diabetes mellitus with hyperglycemia (6) Hx of gastroesophageal reflux (GERD) SNOMED Code(s): 19484938710802 Code(s): Z87.19 - PERSONAL HISTORY OF OTHER DISEASES OF THE DIGESTIVE SYSTEM Status: Chronic Current Visit: No - Problem List Review Problem List Initiated/Reviewed/Updated: Yes - My Orders Last 24 Hours: My Active Orders 09/16/19 Dinner Consistent Carbohydrate Diet [DIET] 09/16/19 18:20 Patient Status [ADT] Routine Antiembolic Devices [RC] .Routine Blood Glucose Check, Bedside [RC] WITHMEALSANDBED Oxygen Therapy [RC] PRN Up With Assistance [RC] ASDIRECTED Up to Chair [RC] TIDMEALS Vital Signs [RC] Q4H OT Evaluation and Treatment [CONS] Routine PT Evaluation and Treatment [CONS] Routine Resuscitation Status Routine 09/16/19 18:21 Intake and Output [RC] QSHIFT Antiembolic Hose [OM.PC] Per Unit Routine 09/16/19 18:47 Lactated Ringers [Ringers, Lactated] 1,000 ml IV ASDIRECTED 09/16/19 21:00 Gabapentin [Neurontin] 200 mg PO TID Insulin Glarg,Human.Rec.Analog [LantUS Solostar] 48 units SUBCUT BEDTIME Insulin Lispro [HumaLOG] See Protocol SUBCUT QIDACANDBED 09/17/19 08:00 metFORMIN [Glucophage] 850 mg PO BIDMEALS 09/17/19 09:00 Nicotine [Habitrol] 7 mg TRDERM DAILY 09/17/19 21:00 Simvastatin [Zocor] 20 mg PO BEDTIME - Plan Plan:: 1. DKA resolved, HUNTER resolved. 2. Lantus 48 units at bedtime with Medium dose Humalog sliding scale qid & ac, Accucheck qid & ac. 3. Consistent Carb diet. 4. Decreased LR to 75 ml/hr 5. DVT prophylaxis: Lovenox 30 mg sq q24h. TEDs BLE. 6. PT/OT evaluation for weakness.
[2019-09-17] MEDS: Insulin Lispro 100 Unit/ML 3 ML KwikPen SUBCUT SCH ×4 (11:58→20:53)
[2019-09-17] MEDS: Nicotine 7 MG/24 Hr Patch TRDERM SCH (12:01)
[2019-09-17] MEDS: Gabapentin 100 MG Cap PO SCH ×3 (12:04→20:50)
[2019-09-17] MEDS: Enoxaparin 40 MG/0.4 ML Syringe SUBCUT SCH (13:05)
[2019-09-17] MEDS: Lactated Ringers 1,000 ML IV SCH (16:12)
[2019-09-17] MEDS: Insulin Glargine,Human Rec. Analog 100 Units/ML 3 ML Pen SUBCUT SCH (20:52)
[2019-09-17] MEDS ORDERED: Simvastatin 20 MG Tab PO SCH (21:00)
[2019-09-18] MEDS: Lactated Ringers 1,000 ML IV SCH (05:35)
[2019-09-18] MEDS: Insulin Lispro 100 Unit/ML 3 ML KwikPen SUBCUT SCH ×2 (06:58→11:38)
[2019-09-18] MEDS: Nicotine 7 MG/24 Hr Patch TRDERM SCH (08:14)
[2019-09-18] MEDS: Gabapentin 100 MG Cap PO SCH ×2 (08:14→14:34)
[2019-09-18 14:08] VITALS: BP 92/59; PULSE 83
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
[2019-09-18] MEDS: Enoxaparin 40 MG/0.4 ML Syringe SUBCUT SCH (14:32)
== END 2019-09-18 16:30 | disposition home or self-care (01) ==
LOC: FB.ED 13:13 → FB.MS 18:13
PROVIDERS: ADMIT Family Medicine; ATTEND Family Medicine
DX: E11.10 Type 2 diabetes mellitus with ketoacidosis without coma (principal); E11.65 Type 2 diabetes mellitus with hyperglycemia; E11.40 Type 2 diabetes mellitus with diabetic neuropathy, unspecified; N17.9 Acute kidney failure, unspecified; E86.0 Dehydration; F17.210 Nicotine dependence, cigarettes, uncomplicated; Z79.4 Long term (current) use of insulin; Z87.19 Personal history of other diseases of the digestive system
CPT/HCPCS: 36415; 36600; 71045; 80048; 80053; 81001; 82010; 82803; 82962; 83605; 84484; 85025; 93005; 96360; 96361; 96372; 97165-GO; 99285-25; A9270-GY; G0378; J1650; J1815; J1815-GY; J3480; J7030; J7120; U0002

== ENCOUNTER 2019-11-02 16:35 | Inpatient (IN) | payer MEDICAID ==
[2019-11-02] MEDS ORDERED: Sodium Chloride 0.9% 1,000 ML IV ONE ×2 (16:54)
--- NOTE | 2019-11-02 17:02 | EDM.PDOC ---
ED HPI GENERAL MEDICAL PROBLEM - General Stated Complaint: SOB WEAK Time Seen by Provider: 11/02/19 16:40 Source of Information: Reports: Patient History Limitations: Reports: No Limitations - History of Present Illness INITIAL COMMENTS - FREE TEXT/NARRATIVE: c/o N/V felt okay yesterday, went to [employer] for bfast and tried to eat a muffin, had n/v, not able to eat it, not able to eat it today does not remember when he last took his insulin, took neither long acting or short acting, says he is trying to feel better by controlling his diet no f/c/d, minimal abd pain, no cp, no sorto PMH ENDOR: poor controlled DM, DKA, dehydration RENAL: [facility] : ED GI: upper GI bleed, [place]errat-Phelps tear, GERD CV: hyponatremia RECENTS LABS IN [facility] ENDOCR: metformin 850 bid, Lispro 5-15u tid, Levemir 48u qhs NEURO: gabapentin 200 tid CV: simvastatin 20/d [facility] CBC neg with wbc 9.7, hgb 15.2, plt 308, segs 55.4% 7w ago ABG with pH 7.28, pCO2 28, HCO3 10.4 7w ago with glu 333 7w ago lactic acid 2.0 7w ago COVID neg 2m ago A1C 11.7 - Related Data Allergies Allergy/AdvReac Type Severity Reaction Status Date / Time No Known Allergies Allergy Verified 09/16/19 14:14 Home Meds: Home Meds metFORMIN [Glucophage] 850 mg PO BIDMEALS 02/17/14 [History] Insulin Detemir [Levemir Flextouch] 48 units SQ BEDTIME 11/18/18 [History] Gabapentin [Neurontin] 200 mg PO TID 02/28/19 [History] Insulin Lispro [Humalog] 5 - 15 unit SUBCUT TIDMEALS 02/28/19 [History] Simvastatin 20 mg PO DAILY 07/18/19 [History] Past Medical History HEENT History: Reports: None Cardiovascular History: Reports: Other (See Below) Other Cardiovascular History: States that his blood pressure is usually low. Respiratory History: Reports: Other (See Below) Other Respiratory History: Smoker since the age of 18. Gastrointestinal History: Reports: Chronic Constipation, GERD Neurological History: Reports: Neuropathy, Diabetic Other Neuro History: States numbness in hands and feet. States he gets dizzy when his blood sugar is low and blood pressure is low. Psychiatric History: Reports: Addiction Endocrine/Metabolic History: Reports: Diabetes, Type II, IDDM, Other (See Below) Other Endocrine/Metabolic History: on insulin. - Infectious Disease History Infectious Disease History: Reports: Chicken Pox, Measles, Mumps, Shingles, Other (See Below) Other Infectious Disease History: States he had "measles", doesn't recall Rubella or Rubeola. - Past Surgical History HEENT Surgical History: Reports: Tonsillectomy Cardiovascular Surgical History: Reports: None Respiratory Surgical History: Reports: None GI Surgical History: Reports: Colonoscopy Endocrine Surgical History: Reports: None Dermatological Surgical History: Reports: None Social & Family History - Family History Family Medical History: Noncontributory Cardiac: Reports: CAD, High Cholesterol, Hypertension Respiratory: Reports: COPD : Reports: Renal Disease/Insufficiency Neurological: Reports: CVA Endocrine/Metabolic: Reports: Diabetes, type II - Caffeine Use Caffeine Use: Reports: Coffee Other Caffeine Use: Rarely - Living Situation & Occupation Living situation: Reports: Single Occupation: Unemployed ED ROS GENERAL - Review of Systems Review Of Systems: See Below Constitutional: Reports: No Symptoms HEENT: Reports: No Symptoms Respiratory: Reports: No Symptoms. Denies: Shortness of Breath, Cough Cardiovascular: Reports: No Symptoms. Denies: Chest Pain Endocrine: Reports: No Symptoms GI/Abdominal: Reports: Abdominal Pain, Nausea, Vomiting : Reports: No Symptoms Musculoskeletal: Reports: No Symptoms Skin: Reports: No Symptoms Neurological: Reports: No Symptoms Psychiatric: Reports: No Symptoms Hematologic/Lymphatic: Reports: No Symptoms Immunologic: Reports: No Symptoms ED EXAM, GI/ABD - Physical Exam Exam: See Below Exam Limited By: No Limitations General Appearance: Alert, WD/WN, Mild Distress Ears: Normal External Exam, Hearing Grossly Normal Nose: Normal Inspection Throat/Mouth: Normal Inspection, Normal Voice, No Airway Compromise Head: Atraumatic, Normocephalic Neck: Normal Inspection, Supple, Non-Tender, Full Range of Motion. No: Lymphadenopathy (R), Lymphadenopathy (L) Respiratory/Chest: No Respiratory Distress, Lungs Clear, Normal Breath Sounds, No Accessory Muscle Use, Chest Non-Tender Cardiovascular: Regular Rate, Rhythm, No Edema, No JVD, No Murmur GI/Abdominal Exam: Normal Bowel Sounds, Non-Tender, No Distention Back Exam: Normal Inspection, Full Range of Motion. No: CVA Tenderness (R) Extremities: Normal Inspection, Normal Range of Motion, Non-Tender, No Pedal Edema, Other (dec'd turgor all ext x 4) Psychiatric: Normal Affect, Normal Mood Skin Exam: Warm, Dry, Intact, Normal Color, No Rash Lymphatic: No Adenopathy Course - Orders/Labs/Meds Orders: Active Orders 24 hr Category Date Time Status URINALYSIS W/MICROSCOPIC [UA W/MICROSCOPIC] [URIN] Stat Lab 11/02/19 16:52 Ordered Labs: Laboratory Tests 11/02/19 11/02/19 11/02/19 Range/Units 16:20 17:11 17:11 WBC 10.9 (4.5-12.0) X10-3/uL RBC 5.26 (4.30-5.75) x10(6)uL Hgb 15.4 (13.5-17.8) g/dL Hct 47.0 (30.0-51.3) % MCV 89.4 (80-96) fL MCH 29.2 (27.7-33.6) pg MCHC 32.7 (32.2-35.4) g/dL RDW 13.1 (11.5-15.5) % Plt Count 249 (125-369) X10(3)uL MPV 8.8 (7.4-10.4) fL Neut % (Auto) 87.0 H (46-82) % Lymph % (Auto) 9.4 L (13-37) % [place] % (Auto) 2.8 L (4-12) % Eos % (Auto) 1 (1.0-5.0) % Baso % (Auto) 0 (0-2) % Neut # (Auto) 9.5 H (1.6-8.3) # Lymph # (Auto) 1.0 (0.6-5.0) # [place] # (Auto) 0.3 (0.0-1.3) # Eos # (Auto) 0.1 (0.0-0.8) # Baso # (Auto) 0.0 (0.0-0.2) # POC VBG pH 7.26 L (7.31-7.41) POC VBG pCO2 30.1 L (41-51) mmHG POC VBG HCO3 10.2 L (23-28) mmol/L POC VBG Total CO2 11 L (24-29) mmol/L POC VBG Base Excess -17 L (-2-3) mmol/L Sodium 127 L (135-145) mmol/L Potassium 4.9 D (3.5-5.3) mmol/L Chloride 87 L* D (100-110) mmol/L Carbon Dioxide 13 L (21-32) mmol/L BUN 26 H D (7-18) mg/dL Creatinine 1.6 H (0.70-1.30) mg/dL Est Cr Clr Drug Dosing TNP Estimated GFR (MDRD) 44 L (>60) BUN/Creatinine Ratio 16.3 (9-20) Glucose 498 H* D (80-116) mg/dL Lactic Acid (0.4-2.0) mmol/L Calcium 9.4 (8.6-10.2) mg/dL Total Bilirubin 0.6 (0.1-1.3) mg/dL AST 10 D (5-25) IU/L ALT 13 (12-36) U/L Alkaline Phosphatase 125 H (56-112) IU/L C-Reactive Protein (0.5-0.9) mg/dL Total Protein 7.0 (6.0-8.0) g/dL Albumin 3.7 (3.2-4.6) g/dL Globulin 3.3 g/dL Albumin/Globulin Ratio 1.1 11/02/19 11/02/19 Range/Units 17:11 17:11 WBC (4.5-12.0) X10-3/uL RBC (4.30-5.75) x10(6)uL Hgb (13.5-17.8) g/dL Hct (30.0-51.3) % MCV (80-96) fL MCH (27.7-33.6) pg MCHC (32.2-35.4) g/dL RDW (11.5-15.5) % Plt Count (125-369) X10(3)uL MPV (7.4-10.4) fL Neut % (Auto) (46-82) % Lymph % (Auto) (13-37) % [place] % (Auto) (4-12) % Eos % (Auto) (1.0-5.0) % Baso % (Auto) (0-2) % Neut # (Auto) (1.6-8.3) # Lymph # (Auto) (0.6-5.0) # [place] # (Auto) (0.0-1.3) # Eos # (Auto) (0.0-0.8) # Baso # (Auto) (0.0-0.2) # POC VBG pH (7.31-7.41) POC VBG pCO2 (41-51) mmHG POC VBG HCO3 (23-28) mmol/L POC VBG Total CO2 (24-29) mmol/L POC VBG Base Excess (-2-3) mmol/L Sodium (135-145) mmol/L Potassium (3.5-5.3) mmol/L Chloride (100-110) mmol/L Carbon Dioxide (21-32) mmol/L BUN (7-18) mg/dL Creatinine (0.70-1.30) mg/dL Est Cr Clr Drug Dosing Estimated GFR (MDRD) (>60) BUN/Creatinine Ratio (9-20) Glucose (80-116) mg/dL Lactic Acid 1.3 (0.4-2.0) mmol/L Calcium (8.6-10.2) mg/dL Total Bilirubin (0.1-1.3) mg/dL AST (5-25) IU/L ALT (12-36) U/L Alkaline Phosphatase (56-112) IU/L C-Reactive Protein < 0.2 L (0.5-0.9) mg/dL Total Protein (6.0-8.0) g/dL Albumin (3.2-4.6) g/dL Globulin g/dL Albumin/Globulin Ratio Meds: Medications Discontinued Medications Generic Name Dose Route Start Last Admin Trade Name Freq PRN Reason Stop Dose Admin Sodium Chloride 1,000 mls @ 999 mls/hr 11/02/19 16:54 11/02/19 17:55 Normal Saline IV 11/02/19 17:54 999 mls/hr .BOLUS ONE Administration Sodium Chloride 1,000 mls @ 999 mls/hr 11/02/19 16:54 Normal Saline IV 08/02/20 17:54 .BOLUS ONE Insulin Human Regular 10 unit 11/02/19 17:28 11/02/19 17:55 Humulin R IV 11/02/19 17:29 0.1 units ONETIME ONE Administration - Re-Assessments/Exams Free Text/Narrative Re-Assessment/Exam: 11/02/19 19:33 quite pleasant, nontoxic, no insight into his DM lactic acid neg, pH dec'd 7.26 c/w DKA, glucose dec'd nicely 498 to 232 after 1 liter NS and 10u reg insulin IV BUN/creat 26/1.6 with baseline 15/0.9 not able to void after 1 liter, on 2nd liter, may even need a 3rd should be able to d/c eventually, signed out to Dr Moura at change of shift no evidence of infection, no fever, wbc wnl, crp neg Departure - Departure Time of Disposition: 19:36 Disposition: Still A Patient 30 Condition: Fair Clinical Impression: Not taking medication as directed DKA (diabetic ketoacidoses) Qualifiers: Diabetes mellitus type: type 2 Diabetes mellitus complication detail: without coma Qualified Code(s): E11.10 - Type 2 diabetes mellitus with ketoacidosis without coma - Discharge Information *PRESCRIPTION DRUG MONITORING PROGRAM REVIEWED*: Not Applicable *COPY OF PRESCRIPTION DRUG MONITORING REPORT IN PATIENT DEBBIE: Not Applicable Referrals: Mack Huertas MD [Primary Care Provider] - - My Orders Last 24 Hours: My Active Orders 11/02/19 16:52 URINALYSIS W/MICROSCOPIC [UA W/MICROSCOPIC] [URIN] Stat - Assessment/Plan Last 24 Hours: My Active Orders 11/02/19 16:52 URINALYSIS W/MICROSCOPIC [UA W/MICROSCOPIC] [URIN] Stat
[2019-11-02] MEDS ORDERED: Insulin Regular, Human 100 Units/ML 3 ML Vial IV ONE (17:28)
[2019-11-02] MEDS: Sodium Chloride 0.9% 1,000 ML IV SCH (18:55)
[2019-11-02] MEDS ORDERED: Insulin Lispro 100 Unit/ML 3 ML KwikPen SUBCUT SCH (20:15)
[2019-11-02] MEDS ORDERED: Insulin Lispro 100 Unit/ML 3 ML KwikPen SUBCUT ONE (22:01)
[2019-11-02] MEDS: Insulin Lispro 100 Unit/ML 3 ML KwikPen SUBCUT SCH (22:03)
[2019-11-03] MEDS: Insulin Lispro 100 Unit/ML 3 ML KwikPen SUBCUT SCH ×6 (02:03→22:08)
[2019-11-03] MEDS: Sodium Chloride 0.9% 1,000 ML IV SCH ×3 (04:31→20:56)
--- NOTE | 2019-11-03 17:10 | PCM.HP.2 ---
H&P History of Present Illness - General Date of Service: 11/03/19 Admit Problem/Dx: Admission Diagnosis/Problem Admission Diagnosis/Problem Diabetes mellitus with hyperglycemia Source of Information: Patient, EMS Notes Reviewed - History of Present Illness Initial Comments - Free Text/Narative: Kevin presented to ER last night after 2 days of nausea and vomiting, last ate Sunday morning. He states that he has had no appetite, forcing himself to eat, trying to control his diabetes with diet, not sure when he took his insulin last. He has had a 30 pound weight loss, was 165 and now 135. Denies any fever, chills, headache, sore throat, cough, shortness of breath, chest pain, diarrhea. No dysuria or frequency. No leg pain, or rashes. Ate breakfast this morning. When he arrived to ER he was in Diabetic ketoacidosis(DKA), anion gap of 27, Blood sugars 498, sodium 127, chloride 87, pH 7.2. UA: >1000, ketones. Received IVF and Insulin 10 units IV in ER then placed on sliding scale insulin as he came down well in ER. States he has been having trouble eating due to bottom dentures, willing to talk with Dietary. States he is moving to his sister in 2 weeks now, plans on driving himself, his friends are going to sell his stuff. He had said that last admission but had said that when he got a car. - Related Data Allergies/Adverse Reactions: Allergies Allergy/AdvReac Type Severity Reaction Status Date / Time No Known Allergies Allergy Verified 09/16/19 14:14 Home Medications: Home Meds metFORMIN [Glucophage] 850 mg PO BIDMEALS 02/17/14 [History] Insulin Detemir [Levemir Flextouch] 48 units SQ BEDTIME 11/18/18 [History] Gabapentin [Neurontin] 200 mg PO TID 02/28/19 [History] Insulin Lispro [Humalog] 5 - 15 unit SUBCUT TIDMEALS 02/28/19 [History] Simvastatin 20 mg PO DAILY 07/18/19 [History] Past Medical History HEENT History: Reports: None Cardiovascular History: Reports: Other (See Below) Other Cardiovascular History: States that his blood pressure is usually low. Respiratory History: Reports: Other (See Below) Other Respiratory History: Smoker since the age of 18. Gastrointestinal History: Reports: Chronic Constipation, GERD, Hemorrhoids Genitourinary History: Reports: None Musculoskeletal History: Reports: None Neurological History: Reports: Neuropathy, Diabetic Other Neuro History: States numbness in hands and feet. States he gets dizzy when his blood sugar is low and blood pressure is low. Psychiatric History: Reports: Addiction Endocrine/Metabolic History: Reports: Diabetes, Type II, IDDM, Other (See Below) Other Endocrine/Metabolic History: on insulin. Hematologic History: Reports: None Immunologic History: Reports: None Dermatologic History: Reports: None - Infectious Disease History Infectious Disease History: Reports: Chicken Pox, Measles, Mumps, Shingles, Other (See Below) Other Infectious Disease History: States he had "measles", doesn't recall Rubella or Rubeola. - Past Surgical History HEENT Surgical History: Reports: Tonsillectomy Cardiovascular Surgical History: Reports: None Respiratory Surgical History: Reports: None GI Surgical History: Reports: Colonoscopy Male Surgical History: Reports: None Endocrine Surgical History: Reports: None Neurological Surgical History: Reports: None Musculoskeletal Surgical History: Reports: None Dermatological Surgical History: Reports: None Social & Family History - Family History Family Medical History: Noncontributory Cardiac: Reports: CAD, High Cholesterol, Hypertension Respiratory: Reports: COPD : Reports: Renal Disease/Insufficiency Neurological: Reports: CVA Endocrine/Metabolic: Reports: Diabetes, type II - Tobacco Use Smoking Status *Q: Current Every Day Smoker Years of Tobacco use: 45 Packs/Tins Daily: 0.5 Used Tobacco, but Quit: No - Caffeine Use Caffeine Use: Reports: Coffee Other Caffeine Use: Rarely - Recreational Drug Use Recreational Drug Use: No - Living Situation & Occupation Living situation: Reports: Single Occupation: Unemployed H&P Review of Systems - Review of Systems: Review Of Systems: Comprehensive ROS is negative, except as noted in HPI. Exam - Exam Exam: See Below - Vital Signs Vital Signs: Last Vital Signs Temp 97.7 F 11/03/19 16:00 Pulse 59 L 11/03/19 16:00 Resp 16 11/03/19 16:00 BP 112/66 11/03/19 16:00 Pulse Ox 97 11/03/19 16:00 Weight: 135 lb 11.2 oz - Exam General: Alert, Oriented, Cooperative, Other (Cathetic) HEENT: PERRLA, Conjunctiva Clear, EOMI, Hearing Intact, Mucosa Moist & [place], Other (ecchymosis around left eye) Neck: Supple, Trachea Midline Lungs: Clear to Auscultation, Normal Respiratory Effort Cardiovascular: Regular Rate, Regular Rhythm GI/Abdominal Exam: Normal Bowel Sounds, Soft, Non-Tender, No Distention Extremities: No Pedal Edema, Other (muscle wasting) Peripheral Pulses: 2+: Radial (L), Radial (R) Skin: Warm, Dry (dry skin on bilateral feet.), Intact - Patient Data Lab Results Last 24 hrs: Laboratory Results - last 24 hr 11/02/19 11/02/19 11/02/19 Range/Units 16:20 17:11 17:11 WBC 10.9 (4.5-12.0) X10-3/uL RBC 5.26 (4.30-5.75) x10(6)uL Hgb 15.4 (13.5-17.8) g/dL Hct 47.0 (30.0-51.3) % MCV 89.4 (80-96) fL MCH 29.2 (27.7-33.6) pg MCHC 32.7 (32.2-35.4) g/dL RDW 13.1 (11.5-15.5) % Plt Count 249 (125-369) X10(3)uL MPV 8.8 (7.4-10.4) fL Neut % (Auto) 87.0 H (46-82) % Lymph % (Auto) 9.4 L (13-37) % [place] % (Auto) 2.8 L (4-12) % Eos % (Auto) 1 (1.0-5.0) % Baso % (Auto) 0 (0-2) % Neut # (Auto) 9.5 H (1.6-8.3) # Lymph # (Auto) 1.0 (0.6-5.0) # [place] # (Auto) 0.3 (0.0-1.3) # Eos # (Auto) 0.1 (0.0-0.8) # Baso # (Auto) 0.0 (0.0-0.2) # POC VBG pH 7.26 L (7.31-7.41) POC VBG pCO2 30.1 L (41-51) mmHG POC VBG HCO3 10.2 L (23-28) mmol/L POC VBG Total CO2 11 L (24-29) mmol/L POC VBG Base Excess -17 L (-2-3) mmol/L Sodium 127 L (135-145) mmol/L Potassium 4.9 D (3.5-5.3) mmol/L Chloride 87 L* D (100-110) mmol/L Carbon Dioxide 13 L (21-32) mmol/L BUN 26 H D (7-18) mg/dL Creatinine 1.6 H (0.70-1.30) mg/dL Est Cr Clr Drug Dosing TNP Estimated GFR (MDRD) 44 L (>60) BUN/Creatinine Ratio 16.3 (9-20) Glucose 498 H* D (80-116) mg/dL POC Glucose (80-116) mg/dL Lactic Acid (0.4-2.0) mmol/L Calcium 9.4 (8.6-10.2) mg/dL Phosphorus (2.6-4.6) mg/dL Magnesium (1.8-2.5) mg/dL Total Bilirubin 0.6 (0.1-1.3) mg/dL AST 10 D (5-25) IU/L ALT 13 (12-36) U/L Alkaline Phosphatase 125 H (56-112) IU/L C-Reactive Protein (0.5-0.9) mg/dL Total Protein 7.0 (6.0-8.0) g/dL Albumin 3.7 (3.2-4.6) g/dL Globulin 3.3 g/dL Albumin/Globulin Ratio 1.1 Urine Color (YELLOW) Urine Appearance (CLEAR) Urine pH (5.0-6.5) Ur Specific [place] (1.010-1.025) Urine Protein (NEGATIVE) mg/dL Urine Glucose (UA) (NORMAL) mg/dL Urine Ketones (NEGATIVE) mg/dL Urine Occult Blood (NEGATIVE) Urine Nitrite (NEGATIVE) Urine Bilirubin (NEGATIVE) Urine Urobilinogen (NEGATIVE) mg/dL Ur Leukocyte Esterase (NEGATIVE) Urine RBC (0-5) Urine WBC (0-5) Ur Squamous Epith Cells (NS,R,O) Urine Bacteria (NS) 11/02/19 11/02/19 11/02/19 Range/Units 17:11 17:11 19:15 WBC (4.5-12.0) X10-3/uL RBC (4.30-5.75) x10(6)uL Hgb (13.5-17.8) g/dL Hct (30.0-51.3) % MCV (80-96) fL MCH (27.7-33.6) pg MCHC (32.2-35.4) g/dL RDW (11.5-15.5) % Plt Count (125-369) X10(3)uL MPV (7.4-10.4) fL Neut % (Auto) (46-82) % Lymph % (Auto) (13-37) % [place] % (Auto) (4-12) % Eos % (Auto) (1.0-5.0) % Baso % (Auto) (0-2) % Neut # (Auto) (1.6-8.3) # Lymph # (Auto) (0.6-5.0) # [place] # (Auto) (0.0-1.3) # Eos # (Auto) (0.0-0.8) # Baso # (Auto) (0.0-0.2) # POC VBG pH (7.31-7.41) POC VBG pCO2 (41-51) mmHG POC VBG HCO3 (23-28) mmol/L POC VBG Total CO2 (24-29) mmol/L POC VBG Base Excess (-2-3) mmol/L Sodium (135-145) mmol/L Potassium (3.5-5.3) mmol/L Chloride (100-110) mmol/L Carbon Dioxide (21-32) mmol/L BUN (7-18) mg/dL Creatinine (0.70-1.30) mg/dL Est Cr Clr Drug Dosing Estimated GFR (MDRD) (>60) BUN/Creatinine Ratio (9-20) Glucose (80-116) mg/dL POC Glucose 232 H (80-116) mg/dL Lactic Acid 1.3 (0.4-2.0) mmol/L Calcium (8.6-10.2) mg/dL Phosphorus (2.6-4.6) mg/dL Magnesium (1.8-2.5) mg/dL Total Bilirubin (0.1-1.3) mg/dL AST (5-25) IU/L ALT (12-36) U/L Alkaline Phosphatase (56-112) IU/L C-Reactive Protein < 0.2 L (0.5-0.9) mg/dL Total Protein (6.0-8.0) g/dL Albumin (3.2-4.6) g/dL Globulin g/dL Albumin/Globulin Ratio Urine Color (YELLOW) Urine Appearance (CLEAR) Urine pH (5.0-6.5) Ur Specific [place] (1.010-1.025) Urine Protein (NEGATIVE) mg/dL Urine Glucose (UA) (NORMAL) mg/dL Urine Ketones (NEGATIVE) mg/dL Urine Occult Blood (NEGATIVE) Urine Nitrite (NEGATIVE) Urine Bilirubin (NEGATIVE) Urine Urobilinogen (NEGATIVE) mg/dL Ur Leukocyte Esterase (NEGATIVE) Urine RBC (0-5) Urine WBC (0-5) Ur Squamous Epith Cells (NS,R,O) Urine Bacteria (NS) 11/02/19 11/02/19 11/03/19 Range/Units 21:15 21:55 01:58 WBC (4.5-12.0) X10-3/uL RBC (4.30-5.75) x10(6)uL Hgb (13.5-17.8) g/dL Hct (30.0-51.3) % MCV (80-96) fL MCH (27.7-33.6) pg MCHC (32.2-35.4) g/dL RDW (11.5-15.5) % Plt Count (125-369) X10(3)uL MPV (7.4-10.4) fL Neut % (Auto) (46-82) % Lymph % (Auto) (13-37) % [place] % (Auto) (4-12) % Eos % (Auto) (1.0-5.0) % Baso % (Auto) (0-2) % Neut # (Auto) (1.6-8.3) # Lymph # (Auto) (0.6-5.0) # [place] # (Auto) (0.0-1.3) # Eos # (Auto) (0.0-0.8) # Baso # (Auto) (0.0-0.2) # POC VBG pH (7.31-7.41) POC VBG pCO2 (41-51) mmHG POC VBG HCO3 (23-28) mmol/L POC VBG Total CO2 (24-29) mmol/L POC VBG Base Excess (-2-3) mmol/L Sodium (135-145) mmol/L Potassium (3.5-5.3) mmol/L Chloride (100-110) mmol/L Carbon Dioxide (21-32) mmol/L BUN (7-18) mg/dL Creatinine (0.70-1.30) mg/dL Est Cr Clr Drug Dosing Estimated GFR (MDRD) (>60) BUN/Creatinine Ratio (9-20) Glucose (80-116) mg/dL POC Glucose 174 H 239 H (80-116) mg/dL Lactic Acid (0.4-2.0) mmol/L Calcium (8.6-10.2) mg/dL Phosphorus (2.6-4.6) mg/dL Magnesium (1.8-2.5) mg/dL Total Bilirubin (0.1-1.3) mg/dL AST (5-25) IU/L ALT (12-36) U/L Alkaline Phosphatase (56-112) IU/L C-Reactive Protein (0.5-0.9) mg/dL Total Protein (6.0-8.0) g/dL Albumin (3.2-4.6) g/dL Globulin g/dL Albumin/Globulin Ratio Urine Color Yellow (YELLOW) Urine Appearance Clear (CLEAR) Urine pH 5.0 (5.0-6.5) Ur Specific [place] 1.025 (1.010-1.025) Urine Protein Negative (NEGATIVE) mg/dL Urine Glucose (UA) >1000 H (NORMAL) mg/dL Urine Ketones 50 H (NEGATIVE) mg/dL Urine Occult Blood Negative (NEGATIVE) Urine Nitrite Negative (NEGATIVE) Urine Bilirubin Negative (NEGATIVE) Urine Urobilinogen Normal (NEGATIVE) mg/dL Ur Leukocyte Esterase Negative (NEGATIVE) Urine RBC 0-5 (0-5) Urine WBC 0-5 (0-5) Ur Squamous Epith Cells Occasional (NS,R,O) Urine Bacteria Few H (NS) 11/03/19 11/03/19 11/03/19 Range/Units 06:05 06:25 06:25 WBC 7.1 (4.5-12.0) X10-3/uL RBC 4.48 (4.30-5.75) x10(6)uL Hgb 13.2 L (13.5-17.8) g/dL Hct 40.5 (30.0-51.3) % MCV 90.5 (80-96) fL MCH 29.6 (27.7-33.6) pg MCHC 32.6 (32.2-35.4) g/dL RDW 12.9 (11.5-15.5) % Plt Count 214 (125-369) X10(3)uL MPV 8.4 (7.4-10.4) fL Neut % (Auto) 61.3 (46-82) % Lymph % (Auto) 28.6 (13-37) % [place] % (Auto) 5.2 (4-12) % Eos % (Auto) 4 (1.0-5.0) % Baso % (Auto) 1 (0-2) % Neut # (Auto) 4.4 (1.6-8.3) # Lymph # (Auto) 2.0 (0.6-5.0) # [place] # (Auto) 0.4 (0.0-1.3) # Eos # (Auto) 0.3 (0.0-0.8) # Baso # (Auto) 0.0 (0.0-0.2) # POC VBG pH (7.31-7.41) POC VBG pCO2 (41-51) mmHG POC VBG HCO3 (23-28) mmol/L POC VBG Total CO2 (24-29) mmol/L POC VBG Base Excess (-2-3) mmol/L Sodium 132 L (135-145) mmol/L Potassium 4.5 (3.5-5.3) mmol/L Chloride 98 L D (100-110) mmol/L Carbon Dioxide 22 (21-32) mmol/L BUN 17 (7-18) mg/dL Creatinine 1.3 (0.70-1.30) mg/dL Est Cr Clr Drug Dosing 51.29 Estimated GFR (MDRD) 56 L (>60) BUN/Creatinine Ratio 13.1 (9-20) Glucose 195 H D (80-116) mg/dL POC Glucose 190 H (80-116) mg/dL Lactic Acid (0.4-2.0) mmol/L Calcium 8.1 L (8.6-10.2) mg/dL Phosphorus 2.3 L (2.6-4.6) mg/dL Magnesium 1.5 L (1.8-2.5) mg/dL Total Bilirubin (0.1-1.3) mg/dL AST (5-25) IU/L ALT (12-36) U/L Alkaline Phosphatase (56-112) IU/L C-Reactive Protein (0.5-0.9) mg/dL Total Protein (6.0-8.0) g/dL Albumin (3.2-4.6) g/dL Globulin g/dL Albumin/Globulin Ratio Urine Color (YELLOW) Urine Appearance (CLEAR) Urine pH (5.0-6.5) Ur Specific [place] (1.010-1.025) Urine Protein (NEGATIVE) mg/dL Urine Glucose (UA) (NORMAL) mg/dL Urine Ketones (NEGATIVE) mg/dL Urine Occult Blood (NEGATIVE) Urine Nitrite (NEGATIVE) Urine Bilirubin (NEGATIVE) Urine Urobilinogen (NEGATIVE) mg/dL Ur Leukocyte Esterase (NEGATIVE) Urine RBC (0-5) Urine WBC (0-5) Ur Squamous Epith Cells (NS,R,O) Urine Bacteria (NS) 11/03/19 11/03/19 Range/Units 09:46 14:03 WBC (4.5-12.0) X10-3/uL RBC (4.30-5.75) x10(6)uL Hgb (13.5-17.8) g/dL Hct (30.0-51.3) % MCV (80-96) fL MCH (27.7-33.6) pg MCHC (32.2-35.4) g/dL RDW (11.5-15.5) % Plt Count (125-369) X10(3)uL MPV (7.4-10.4) fL Neut % (Auto) (46-82) % Lymph % (Auto) (13-37) % [place] % (Auto) (4-12) % Eos % (Auto) (1.0-5.0) % Baso % (Auto) (0-2) % Neut # (Auto) (1.6-8.3) # Lymph # (Auto) (0.6-5.0) # [place] # (Auto) (0.0-1.3) # Eos # (Auto) (0.0-0.8) # Baso # (Auto) (0.0-0.2) # POC VBG pH (7.31-7.41) POC VBG pCO2 (41-51) mmHG POC VBG HCO3 (23-28) mmol/L POC VBG Total CO2 (24-29) mmol/L POC VBG Base Excess (-2-3) mmol/L Sodium (135-145) mmol/L Potassium (3.5-5.3) mmol/L Chloride (100-110) mmol/L Carbon Dioxide (21-32) mmol/L BUN (7-18) mg/dL Creatinine (0.70-1.30) mg/dL Est Cr Clr Drug Dosing Estimated GFR (MDRD) (>60) BUN/Creatinine Ratio (9-20) Glucose (80-116) mg/dL POC Glucose 313 H D 184 H D (80-116) mg/dL Lactic Acid (0.4-2.0) mmol/L Calcium (8.6-10.2) mg/dL Phosphorus (2.6-4.6) mg/dL Magnesium (1.8-2.5) mg/dL Total Bilirubin (0.1-1.3) mg/dL AST (5-25) IU/L ALT (12-36) U/L Alkaline Phosphatase (56-112) IU/L C-Reactive Protein (0.5-0.9) mg/dL Total Protein (6.0-8.0) g/dL Albumin (3.2-4.6) g/dL Globulin g/dL Albumin/Globulin Ratio Urine Color (YELLOW) Urine Appearance (CLEAR) Urine pH (5.0-6.5) Ur Specific [place] (1.010-1.025) Urine Protein (NEGATIVE) mg/dL Urine Glucose (UA) (NORMAL) mg/dL Urine Ketones (NEGATIVE) mg/dL Urine Occult Blood (NEGATIVE) Urine Nitrite (NEGATIVE) Urine Bilirubin (NEGATIVE) Urine Urobilinogen (NEGATIVE) mg/dL Ur Leukocyte Esterase (NEGATIVE) Urine RBC (0-5) Urine WBC (0-5) Ur Squamous Epith Cells (NS,R,O) Urine Bacteria (NS) Result Diagrams: 11/03/19 06:25 11/03/19 06:25 Sepsis Event Note - Evaluation Sepsis Screening Result: No Definite Risk - Focused Exam Vital Signs: Vital Signs Temp Pulse Resp BP Pulse Ox 11/03/19 16:00 97.7 F 59 L 16 112/66 97 11/03/19 12:00 98.3 F 70 16 84/50 L 96 11/03/19 08:40 97.9 F 62 17 92/55 L 100 Date Exam was Performed: 11/03/19 Time Exam was Performed: 17:29 *Q Meaningful Use (ADM) - VTE Risk Assess *Q Each Risk Factor Represents 1 Point: None Total Score 1 Point Risk Factors: 0 Each Risk Factor Represents 2 Points: Age 60 - 74 Years Total Score 2 Point Risk Factors: 2 Each Risk Factor Represents 3 Points: None Total Score 3 Point Risk Factors: 0 Each Risk Factor Represents 5 Points: None Total Score 5 Point Risk Factors: 0 Venous Thromboembolism Risk Factor Score *Q: 2 - Problem List (1) Diabetic keto-acidosis SNOMED Code(s): 073629944, 823480848 ICD Code: E11.10 - TYPE 2 DIABETES MELLITUS WITH KETOACIDOSIS WITHOUT COMA Status: Acute Current Visit: Yes Qualifiers: Diabetes mellitus type: type 2 Diabetes mellitus complication detail: without coma Qualified Code(s): E11.10 - Type 2 diabetes mellitus with ketoacidosis without coma (2) Not taking medication as directed SNOMED Code(s): 668799386 ICD Code: Z91.14 - PATIENT'S OTHER NONCOMPLIANCE WITH MEDICATION REGIMEN Status: Acute Current Visit: Yes (3) Dehydration SNOMED Code(s): 09189400 ICD Code: E86.0 - DEHYDRATION Status: Acute Current Visit: No (4) HUNTER (acute kidney injury) SNOMED Code(s): 26724405, 72364106 ICD Code: N17.9 - ACUTE KIDNEY FAILURE, UNSPECIFIED Status: Resolved Current Visit: No (5) DKA, type 2, not at goal SNOMED Code(s): 61008171, 70570270 ICD Code: E11.10 - TYPE 2 DIABETES MELLITUS WITH KETOACIDOSIS WITHOUT COMA Status: Chronic Current Visit: No (6) Hx of gastroesophageal reflux (GERD) SNOMED Code(s): 55197545754838 ICD Code: Z87.19 - PERSONAL HISTORY OF OTHER DISEASES OF THE DIGESTIVE SYSTEM Status: Chronic Current Visit: No Problem List Initiated/Reviewed/Updated: Yes Orders Last 24hrs: Active Orders 24 hr Category Date Time Status Patient Status [ADT] Routine ADT 11/02/19 20:10 Active Antiembolic Devices [RC] .Routine Care 11/03/19 07:59 Active Blood Glucose Check, Bedside [RC] Q4H Care 11/02/19 20:10 Active Height and Weight [RC] 06 Care 11/02/19 20:10 Active Intake and Output [RC] QSHIFT Care 11/02/19 20:11 Active Oxygen Therapy [RC] PRN Care 11/02/19 20:10 Active Up With Assistance [RC] ASDIRECTED Care 11/02/19 20:10 Active VTE/DVT Education [RC] Per Unit Routine Care 11/02/19 20:10 Active Vital Signs [RC] Q4H Care 11/02/19 20:10 Active Consult to Director Style [CONS] Routine Cons 11/02/19 20:10 Active Insulin Lispro [HumaLOG] Med 11/02/19 22:00 Active 0 unit SUBCUT Q4H Sodium Chloride 0.9% [Normal Saline] 1,000 ml Med 11/02/19 20:15 Active IV ASDIRECTED Antiembolic Hose [OM.PC] Routine Oth 11/03/19 07:59 Ordered Resuscitation Status Routine Resus Stat 11/02/19 20:10 Ordered Medication Orders Sodium Chloride (Normal Saline) 1,000 mls @ 125 mls/hr IV ASDIRECTED [facility] Last Admin: 11/03/19 12:37 Dose: 125 mls/hr Documented by: Infusion: 11/03/19 12:31 Dose: 125 mls/hr Documented by: Admin: 11/03/19 04:31 Dose: 125 mls/hr Documented by: Infusion: 11/03/19 02:55 Dose: 125 mls/hr Documented by: Admin: 11/02/19 18:55 Dose: 125 mls/hr Documented by: ALEA Insulin Human Lispro (Humalog) 0 unit SUBCUT Q4H [facility]; Protocol Last Admin: 11/03/19 14:12 Dose: 3 unit Documented by: MARK Cosigned by: [id number] Admin: 11/03/19 09:56 Dose: 12 unit Documented by: MARK Cosigned by: DARRELL Admin: 11/03/19 06:08 Dose: 3 unit Documented by: ANDERSON Cosigned by: BOSTON Admin: 11/03/19 02:03 Dose: 6 unit Documented by: ANDERSON Cosigned by: BOSTON Admin: 11/02/19 22:03 Dose: 3 unit Documented by: ANDERSON Cosigned by: BOSTON Assessment/Plan Comment:: 1. Admit for DKA, poorly controlled Diabetes, dehydration, acute kidney injury. 2. DKA: AG has resolved today. 3. DM: continue Humalog sliding scale q4h for next 24 hours. Repeat labs in the am. 4. Dietary. 5. Discharge planning. 6. DVT: TEDs BLE. Ambulate. 7. FULL CODE. 8. Adjust treatments as necessary. - Mortality Measure Prognosis:: Poor
[2019-11-04] MEDS: Insulin Lispro 100 Unit/ML 3 ML KwikPen SUBCUT SCH ×2 (02:01→06:05)
[2019-11-04] MEDS: Sodium Chloride 0.9% 1,000 ML IV SCH (05:02)
[2019-11-04] MEDS ORDERED: Simvastatin 20 MG Tab PO SCH (09:00)
--- NOTE | 2019-11-04 09:02 | PCM.DCSUM1 ---
Discharge Summary - Hospital Course HPI Initial Comments: Kevin presented to ER last night after 2 days of nausea and vomiting, last ate Sunday morning. He states that he has had no appetite, forcing himself to eat, trying to control his diabetes with diet, not sure when he took his insulin last. He has had a 30 pound weight loss, was 165 and now 135. Denies any fever, chills, headache, sore throat, cough, shortness of breath, chest pain, diarrhea. No dysuria or frequency. No leg pain, or rashes. Ate breakfast this morning. When he arrived to ER he was in Diabetic ketoacidosis(DKA), anion gap of 27, Blood sugars 498, sodium 127, chloride 87, pH 7.2. UA: >1000, ketones. Received IVF and Insulin 10 units IV in ER then placed on sliding scale insulin as he came down well in ER. States he has been having trouble eating due to bottom dentures, willing to talk with Dietary. States he is moving to his sister in 2 weeks now, plans on driving himself, his friends are going to sell his stuff. He had said that last admission but had said that when he got a car. - Discharge Data Discharge Date: 11/04/19 Discharge Disposition: Home, Self-Care 01 Condition: Good - Referral to Home Health Primary Care Physician: Mack Huertas MD - Discharge Diagnosis/Problem(s) (1) Diabetic keto-acidosis SNOMED Code(s): 033247765, 268037863 ICD Code: E11.10 - TYPE 2 DIABETES MELLITUS WITH KETOACIDOSIS WITHOUT COMA Status: Resolved Current Visit: Yes Qualifiers: Diabetes mellitus type: type 2 Diabetes mellitus complication detail: without coma Qualified Code(s): E11.10 - Type 2 diabetes mellitus with ketoacidosis without coma (2) Not taking medication as directed SNOMED Code(s): 436197348 ICD Code: Z91.14 - PATIENT'S OTHER NONCOMPLIANCE WITH MEDICATION REGIMEN Status: Acute Current Visit: Yes (3) Dehydration SNOMED Code(s): 14907906 ICD Code: E86.0 - DEHYDRATION Status: Resolved Current Visit: No (4) HUNTER (acute kidney injury) SNOMED Code(s): 50583070, 74324829 ICD Code: N17.9 - ACUTE KIDNEY FAILURE, UNSPECIFIED Status: Resolved Current Visit: No (5) DKA, type 2, not at goal SNOMED Code(s): 27442698, 86730673 ICD Code: E11.10 - TYPE 2 DIABETES MELLITUS WITH KETOACIDOSIS WITHOUT COMA Status: Chronic Current Visit: No (6) Hx of gastroesophageal reflux (GERD) SNOMED Code(s): 99065558047242 ICD Code: Z87.19 - PERSONAL HISTORY OF OTHER DISEASES OF THE DIGESTIVE SYSTEM Status: Chronic Current Visit: No - Patient Summary/Data Consults: Consultations 11/02/19 20:10 Consult to Hand Rug Braider [CONS] Routine Comment: Physician Instructions: Quantity: Hospital Course: Kevin was started on IVF in ER, received Insulin 10 units IV in ER, blood sugars came down to 200s, was switched to Humalog sliding scale, his ketoacidosis corrected by morning, Anion gap went from 27, to 12 to 5 this morning. Corrected sodium today was 135 for blood sugar of 244. His creatinine also corrected to 1.1 on day of discharge. He had no further emesis or nausea; was able to eat Diabetic diet without difficulty. He did have low blood pressures but was asymptomatic with them, ambulated to bathroom on his own without dizziness or lightheadedness. No change to home medications. - Patient Instructions Diet: Drink 8-10+ Glasses/Day, No Alcoholic Beverages, Diabetic Diet Activity: As Tolerated Driving: May Drive Today Showering/Bathing: May Shower Notify Provider of: Fever, Increased Pain, Nausea and/or Vomiting Other/Special Instructions: Follow up with Dr Huertas in 4-7 days, recheck of your blood sugars and chemistry. - Discharge Plan *PRESCRIPTION DRUG MONITORING PROGRAM REVIEWED*: Not Applicable *COPY OF PRESCRIPTION DRUG MONITORING REPORT IN PATIENT DEBBIE: Not Applicable Home Medications: Home Meds metFORMIN [Glucophage] 850 mg PO BIDMEALS 02/17/14 [History] Insulin Detemir [Levemir Flextouch] 48 units SQ BEDTIME 11/18/18 [History] Gabapentin [Neurontin] 200 mg PO TID 02/28/19 [History] Insulin Lispro [Humalog] 5 - 15 unit SUBCUT TIDMEALS 02/28/19 [History] Simvastatin 20 mg PO DAILY 07/18/19 [History] Oxygen Therapy Mode: Room Air Forms: ED Department Discharge Referrals: Mack Huertas MD [Primary Care Provider] - - Discharge Summary/Plan Comment DC Time >30 min.: No - General Info Date of Service: 11/04/19 Subjective Update: Kevin is feeling better this morning, tolerated his meals; no nausea, or vomiting. No diarrhea. No abdominal pain. Asked to go home. He states he has refills on all his medications and he would not need any scripts. Functional Status: Reports: Tolerating Diet, Ambulating, Urinating - Review of Systems Neurological: Denies: Dizziness, Gait Disturbance - Patient Data Vitals - Most Recent: Last Vital Signs Temp 97.7 F 11/04/19 04:00 Pulse 60 11/04/19 04:00 Resp 16 11/04/19 04:00 BP 85/50 L 11/04/19 04:00 Pulse Ox 95 11/04/19 04:00 Weight - Most Recent: 145 lb 1.6 oz I&O - Last 24 hours: Intake & Output 11/03/19 11/04/19 11/04/19 22:59 06:59 14:59 Intake Total 1000 1315 100 Output Total 650 850 150 Balance 350 465 -50 Lab Results - Last 24 hrs: Laboratory Results - last 24 hr 11/03/19 11/03/19 11/03/19 Range/Units 06:05 09:46 14:03 Sodium (135-145) mmol/L Potassium (3.5-5.3) mmol/L Chloride (100-110) mmol/L Carbon Dioxide (21-32) mmol/L BUN (7-18) mg/dL Creatinine (0.70-1.30) mg/dL Est Cr Clr Drug Dosing mL/min Estimated GFR (MDRD) (>60) BUN/Creatinine Ratio (9-20) Glucose (80-116) mg/dL POC Glucose 190 H 313 H D 184 H D (80-116) mg/dL Calcium (8.6-10.2) mg/dL 11/03/19 11/03/19 11/04/19 Range/Units 17:18 22:04 01:59 Sodium (135-145) mmol/L Potassium (3.5-5.3) mmol/L Chloride (100-110) mmol/L Carbon Dioxide (21-32) mmol/L BUN (7-18) mg/dL Creatinine (0.70-1.30) mg/dL Est Cr Clr Drug Dosing mL/min Estimated GFR (MDRD) (>60) BUN/Creatinine Ratio (9-20) Glucose (80-116) mg/dL POC Glucose 246 H 229 H 250 H (80-116) mg/dL Calcium (8.6-10.2) mg/dL 11/04/19 11/04/19 Range/Units 06:03 07:40 Sodium 133 L (135-145) mmol/L Potassium 4.1 (3.5-5.3) mmol/L Chloride 99 L (100-110) mmol/L Carbon Dioxide 29 (21-32) mmol/L BUN 10 (7-18) mg/dL Creatinine 1.1 (0.70-1.30) mg/dL Est Cr Clr Drug Dosing 64.82 mL/min Estimated GFR (MDRD) > 60 (>60) BUN/Creatinine Ratio 9.1 (9-20) Glucose 244 H (80-116) mg/dL POC Glucose 171 H (80-116) mg/dL Calcium 7.8 L (8.6-10.2) mg/dL Med Orders - Current: Current Medications Sodium Chloride (Normal Saline) 1,000 mls @ 125 mls/hr IV ASDIRECTED [facility] Last Admin: 11/04/19 05:02 Dose: 125 mls/hr Documented by: Insulin Glargine (Lantus Solostar) 48 units SUBCUT BEDTIME [facility] Insulin Human Lispro (Humalog) 0 unit SUBCUT Q4H [facility]; Protocol Last Admin: 11/04/19 06:05 Dose: 3 unit Documented by: Metformin HCl (Glucophage) 850 mg PO BIDMEALS [facility] Simvastatin (Zocor) 20 mg PO DAILY [facility] Discontinued Medications Sodium Chloride (Normal Saline) 1,000 mls @ 999 mls/hr IV .BOLUS ONE Stop: 11/02/19 17:54 Last Admin: 11/02/19 17:55 Dose: 999 mls/hr Documented by: Sodium Chloride (Normal Saline) 1,000 mls @ 999 mls/hr IV .BOLUS ONE Stop: 11/02/19 17:54 Last Admin: 11/02/19 18:55 Dose: 999 mls/hr Documented by: Insulin Human Lispro (Humalog) 0 unit SUBCUT Q4H [facility]; Protocol Last Admin: 11/03/19 17:35 Dose: Not Given Documented by: Insulin Human Regular (Humulin R) 10 unit IV ONETIME ONE Stop: 11/02/19 17:29 Last Admin: 11/02/19 17:55 Dose: 0.1 units Documented by: - Exam General: Reports: Alert, Oriented, Cooperative, No Acute Distress Lungs: Reports: Clear to Auscultation, Normal Respiratory Effort Cardiovascular: Reports: Regular Rate, Regular Rhythm GI/Abdominal Exam: Normal Bowel Sounds, Soft, Non-Tender, No Distention Extremities: No Pedal Edema
[2019-11-04 09:50] VITALS: BP 88/51; PULSE 57
[2019-11-04] MEDS ORDERED: Insulin Glargine,Human Rec. Analog 100 Units/ML 3 ML Pen SUBCUT SCH (21:00)
== END 2019-11-04 09:35 | disposition home or self-care (01) | DRG 638 ==
LOC: FB.ED 16:35 → FB.MS 20:10
PROVIDERS: ADMIT Family Medicine; ATTEND Family Medicine
DX: E11.10 Type 2 diabetes mellitus with ketoacidosis without coma (principal); N17.9 Acute kidney failure, unspecified; E86.0 Dehydration; K21.9 Gastro-esophageal reflux disease without esophagitis; K59.09 Other constipation; E11.42 Type 2 diabetes mellitus with diabetic polyneuropathy; F17.200 Nicotine dependence, unspecified, uncomplicated; Z91.14 Patient's other noncompliance with medication regimen; Z79.4 Long term (current) use of insulin
CPT/HCPCS: 36415; 80048; 80053; 81001; 82803; 82962; 83605; 83735; 84100; 85025; 86140; 96360; 99284; 99285-25; A9270-GY; J1815; J1815-GY; J7030